=== PATIENT | female | born 1950 | race Caucasian/White ===

== ENCOUNTER 2017-08-06 03:57 | Inpatient (IN) | payer MEDICARE, OTHER ==
[2017-08-06] VITALS (25 sets, daily range): BP systolic 87–144; BP diastolic 51–88
[~2017-08-06] VITALS: Ht 162.6 cm; Wt 62.4 kg
[2017-08-06 04:49] LABS: BASOPHILS % (AUTO) 0 % (0-10); EOSINOPHILS % (AUTO) 0 % (0-10); LYMPHOCYTES # (AUTO) 0.5 X 10^3 (1.0-4.0); LYMPHOCYTES % (AUTO) 4 % (12-44); MEAN CORPUSCULAR HEMOGLOBIN 30 PG (25-34); MEAN CORPUSCULAR HGB CONC 33 G/DL (32-36); MEAN CORPUSCULAR VOLUME 90 FL (80-99); MEAN PLATELET VOLUME 10.7 FL (7.4-10.4); MONOCYTES # (AUTO) 0.8 X 10^3 (0.0-1.0); MONOCYTES % (AUTO) 6 % (0-12); NEUTROPHILS # (AUTO) 12.1 X 10^3 (1.8-7.8); NEUTROPHILS % (AUTO) 90 % (42-75); PLATELET COUNT 246 10^3/uL (130-400); RED BLOOD COUNT 4.59 10^6/uL (4.35-5.85); WHITE BLOOD COUNT 13.4 10^3/uL (4.3-11.0)
[2017-08-06] MEDS ORDERED: IBUPROFEN 800 MG (MOTRIN) TAB PO ONE ×2 (05:00→05:15)
[2017-08-06] MEDS ORDERED: RT-ALBUTEROL/IPRATROPIUM 3 ML (DUONEB) VIAL INH PRN (05:15)
[2017-08-06 05:25] LABS: ANION GAP 12 MMOL/L (5-14); BLOOD UREA NITROGEN 10 MG/DL (7-18); BUN/CREATININE RATIO 14; CALCIUM 9.2 MG/DL (8.5-10.1); CARBON DIOXIDE 23 MMOL/L (21-32); CHLORIDE 101 MMOL/L (98-107); CREATININE SERUM 0.69 MG/DL (0.60-1.30); GFR ESTIMATED > 60; GLUCOSE 107 MG/DL (70-105); MAGNESIUM 1.5 MG/DL (1.8-2.4); PHOSPHORUS 1.9 MG/DL (2.3-4.7); POTASSIUM 3.4 MMOL/L (3.6-5.0); SODIUM 136 MMOL/L (135-145)
[2017-08-06] MEDS: KCL 20 MEQ TAB (K-DUR) PO SCH (05:31)
[2017-08-06] MEDS: MAGNESIUM 1 GM/100 ML IVPB 100 ML IV SCH ×2 (05:31→08:05)
[2017-08-06] MEDS: POTASSIUM CL 10MEQ/50ML IVPB 50 ML IV SCH ×7 (05:31→13:42)
[2017-08-06] MEDS: RT-ALBUTEROL/IPRATROPIUM 3 ML (DUONEB) VIAL INH SCH ×5 (06:00→22:32)
[2017-08-06 06:18] LABS: ABG BASE EXCESS 1.4 MMOL/L (-2.5-2.5); ABG HCO3 25 MMOL/L (23-27); ABG OXYGEN SATURATION 95 % (94-100); ABG PCO2 33 MMHG (35-45); ABG PH 7.48 (7.37-7.43); ABG PO2 60 MMHG (79-93); ABG TCO2 25.7 MMOL/L (21.0-31.0)
[2017-08-06 06:19] LABS: ALLENS TEST YES-POS; PATIENT TEMP 98.1
--- NOTE | 2017-08-06 06:42 | Pulmonary Consultation ---
History of Present Illness History of Present Illness Date of Consultation 08/06/17 06:36 Time Seen by Provider: 06:37 Date of Admission History of Present Illness 67yo with hx of COPD transferred here from [facility] secondary to severe COPDAE and acute respiratory failure. Pt has been requiring BiPAP through the night. Allergies and Home Medications Allergies Coded Allergies: No Known Drug Allergies (Unverified , 08/06/17) Past Lpxpswt-Ueoblz-Eejawx Hx Patient Social History Alcohol Use: Occasionally Uses Alcohol Beverage of Choice: Beer Recreational Drug Use: No Smoking Status: Current Everyday Smoker Type Used: Cigarettes Recent Foreign Travel: No Contact w/Someone Who Travel: No Recent Infectious Disease Expo: No Recent Hopitalizations: No Seasonal Allergies Seasonal Allergies: No Surgeries History of Surgeries: No Respiratory History of Respiratory Disorde: Yes Respiratory Disorders: COPD Currently Using CPAP: No Currently Using BIPAP: No Cardiovascular History of Cardiac Disorders: No Neurological History of Neurological Disord: No Reproductive System Sexually Transmitted Disease: No HIV/AIDS: No Genitourinary History of Genitourinary Disor: No Gastrointestinal History of Gastrointestinal Di: No Musculoskeletal History of Musculoskeletal Dis: No Endocrine History of Endocrine Disorders: No HEENT History of HEENT Disorders: No Cancer History of Cancer: No Psychosocial History of Psychiatric Problem: No Integumentary History of Skin or Integumenta: No Blood Transfusions History of Blood Disorders: No Adverse Reaction to a Blood Tr: No Review of Systems Time Seen by Provider: 06:54 Constitutional: Sweats, Weakness, Malaise, No: Fever, Chills, Other Respiratory: Cough, Shortness of breath, SOB with excertion, Wheezing, Sputum Neurological: Weakness, Confusion Exam Exam Vital Signs Date Time Temp Pulse Resp B/P (MAP) Pulse Ox O2 Delivery O2 Flow Rate FiO2 08/06/17 06:12 109 26 92 08/06/17 06:00 119 26 109/78 (88) 93 NIV Bilevel 21.00 08/06/17 05:00 114 23 89 NIV Bilevel 21.00 08/06/17 04:45 107 30 128/72 (90) 91 NIV Bilevel 21.00 08/06/17 04:30 112 33 133/85 (101) 91 NIV Bilevel 21.00 08/06/17 04:15 124 41 129/83 (98) 92 NIV Bilevel 21.00 08/06/17 04:06 114 35 92 21.00 08/06/17 04:06 114 97 21 08/06/17 04:00 98.8 109 30 139/88 (105) 97 NIV Bilevel 21.00 08/06/17 04:00 97 NIV Bilevel 21 General Appearance: Anxious, Moderate Distress, Thin Neck: Normal Inspection, Non Tender, Supple Respiratory: Accessory Muscle Use, Decreased Breath Sounds, Respiratory Distress, Wheezing Cardiovascular: No Edema, No JVD, No Murmur, Tachycardia Capillary Refill: Less Than 3 Seconds Gastrointestinal: non tender, soft, no organomegaly, no pulsatile mass Extremity: Normal Capillary Refill, Normal Inspection, Non Tender Neurologic/Psychiatric: Alert Skin: Normal Color, Warm/Dry Lymphatic: No Adenopathy Results Lab Laboratory Tests 08/06/17 04:30 Assessment/Plan Assessment/Plan COPDAE - Failed out patient tx with steroids and zpack -Solumedrol IV Q6 40mg -SVNs Q4 Acute respiratory failure Leukocytosis -probably secondary to outpatient steroids r/o infection - -Check LA -Add Zosyn and joy culture -Check influenza swab Tobacco dependance -Education Sinus tach and hypotension secondary to dehydration -500cc NS bolus -IVF 150cc/hr Hypokalemia, hypomag -replace 255 Clinical Quality Measures DVT/VTE Risk/Contraindication: Risk Factor Score Per Nursin RFS Level Per Nursing on Admit: 3=High BAILEY SOTOMAYOR DO Aug 06, 2017 06:41
[2017-08-06] MEDS ORDERED: NS IV 500 ML 500 ML IV SCH (06:44)
[2017-08-06] MEDS ORDERED: KCL 20 MEQ TAB (K-DUR) PO NR (06:49)
[2017-08-06] MEDS ORDERED: INFLUENZA TRIvalent 2017-2018 0.5 ML/45 MCG SYR IM ONE (07:30)
[2017-08-06] MEDS: NS IV 1000 ML 1,000 ML IV SCH ×3 (07:33→21:39)
[2017-08-06] MEDS: methylPREDNISolone 40 MG/ML (Solu-MEDROL) VIAL IV SCH ×3 (07:35→17:41)
--- NOTE | 2017-08-06 08:07 | Diagnostic Imaging Report ---
Upright portable radiograph of the chest. INDICATION: Dyspnea. FINDINGS: The lungs appear hyperinflated but clear. The heart size is normal. No effusion or pneumothorax. The mediastinum and yair appear unremarkable. There is central silhouette in the breast area bilaterally, may relate to breast implants. IMPRESSION: Hyperinflated clear lungs. Dictated by: Dictated on workstation # [id number]
[2017-08-06 08:14] LABS: BILIRUBIN,URINE NEGATIVE (NEGATIVE); KETONES,URINE NEGATIVE (NEGATIVE); LEUKOCYTE ESTERASE ,URINE NEGATIVE (NEGATIVE); NITRITE,URINE NEGATIVE (NEGATIVE); PH,URINE 6 (5-9); PROTEIN,URINE NEGATIVE (NEGATIVE); UROBILINOGEN,URINE NORMAL (NORMAL)
[2017-08-06] MEDS: PIPERACILLIN SODIUM/TAZOBACTAM 4.5 GM in NS (IVPB) 100 ML IV SCH ×2 (08:24→15:56)
[2017-08-06] MEDS ORDERED: MONT10TA24 PO (09:07)
[2017-08-06] MEDS ORDERED: FLUT1DIS26 INH (09:07)
[2017-08-06] MEDS ORDERED: AZIT250T12 PO (09:07)
[2017-08-06] MEDS ORDERED: RT-ALBUINH INH (09:07)
[2017-08-06] MEDS ORDERED: PRD20T PO (09:07)
[2017-08-06] MEDS ORDERED: ALBU2.5V4 NEB (09:07)
[2017-08-06] MEDS ORDERED: IBUPROFEN 600 MG (MOTRIN) TAB PO PRN (11:00)
--- NOTE | 2017-08-06 11:45 | History & Physical-Hospitalist ---
HPI History of Present Illness: HPI/Chief Complaint CC: SOB HPI: This is a 67 [address] pt [address] Butterfield that was recently seen in [place] ER for AECOPD 2 days ago and continues to smoke. Pt went to ER again last night with hypoxemia at 60 requiring Bi-PAP and transfer to [facility]. Pt has tolerated biPAP well. 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 Villeda was suggested. Patient Interview: Pt states the fluids are working and she has to urinate Pt confirms Dr. Butterfield as PCP Physical exam stable. Scribed by Natividad Aparicio under direct supervision of Dr. Guillermina Rosenberg. Source: patient Exam Limitations: clinical condition (dyspneic) Date Seen 08/06/17 Time Seen by Provider: 10:45 Attending Physician Guillermina Rosenberg DO PCP Cain Butterfield MD Referring Physician Date of Admission Aug 06, 2017 at 04:05 Home Medications & Allergies Home Medications Reviewed patient Home Medication Reconciliation Form Allergies Allergies Coded Allergies No Known Drug Allergies (Vpsftqmskv99/1/17) Past Jvnqpzb-Leptir-Szvilv Hx Patient Social History Alcohol Use: Occasionally Uses Alcohol Beverage of Choice: Beer Recreational Drug Use: No Smoking Status: Current Everyday Smoker Type Used: Cigarettes Physical Abuse Screen: No Sexual Abuse: No Recent Foreign Travel: No Contact w/other who traveled: No Recent Hopitalizations: No Recent Infectious Disease Expo: No Seasonal Allergies Seasonal Allergies: No Surgeries No Respiratory Yes COPD Currently Using CPAP: No Currently Using BIPAP: No Cardiovascular No Neurological No Reproductive System Sexually Transmitted Disease: No HIV/AIDS: No Genitourinary No Gastrointestinal No Musculoskeletal No Endocrine History of Endocrine Disorders: No HEENT History of HEENT Disorders: No Cancer No Psychosocial History of Psychiatric Problem: No Integumentary History of Skin or Integumenta: No Blood Transfusions History of Blood Disorders: No Adverse Reaction to a Blood Tr: No Review of Systems ROS-Unable to Obtain: unable to ascertain due to severe dyspnea off biPAP Constitutional: see HPI Physical Exam Physical Exam Vital Signs Vital Sign - Last 12Hours 08/06/17 04:00 Temp 98.8 Pulse 109 Resp 30 B/P (MAP) 139/88 (105) Pulse Ox 97 O2 Delivery NIV Bilevel O2 Flow Rate 21.00 FiO2 21 Capillary Refill : Less Than 3 Seconds General Appearance: WD/WN, Mild Distress (due to dyspnea) Eyes: Bilateral Eye Normal Inspection, Bilateral Eye PERRL HEENT: PERRL/EOMI, Normal ENT Inspection, Pharynx Normal Neck: Full Range of Motion, Normal Inspection, Non Tender, Supple, Carotid Bruit Respiratory: Chest Non Tender, Accessory Muscle Use, Crackles, Decreased Breath Sounds, Respiratory Distress, Wheezing Cardiovascular: Regular Rate, Rhythm, No Edema, No Gallop, No JVD, No Murmur, Normal Peripheral Pulses, Tachycardia Gastrointestinal: Normal Bowel Sounds, No Organomegaly, No Pulsatile Mass, Non Tender, Soft Back: Normal Inspection, No CVA Tenderness, No Vertebral Tenderness Extremity: Normal Capillary Refill, Normal Inspection, Normal Range of Motion, Non Tender, No Calf Tenderness, No Pedal Edema Neurologic/Psychiatric: Alert, Oriented x3, No Motor/Sensory Deficits, Normal Mood/Affect Skin: Normal Color, Warm/Dry Lymphatic: No Adenopathy Results Results/Procedures Lab Laboratory Tests 08/06/17 04:30 Assessment/Plan Admission Diagnosis Assessment: Acute respiratory failure requiring noninvasive ventilation with hypoxemia 60 at outside hospital in [place] Current smoker Failed COPD exacerbation treatment at home from 3 days ago Leukocytosis Assessment and Plan Plan: Villeda if needed ICU for biPAP Ventilator if declines on biPAP Home meds Smoking cessation Diagnosis/Problems Diagnosis/Problems (1) Respiratory failure, acute Status: Acute Qualifiers: Qualified Codes: J96.01 - Acute respiratory failure with hypoxia (2) COPD (chronic obstructive pulmonary disease) Status: Chronic Qualifiers: Qualified Codes: J44.1 - Chronic obstructive pulmonary disease with (acute) exacerbation (3) Smoker Status: Chronic Clinical Quality Measures DVT/VTE Risk/Contraindication: Risk Factor Score Per Nursin RFS Level Per Nursing on Admit: 3=High GUILLERMINA ROSENBERG DO Aug 06, 2017 11:45
[2017-08-06] MEDS: IBUPROFEN 600 MG (MOTRIN) TAB PO SCH ×2 (12:45→17:41)
[2017-08-06] MEDS: morphine INJ 4 MG/ML 1 ML (VIAL/SYRINGE) IVP PRN ×2 (14:35→20:17)
[2017-08-06] MEDS: RT-ADVAIR HFA 115/21 MCG PER PUFF IH SCH (19:00)
[2017-08-06] MEDS: MONTELUKAST 10 MG (SINGULAIR) TAB PO SCH (19:45)
[2017-08-07] VITALS (18 sets, daily range): BP systolic 86–163; BP diastolic 50–98
[2017-08-07] MEDS: IBUPROFEN 600 MG (MOTRIN) TAB PO SCH ×5 (00:27→23:36)
[2017-08-07] MEDS: PIPERACILLIN SODIUM/TAZOBACTAM 4.5 GM in NS (IVPB) 100 ML IV SCH ×4 (00:35→21:51)
[2017-08-07] MEDS: methylPREDNISolone 40 MG/ML (Solu-MEDROL) VIAL IV SCH ×5 (00:39→23:35)
[2017-08-07] MEDS: NS IV 1000 ML 1,000 ML IV SCH ×3 (02:45→11:10)
[2017-08-07] MEDS: RT-ALBUTEROL/IPRATROPIUM 3 ML (DUONEB) VIAL INH SCH ×6 (03:05→22:00)
[2017-08-07 04:26] LABS: BASOPHILS % (AUTO) 0 % (0-10); EOSINOPHILS % (AUTO) 0 % (0-10); LYMPHOCYTES # (AUTO) 0.8 X 10^3 (1.0-4.0); LYMPHOCYTES % (AUTO) 11 % (12-44); MEAN CORPUSCULAR HEMOGLOBIN 30 PG (25-34); MEAN CORPUSCULAR HGB CONC 33 G/DL (32-36); MEAN CORPUSCULAR VOLUME 91 FL (80-99); MEAN PLATELET VOLUME 10.8 FL (7.4-10.4); MONOCYTES # (AUTO) 0.6 X 10^3 (0.0-1.0); MONOCYTES % (AUTO) 8 % (0-12); NEUTROPHILS % (AUTO) 82 % (42-75); PLATELET COUNT 223 10^3/uL (130-400); RED BLOOD COUNT 3.93 10^6/uL (4.35-5.85); RED CELL DISTRIBUTION WIDTH 14.5 % (10.0-14.5); WHITE BLOOD COUNT 7.4 10^3/uL (4.3-11.0)
[2017-08-07 04:48] LABS: ANION GAP 8 MMOL/L (5-14); BLOOD UREA NITROGEN 10 MG/DL (7-18); BUN/CREATININE RATIO 16; CALCIUM 8.2 MG/DL (8.5-10.1); CARBON DIOXIDE 21 MMOL/L (21-32); CHLORIDE 111 MMOL/L (98-107); CREATININE SERUM 0.64 MG/DL (0.60-1.30); GFR ESTIMATED > 60; GLUCOSE 129 MG/DL (70-105); MAGNESIUM 1.8 MG/DL (1.8-2.4); PHOSPHORUS 2.7 MG/DL (2.3-4.7); SODIUM 140 MMOL/L (135-145)
[2017-08-07] MEDS: KCL 20 MEQ TAB (K-DUR) PO SCH (05:19)
[2017-08-07] MEDS: MAGNESIUM 1 GM/100 ML IVPB 100 ML IV SCH (05:19)
[2017-08-07] MEDS: POTASSIUM CL 10MEQ/50ML IVPB 50 ML IV SCH (05:19)
[2017-08-07] MEDS: RT-ADVAIR HFA 115/21 MCG PER PUFF IH SCH ×2 (06:52→18:41)
--- NOTE | 2017-08-07 09:07 | Diagnostic Imaging Report ---
INDICATION: Shortness of breath. COMPARISON: 08/06/2017. FINDINGS: Single view of the chest demonstrates hyperinflation compatible with COPD. Lungs remain clear. There is no pneumothorax or obvious infiltrate. The heart is normal. No pulmonary edema. IMPRESSION: COPD without infiltrate. Dictated by: Dictated on workstation # [id number]
--- NOTE | 2017-08-07 13:12 | Progress Note-Hospitalist ---
Progress Note HPI/CC on Admission CC: SOB HPI: This is a 67 [address]WF pt of [address] Butterfield that was recently seen in [place] ER for AECOPD 2 days ago and continues to smoke. Pt went to ER again last night with hypoxemia at 60 requiring Bi-PAP and transfer to [facility]. Pt has tolerated biPAP well. 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 Villeda was suggested. Patient Interview: Pt states the fluids are working and she has to urinate Pt confirms Dr. Butterfield as PCP Physical exam stable. Scribed by Natividad Aparicio under direct supervision of Dr. Guillermina Rosenberg. Progress Notes/Assess & Plan Date Seen 08/07/17 Time Seen by Provider: 12:00 Admission Dx/Process Assessment: Acute respiratory failure requiring noninvasive ventilation with hypoxemia 60 at outside hospital in [place] Current smoker Failed COPD exacerbation treatment at home from 3 days ago Leukocytosis Diagonsis/Assessment & Plan Patient thinks she is not doing well but nurse thinks she is doing better as I also thinks she is doing better. Severity of the COPD is profound and will need home O2 and absolute smoking cessation but unclear if she will be able to do that Wbc is nl today Moving to floor but biPAP at night Increased dyspnea with exertion AFVSS, pleasant, chronically ill, improved, on 2L/min NC RRR, diminished BS all alvarez no wheezing noted No edema Laboratory Tests 08/07/17 04:12 Assessment: Acute respiratory failure requiring noninvasive ventilation with hypoxemia 58 at outside hospital in [place] now improved and maintained on O2 BNC but still requires biPAP at night and likely will need home O2 Current smoker Failed COPD exacerbation treatment at home from 3 days ago Leukocytosis resolved Plan: Home meds Smoking cessation IV steroids Move to floor Very severe COPD Diagnosis/Problems Diagnosis/Problems (1) Respiratory failure, acute Status: Acute Qualifiers: Qualified Codes: J96.01 - Acute respiratory failure with hypoxia (2) COPD (chronic obstructive pulmonary disease) Status: Chronic Qualifiers: Qualified Codes: J44.1 - Chronic obstructive pulmonary disease with (acute) exacerbation (3) Smoker Status: Chronic GUILLERMINA ROSENBERG DO Aug 07, 2017 13:12
[2017-08-07] MEDS: morphine INJ 4 MG/ML 1 ML (VIAL/SYRINGE) IVP PRN ×2 (19:34→23:36)
[2017-08-07] MEDS: MONTELUKAST 10 MG (SINGULAIR) TAB PO SCH (21:16)
[2017-08-07] MEDS: ALPRAZolam 0.25 MG (XANAX) TAB PO PRN (21:51)
[2017-08-08] VITALS: BP 132/62
[2017-08-08] MEDS: RT-ALBUTEROL/IPRATROPIUM 3 ML (DUONEB) VIAL INH SCH ×6 (02:18→22:44)
[2017-08-08] MEDS: ALPRAZolam 0.25 MG (XANAX) TAB PO PRN ×3 (02:27→21:44)
[2017-08-08 04:00] VITALS: BP 131/72
[2017-08-08 05:05] LABS: BASOPHILS % (AUTO) 0 % (0-10); EOSINOPHILS % (AUTO) 0 % (0-10); LYMPHOCYTES # (AUTO) 1.1 X 10^3 (1.0-4.0); LYMPHOCYTES % (AUTO) 13 % (12-44); MEAN CORPUSCULAR HEMOGLOBIN 30 PG (25-34); MEAN CORPUSCULAR HGB CONC 32 G/DL (32-36); MEAN CORPUSCULAR VOLUME 93 FL (80-99); MEAN PLATELET VOLUME 10.8 FL (7.4-10.4); MONOCYTES # (AUTO) 0.6 X 10^3 (0.0-1.0); MONOCYTES % (AUTO) 7 % (0-12); NEUTROPHILS # (AUTO) 6.7 X 10^3 (1.8-7.8); NEUTROPHILS % (AUTO) 81 % (42-75); PLATELET COUNT 224 10^3/uL (130-400); RED BLOOD COUNT 3.66 10^6/uL (4.35-5.85); RED CELL DISTRIBUTION WIDTH 14.7 % (10.0-14.5); WHITE BLOOD COUNT 8.4 10^3/uL (4.3-11.0)
[2017-08-08 05:28] LABS: ALANINE AMINOTRANSFERASE 39 U/L (0-55); ALBUMIN 3.1 GM/DL (3.2-4.5); ANION GAP 9 MMOL/L (5-14); ASPARTATE AMINO TRANSFERASE 33 U/L (5-34); BILIRUBIN,TOTAL 0.5 MG/DL (0.1-1.0); BLOOD UREA NITROGEN 14 MG/DL (7-18); BUN/CREATININE RATIO 21; CALCIUM 8.3 MG/DL (8.5-10.1); CARBON DIOXIDE 24 MMOL/L (21-32); CHLORIDE 108 MMOL/L (98-107); CREATININE SERUM 0.66 MG/DL (0.60-1.30); GFR ESTIMATED > 60; GLUCOSE 124 MG/DL (70-105); POTASSIUM 3.9 MMOL/L (3.6-5.0); SODIUM 141 MMOL/L (135-145); TOTAL PROTEIN 5.6 GM/DL (6.4-8.2)
[2017-08-08] MEDS: PIPERACILLIN SODIUM/TAZOBACTAM 4.5 GM in NS (IVPB) 100 ML IV SCH ×3 (05:49→21:44)
[2017-08-08] MEDS: IBUPROFEN 600 MG (MOTRIN) TAB PO SCH ×4 (05:49→23:46)
[2017-08-08] MEDS: methylPREDNISolone 40 MG/ML (Solu-MEDROL) VIAL IV SCH ×4 (05:50→23:46)
[2017-08-08] MEDS: RT-ADVAIR HFA 115/21 MCG PER PUFF IH SCH ×2 (07:01→18:55)
--- NOTE | 2017-08-08 11:31 | Progress Note-Hospitalist ---
Progress Note HPI/CC on Admission CC: SOB HPI: This is a 67 yoWF pt of Dr. Butterfield that was recently seen in [place] ER for AECOPD 2 days ago and continues to smoke. Pt went to ER again last night with hypoxemia at 60 requiring Bi-PAP and transfer to [facility]. Pt has tolerated biPAP well. 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 Villeda was suggested. Patient Interview: Pt states the fluids are working and she has to urinate Pt confirms Dr. Butterfield as PCP Physical exam stable. Scribed by Natividad Aparicio under direct supervision of Dr. Guillermina Rosenberg. Progress Notes/Assess & Plan Date Seen 08/08/17 Time Seen by Provider: 11:00 Admission Dx/Process Assessment: Acute respiratory failure requiring noninvasive ventilation with hypoxemia 60 at outside hospital in [place] Current smoker Failed COPD exacerbation treatment at home from 3 days ago Leukocytosis Diagonsis/Assessment & Plan Pt doing much better but barely she states biPAP makes her nervous so I gave her Xanax and that helped Needs Home O2 Smoking cessation will be required Severe COPD AFVSS, pleasant, chronically ill, improved, on 2L/min NC sitting in chair and family at bedside RRR, diminished BS all alvarez no wheezing noted but better air movement No edema Assessment: Acute respiratory failure requiring noninvasive ventilation with hypoxemia 60 at outside hospital in [place] now improved and maintained on O2 BNC but still requires biPAP at night and likely will need home O2 Current smoker Failed COPD exacerbation treatment at home from 5 days ago Leukocytosis resolved Plan: Home meds Smoking cessation IV steroids Move to floor Very severe COPD Diagnosis/Problems Diagnosis/Problems (1) Respiratory failure, acute Status: Acute Qualifiers: Qualified Codes: J96.01 - Acute respiratory failure with hypoxia (2) COPD (chronic obstructive pulmonary disease) Status: Chronic Qualifiers: Qualified Codes: J44.1 - Chronic obstructive pulmonary disease with (acute) exacerbation (3) Smoker Status: Chronic GUILLERMINA ROSENBERG DO Aug 08, 2017 11:31
[2017-08-08 12:00] VITALS: BP 135/67
[2017-08-08] MEDS ORDERED: INFLUENZA TRIvalent 2017-2018 0.5 ML/45 MCG SYR IM ONE (14:03)
[2017-08-08 15:40] VITALS: BP 140/73
[2017-08-08 19:18] VITALS: BP 148/72
[2017-08-08] MEDS: morphine INJ 4 MG/ML 1 ML (VIAL/SYRINGE) IVP PRN (19:36)
[2017-08-08] MEDS: MONTELUKAST 10 MG (SINGULAIR) TAB PO SCH (21:44)
[2017-08-09 00:41] VITALS: BP 142/78
[2017-08-09] MEDS: ALPRAZolam 0.25 MG (XANAX) TAB PO PRN (01:43)
[2017-08-09] MEDS: RT-ALBUTEROL/IPRATROPIUM 3 ML (DUONEB) VIAL INH SCH ×3 (03:06→11:27)
[2017-08-09] MEDS: PIPERACILLIN SODIUM/TAZOBACTAM 4.5 GM in NS (IVPB) 100 ML IV SCH (06:16)
[2017-08-09] MEDS: methylPREDNISolone 40 MG/ML (Solu-MEDROL) VIAL IV SCH ×2 (06:16→14:57)
[2017-08-09] MEDS: IBUPROFEN 600 MG (MOTRIN) TAB PO SCH (06:16)
[2017-08-09] MEDS: RT-ADVAIR HFA 115/21 MCG PER PUFF IH SCH (07:50)
[2017-08-09] MEDS ORDERED: PRED10TA22 PO (11:23)
[2017-08-09] MEDS ORDERED: CEFD300C3 PO (11:23)
[2017-08-09] MEDS ORDERED: RT-ALBUINH IH (11:23)
[2017-08-09] MEDS ORDERED: ALBU2.5V4 NEB (11:23)
[2017-08-09 12:09] VITALS: BP 154/74
[2017-08-09 14:15] VITALS: BP 154/74
--- NOTE | 2017-08-09 16:50 | Discharge Summary-Hospitalist ---
Diagnosis/Chief Complaint Date of Admission Aug 06, 2017 at 04:05 Date of Discharge Aug 09, 2017 at 14:15 Discharge Date: Aug 09, 2017 Admission Diagnosis Assessment: Acute respiratory failure requiring noninvasive ventilation with hypoxia 60 at outside hospital in [place] Current smoker Failed COPD exacerbation treatment at home from 3 days ago Leukocytosis Discharge Diagnosis COPD exacerbation (1) Respiratory failure, acute Status: Acute (2) COPD (chronic obstructive pulmonary disease) Status: Chronic (3) Smoker Status: Chronic Discharge Summary Consultations Pulm: Dr Celeste Discharge Physical Examination Allergies: Coded Allergies: No Known Drug Allergies (Unverified , 08/06/17) Vitals & I&Os Vital Signs Date Time Temp Pulse Resp B/P (MAP) Pulse Ox O2 Delivery O2 Flow Rate FiO2 08/09/17 14:15 88 18 154/74 95 Nasal Cannula 2.00 08/09/17 12:09 97.1 08/07/17 00:00 21 General Appearance: Alert, Oriented X3 Respiratory: Clear to Auscultation Cardiovascular: Regular Rate Neuro: Normal Speech Psych/Mental Status: Mental Status NL Hospital Course Pt admitted from outside facility to ICU for acute respiratory failure due to COPD exacerbation. She responded well to IV steroids and inhalers. She reports that she was out of her medications as her previous PCP is no longer practicing and thus has not been compliant with her medicines as she has not been able to get refills. She was discharged home with refills of her current medicines, a prednisone taper, and to complete her antibiotic course as an outpatient. Labs (last 24 hrs) Microbiology 08/06/17 Blood Culture - Preliminary, Resulted No growth 08/06/17 Influenza Types A,B Antigen (KRISTINA) - Final, Complete Discharge Home Medications: Active Scripts Active Ventolin Hfa (Albuterol Sulfate) 1 Puff Puff 2 Puff IH Q4H 30 Days 1 PUFF = 90 MCG Cefdinir 300 Mg Capsule 300 Mg PO BID 5 Days Prednisone 10 Mg Tab.ds.pk 10 Mg PO DAILY Take 6 tabs(60mg)daily,decrease by 1 tab(10mg)every other day. Albuterol Sulfate 2.5 Mg/3 Ml Vial.neb 2.5 Mg NEB Q4H PRN Reported Montelukast Sodium 10 Mg Tablet 10 Mg PO HS Advair 250-50 Diskus (Fluticasone/Salmeterol) 1 Each Blst.w.dev 1 Puff INH DAILY Instructions to patient/family Please see electronic discharge instructions given to patient. Clinical Quality Measures DVT/VTE Risk/Contraindication: Risk Factor Score Per Nursin RFS Level Per Nursing on Admit: 3=High Copy Copies To 1: STANISLAV SUERO MD Problem Qualifiers (1) Respiratory failure, acute: Respiratory failure complication: hypoxia Qualified Codes: J96.01 - Acute respiratory failure with hypoxia (2) COPD (chronic obstructive pulmonary disease): COPD type: COPD with acute exacerbation Qualified Codes: J44.1 - Chronic obstructive pulmonary disease with (acute) exacerbation NATHANIEL DOLL MD Aug 09, 2017 16:50
== END 2017-08-09 14:15 | disposition home or self-care (01) | DRG 189 ==
LOC: ICU 04:05 → 4TH 08-07 15:35
PROVIDERS: ADMIT Internal Medicine; ATTEND Internal Medicine
DX: J96.01 Acute respiratory failure with hypoxia (principal); J44.1 Chronic obstructive pulmonary disease with (acute) exacerbation; F17.210 Nicotine dependence, cigarettes, uncomplicated; E86.0 Dehydration; E87.6 Hypokalemia; E83.42 Hypomagnesemia; D72.829 Elevated white blood cell count, unspecified; T38.0X5A Adverse effect of glucocorticoids and synthetic analogues, initial encounter; Z23 Encounter for immunization
CPT/HCPCS: 36415; 71010; 80048; 80053; 81000; 82805; 83605; 83735; 83880; 84100; 85025; 87040; 87070; 87077; 87081; 87205; 87804; 94640; 94660; 94664; 94760; 94761

== ENCOUNTER → 2017-09-24 | Outpatient (CLI) | payer MEDICARE, OTHER ==
[~2017-09-24] MED LIST: ALBU2.5V4 NEB; AZIT250T12 PO; CEFD300C3 PO; FLUT1DIS26 INH; MONT10TA24 PO; PRD20T PO; PRED10TA22 PO; RT-ALBUINH IH; RT-ALBUINH INH; RT-ALBUTEROL SULF 2.5 MG/3 ML PRE-MIX VIAL INH ONE
== END ==
LOC: RT 09:37
PROVIDERS: ATTEND Nurse Practitioner Family
DX: J44.9 Chronic obstructive pulmonary disease, unspecified (principal); J96.90 Respiratory failure, unspecified, unspecified whether with hypoxia or hypercapnia; Z72.0 Tobacco use
CPT/HCPCS: 94060; 94726; 94729

== ENCOUNTER → 2018-08-17 | Outpatient (CLI) | payer MEDICARE, OTHER ==
[~2018-08-17] MED LIST changes: +IOHEXOL 350 MG/ML 100 ML (OMNIPAQUE 350) VIAL IV ONE; +NS 100 ML (IVPB) BAG IV ONE; +RECEIVED CONTRAST (Hold Metformin) IV SCH; -RT-ALBUTEROL SULF 2.5 MG/3 ML PRE-MIX VIAL INH ONE
[2018-08-17 09:55] LABS: BUN/CREATININE RATIO 8; CREATININE SERUM 0.71 MG/DL (0.60-1.30); GFR ESTIMATED > 60
--- NOTE | 2018-08-17 11:44 | Diagnostic Imaging Report ---
PROCEDURE: CT chest with contrast only. TECHNIQUE: Multiple contiguous axial images were obtained through the chest after administration of intravenous contrast. INDICATION: Lung mass. FINDINGS: The CT low-dose lung cancer screening exam performed on 04/25/2018 noted a 9 mm nodule in the medial aspect of the right lower lobe. That finding is again evident on this study and does not appear to have changed significantly in size or appearance (image 43 of 64). There was also a 3 mm nodule in the right upper lobe. That finding is difficult to appreciate on this study but does not appear to have changed significantly (Image 9 of 64). There is no other parenchymal lung mass identified. The emphysematous changes seen previously are again evident and no different. There is no sign of failure, pneumonia or pleural effusion to indicate an acute abnormality. The heart size is within normal limits and stable when compared to the prior exam. The aorta is not abnormally dilated and there is no sign of dissection. There is no defect within the pulmonary arteries to indicate a pulmonary embolus. The small mediastinal nodes noted previously appear stable. The thyroid gland was generally unremarkable. There are calcified bilateral breast implants in place. The implants appear to be intact. There is no obvious breast mass. According to our records, the patient has not had a mammogram. If the patient has had a recent (within one year) mammogram elsewhere, then no further imaging will be necessary. If the patient has not had a recent mammogram, then mammography would be recommended for further evaluation. The sections through the upper abdomen failed to show any sign of an acute abnormality. The bone windows show no evidence for fracture or for destructive lesion. IMPRESSION: 1. The 9 mm nodule in the medial aspect of the right lower lobe and the minute nodule in the right apex do not appear to have changed significantly since the prior exam. Most likely, these nodules are benign. Even so, a short-term (6 month) followup low dose CT chest screening exam would be recommended for further evaluation. 2. There is no acute abnormality identified. 3. There are emphysematous changes involving both lungs. 4. There is no obvious breast mass. Recommendations as above. Dictated by: Dictated on workstation # [id number]
== END ==
LOC: RAD 09:19
PROVIDERS: ATTEND Nurse Practitioner Family
DX: J43.9 Emphysema, unspecified (principal); R91.8 Other nonspecific abnormal finding of lung field; Z98.82 Breast implant status
CPT/HCPCS: 36415; 71260; 82565; 84520

== ENCOUNTER 2018-11-07 11:49 | Emergency (ER) | payer MEDICARE, OTHER ==
[~2018-11-07] VITALS: Ht 162.6 cm; Wt 54.9 kg
[~2018-11-07 11:49] MED LIST changes: -IOHEXOL 350 MG/ML 100 ML (OMNIPAQUE 350) VIAL IV ONE; -NS 100 ML (IVPB) BAG IV ONE; -RECEIVED CONTRAST (Hold Metformin) IV SCH
--- NOTE | 2018-11-07 12:02 | ED Respiratory ---
General Chief Complaint: Respiratory Problems Stated Complaint: SOB Nursing Triage Note: ARRIVED VIA EMS FROM HOME WITH INCREASED SOA OVER LAST COUPLE OF DAYS. WAS SEEN AT THE WALK IN CLINIC A WEEK AGO AND FINSIHED A STEROID PACK. COMPLAINS OF CHEST PAIN WITH DEEP BREATH. Source: patient, EMS Exam Limitations: no limitations History of Present Illness Date Seen by Provider: Nov 07, 2018 Time Seen by Provider: 11:52 Timing/Duration: getting worse Severity: moderate Modifying Factors: Improves With Activity (Worsens), Improves With Oxygen ( Improves), Improves With Rest (improves) Associated Symptoms: chest pain/soreness (With deep breath intermittent over the past 1 week), cough; No dizziness, No fever/chills; shortness of breath 68-year-old female with history of COPD on 2 L/m oxygen at nighttime presents with worsening shortness of breath over the past 1 week. Last Wednesday she was seen at an urgent care and treated with an injectable steroid, given a prescription for by mouth steroids. Over the past 1 week she has noticed her productive cough has cleared up, however she is requiring 2 L/m of oxygen during the day having increasing difficulty with walking/dyspnea on exertion. She has chest pain that is sharp, nonradiating, intermittent, present on deep breaths. She notices feeling fatigued/"wiped out". Allergies and Home Medications Allergies Coded Allergies: No Known Drug Allergies (Unverified , 08/06/17) Home Medications Albuterol Sulfate 1 Puff Puff, 2 PUFF IH Q4H 1 PUFF = 90 MCG Prescribed by: NATHANIEL DOLL on 08/09/17 1123 Fluticasone/Salmeterol 1 Each Blst.w.dev, 1 PUFF INH DAILY, (Reported) Montelukast Sodium 10 Mg Tablet, 10 MG PO HS, (Reported) Prednisone 20 Mg Tab, 10 MG PO DAILY Take 6 tabs daily for 2 days, then 4 tabs daily for 2 days, then 2 tabs daily for 2 days, then 1 daily for 2 days then stop Prescribed by: AME OTT on 11/07/18 1327 Prednisone 20 Mg Tab, 10 MG PO DAILY Take 6 tabs daily for 2 days, then 4 tabs daily for 2 days, then 2 tabs daily for 2 days, then 1 daily for 2 days then stop Prescribed by: AME OTT on 11/07/18 1329 Patient Home Medication List Home Medication List Reviewed: Yes Review of Systems Review of Systems Constitutional: No chills, No fever; malaise, weakness Respiratory: cough, dyspnea on exertion; No hemoptysis, No orthopnea; phlegm ( Improving), short of breath; No stridor; wheezing Cardiovascular: see HPI Gastrointestinal: No abdominal pain, No nausea, No vomiting Genitourinary: dysuria, frequency; No hematuria Musculoskeletal: No joint pain, No muscle pain Skin: No change in color, No dryness Psychiatric/Neurological: Anxiety; Denies Numbness, Denies Tremors, Denies Weakness Immunological/Allergic: denies food allergy Past Edmvsag-Olkvsq-Xtmorv Hx Past Med/Social Hx: Reviewed Nursing Past Med/Soc Hx Patient Social History Alcohol Beverage of Choice: Beer Type Used: Cigarettes Recent Foreign Travel: No Contact w/Someone Who Travel: No Recent Infectious Disease Expo: No Recent Hopitalizations: No Seasonal Allergies Seasonal Allergies: No Past Medical History Surgeries: No Respiratory: Yes COPD Currently Using CPAP: No Currently Using BIPAP: No Cardiac: No Neurological: No Sexually Transmitted Disease: No HIV/AIDS: No Genitourinary: No Gastrointestinal: No Musculoskeletal: No Endocrine: No HEENT: No Cancer: No Psychosocial: No Integumentary: No Blood Disorders: No Adverse Reaction/Blood Tranf: No Physical Exam Vital Signs - First Documented 11/07/18 11:49 Temp 97.8 Pulse 92 Resp 16 B/P (MAP) 148/97 (114) Pulse Ox 97 O2 Delivery Nasal Cannula O2 Flow Rate 2.00 Capillary Refill : Less Than 3 Seconds Height: 5'4.00" Weight: 121lbs. 8.0oz. 54.004106cx; 20.8 BMI Method:Stated General Appearance: WD/WN, mild distress (Speaks 5-7 word sentences) HEENT: PERRL/EOMI, normal ENT inspection, pharynx normal Neck: non-tender, normal inspection Respiratory: No accessory muscle use; wheezing (Diffuse Faint expiratory) Cardiovascular: normal peripheral pulses, regular rate, rhythm, no edema, no gallop, no JVD, no murmur Gastrointestinal: normal bowel sounds, non tender, soft, no organomegaly, no pulsatile mass Extremities: normal range of motion, non-tender, normal inspection, no pedal edema, no calf tenderness Neurologic/Psychiatric: no motor/sensory deficits, alert, normal mood/affect, oriented x 3 Skin: normal color, warm/dry Progress/Results/Core Measures Suspected Sepsis Recent Fever Within 48 Hours: No Infection Criteria Present: None (On antibiotics for COPD exacerbation) New/Unexplained Altered Menta: No Sepsis Screen: No Definite Risk SIRS Temperature:97.8 Pulse: 92 Respiratory Rate: 16 Laboratory Tests 11/07/18 11:50: White Blood Count 10.4 Blood Pressure 148 /97 Mean: 114 Laboratory Tests 11/07/18 11:50: Creatinine 0.73, Platelet Count 280, Total Bilirubin 0.5 Results/Orders Lab Results Laboratory Tests Test 11/07/18 11:50 11/07/18 12:14 Range/Units White Blood Count 10.4 4.3-11.0 10^3/uL Red Blood Count 4.87 4.35-5.85 10^6/uL Hemoglobin 14.1 11.5-16.0 G/DL Hematocrit 45 35-52 % Mean Corpuscular Volume 92 80-99 FL Mean Corpuscular Hemoglobin 29 25-34 PG Mean Corpuscular Hemoglobin Concent 32 32-36 G/DL Red Cell Distribution Width 12.6 10.0-14.5 % Platelet Count 280 130-400 10^3/uL Mean Platelet Volume 10.5 H 7.4-10.4 FL Neutrophils (%) (Auto) 48 42-75 % Lymphocytes (%) (Auto) 40 12-44 % Monocytes (%) (Auto) 9 0-12 % Eosinophils (%) (Auto) 1 0-10 % Basophils (%) (Auto) 1 0-10 % Neutrophils # (Auto) 5.0 1.8-7.8 X 10^3 Lymphocytes # (Auto) 4.2 H 1.0-4.0 X 10^3 Monocytes # (Auto) 1.0 0.0-1.0 X 10^3 Eosinophils # (Auto) 0.1 0.0-0.3 10^3/uL Basophils # (Auto) 0.1 0.0-0.1 10^3/uL Sodium Level 143 135-145 MMOL/L Potassium Level 4.2 3.6-5.0 MMOL/L Chloride Level 101 98-107 MMOL/L Carbon Dioxide Level 24 21-32 MMOL/L Anion Gap 18 H 5-14 MMOL/L Blood Urea Nitrogen 18 7-18 MG/DL Creatinine 0.73 0.60-1.30 MG/DL Estimat Glomerular Filtration Rate > 60 BUN/Creatinine Ratio 25 Glucose Level 85 70-105 MG/DL Calcium Level 9.0 8.5-10.1 MG/DL Corrected Calcium 8.8 8.5-10.1 MG/DL Total Bilirubin 0.5 0.1-1.0 MG/DL Aspartate Amino Transf (AST/SGOT) 14 5-34 U/L Alanine Aminotransferase (ALT/SGPT) 17 0-55 U/L Alkaline Phosphatase 89 40-136 U/L Troponin T 11 H <=10 NG/L B-Type Natriuretic Peptide 256.2 H <100.0 PG/ML Total Protein 6.9 6.4-8.2 GM/DL Albumin 4.2 3.2-4.5 GM/DL Urine Color YELLOW Urine Clarity CLEAR Urine pH 7.0 5-9 Urine Specific [place] 1.020 1.016-1.022 Urine Protein NEGATIVE NEGATIVE Urine Glucose (UA) NEGATIVE NEGATIVE Urine Ketones NEGATIVE NEGATIVE Urine Nitrite NEGATIVE NEGATIVE Urine Bilirubin NEGATIVE NEGATIVE Urine Urobilinogen 0.2 NORMAL MG/DL Urine Leukocyte Esterase NEGATIVE NEGATIVE Urine RBC (Auto) NEGATIVE NEGATIVE Urine RBC NONE /HPF Urine WBC NONE /HPF Urine Squamous Epithelial Cells RARE /HPF Urine Crystals NONE /LPF Urine Bacteria NONE /HPF Urine Casts NONE /LPF Urine Mucus NEGATIVE /LPF Urine Culture Indicated NO My Orders Orders - AME OTT MD Cbc With Automated Diff (11/07/18 12:02) Comprehensive Metabolic Panel (11/07/18 12:02) BNP (11/07/18 12:02) Chest 1 View Ap/Pa Only (11/07/18 12:02) Albuterol/Ipra Inhalation Soln (Duoneb I (11/07/18 12:15) Ipratropium 0.02% Neb Solution (Atrovent (11/07/18 12:15) Ekg Tracing (11/07/18 12:02) O2 (11/07/18 12:02) Saline Lock/Iv-Start (11/07/18 12:02) Monitor-Rhythm Ecg Trace Only (11/07/18 12:02) Methylprednisolone Sod Succ (Solu-Medrol (11/07/18 12:15) Svn Small Volume Nebulizer (11/07/18 12:02) Svn Small Volume Nebulizer (11/07/18 12:02) Ua Culture If Indicated (11/07/18 12:17) Lorazepam Injection (Ativan Injection) (11/07/18 13:43) Medications Given in ED Current Medications Medications Dose Ordered Sig/Travis Route Start Time Stop Time Status Last Admin Dose Admin Albuterol/ Ipratropium 3 ml ONCE ONCE INH 11/07/18 12:15 11/07/18 12:16 DC 11/07/18 12:34 3 ML Ipratropium [place] 0.5 mg ONCE ONCE IH 11/07/18 12:15 11/07/18 12:16 DC 11/07/18 12:33 0.5 MG Methylprednisolone Sodium Succinate 125 mg ONCE ONCE IVP 11/07/18 12:15 11/07/18 12:16 DC 11/07/18 12:33 125 MG Vital Signs/I&O 11/07/18 11/07/18 11:49 14:05 Temp 97.8 Pulse 92 80 Resp 16 16 B/P (MAP) 148/97 (114) 134/64 (87) Pulse Ox 97 98 O2 Delivery Nasal Cannula Nasal Cannula O2 Flow Rate 2.00 2.00 Capillary Refill : Less Than 3 Seconds Blood Pressure Mean: 114 Progress Note : Progress Note Patient to surgery on antibiotics for recent COPD exacerbation prescribed per urgent care. Will continue a course of steroids for the next 7 days. Strict return precautions discussed. ECG Initial ECG Impression Date: Nov 07, 2018 Initial ECG Impression Time: 12:23 Initial ECG Rate: 65 Initial ECG Rhythm: Normal Sinus Initial ECG Intervals: Normal Initial ECG Impression: Nonspecific Changes Initial ECG Comparisson: No Previous ECG Available Comment Normal sinus rhythm 60 bpm axis normal intervals no hypertrophy poor R to R progression. No STEMI Departure Impression Primary Impression: COPD (chronic obstructive pulmonary disease) Qualified Codes: J44.0 - Chronic obstructive pulmonary disease with acute lower respiratory infection Disposition: 01 HOME, SELF-CARE Condition: Improved Departure-Patient Inst. Referrals: NO,LOCAL PHYSICIAN (PCP/Family) Primary Care Physician Patient Instructions: Chronic Bronchitis (DC) Scripts Prednisone (Prednisone) 20 Mg Tab 10 MG PO DAILY for Shortness of Breath for 7 Days, #26 TAB 0 Refills Take 6 tabs daily for 2 days, then 4 tabs daily for 2 days, then 2 tabs daily for 2 days, then 1 daily for 2 days then stop Prov: AME OTT MD 11/07/18 Prednisone (Prednisone) 20 Mg Tab 10 MG PO DAILY for 7 Days, #26 TAB 0 Refills Take 6 tabs daily for 2 days, then 4 tabs daily for 2 days, then 2 tabs daily for 2 days, then 1 daily for 2 days then stop Prov: AME OTT MD 11/07/18 AME OTT MD Nov 07, 2018 12:02
[2018-11-07] MEDS ORDERED: LEVO500T80 (12:05)
[2018-11-07] MEDS ORDERED: RT-IPRATROPIUM (ATROVENT) 0.5MG/2.5ML AMP IH ONE (12:15)
[2018-11-07] MEDS ORDERED: RT-ALBUTEROL/IPRATROPIUM 3 ML (DUONEB) VIAL INH ONE (12:15)
[2018-11-07] MEDS ORDERED: methylPREDNISolone 125 MG (Solu-MEDROL) VIAL IVP ONE (12:15)
[2018-11-07 12:23] LABS: BASOPHILS % (AUTO) 1 % (0-10); EOSINOPHILS % (AUTO) 1 % (0-10); HEMATOCRIT 45 % (35-52); HEMOGLOBIN 14.1 G/DL (11.5-16.0); LYMPHOCYTES # (AUTO) 4.2 X 10^3 (1.0-4.0); LYMPHOCYTES % (AUTO) 40 % (12-44); MEAN CORPUSCULAR HEMOGLOBIN 29 PG (25-34); MEAN CORPUSCULAR HGB CONC 32 G/DL (32-36); MEAN CORPUSCULAR VOLUME 92 FL (80-99); MEAN PLATELET VOLUME 10.5 FL (7.4-10.4); MONOCYTES % (AUTO) 9 % (0-12); NEUTROPHILS % (AUTO) 48 % (42-75); PLATELET COUNT 280 10^3/uL (130-400); RED CELL DISTRIBUTION WIDTH 12.6 % (10.0-14.5); WHITE BLOOD COUNT 10.4 10^3/uL (4.3-11.0)
[2018-11-07 12:24] LABS: BASOPHILS # (AUTO) 0.1 10^3/uL (0.0-0.1); EOSINOPHILS # (AUTO) 0.1 10^3/uL (0.0-0.3)
[2018-11-07 12:30] LABS: BILIRUBIN,URINE NEGATIVE (NEGATIVE); CLARITY,URINE CLEAR; COLOR,URINE YELLOW; GLUCOSE, URINE (UA) NEGATIVE (NEGATIVE); KETONES,URINE NEGATIVE (NEGATIVE); NITRITE,URINE NEGATIVE (NEGATIVE); PROTEIN,URINE NEGATIVE (NEGATIVE)
[2018-11-07 12:31] LABS: LEUKOCYTE ESTERASE ,URINE NEGATIVE (NEGATIVE); SQUAMOUS EPITHELIAL CELL,UR RARE /HPF; UROBILINOGEN,URINE 0.2 MG/DL (NORMAL)
[2018-11-07 12:38] LABS: BILIRUBIN,TOTAL 0.5 MG/DL (0.1-1.0); BUN/CREATININE RATIO 25; CARBON DIOXIDE 24 MMOL/L (21-32); CHLORIDE 101 MMOL/L (98-107); CREATININE SERUM 0.73 MG/DL (0.60-1.30); GFR ESTIMATED > 60; GLUCOSE 85 MG/DL (70-105); POTASSIUM 4.2 MMOL/L (3.6-5.0); SODIUM 143 MMOL/L (135-145)
[2018-11-07 12:39] LABS: ALANINE AMINOTRANSFERASE 17 U/L (0-55); ALBUMIN 4.2 GM/DL (3.2-4.5); ALKALINE PHOSPHATASE 89 U/L (40-136); TOTAL PROTEIN 6.9 GM/DL (6.4-8.2)
--- NOTE | 2018-11-07 12:40 | Diagnostic Imaging Report ---
INDICATION: Back pain. FINDINGS: The heart size is normal. There is air-trapping, compatible with COPD. There is no pleural effusion, pneumothorax, or pneumonia. The mediastinum is unremarkable. IMPRESSION: COPD. No acute cardiopulmonary abnormality. Dictated by: Dictated on workstation # [id number]
[2018-11-07] MEDS ORDERED: PRD20T PO ×2 (13:27→13:29)
--- NOTE | 2018-11-07 13:30 | NUR ---
TALKED WITH PT. PT AND FAMILY CONCERNED DUE TO HER INCREASING BACK PAIN. STATES SHE HAS BEEN HAVING BACK PAIN AND HAS BEEN INC OF URINE ONCE. NOTIFIED.
--- NOTE | 2018-11-07 13:38 | NUR ---
IN TALKING TO PT AT THIS TIME.
--- NOTE | 2018-11-07 13:42 | NUR ---
PT AND FAMILY REPORTS SHE IS FEELING ANXIOUS. DR OTT AWARE
[2018-11-07] MEDS ORDERED: LORazepam INJ 2 MG/ML (ATIVAN) VIAL IVP STA (13:43)
--- NOTE | 2018-11-07 13:48 | NUR ---
FAMILY WENT TO THE CLINIC TO SEE IF SHE CAN GET ESTABLISHED WITH ANOTHER .
--- NOTE | 2018-11-07 14:00 | NUR ---
SISTER PHIL ET STATE SHE HAS HER A DR APPT HERE IN [place] AT 1433
[2018-11-07 14:05] VITALS: BP 134/64
== END 2018-11-07 14:05 | disposition home or self-care (01) ==
LOC: EDUNIT# 11:52 → ER FS 11:53
DX: J44.9 Chronic obstructive pulmonary disease, unspecified (principal); Z79.51 Long term (current) use of inhaled steroids; Z79.52 Long term (current) use of systemic steroids; Z99.81 Dependence on supplemental oxygen
CPT/HCPCS: 36415; 71045; 80053; 81000; 83880; 84484; 85025; 93041

== ENCOUNTER → 2019-02-08 | Outpatient (CLI) | payer MEDICARE, OTHER ==
[~2019-02-08] MED LIST changes: +LEVO500T80
--- NOTE | 2019-02-08 10:59 | Diagnostic Imaging Report ---
PROCEDURE: CT chest without contrast. TECHNIQUE: Multiple contiguous axial images were obtained through the chest without the use of intravenous contrast. Auto Exposure Controls were utilized during the CT exam to meet ALARA standards for radiation dose reduction. INDICATION: Pulmonary nodules, followup. COMPARISON: Correlation is made with prior CT chest from 08/17/2018. FINDINGS: No axillary lymphadenopathy is detected. Hilar and mediastinal evaluation is limited without intravenous contrast. No pericardial or pleural fluid is detected. There are centrilobular emphysematous changes in both lungs. A nodule in the medial aspect of the right lower lobe is stable at 8 mm. No new nodules seen. Previously noted right apical tiny nodules not appreciated on today's study. Upper abdomen is unremarkable. IMPRESSION: Emphysematous changes. Right lower lobe nodule is stable. This has been stable for approximately one year. No new abnormality is seen. Dictated by: Dictated on workstation # [id number]
== END ==
LOC: RAD 10:20
PROVIDERS: ATTEND Nurse Practitioner Family
DX: J43.9 Emphysema, unspecified (principal); R91.8 Other nonspecific abnormal finding of lung field; Z72.0 Tobacco use
CPT/HCPCS: 71250

== ENCOUNTER 2019-04-30 09:55 | Emergency (ER) | payer MEDICARE, OTHER ==
[~2019-04-30] VITALS: Ht 162.6 cm; Wt 54.4 kg
[2019-04-30] MEDS ORDERED: methylPREDNISolone 125 MG (Solu-MEDROL) VIAL IV STA (10:02)
[2019-04-30] MEDS ORDERED: NS IV 1000 ML 1,000 ML IV SCH (10:02)
[2019-04-30] MEDS ORDERED: RT-ALBUTEROL SULF 2.5 MG/3 ML PRE-MIX VIAL INH STA (10:02)
--- NOTE | 2019-04-30 10:11 | ED Respiratory ---
General Chief Complaint: Respiratory Problems Stated Complaint: SOB Source: patient, family Exam Limitations: no limitations History of Present Illness Date Seen by Provider: Apr 30, 2019 Time Seen by Provider: 09:50 Initial Comments The patient presents to ER by private conveyance with chief complaint of shortness of breath for the past 2 weeks. She went to Dr. Robin for primary care provider and about 2 weeks ago and was given a shot of steroids and put on p rednisone which gave her some good relief. She uses albuterol by nebulizer and oxygen by nasal cannula at night to sleep. She has a history of emphysema and still smokes about a pack cigarettes per day. Today however with the rain her symptoms of gotten severely worse. She is breathless has a hard time finishing sentences laying flat and has been coughing up white frothy sputum. She's had no fevers or chills nausea vomiting chest pain or diarrhea. She's used her nebulizer twice this morning with only marginal relief. She's been on her oxygen by nasal cannula at 2 L and still feels short of breath. Known to Dr. Celeste, Pulmonology. Allergies and Home Medications Allergies Coded Allergies: No Known Drug Allergies (Unverified , 08/06/17) Home Medications Albuterol Sulfate 1 Puff Puff, 2 PUFF IH Q4H 1 PUFF = 90 MCG Prescribed by: NATHANIEL DOLL on 08/09/17 1123 Fluticasone/Salmeterol 1 Each Blst.w.dev, 1 PUFF INH DAILY, (Reported) Montelukast Sodium 10 Mg Tablet, 10 MG PO HS, (Reported) Prednisone 20 Mg Tab, 10 MG PO DAILY Take 6 tabs daily for 2 days, then 4 tabs daily for 2 days, then 2 tabs daily for 2 days, then 1 daily for 2 days then stop Prescribed by: AME OTT on 11/07/18 1327 Prednisone 20 Mg Tab, 10 MG PO DAILY Take 6 tabs daily for 2 days, then 4 tabs daily for 2 days, then 2 tabs daily for 2 days, then 1 daily for 2 days then stop Prescribed by: AME OTT on 11/07/18 1329 Patient Home Medication List Home Medication List Reviewed: Yes Review of Systems Review of Systems Constitutional: No chills, No fever, No malaise EENTM: No hearing loss, No ear pain Respiratory: cough, orthopnea, phlegm, short of breath, wheezing Cardiovascular: No chest pain, No edema, No syncope, No vascular heart diseas Gastrointestinal: No abdominal pain, No constipation, No diarrhea, No nausea Genitourinary: No discharge, No dysuria Musculoskeletal: No back pain, No joint pain Past Zkvyxsn-Ghrrfw-Svwfim Hx Patient Social History Alcohol Use: Rarely Uses Alcohol Beverage of Choice: Beer Recreational Drug Use: No Smoking Status: Current Everyday Smoker Type Used: Cigarettes (1 ppd) Recent Hopitalizations: No Seasonal Allergies Seasonal Allergies: No Past Medical History Surgeries: No Respiratory: Yes COPD Currently Using CPAP: No Currently Using BIPAP: No Cardiac: No Neurological: No Sexually Transmitted Disease: No HIV/AIDS: No Genitourinary: No Gastrointestinal: No Musculoskeletal: No Endocrine: No HEENT: No Cancer: No Did You Recieve Any Treatments: No Psychosocial: No Integumentary: No Blood Disorders: No Adverse Reaction/Blood Tranf: No Physical Exam Vital Signs - First Documented 04/30/19 10:05 Temp 98.1 Pulse 75 Resp 26 B/P (MAP) 131/97 (108) Pulse Ox 96 O2 Delivery Nasal Cannula O2 Flow Rate 4.00 Capillary Refill : Height: 5'4.00" Weight: 121lbs. 8.0oz. 54.088441th; 20.8 BMI Method:Stated General Appearance: WD/WN, moderate distress Eyes: Bilateral Eye Normal Inspection, Bilateral Eye PERRL, Bilateral Eye EOMI HEENT: PERRL/EOMI, normal ENT inspection, pharynx normal (oropharynx is mildly dry mucosa) Neck: full range of motion, normal inspection Respiratory: lungs clear, respiratory distress (mild to moderate), decreased breath sounds, accessory muscle use (moderate) Cardiovascular: normal peripheral pulses, regular rate, rhythm Gastrointestinal: non tender, soft Neurologic/Psychiatric: alert, normal mood/affect, oriented x 3 Skin: normal color, warm/dry Focused Exam Lactate Level 04/30/19 10:06: Lactic Acid Level 1.02 Lactic Acid Level Laboratory Tests Test 04/30/19 10:06 Lactic Acid Level 1.02 MMOL/L (0.50-2.00) Progress/Results/Core Measures Suspected Sepsis SIRS Temperature: Pulse: Respiratory Rate: Laboratory Tests 04/30/19 10:06: White Blood Count 6.7 Blood Pressure / Mean: 04/30/19 10:06: Lactic Acid Level 1.02 Laboratory Tests 04/30/19 10:06: Creatinine 0.75, Platelet Count 263, Total Bilirubin 0.5 Results/Orders Lab Results Laboratory Tests Test 04/30/19 10:06 04/30/19 10:55 Range/Units White Blood Count 6.7 4.3-11.0 10^3/uL Red Blood Count 4.55 4.35-5.85 10^6/uL Hemoglobin 13.6 11.5-16.0 G/DL Hematocrit 41 35-52 % Mean Corpuscular Volume 91 80-99 FL Mean Corpuscular Hemoglobin 30 25-34 PG Mean Corpuscular Hemoglobin Concent 33 32-36 G/DL Red Cell Distribution Width 13.0 10.0-14.5 % Platelet Count 263 130-400 10^3/uL Mean Platelet Volume 9.7 7.4-10.4 FL Neutrophils (%) (Auto) 48 42-75 % Lymphocytes (%) (Auto) 36 12-44 % Monocytes (%) (Auto) 8 0-12 % Eosinophils (%) (Auto) 7 0-10 % Basophils (%) (Auto) 1 0-10 % Neutrophils # (Auto) 3.2 1.8-7.8 X 10^3 Lymphocytes # (Auto) 2.4 1.0-4.0 X 10^3 Monocytes # (Auto) 0.5 0.0-1.0 X 10^3 Eosinophils # (Auto) 0.5 H 0.0-0.3 10^3/uL Basophils # (Auto) 0.1 0.0-0.1 10^3/uL Sodium Level 142 135-145 MMOL/L Potassium Level 4.2 3.6-5.0 MMOL/L Chloride Level 103 98-107 MMOL/L Carbon Dioxide Level 27 21-32 MMOL/L Anion Gap 12 5-14 MMOL/L Blood Urea Nitrogen 11 7-18 MG/DL Creatinine 0.75 0.60-1.30 MG/DL Estimat Glomerular Filtration Rate > 60 BUN/Creatinine Ratio 15 Glucose Level 114 H 70-105 MG/DL Lactic Acid Level 1.02 0.50-2.00 MMOL/L Calcium Level 9.2 8.5-10.1 MG/DL Corrected Calcium 9.0 8.5-10.1 MG/DL Total Bilirubin 0.5 0.1-1.0 MG/DL Aspartate Amino Transf (AST/SGOT) 16 5-34 U/L Alanine Aminotransferase (ALT/SGPT) 11 0-55 U/L Alkaline Phosphatase 109 40-136 U/L Troponin I < 0.30 <0.30 NG/ML Pro-B-Type Natriuretic Peptide 97.7 H <75.0 PG/ML Total Protein 7.2 6.4-8.2 GM/DL Albumin 4.2 3.2-4.5 GM/DL Blood Gas Puncture Site Rt Radial Blood Gas Patient Temperature 98.1 Arterial Blood pH 7.36 L 7.37-7.43 Arterial Blood Partial Pressure CO2 50 H 35-45 MMHG Arterial Blood Partial Pressure O2 94 H 79-93 MMHG Arterial Blood HCO3 28 H 23-27 MMOL/L Arterial Blood Total CO2 29.7 21.0-31.0 MMOL/L Arterial Blood Oxygen Saturation 97 94-100 % Arterial Blood Base Excess 2.0 -2.5-2.5 MMOL/L Jimmy Test YES-POS Blood Gas Ventilator Setting NO Blood Gas Inspired Oxygen 4 L My Orders Orders - MARTITA ZUÑIGA Arterial Blood Gas (04/30/19 10:02) Cbc With Automated Diff (04/30/19 10:02) Comprehensive Metabolic Panel (04/30/19 10:02) Blood Culture (04/30/19 10:02) O2 (04/30/19 10:02) Lactic Acid Analyzer (04/30/19 10:02) Ed Iv/Invasive Line Start (04/30/19 10:02) Ns Iv 1000 Ml (Sodium Chloride 0.9%) (04/30/19 10:02) Albuterol Pre-Mix Nebs (Rt) (Proventil (04/30/19 10:02) Albuterol/Ipra Inhalation Soln (Duoneb I (04/30/19 10:15) Methylprednisolone Sod Succ (Solu-Medrol (04/30/19 10:02) Svn Small Volume Nebulizer (04/30/19 10:02) Chest Pa/Lat (2 View) (04/30/19 10:06) Ekg Tracing (04/30/19 10:11) Continuous Ekg Monitoring (04/30/19 10:11) Troponin I (04/30/19 10:11) Probnp Fs (04/30/19 10:11) Medications Given in ED Current Medications Medications Dose Ordered Sig/Travis Route Start Time Stop Time Status Last Admin Dose Admin Albuterol/ Ipratropium 3 ml ONCE ONCE INH 04/30/19 10:15 04/30/19 10:16 DC 04/30/19 10:25 3 ML Vital Signs/I&O 04/30/19 04/30/19 10:05 10:13 Temp 98.1 Pulse 75 Resp 26 B/P (MAP) 131/97 (108) Pulse Ox 96 96 O2 Delivery Nasal Cannula Nasal Cannula O2 Flow Rate 4.00 4.00 Capillary Refill : Progress Note #1: Time: 10:09 Progress Note DuoNeb +7.5 mg of albuterol. 1 L fluids which is a 20 mL/kg fluid bolus, Solu- Medrol 125 mg, 2 view chest x-ray to help differentiate between pneumonia and COPD exacerbation. ABG and lab included BNP. No clinical evidence of fluid overload. She is 94-97% on 4 L by nasal cannula. 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 She says she's feels like she is moving air much better and no longer is tight in her chest. We have offered her observation stay but she says she has CPAP at home and will use it. She did not use it last night. She has oxygen at home and she is back to her baseline 2 L nasal cannula and 99% on oxygen saturation. Otherwise her vital signs are aseptic labs are unremarkable. ABG shows minimal retention of CO2 prior to the nebulized albuterol and DuoNeb. We will encourage her to use her DuoNeb [id number] and follow-up this week with primary care for reevaluation. She is in agreement with this plan. ECG Initial ECG Impression Date: Apr 30, 2019 Initial ECG Impression Time: 10:17 Initial ECG Rate: 69 Initial ECG Rhythm: Normal Sinus Initial ECG Intervals: Normal Initial ECG Impression: Normal, Nonspecific Changes Initial ECG Comparisson: Unchanged Comment Sinus rhythm without clinically significant ST elevation or depression. Diagnostic Imaging Diagonstic Imaging: Xray Plain Films/CT/US/NM/MRI: chest (2v) Comments No acute cardiopulmonary processes noted. Reviewed: Reviewed by Me Departure Impression Primary Impression: COPD with acute exacerbation Disposition: HOME, SELF-CARE Condition: Improved Departure-Patient Inst. Decision time for Depature: 11:48 Referrals: SELVIN ROBIN APRN (PCP/Family) Primary Care Physician Patient Instructions: Exacerbation of COPD (DC) Add. Discharge Instructions: I sent a prescription for DuoNeb to the pharmacy if you need more. Start taking it around the clock every 6 hours or 4 times a day. If you are having shortness of breath or wheezing then you may use it every 4 hours as needed. If you're needing it more often than that then you should probably return to the ER. 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 1 tablet twice a day for 3 days. 1 tablet daily for 3 days. Use your CPAP while sleeping day or night. Plan to follow up with your primary care provider next week. Return to the ER if you're having difficulty breathing, chest pain or other worrisome symptoms. All discharge instructions reviewed with patient and/or family. Voiced understanding. Scripts Prednisone (Prednisone) 20 Mg Tab 40 MG PO BID for 10 Days, #25 TAB 0 Refills 2 tab BID x 4 days 1 tab BID x 3 days 1 tab daily x 3 days Prov: MARTITA ZUÑIGA 04/30/19 Ipratropium/Albuterol Sulfate (Iprat-Albut 0.5-3(2.5) mg/3 ml) 3 Ml Ampul.neb 3 ML IH Q6H for 7 Days, #30 EACH 0 Refills Prov: MARTITA ZUÑIGA 04/30/19 MARTITA ZUÑIGA Apr 30, 2019 10:10
[2019-04-30] MEDS ORDERED: RT-ALBUTEROL/IPRATROPIUM 3 ML (DUONEB) VIAL INH ONE (10:15)
[2019-04-30 10:21] LABS: BASOPHILS % (AUTO) 1 % (0-10); EOSINOPHILS % (AUTO) 7 % (0-10); HEMATOCRIT 41 % (35-52); HEMOGLOBIN 13.6 G/DL (11.5-16.0); LYMPHOCYTES % (AUTO) 36 % (12-44); MEAN CORPUSCULAR HEMOGLOBIN 30 PG (25-34); MEAN CORPUSCULAR HGB CONC 33 G/DL (32-36); MEAN CORPUSCULAR VOLUME 91 FL (80-99); MEAN PLATELET VOLUME 9.7 FL (7.4-10.4); MONOCYTES % (AUTO) 8 % (0-12); PLATELET COUNT 263 10^3/uL (130-400); WHITE BLOOD COUNT 6.7 10^3/uL (4.3-11.0)
[2019-04-30 10:22] LABS: BASOPHILS # (AUTO) 0.1 10^3/uL (0.0-0.1); EOSINOPHILS # (AUTO) 0.5 10^3/uL (0.0-0.3); LYMPHOCYTES # (AUTO) 2.4 X 10^3 (1.0-4.0); MONOCYTES # (AUTO) 0.5 X 10^3 (0.0-1.0); NEUTROPHILS # (AUTO) 3.2 X 10^3 (1.8-7.8); NEUTROPHILS % (AUTO) 48 % (42-75)
[2019-04-30 10:58] LABS: ALKALINE PHOSPHATASE 109 U/L (40-136); BILIRUBIN,TOTAL 0.5 MG/DL (0.1-1.0); BUN/CREATININE RATIO 15; CALCIUM 9.2 MG/DL (8.5-10.1); CARBON DIOXIDE 27 MMOL/L (21-32); CHLORIDE 103 MMOL/L (98-107); CREATININE SERUM 0.75 MG/DL (0.60-1.30); GFR ESTIMATED > 60; GLUCOSE 114 MG/DL (70-105); POTASSIUM 4.2 MMOL/L (3.6-5.0); SODIUM 142 MMOL/L (135-145)
[2019-04-30 10:59] LABS: ALANINE AMINOTRANSFERASE 11 U/L (0-55); ALBUMIN 4.2 GM/DL (3.2-4.5); TOTAL PROTEIN 7.2 GM/DL (6.4-8.2)
[2019-04-30 11:09] LABS: ABG OXYGEN SATURATION 97 % (94-100); ABG PCO2 50 MMHG (35-45); ABG PH 7.36 (7.37-7.43); ABG PO2 94 MMHG (79-93); ABG TCO2 29.7 MMOL/L (21.0-31.0)
[2019-04-30 11:10] LABS: ALLENS TEST YES-POS; INSPIRED O2 4 L; PATIENT TEMP 98.1; VENTILATOR NO
[2019-04-30] MEDS ORDERED: PRD20T PO (11:53)
[2019-04-30] MEDS ORDERED: IPRA3AMP31 IH (11:53)
[2019-04-30 11:58] VITALS: BP 138/75
--- NOTE | 2019-04-30 12:01 | Diagnostic Imaging Report ---
EXAMINATION: PA and lateral chest 11:08 AM. INDICATION: Shortness of breath. FINDINGS: The heart size is within normal limits and stable when compared to 11/07/2018. The chronic pulmonary changes seen on the prior study including hyperexpansion of the lungs and scalloping of the diaphragms is again evident. There is no sign of failure, pneumonia or pleural effusion to indicate an acute abnormality. The 8 mm nodule in the medial aspect of the right lower lobe seen on CT chest exam of 02/08/2019 is not well visualized on this study. The mediastinum is not widened. The osseous structures are intact. The calcified bilateral breast implants seen previously are again evident and stable. IMPRESSION: 1. There are chronic pulmonary changes evident but there is no sign of acute cardiopulmonary abnormality. 2. The nodule in the medial aspect of the right lower lobe seen on the previous CT chest exam cannot be identified on this study. This nodule had a generally benign appearance by CT and is unlikely to be clinically significant. Further study is, followup CT chest exam in 6 months would be recommended.. Dictated by: Dictated on workstation # [id number]
== END 2019-04-30 12:01 | disposition home or self-care (01) ==
LOC: EDUNIT# 09:55 → ER FS 09:56
DX: J43.9 Emphysema, unspecified (principal); F17.210 Nicotine dependence, cigarettes, uncomplicated; Z99.81 Dependence on supplemental oxygen; Z79.52 Long term (current) use of systemic steroids
CPT/HCPCS: 36415; 71046; 80053; 82805; 83605; 83880; 84484; 85025; 87040; 93005; 94640

== ENCOUNTER 2019-08-25 17:17 | Emergency (ER) | payer MEDICARE, OTHER ==
[~2019-08-25] VITALS: Ht 162 cm; Wt 57.0 kg
[~2019-08-25 17:17] MED LIST changes: +IPRA3AMP31 IH
[2019-08-25] MEDS ORDERED: ASPIRIN 81 MG CHEW (CHILDREN'S ASA) PO ONE (17:45)
[2019-08-25] MEDS ORDERED: ACETAMINOPHEN 325 MG TABLET PO ONE (17:45)
[2019-08-25] MEDS ORDERED: LEVOFLOXACIN 750 MG/150 ML IV 150 ML IV ONE (17:45)
[2019-08-25] MEDS ORDERED: methylPREDNISolone 125 MG (Solu-MEDROL) VIAL IVP ONE (17:45)
[2019-08-25] MEDS ORDERED: NS IV 1000 ML 1,000 ML IV SCH (17:55)
--- NOTE | 2019-08-25 18:02 | ED Cardiac General ---
History of Present Illness General Chief Complaint: Cardiac/General Problems Stated Complaint: HF EXACERBATION,DYSPNEA Nursing Triage Note: PT REPORTS RIGHT SIDED BACK AND CHEST PAIN FOR THE LAST COUPLE OF DAYS. SHE REPORTS A COUGH THAT STARTED THIS AFTERNOON. (RANDAL CANTU MD) History of Present Illness Date Seen by Provider: Aug 25, 2019 Time Seen by Provider: 17:40 Initial Comments The patient is a 69-year-old female with history of COPD not on home oxygen, continued active tobacco abuse and no other known medical problems. She has no known cardiovascular disease. She presents with concern for acute onset of productive cough over the past 2 days in association with chills, malaise and pleuritic chest discomfort which is worst to the right upper lateral chest but is present diffusely. Discomfort is much worse with coughing. No sy fevers at home but the patient is near febrile here. Associated mild shortness of breath. Associated nausea. No associated upper respiratory congestion/rhinorrhea, vomiting, abdominal pain, flank pain, dysuria or hematuria. Patient notes a few episodes of watery diarrhea each day over the past couple of days. Patient is mildly tachycardic and near febrile as above noted but other vital signs are appropriate including oxygenation upon initial evaluation in the emergency department. (RANDAL CANTU MD) Allergies and Home Medications Allergies Coded Allergies: No Known Drug Allergies (Unverified , 08/06/17) Home Medications Albuterol Sulfate 1 Puff Puff, 2 PUFF IH Q4H 1 PUFF = 90 MCG Prescribed by: NATHANIEL DOLL on 08/09/17 1123 Fluticasone/Salmeterol 1 Each Blst.w.dev, 1 PUFF INH DAILY, (Reported) Ipratropium/Albuterol Sulfate 3 Ml Ampul.neb, 3 ML IH Q6H Prescribed by: MARTITA ZUÑIGA on 04/30/19 1153 Montelukast Sodium 10 Mg Tablet, 10 MG PO HS, (Reported) Prednisone 20 Mg Tab, 10 MG PO DAILY Take 6 tabs daily for 2 days, then 4 tabs daily for 2 days, then 2 tabs daily for 2 days, then 1 daily for 2 days then stop Prescribed by: AME OTT on 11/07/18 1327 Prednisone 20 Mg Tab, 10 MG PO DAILY Take 6 tabs daily for 2 days, then 4 tabs daily for 2 days, then 2 tabs daily for 2 days, then 1 daily for 2 days then stop Prescribed by: AME OTT on 11/07/18 1329 Prednisone 20 Mg Tab, 40 MG PO BID 2 tab BID x 4 days 1 tab BID x 3 days 1 tab daily x 3 days Prescribed by: MARTITA ZUÑIGA on 04/30/19 1153 Patient Home Medication List Home Medication List Reviewed: Yes (RANDAL CANTU MD) Review of Systems Review of Systems Constitutional: see HPI (RANDAL CANTU MD) All Other Systems Reviewed Negative Unless Noted: Yes (Negative excepted noted.) (RANDAL CANTU MD) Past Fztbqpz-Fjntmh-Jttzsk Hx Past Med/Social Hx: Reviewed Nursing Past Med/Soc Hx (RANDAL CANTU MD) Patient Social History Alcohol Use: Denies Use Number of Drinks Today: AA Alcohol Beverage of Choice: Beer Recreational Drug Use: No Smoking Status: Current Everyday Smoker Type Used: Cigarettes 2nd Hand Smoke Exposure: No Recent Foreign Travel: No Contact w/Someone Who Travel: No Recent Infectious Disease Expo: No Recent Hopitalizations: No Physical Abuse: No Sexual Abuse: No Mistreated: No Fear: No (RANDAL CANTU MD) Seasonal Allergies Seasonal Allergies: No (RANDAL CANTU MD) Past Medical History Surgeries: No Respiratory: Yes COPD Currently Using CPAP: No Currently Using BIPAP: No Cardiac: No Neurological: No Sexually Transmitted Disease: No HIV/AIDS: No Genitourinary: No Gastrointestinal: No Musculoskeletal: No Endocrine: No HEENT: No Cancer: No Did You Recieve Any Treatments: No Psychosocial: No Integumentary: No Blood Disorders: No Adverse Reaction/Blood Tranf: No (RANDAL CANTU MD) Family Medical History Reviewed Nursing Family Hx (RANDAL CANTU MD) Physical Exam Vital Signs Capillary Refill : Less Than 3 Seconds (RANDAL CANTU MD) Height, Weight, BMI Height: 5'4.00" Weight: 120lbs. 8.0oz. [id number]; 21.00 BMI Method:Stated General Appearance: No Apparent Distress Other comments This is an older female appearing nontoxic and in no acute distress. Head is normocephalic and atraumatic. Neck is supple and nontender. Oropharynx is moist. Lungs with mildly diminished breath sounds to all alvarez but no adven titious sounds noted. There is good air movement bilaterally and the patient is only mildly tachypneic. She is speaking comfortably in full sentences. There is a normal S1 and S2 without rubs or gallops and capillary refill is appropriate, less than 2 seconds globally. Abdomen is soft, nontender and nondistended. Skin is warm and dry without cyanosis, clubbing or edema. Psychiatrically, the patient demonstrated appropriate mood and affect and is alert. (RANDAL CANTU MD) Focused Exam Lactate Level 08/25/19 17:33: Lactic Acid Level 1.52 (CHELO FERGUSON MD) Lactic Acid Level Laboratory Tests Test 08/25/19 17:33 Lactic Acid Level 1.52 MMOL/L (0.50-2.00) (CHELO FERGUSON MD) Progress/Results/Core Measures Results/Orders Lab Results Laboratory Tests Test 08/25/19 17:33 Range/Units White Blood Count 22.3 H 4.3-11.0 10^3/uL Red Blood Count 4.16 L 4.35-5.85 10^6/uL Hemoglobin 12.3 11.5-16.0 G/DL Hematocrit 38 35-52 % Mean Corpuscular Volume 91 80-99 FL Mean Corpuscular Hemoglobin 30 25-34 PG Mean Corpuscular Hemoglobin Concent 33 32-36 G/DL Red Cell Distribution Width 13.2 10.0-14.5 % Platelet Count 253 130-400 10^3/uL Mean Platelet Volume 10.8 H 7.4-10.4 FL Neutrophils (%) (Auto) 86 H 42-75 % Lymphocytes (%) (Auto) 6 L 12-44 % Monocytes (%) (Auto) 7 0-12 % Eosinophils (%) (Auto) 0 0-10 % Basophils (%) (Auto) 0 0-10 % Neutrophils # (Auto) 19.1 H 1.8-7.8 X 10^3 Lymphocytes # (Auto) 1.4 1.0-4.0 X 10^3 Monocytes # (Auto) 1.6 H 0.0-1.0 X 10^3 Eosinophils # (Auto) 0.0 0.0-0.3 10^3/uL Basophils # (Auto) 0.1 0.0-0.1 10^3/uL Neutrophils % (Manual) 73 % Lymphocytes % (Manual) 8 % Monocytes % (Manual) 8 % Eosinophils % (Manual) 0 % Basophils % (Manual) 0 % Band Neutrophils 11 % Prothrombin Time 18.4 H 12.2-14.7 SEC INR Comment 1.5 H 0.8-1.4 Activated Partial Thromboplast Time 30 24-35 SEC Sodium Level 139 135-145 MMOL/L Potassium Level 3.4 L 3.6-5.0 MMOL/L Chloride Level 100 98-107 MMOL/L Carbon Dioxide Level 24 21-32 MMOL/L Anion Gap 15 H 5-14 MMOL/L Blood Urea Nitrogen 17 7-18 MG/DL Creatinine 0.76 0.60-1.30 MG/DL Estimat Glomerular Filtration Rate > 60 BUN/Creatinine Ratio 22 Glucose Level 111 H 70-105 MG/DL Lactic Acid Level 1.52 0.50-2.00 MMOL/L Calcium Level 9.6 8.5-10.1 MG/DL Corrected Calcium 9.9 8.5-10.1 MG/DL Total Bilirubin 1.1 H 0.1-1.0 MG/DL Aspartate Amino Transf (AST/SGOT) 17 5-34 U/L Alanine Aminotransferase (ALT/SGPT) 13 0-55 U/L Alkaline Phosphatase 98 40-136 U/L Troponin I < 0.30 <0.30 NG/ML Pro-B-Type Natriuretic Peptide 648.2 H <75.0 PG/ML Total Protein 6.9 6.4-8.2 GM/DL Albumin 3.6 3.2-4.5 GM/DL (CHELO FERGUSON MD) Blood Pressure Mean: 92 Progress Progress Note : Time: 18:00 Progress Note Older female with history of COPD and active tobacco abuse who presents with productive cough, pleuritic chest discomfort, near fever and tachycardia. We will initiate cardiorespiratory and septic workup as noted, we'll draw cultures and give empiric Levaquin as well as Solu-Medrol and bronchodilators. We'll give some IV fluids. We will then reevaluate. Transition of care to Dr. Ferguson pending completion of workup as noted and reevaluation for disposition. (RANDAL CANTU MD) Progress Note : Progress Note Assumed care of patient at 1800. Exam and history consistent with previous documentation. I discussed evaluation and treatment with patient who understands and agrees. She declined my offer for pain medication. Lab and antibiotics already ordered. Oxygen saturation is satisfactory on room air. 1837 discussed chest x-ray findings of pneumonia and elevated white blood cell count. I explained that I recommended hospital admission. Patient emphatically refuses this and understands fully accepts the risk of complication, worsening of her clinical status and possible refill outcome. Antibiotics being infused. Her oxygen level is stable on room air. We will await remaining studies and discuss risk with her again. 191 Feeling much better after Toradol. No complications. Tolerated IV infusion of Levaquin well. Awaiting remaining studies. 1938 We reviewed remaining lab studies. I explained blood cultures are pending. The patient again refuses hospitalization despite my description of her elevated white blood cell count and chest x-ray. She is alert, oriented and fully capable of making this decision. (CHELO FERGUSON MD) Comment Sinus rhythm, rate 114, no acute ST elevation, mild ST depressions diffusely, most pronounced in anterior lateral leads. ID 73, QRS 83, QTC 419, EP inter pretation. (RANDAL CANTU MD) Initial ECG Impression Date: Aug 25, 2019 Initial ECG Impression Time: 17:35 Initial ECG Rate: 114 Initial ECG Rhythm: S.Tach Initial ECG Intervals: Normal Initial ECG Impression: Nonspecific Changes (CHELO FERGUSON MD) Diagnostic Imaging Diagonstic Imaging: Xray Plain Films/CT/US/NM/MRI: chest Comments NAME: HEIDI HURTADO REC#: [id number] PT STATUS: REG ER : 1950 PHYSICIAN: RANDAL CANTU MD ADMIT DATE: 08/25/19/ER FS Draft Date of Exam:08/25/19 CHEST PA/LAT (2 VIEW) INDICATION: Back and chest pain, cough. FINDINGS: There are new bilateral upper lobe infiltrates having developed from the prior, presumed pneumonia given the history. There are superimposed background chronic changes of COPD present. Incidental capsular calcifications associated with bilateral breast implants noted. The heart size and configuration are unremarkable. IMPRESSION: Background COPD with new bilateral upper lobe infiltrates, greater right, suspicious for the development of pneumonia. Dictated on workstation # [id number] Dict: 08/25/191807 Trans: 08/25/191811 [id number] Interpreted by: AME العلي Electronically signed by: (CHELO FERGUSON MD) Counseling-Symptomatic: 3-10 Minutes (CHELO FERGUSON MD) Departure Impression Primary Impression: Cough Additional Impressions: COPD (chronic obstructive pulmonary disease) Qualified Codes: J44.1 - Chronic obstructive pulmonary disease with (acute) exacerbation Pneumonia Qualified Codes: J18.1 - Lobar pneumonia, unspecified organism Leukocytosis Qualified Codes: D72.829 - Elevated white blood cell count, unspecified Disposition: 01 HOME, SELF-CARE Condition: Stable Departure-Patient Inst. Decision time for Depature: 19:45 (CHELO FERGUSON MD) Referrals: SELVIN ROBIN APRN (PCP/Family) Primary Care Physician Patient Instructions: Community-Acquired Pneumonia in Adults, Exacerbation of COPD Scripts Hydrocodone/Acetaminophen ([place] 5-325 Tablet) 1 Each Tablet 1 TAB PO Q4-6HR for Pain MDD 10 TABS for 7 Days, TAB Prov: CHELO FERGUSON MD 08/25/19 Levofloxacin (Levofloxacin) 500 Mg Tablet 500 MG PO DAILY, #7 TAB 0 Refills Prov: CHELO FERGUSON MD 08/25/19 RANDAL CANTU MD Aug 25, 2019 18:02 CHELO FERGUSON MD Aug 25, 2019 18:25
[2019-08-25 18:05] LABS: HEMATOCRIT 38 % (35-52); HEMOGLOBIN 12.3 G/DL (11.5-16.0); MEAN CORPUSCULAR HEMOGLOBIN 30 PG (25-34); MEAN CORPUSCULAR HGB CONC 33 G/DL (32-36); MEAN CORPUSCULAR VOLUME 91 FL (80-99); RED CELL DISTRIBUTION WIDTH 13.2 % (10.0-14.5); WHITE BLOOD COUNT 22.3 10^3/uL (4.3-11.0)
[2019-08-25 18:06] LABS: BASOPHILS # (AUTO) 0.1 10^3/uL (0.0-0.1); BASOPHILS % (AUTO) 0 % (0-10); EOSINOPHILS % (AUTO) 0 % (0-10); LYMPHOCYTES # (AUTO) 1.4 X 10^3 (1.0-4.0); LYMPHOCYTES % (AUTO) 6 % (12-44); MEAN PLATELET VOLUME 10.8 FL (7.4-10.4); MONOCYTES # (AUTO) 1.6 X 10^3 (0.0-1.0); MONOCYTES % (AUTO) 7 % (0-12); NEUTROPHILS # (AUTO) 19.1 X 10^3 (1.8-7.8); NEUTROPHILS % (AUTO) 86 % (42-75); PLATELET COUNT 253 10^3/uL (130-400)
[2019-08-25 18:10] LABS: INR 1.5 (0.8-1.4); PROTHROMBIN TIME PATIENT 18.4 SEC (12.2-14.7)
--- NOTE | 2019-08-25 18:12 | Diagnostic Imaging Report ---
INDICATION: Back and chest pain, cough. FINDINGS: There are new bilateral upper lobe infiltrates having developed from the prior, presumed pneumonia given the history. There are superimposed background chronic changes of COPD present. Incidental capsular calcifications associated with bilateral breast implants noted. The heart size and configuration are unremarkable. IMPRESSION: Background COPD with new bilateral upper lobe infiltrates, greater right, suspicious for the development of pneumonia. Dictated by: Dictated on workstation # [id number]
[2019-08-25 18:19] LABS: BAND NEUTROPHILS 11 %; BASOPHILS % (MANUAL) 0 %; EOSINOPHILS % (MANUAL) 0 %; LYMPHOCYTES % (MANUAL) 8 %; MONOCYTES % (MANUAL) 8 %; NEUTROPHILS % (MANUAL) 73 %
[2019-08-25] MEDS ORDERED: ONDANSETRON 4 MG/2 ML (SDV) Z0FRAN IVP ONE (18:45)
[2019-08-25] MEDS ORDERED: KETOROLAC 30 MG/ML VIAL IVP ONE (18:45)
[2019-08-25 18:52] LABS: ALANINE AMINOTRANSFERASE 13 U/L (0-55); ALKALINE PHOSPHATASE 98 U/L (40-136); BILIRUBIN,TOTAL 1.1 MG/DL (0.1-1.0); BUN/CREATININE RATIO 22; CALCIUM 9.6 MG/DL (8.5-10.1); CARBON DIOXIDE 24 MMOL/L (21-32); CHLORIDE 100 MMOL/L (98-107); CREATININE SERUM 0.76 MG/DL (0.60-1.30); GFR ESTIMATED > 60; GLUCOSE 111 MG/DL (70-105); POTASSIUM 3.4 MMOL/L (3.6-5.0); SODIUM 139 MMOL/L (135-145)
[2019-08-25 18:53] LABS: ALBUMIN 3.6 GM/DL (3.2-4.5); TOTAL PROTEIN 6.9 GM/DL (6.4-8.2)
[2019-08-25 19:28] LABS: CLARITY,URINE CLEAR; COLOR,URINE YELLOW; GLUCOSE, URINE (UA) NEGATIVE (NEGATIVE); KETONES,URINE NEGATIVE (NEGATIVE); NITRITE,URINE POSITIVE (NEGATIVE); PH,URINE 5.5 (5-9); PROTEIN,URINE NEGATIVE (NEGATIVE)
[2019-08-25 19:29] LABS: BACTERIA,URINE MODERATE /HPF; BILIRUBIN,URINE NEGATIVE (NEGATIVE); LEUKOCYTE ESTERASE ,URINE NEGATIVE (NEGATIVE); RBC,URINE 0-2 /HPF; WBC,URINE RARE /HPF
[2019-08-25] MEDS ORDERED: HYDR-4226 PO (19:45)
[2019-08-25] MEDS ORDERED: LEVO500T80 PO (19:45)
[2019-08-25 19:49] VITALS: BP 126/58
== END 2019-08-25 19:49 | disposition home or self-care (01) ==
LOC: EDUNIT# 17:17 → ER FS 17:19 → UNDOADMOB 17:38 → ICU 17:38 → ER FS 19:49
DX: J44.0 Chronic obstructive pulmonary disease with (acute) lower respiratory infection (principal); J18.9 Pneumonia, unspecified organism; D72.829 Elevated white blood cell count, unspecified; F17.210 Nicotine dependence, cigarettes, uncomplicated; Z79.51 Long term (current) use of inhaled steroids; Z79.52 Long term (current) use of systemic steroids
CPT/HCPCS: 36415; 71046; 80053; 81000; 83605; 83880; 84484; 85007; 85027; 85610; 85730; 87040; 87088; 87804; 96361; 96365; 96375

== ENCOUNTER → 2019-09-19 | Outpatient (CLI) | payer MEDICARE, OTHER ==
[~2019-09-19] MED LIST changes: +HYDR-4226 PO; +LEVO500T80 PO
--- NOTE | 2019-09-19 14:50 | Diagnostic Imaging Report ---
INDICATION: Right-sided chest pain. TIME OF EXAM: 02:09 p.m. COMPARISON: Correlation is made with prior chest from 08/25/2019. FINDINGS: Heart size is stable. The infiltrate in the left upper lobe on prior study has resolved. There continues to be abnormal parenchymal density in the right upper lobe. Some of this opacity has improved since prior exam, but the subpleural component persists. Mid and lower lung alvarez remain clear. Patient does have partially calcified bilateral breast implants. Lungs are hyperinflated consistent with COPD. There is no effusion or pneumothorax. IMPRESSION: Clearing of left upper lobe infiltrate with partial clearing of right upper lobe parenchymal infiltrate. There is some residual density present and continued close interval follow-up is recommended to show complete clearing. If this does not completely clear, a repeat CT chest would be recommended for further evaluation. Dictated by: Dictated on workstation # [id number]
== END ==
LOC: RAD FS 14:02
PROVIDERS: ATTEND Nurse Practitioner Family
DX: J98.4 Other disorders of lung (principal); R07.89 Other chest pain; Z87.01 Personal history of pneumonia (recurrent)
CPT/HCPCS: 71046

== ENCOUNTER → 2019-10-03 | Outpatient (CLI) | payer MEDICARE, OTHER ==
--- NOTE | 2019-10-03 14:10 | Diagnostic Imaging Report ---
INDICATION: Pneumonia, follow-up. TECHNIQUE: Two view chest 1:44 PM. CORRELATION STUDY: 09/19/2019 FINDINGS: The heart size, mediastinal configuration and pulmonary vasculature are stable. Somewhat triangular shaped peripheral density of the lateral right upper lung field does persist but overall appears slightly smaller and improved. Minimal cavitation in this area would be difficult to exclude. Blunting of the costophrenic angles may reflect pleural thickening versus small pleural effusions. Calcification over bilateral breast implants. IMPRESSION: 1. Partial clearing of the right upper lobe parenchymal infiltrate. Density and perhaps minimal cavitation does remain. Follow-up until complete resolution is recommended as possibility of underlying mass lesion should not be excluded at this time. Dictated by: Dictated on workstation # [id number]
== END ==
LOC: RAD FS 13:16
PROVIDERS: ATTEND Nurse Practitioner Family
DX: R07.9 Chest pain, unspecified (principal); Z87.01 Personal history of pneumonia (recurrent)
CPT/HCPCS: 71046

== ENCOUNTER → 2019-10-25 | Outpatient (CLI) | payer MEDICARE, OTHER ==
--- NOTE | 2019-10-25 16:57 | Diagnostic Imaging Report ---
INDICATION: Pneumonia. COMPARISON: 10/03/2019 and 09/19/2019. FINDINGS: Parenchymal density in the periphery of the right upper lobe shows further retraction and now has some central lucency, suggestive of an element of central cavitation. Background COPD is chronic. No new focal abnormality. There are breast implants with capsular calcifications, chronic. The cardiomediastinal and hilar contours are unremarkable. IMPRESSION: The peripheral right upper lobe lesion shows further reduction in size and retraction, now with some central lucency which may reflect an element of cavitation. No evidence for pleural fluid. Background COPD, chronic. No new abnormality. Dictated by: Dictated on workstation # [id number]
== END ==
LOC: RAD FS 15:58
PROVIDERS: ATTEND Nurse Practitioner Family
DX: R07.9 Chest pain, unspecified (principal); J44.9 Chronic obstructive pulmonary disease, unspecified; Z87.01 Personal history of pneumonia (recurrent)
CPT/HCPCS: 71046

== ENCOUNTER → 2019-11-09 | Outpatient (CLI) | payer MEDICARE, OTHER ==
[~2019-11-09] MED LIST changes: +CATHETER FLUSH 10 ML SYR IV PRN; +HOLD METFORMIN - RECEIVED CONTRAST 20 ML VIAL IV SCH; +IOHEXOL 350 MG/ML 100 ML (OMNIPAQUE 350) VIAL IV ONE; -MONT10TA24 PO; +MONT10TA26 PO; +NS 100 ML (IVPB) BAG IV ONE
[2019-11-09 10:00] LABS: BUN/CREATININE RATIO 13; CREATININE SERUM 0.76 MG/DL (0.60-1.30); GFR ESTIMATED > 60
--- NOTE | 2019-11-09 11:18 | Diagnostic Imaging Report ---
EXAMINATION: CT Chest with intravenous contrast. TECHNIQUE: Multiple contiguous axial images were obtained through the chest after the uneventful administration of intravenous contrast. All CT scans use one or more of the following dose optimizing techniques: automated exposure control, MA and/or KvP adjustment based on a patient size and exam type, or iterative reconstruction. HISTORY: Pneumonia. COMPARISON: 02/08/2019 FINDINGS: There is a peripheral area of consolidation in the right upper lobe. There is a new area of what is likely scarring in the left apex. Lungs are moderately emphysematous. Centrilobular and tree-in-bud nodules in the lingula are new from prior exam. No edema is seen. No pleural effusion. No pneumothorax. There is a stable 8 mm nodule in the medial basilar segment of the right lower lobe. Heart size is normal. There are mild coronary artery calcifications. No pericardial effusion. Aorta is normal in caliber. There is no axillary or supraclavicular lymphadenopathy. Mildly enlarged mediastinal lymph nodes measuring up to 10 mm are likely reactive. There is extensive calcified and noncalcified plaque in the descending aorta. Bilateral breast implants are seen. Limited views of the upper abdomen are unremarkable. There are no suspicious osseous lesions. IMPRESSION: 1. New right upper lobe consolidation and centrilobular and tree-in-bud nodules in the lingula concerning for infectious process. Follow-up to resolution is recommended. Dictated by: Dictated on workstation # [id number]
== END ==
LOC: LAB FS 09:26
PROVIDERS: ATTEND Nurse Practitioner Family
DX: R91.8 Other nonspecific abnormal finding of lung field (principal); Z87.01 Personal history of pneumonia (recurrent)
CPT/HCPCS: 36415; 71260; 82565; 84520

== ENCOUNTER 2019-11-25 22:03 | Emergency (ER) | payer MEDICARE, OTHER ==
[~2019-11-25] VITALS: Ht 162.5 cm; Wt 62.5 kg
[~2019-11-25 22:03] MED LIST changes: -CATHETER FLUSH 10 ML SYR IV PRN; -HOLD METFORMIN - RECEIVED CONTRAST 20 ML VIAL IV SCH; -IOHEXOL 350 MG/ML 100 ML (OMNIPAQUE 350) VIAL IV ONE; -NS 100 ML (IVPB) BAG IV ONE
--- OUTSIDE RECORDS SUMMARY | 2019-11-25 22:10 | XMS REPORT ---
Author Author Modesta ROBIN Organization [facility] Address [address] [place] [address] Care Team Providers Care Miller Head Wet Process Name Role Phone SELVIN ROBIN Unavailable PROBLEMS Type Condition ICD9-CM Code JPT96-AO Code Onset Dates Condition S tatus SNOMED Code Problem COPD exacerbation J44.1 Oct, Active 721874552 Problem Tobacco use Z72.0 Jun, Active 57165 3000 Problem Acute bronchitis J20.9 Oct, Active 57652464 Problem Anxiety F41.9 Active 23279622 Problem Nicotine dependence, unspecified, uncomplicated F1 7.200 Active 431345312 Problem Acute sinusitis J01.90 Jul, Active 1 8302607 Problem Cigarette nicotine dependence, uncomplicated F1 7.210 Jun, Active 716523852 Problem SOB (shortness of breath) R06.02 Jul, A ctive 210344318 Problem Chronic obstructive pulmonary disease with acute exacerbat ion J44.1 Active 566276955 ALLERGIES No Known Allergies ENCOUNTERS Encounter Location Date Diagnosis [place] [address] [address] [place] [address] 29 Sep, 2019 History of pneumonia Z87.01 and Right-sided chest pain R07.9 [address] [address] [address] [address], [place] [address] 16 Sep, 2019 History of pneumonia Z87.01 and Right-sided chest pain R07.9 [place] [address] [place] [address] 14 Sep, 2019 History of pneumonia Z87.01 and Right-sided chest pain R07.9 [place] [address] [address] [address] [place] [address] Aug, COPD exacerbation J44.1 and Pneumonia of both lungs due to infectious organism, unspecified part of lung J18.9 [facility] [address] [place] [address] Aug, Back pain M54.9 ; Vomiting R 11.10 and Nausea [facility]11.[address] [facility] [address] [place] [address] Aug, COPD exacerbation J44.[address] [facility] [address] [place] [address] Jul, [facility] [address] [place] [address] Jun, COPD exacerbation J44.[address] [facility] [address] [place] [address] Mar, COPD exacerbation J44.1 [facility] [place] [facility] [address] [place] [address] Mar, [facility] [address] [place] [address] Dec, Chronic obstructive pulmonar y disease with (acute) exacerbation J44.[address] [facility] [address] [place] [address] Nov, Chronic obstructive pulmonar y disease with (acute) exacerbation J44.1 ; Nicotine dependence, unspecified, uncomplicated F17.200 and Anxiety F41.9 [facility] [place] [facility] [address] [place] [address] Nov, Anxiety F41.9 and Chronic ob structive pulmonary disease with acute exacerbation J44.1 [facility] [address] [place] [address] Oct, Chronic obstructive pulmonar y disease with acute exacerbation J44.1 [facility] [place] [address] [id number] [place] [address] Sep, [facility] [place] [address] [id number] [place] [address] Aug, [facility] [place] [address] [facility] [id number] [place] [address] Aug, [facility] [place] [address] [id number] [place] [address] Aug, [facility] [place] [address] [facility] [id number] [place] [address] Jun, IMMUNIZATIONS No Known Immunizations SOCIAL HISTORY Never Assessed REASON FOR VISIT Establish Care PLAN OF CARE Activity Details Follow Up 3 months or as indicated by lab Reason:[facility] VITAL SIGNS Height 62 in 2018-11-23 Weight 125 lbs 2018-11-23 BMI 22.86 kg/m2 2018-11-23 Blood pressure systolic 138 mmHg 2018-11-23 Blood pressure diastolic 70 mmHg 2018-11-23 MEDICATIONS Medication Instructions Dosage Frequency Start Date End Date Duration S tatus Advair Diskus 250-50 MCG/DOSE Active Levaquin 500 MG Orally Once a day 1 tablet 24h Oct, 10 day(s) Not-Taking Combivent Respimat 20-100 MCG/ACT Inhalation Four times a day 1 puf f 6h Oct, Active PredniSONE 20 mg Orally Once a day 2 tablets 24h Oct, 5 days Not-Taking Ativan 0.5 MG Orally every 8 hrs 1 tablet as needed 8h Nov, Active Zyrtec Allergy 10 MG Orally Once a day 1 tablet 24h Active Montelukast Sodium 10 MG Active RESULTS No Results PROCEDURES Procedure Date Ordered Result Body Site [facility] VISIT ESTABLISHED PATIENT November 23, 2018 INSTRUCTIONS MEDICATIONS ADMINISTERED No Known Medications MEDICAL (GENERAL) HISTORY Type Description Date Medical History chronic obstructive pulmonary disease (C OPD) Hospitalization History copd 2017
--- OUTSIDE RECORDS SUMMARY | 2019-11-25 22:10 | XMS REPORT | Continuity of Care Document ---
Author Organization Unknown Address Unknown Phone Unavailable Allergies Active Description Code Type Severity Reaction Onset Reported/Identified Relationship to Patient Clinical Status Yes No Known Drug Allergies [id number] Drug Allergy Unknown N/A 08/06/2017 Medications There is no data. Problems Date Dx Coded Attending Type Code Diagnosis Diagnosed By 08/09/2017 SOURAV ROSENBERG DO Ot D72.82 9 ELEVATED WHITE BLOOD CELL COUNT, UNSPECI 08/09/2017 SOURAV ROSENBERG DO Ot E83.42 HYPOMAGNESEMIA 08/09/2017 SOURAV ROSENBERG DO Ot E86.0 DEHYDRATION 08/09/2017 SOURAV ROSENBERG DO Ot E87.6 HYPOKALEMIA 08/09/2017 SOURAV ROSENBERG DO Ot F17.21 0 NICOTINE DEPENDENCE, CIGARETTES, UNCOMPL 08/09/2017 SOURAV ROSENBERG DO Ot J44.1 CHRONIC OBSTRUCTIVE PULMONARY DISEASE W 08/09/2017 SOURAV ROSENBERG DO Ot J96.01 ACUTE RESPIRATORY FAILURE WITH HYPOXIA 08/09/2017 SOURAV ROSENBERG DO Ot T38.0X 5A ADVERSE EFFECT OF GLUCOCORT/SYNTH ANALOG 08/09/2017 SOURAV ROSENBERG DO Ot Z23 ENCOUNTER FOR IMMUNIZATION 09/27/2017 GHISLAINE ELIZONDO APRN Ot J44.9 CHRONIC OBSTRUCTIVE PULMONARY DISEASE, U 09/27/2017 GHISLAINE ELIZONDO APRN Ot J96.90 RESPIRATORY FAILURE, UNSP, UNSP W HYPOXI 09/27/2017 GHISLAINE ELIZONDO APRN Ot Z72.0 TOBACCO USE 10/15/2017 GHISLAINE ELIZONDO APRN Ot J44.9 CHRONIC OBSTRUCTIVE PULMONARY DISEASE, U 10/15/2017 GHISLAINE ELIZONDO APRN Ot J96.90 RESPIRATORY FAILURE, UNSP, UNSP W HYPOXI 10/15/2017 GHISLAINE ELIZONDO APRN Ot Z72.0 TOBACCO USE 04/25/2018 GHISLAINE ELIZONDO APRN Ot J44.9 CHRONIC OBSTRUCTIVE PULMONARY DISEASE, U 04/25/2018 GHISLAINE ELIZONDO COUNTER SERVER Ot J96.90 RESPIRATORY FAILURE, UNSP, UNSP W HYPOXI 04/25/2018 GHISLAINE ELIZONDO COUNTER SERVER Ot Z72.0 TOBACCO USE 04/25/2018 GHISLAINE ELIZONDO COUNTER SERVER Ot Z87.891 PERSONAL HISTORY OF NICOTINE DEPENDENCE 04/27/2018 GHISLAINE ELIZONDO COUNTER SERVER Ot F17.210 NICOTINE DEPENDENCE, CIGARETTES, UNCOMPL 04/27/2018 GHISLAINE ELIZONDO COUNTER SERVER Ot J43.9 EMPHYSEMA, UNSPECIFIED 04/27/2018 CASTRO ELIZONDOINE E COUNTER SERVER Ot R09.02 HYPOXEMIA 04/27/2018 GHISLAINE ELIZONDO COUNTER SERVER Ot R91.8 OTHER NONSPECIFIC ABNORMAL FINDING OF LASHAUN 04/27/2018 GHISLAINE ELIZONDO COUNTER SERVER Ot Z12.2 ENCNTR SCREEN FOR MALIGNANT NEOPLASM OF 05/01/2018 GHISLAINE ELIZONDO COUNTER SERVER Ot F17.210 NICOTINE DEPENDENCE, CIGARETTES, UNCOMPL 05/01/2018 GHISLAINE ELIZONDO COUNTER SERVER Ot J43.9 EMPHYSEMA, UNSPECIFIED 05/01/2018 GHISLAINE ELIZONDO COUNTER SERVER Ot R09.02 HYPOXEMIA 05/01/2018 GHISLAINE ELIZONDO COUNTER SERVER Ot R91.8 OTHER NONSPECIFIC ABNORMAL FINDING OF LASHAUN 05/01/2018 GHISLAINE ELIZONDO COUNTER SERVER Ot Z12.2 ENCNTR SCREEN FOR MALIGNANT NEOPLASM OF 05/27/2018 GHISLAINE ELIZONDO COUNTER SERVER Ot F17.210 NICOTINE DEPENDENCE, CIGARETTES, UNCOMPL 05/27/2018 GHISLAINE ELIZONDO COUNTER SERVER Ot J43.9 EMPHYSEMA, UNSPECIFIED 05/27/2018 GHISLAINE ELIZONDO COUNTER SERVER Ot R09.02 HYPOXEMIA 05/27/2018 GHISLAINE ELIZONDO COUNTER SERVER Ot R91.8 OTHER NONSPECIFIC ABNORMAL FINDING OF LASHAUN 05/27/2018 GHISLAINE ELIZONDO COUNTER SERVER Ot Z12.2 ENCNTR SCREEN FOR MALIGNANT NEOPLASM OF 08/15/2018 GHISLAINE ELIZONDO COUNTER SERVER Ot J44.9 CHRONIC OBSTRUCTIVE PULMONARY DISEASE, U 08/15/2018 GHISLAINE ELIZONDO COUNTER SERVER Ot J96.90 RESPIRATORY FAILURE, UNSP, UNSP W HYPOXI 08/15/2018 GHISLAINE ELIZONDO COUNTER SERVER Ot Z72.0 TOBACCO USE 08/15/2018 CARO, GHISLAINE E COUNTER SERVER Ot F17.210 NICOTINE DEPENDENCE, CIGARETTES, UNCOMPL 08/15/2018 CASTRO ELIZONDOINE Ton COUNTER SERVER Ot J43.9 EMPHYSEMA, UNSPECIFIED 08/15/2018 CASTRO ELIZONDOINE Ton COUNTER SERVER Ot R09.02 HYPOXEMIA 08/15/2018 CASTRO ELIZONDOINE E COUNTER SERVER Ot R91.8 OTHER NONSPECIFIC ABNORMAL FINDING OF LASHAUN 08/15/2018 CASTRO ELIZONDOINE Ton COUNTER SERVER Ot Z12.2 ENCNTR SCREEN FOR MALIGNANT NEOPLASM OF 08/18/2018 GHISLAINE ELIZONDO COUNTER SERVER Ot J43.9 EMPHYSEMA, UNSPECIFIED 08/18/2018 GHISLAINE ELIZONDO COUNTER SERVER Ot R91.8 OTHER NONSPECIFIC ABNORMAL FINDING OF LASHAUN 08/18/2018 GHISLAINE ELIZONDO COUNTER SERVER Ot Z98.82 BREAST IMPLANT STATUS 09/08/2018 GHISLAINE ELIZONDO COUNTER SERVER Ot J43.9 EMPHYSEMA, UNSPECIFIED 09/08/2018 GHISLAINE ELIZONDO COUNTER SERVER Ot R91.8 OTHER NONSPECIFIC ABNORMAL FINDING OF LASHAUN 09/08/2018 GHISLAINE ELIZONDO COUNTER SERVER Ot Z98.82 BREAST IMPLANT STATUS 11/07/2018 AME OTT MD Ot J44 .9 CHRONIC OBSTRUCTIVE PULMONARY DISEASE, U 11/07/2018 AME OTT MD Ot R07.89 OTHER CHEST PAIN 11/07/2018 AME OTT MD Ot 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 11/07/2018 AME OTT MD Ot Z79.52 GROUP HOME (CURRENT) USE OF SYSTEMIC STER 11/07/2018 AME OTT MD Ot Z99.81 DEPENDENCE ON SUPPLEMENTAL OXYGEN 02/13/2019 GHISLAINE ELIZONDO COUNTER SERVER Ot J43.9 EMPHYSEMA, UNSPECIFIED 02/13/2019 GHISLAINE ELIZONDO COUNTER SERVER Ot R91.8 OTHER NONSPECIFIC ABNORMAL FINDING OF LASHAUN 02/13/2019 GHILSAINE ELIZONDO COUNTER SERVER Ot Z72.0 TOBACCO USE 03/01/2019 GHISLAINE ELIZONDO COUNTER SERVER Ot J43.9 EMPHYSEMA, UNSPECIFIED 03/01/2019 GHISLAINE ELIZONDO COUNTER SERVER Ot R91.8 OTHER NONSPECIFIC ABNORMAL FINDING OF LASHAUN 03/01/2019 GHISLAINE ELIZONDO COUNTER SERVER Ot Z72.0 TOBACCO USE 04/30/2019 ZARA MCCORMACK, AMRTITA Nowak Ot F17.210 NICOTINE DEPENDENCE, CIGARETTES, UNCOMPL 04/30/2019 MARTITA ZUÑIGA MD Ot J43. 9 EMPHYSEMA, UNSPECIFIED 04/30/2019 MARTITA ZUÑIGA MD Ot R06. 02 SHORTNESS OF BREATH 04/30/2019 MARTITA ZUÑIGA MD Ot Z79. 52 GROUP HOME (CURRENT) USE OF SYSTEMIC STER 04/30/2019 MARTITA ZUÑIGA MD Ot Z99. 81 DEPENDENCE ON SUPPLEMENTAL OXYGEN 05/03/2019 MARTITA ZUÑIGA MD Ot F17.210 NICOTINE DEPENDENCE, CIGARETTES, UNCOMPL 05/03/2019 MARTITA ZUÑIGA MD Ot J43. 9 EMPHYSEMA, UNSPECIFIED 05/03/2019 MARTITA ZUÑIGA MD Ot R06. 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 08/25/2019 CHELO FERGUSON MD Ot Z79.52 GROUP HOME (CURRENT) USE OF SYSTEMIC STER 08/28/2019 CHELO FERGUSON MD Ot D72.829 ELEVATED WHITE BLOOD CELL COUNT, UNSPECI 08/28/2019 CHELO FERGUSON MD Ot F17.210 NICOTINE DEPENDENCE, CIGARETTES, UNCOMPL 08/28/2019 CHELO FERGUSON MD Ot J18.9 PNEUMONIA, UNSPECIFIED ORGANISM 08/28/2019 CHELO FERGUSON MD Ot J44.0 CHR OBSTRUCTIVE PULMON DISEASE WITH (ACU 08/28/2019 CHELO FERGUSON MD Ot R05 COUGH 08/28/2019 CHELO FERGUSON MD Ot Z79.51 GROUP HOME (CURRENT) USE OF INHALED STERO 08/28/2019 PHYLLIS MCCORMACK, CHELO Cardoza Ot Z79.52 GROUP HOME (CURRENT) USE OF SYSTEMIC STER 09/21/2019 LOBITO, SELVIN S COUNTER SERVER Ot J98.4 OTHER DISORDERS OF LUNG 09/21/2019 LOBITO, SELVIN S COUNTER SERVER Ot R07.89 OTHER CHEST PAIN 09/21/2019 LOBITO, SELVIN S COUNTER SERVER Ot Z87.01 PERSONAL HISTORY OF PNEUMONIA (RECURRENT 10/04/2019 LOBITO, SELVIN S COUNTER SERVER Ot R07.9 CHEST PAIN, UNSPECIFIED 10/04/2019 LOBITO, SELVIN S COUNTER SERVER Ot Z87.01 PERSONAL HISTORY OF PNEUMONIA (RECURRENT 10/12/2019 LOBITO, SELVIN S COUNTER SERVER Ot J98.4 OTHER DISORDERS OF LUNG 10/12/2019 LOBITO, SELVIN S COUNTER SERVER Ot R07.89 OTHER CHEST PAIN 10/12/2019 LOBITO, SELVIN S COUNTER SERVER Ot Z87.01 PERSONAL HISTORY OF PNEUMONIA (RECURRENT 10/27/2019 LOBITO, SELVIN S COUNTER SERVER Ot J44.9 CHRONIC OBSTRUCTIVE PULMONARY DISEASE, U 10/27/2019 LOBITO, SELVIN S COUNTER SERVER Ot R07.9 CHEST PAIN, UNSPECIFIED 10/27/2019 LOBITO, SELVIN S COUNTER SERVER Ot Z87.01 PERSONAL HISTORY OF PNEUMONIA (RECURRENT 10/31/2019 LOBITO, SELVIN S COUNTER SERVER Ot R07.9 CHEST PAIN, UNSPECIFIED 10/31/2019 LOBITO, SELVIN S COUNTER SERVER Ot Z87.01 PERSONAL HISTORY OF PNEUMONIA (RECURRENT 11/11/2019 LOBITO, SELVIN S COUNTER SERVER Ot R91.8 OTHER NONSPECIFIC ABNORMAL FINDING OF LASHAUN 11/11/2019 LOBITO, SELVIN S COUNTER SERVER Ot Z87.01 PERSONAL HISTORY OF PNEUMONIA (RECURRENT 11/15/2019 LOBITO, SELVIN S COUNTER SERVER Ot J44.9 CHRONIC OBSTRUCTIVE PULMONARY DISEASE, U 11/15/2019 LOBITO, SELVIN S COUNTER SERVER Ot R07.9 CHEST PAIN, UNSPECIFIED 11/15/2019 LOBITO, SELVIN S COUNTER SERVER Ot Z87.01 PERSONAL HISTORY OF PNEUMONIA (RECURRENT Procedures There is no data. Results Test Result Range Complete blood count (CBC) with automate d white blood cell (WBC) differential - 08/06/17 04:30 Blood leukocytes automated count (number/volume) 13.4 10*3/uL 4.3-11.0 Blood erythrocytes automated count (number/volume) 4.59 10*6/uL 4.35-5.85 Venous blood hemoglobin measurement (mass/volume) 13.6 g/dL 11.5-16.0 Blood hematocrit (volume fraction) 41 % 35-52 Automated erythrocyte mean corpuscular volume 90 [ foz_us] 80-99 Automated erythrocyte mean corpuscular h emoglobin (mass per erythrocyte) 30 pg 25-34 Automated erythrocyte mean corpuscular h emoglobin concentration measurement (mass/volume) 33 g/dL 32-36 Automated erythrocyte distribution width ratio 14. 0 % 10.0- 14.5 Automated blood platelet count (count/volume) 246 10*3/uL 130-400 Automated blood platelet mean volume measurement 10.7 [foz_us] 7.4-10.4 Automated blood neutrophils/100 leukocytes 90 % 42-75 Automated blood lymphocytes/100 leukocytes 4 % 12-44 Blood monocytes/100 leukocytes 6 % 0-12 Automated blood eosinophils/100 leukocytes 0 % 0-10 Automated blood basophils/100 leukocytes 0 % 0-10 Blood neutrophils automated count (number/volume) 12.1 10*3 1.8-7.8 Blood lymphocytes automated count (number/volume) 0.5 10*3 1.0-4.0 Blood monocytes automated count (number/volume) 0. 8 10*3 0.0-1.0 Automated eosinophil count 0.0 10*3/uL 0 .0-0.3 Automated blood basophil count (count/volume) 0.0 10*3/uL 0.0-0.1 Whole blood basic metabolic panel - 1209/22 04:30 Serum or plasma sodium measurement (moles/volume) 136 mmol/L 135-145 Serum or plasma potassium measurement (moles/volume) 3.4 mmol/L 3.6-5.0 Serum or plasma chloride measurement (moles/volume) 101 mmol/L 98-107 Carbon dioxide 23 mmol/L 21-32 Serum or plasma anion gap determination (moles/volume) 12 mmol/L 5-14 Serum or plasma urea nitrogen measurement (mass/volume ) 10 mg/dL 7-18 Serum or plasma creatinine measurement (mass/volume) 0.69 mg/dL 0.60-1.30 Serum or plasma urea nitrogen/creatinine mass ratio 14 NRG Serum or plasma creatinine measurement w ith calculation of estimated glomerular filtration rate > NRG Serum or plasma glucose measurement (mass/volume) 107 mg/dL 70-105 Serum or plasma calcium measurement (mass/volume) 9.2 mg/dL 8.5-10.1 Serum or plasma phosphate measurement (m ass/volume) - 08/06/17 04:30 Serum or plasma phosphate measurement (mass/volume) 1.9 mg/dL 2.3-4.7 Magnesium - 08/06/17 04:30 Magnesium 1.5 mg/dL 1.8-2.4 Serum or plasma lithium measurement (mol es/volume) - 08/06/17 04:30 BNP level 69.2 pg/mL <100.0 Sputum Gram stain - 08/06/17 05:00 GRAM STAIN SPUTUM PNEUMONIAE NRG Bacterial sputum culture - 08/06/17 05:0 0 FREE TEXT EXTERNAL PLUS NORMAL JERILYN NR G QUANTITY OF GROWTH . NRG Bacterial sputum culture SEE COMMEN NRG Methicillin resistant Staphylococcus aur eus (MRSA) screening culture - 08/06/17 05:00 Methicillin resistant Staphylococcus aureus (MRSA) scr eening culture NEG NRG Arterial blood gas measurement - 7 06:10 Blood pCO2 33 mm[Hg] 35-45 Blood pO2 60 mm[Hg] 79-93 Arterial blood bicarbonate measurement (moles/volume) 25 mmol/L 23-27 Arterial blood base excess by calculation 1.4 mmol /L -2.5-2.5 Arterial blood oxygen saturation measurement 95 % 94-100 * Inhaled oxygen flow rate 21% NRG Arterial blood pH measurement with patient temperature correction 7.48 7.37-7.43 Arterial blood carbon dioxide, total measurement (mole s/volume) 25.7 mmol/L 21.0-31.0 Body site RIGHT RADIAL NRG Assessment of wrist artery patency prior to arterial p uncture YES-POS NRG Setting of ventilation mode NO NR G Measurement of body temperature 98.1 NRG Influenza virus A and B antigen detectio n - 08/06/17 06:46 FLU RESULT NEGATIVE FOR INFLUENZA A AND B ANTIGENS BY IA NRG Blood lactic acid measurement (moles/vol ume) - 08/06/17 07:22 Blood lactic acid measurement (moles/volume) 1.38 mmol/L 0.50-2.00 Bacterial blood culture - 08/06/17 07:22 Bacterial blood culture NG NRG Bacterial blood culture - 08/06/17 07:29 Bacterial blood culture NG NRG Bacterial blood culture - 08/06/17 07:34 Bacterial blood culture NG NRG Complete urinalysis with reflex to cultu re - 08/06/17 08:05 Urine color determination YELLOW NRG Urine clarity determination CLEAR NR G Urine pH measurement by test strip 6 5-9 Specific gravity of urine by test strip 1.010 1.016-1.022 Urine protein assay by test strip, semi-quantitative NEGATIVE NEGATIVE Urine glucose detection by automated test strip NE GATIVE NEGATIVE Erythrocytes detection in urine sediment by light micr oscopy NEGATIVE NEGATIVE Urine ketones detection by automated test strip NE GATIVE NEGATIVE Urine nitrite detection by test strip NEGATIVE NEGATIVE Urine total bilirubin detection by test strip NEGA TIVE NEGATIVE Urine urobilinogen measurement by automated test strip (mass/volume) NORMAL NORMAL Urine leukocyte esterase detection by dipstick NEG ATIVE NEGATIVE Automated urine sediment erythrocyte cou nt by microscopy (number/high power field) NONE NRG Automated urine sediment leukocyte count by microscopy (number/high power field) NONE NRG Bacteria detection in urine sediment by light microsco py NEGATIVE NRG Squamous epithelial cells detection in u rine sediment by light microscopy NONE NRG Crystals detection in urine sediment by light microsco py NONE NRG Casts detection in urine sediment by light microscopy NONE NRG Mucus detection in urine sediment by light microscopy NEGATIVE NRG Complete urinalysis with reflex to culture NO NRG Complete blood count (CBC) with automate d white blood cell (WBC) differential - 08/07/17 04:12 Blood leukocytes automated count (number/volume) 7.4 10*3/uL 4.3-11.0 Blood erythrocytes automated count (number/volume) 3.93 10*6/uL 4.35-5.85 Venous blood hemoglobin measurement (mass/volume) 11.9 g/dL 11.5-16.0 Blood hematocrit (volume fraction) 36 % 35-52 Automated erythrocyte mean corpuscular volume 91 [ foz_us] 80-99 Automated erythrocyte mean corpuscular h emoglobin (mass per erythrocyte) 30 pg 25-34 Automated erythrocyte mean corpuscular h emoglobin concentration measurement (mass/volume) 33 g/dL 32-36 Automated erythrocyte distribution width ratio 14. 5 % 10.0- 14.5 Automated blood platelet count (count/volume) 223 10*3/uL 130-400 Automated blood platelet mean volume measurement 10.8 [foz_us] 7.4-10.4 Automated blood neutrophils/100 leukocytes 82 % 42-75 Automated blood lymphocytes/100 leukocytes 11 % 12-44 Blood monocytes/100 leukocytes 8 % 0-12 Automated blood eosinophils/100 leukocytes 0 % 0-10 Automated blood basophils/100 leukocytes 0 % 0-10 Blood neutrophils automated count (number/volume) 6.0 10*3 1.8-7.8 Blood lymphocytes automated count (number/volume) 0.8 10*3 1.0-4.0 Blood monocytes automated count (number/volume) 0. 6 10*3 0.0-1.0 Automated eosinophil count 0.0 10*3/uL 0 .0-0.3 Automated blood basophil count (count/volume) 0.0 10*3/uL 0.0-0.1 Whole blood basic metabolic panel - 10/23 04:12 Serum or plasma sodium measurement (moles/volume) 140 mmol/L 135-145 Serum or plasma potassium measurement (moles/volume) 4.0 mmol/L 3.6-5.0 Serum or plasma chloride measurement (moles/volume) 111 mmol/L 98-107 Carbon dioxide 21 mmol/L 21-32 Serum or plasma anion gap determination (moles/volume) 8 mmol/L 5-14 Serum or plasma urea nitrogen measurement (mass/volume ) 10 mg/dL 7-18 Serum or plasma creatinine measurement (mass/volume) 0.64 mg/dL 0.60-1.30 Serum or plasma urea nitrogen/creatinine mass ratio 16 NRG Serum or plasma creatinine measurement w ith calculation of estimated glomerular filtration rate > NRG Serum or plasma glucose measurement (mass/volume) 129 mg/dL 70-105 Serum or plasma calcium measurement (mass/volume) 8.2 mg/dL 8.5-10.1 Serum or plasma phosphate measurement (m ass/volume) - 08/07/17 04:12 Serum or plasma phosphate measurement (mass/volume) 2.7 mg/dL 2.3-4.7 Magnesium - 08/07/17 04:12 Magnesium 1.8 mg/dL 1.8-2.4 Complete blood count (CBC) with automate d white blood cell (WBC) differential - 08/08/17 04:53 Blood leukocytes automated count (number/volume) 8.4 10*3/uL 4.3-11.0 Blood erythrocytes automated count (number/volume) 3.66 10*6/uL 4.35-5.85 Venous blood hemoglobin measurement (mass/volume) 10.8 g/dL 11.5-16.0 Blood hematocrit (volume fraction) 34 % 35-52 Automated erythrocyte mean corpuscular volume 93 [ foz_us] 80-99 Automated erythrocyte mean corpuscular h emoglobin (mass per erythrocyte) 30 pg 25-34 Automated erythrocyte mean corpuscular h emoglobin concentration measurement (mass/volume) 32 g/dL 32-36 Automated erythrocyte distribution width ratio 14. 7 % 10.0- 14.5 Automated blood platelet count (count/volume) 224 10*3/uL 130-400 Automated blood platelet mean volume measurement 10.8 [foz_us] 7.4-10.4 Automated blood neutrophils/100 leukocytes 81 % 42-75 Automated blood lymphocytes/100 leukocytes 13 % 12-44 Blood monocytes/100 leukocytes 7 % 0-12 Automated blood eosinophils/100 leukocytes 0 % 0-10 Automated blood basophils/100 leukocytes 0 % 0-10 Blood neutrophils automated count (number/volume) 6.7 10*3 1.8-7.8 Blood lymphocytes automated count (number/volume) 1.1 10*3 1.0-4.0 Blood monocytes automated count (number/volume) 0. 6 10*3 0.0-1.0 Automated eosinophil count 0.0 10*3/uL 0 .0-0.3 Automated blood basophil count (count/volume) 0.0 10*3/uL 0.0-0.1 Comprehensive metabolic panel - 08/08/17 04:53 Serum or plasma sodium measurement (moles/volume) 141 mmol/L 135-145 Serum or plasma potassium measurement (moles/volume) 3.9 mmol/L 3.6-5.0 Serum or plasma chloride measurement (moles/volume) 108 mmol/L 98-107 Carbon dioxide 24 mmol/L 21-32 Serum or plasma anion gap determination (moles/volume) 9 mmol/L 5-14 Serum or plasma urea nitrogen measurement (mass/volume ) 14 mg/dL 7-18 Serum or plasma creatinine measurement (mass/volume) 0.66 mg/dL 0.60-1.30 Serum or plasma urea nitrogen/creatinine mass ratio 21 NRG Serum or plasma creatinine measurement w ith calculation of estimated glomerular filtration rate > NRG Serum or plasma glucose measurement (mass/volume) 124 mg/dL 70-105 Serum or plasma calcium measurement (mass/volume) 8.3 mg/dL 8.5-10.1 Serum or plasma total bilirubin measurement (mass/volu me) 0.5 mg/dL 0.1-1.0 Serum or plasma alkaline phosphatase emelyn surement (enzymatic activity/volume) 60 U/L 40-136 Serum or plasma aspartate aminotransfera se measurement (enzymatic activity/volume) 33 U/L 5-34 Serum or plasma alanine aminotransferase measurement (enzymatic activity/volume) 39 U/L 0-55 Serum or plasma protein measurement (mass/volume) 5.6 g/dL 6.4-8.2 Serum or plasma albumin measurement (mass/volume) 3.1 g/dL 3.2-4.5 Complete blood count (CBC) with automate d white blood cell (WBC) differential - 11/07/18 11:50 Blood leukocytes automated count (number/volume) 10.4 10*3/uL 4.3-11.0 Blood erythrocytes automated count (number/volume) 4.87 10*6/uL 4.35-5.85 Venous blood hemoglobin measurement (mass/volume) 14.1 g/dL 11.5-16.0 Blood hematocrit (volume fraction) 45 % 35-52 Automated erythrocyte mean corpuscular volume 92 [ foz_us] 80-99 Automated erythrocyte mean corpuscular h emoglobin (mass per erythrocyte) 29 pg 25-34 Automated erythrocyte mean corpuscular h emoglobin concentration measurement (mass/volume) 32 g/dL 32-36 Automated erythrocyte distribution width ratio 12. 6 % 10.0- 14.5 Automated blood platelet count (count/volume) 280 10*3/uL 130-400 Automated blood platelet mean volume measurement 10.5 [foz_us] 7.4-10.4 Automated blood neutrophils/100 leukocytes 48 % 42-75 Automated blood lymphocytes/100 leukocytes 40 % 12-44 Blood monocytes/100 leukocytes 9 % 0-12 Automated blood eosinophils/100 leukocytes 1 % 0-10 Automated blood basophils/100 leukocytes 1 % 0-10 Blood neutrophils automated count (number/volume) 5.0 10*3 1.8-7.8 Blood lymphocytes automated count (number/volume) 4.2 10*3 1.0-4.0 Blood monocytes automated count (number/volume) 1. 0 10*3 0.0-1.0 Automated eosinophil count 0.1 10*3/uL 0 .0-0.3 Automated blood basophil count (count/volume) 0.1 10*3/uL 0.0-0.1 Comprehensive metabolic panel - 11/07/18 11:50 Serum or plasma sodium measurement (moles/volume) 143 mmol/L 135-145 Serum or plasma potassium measurement (moles/volume) 4.2 mmol/L 3.6-5.0 Serum or plasma chloride measurement (moles/volume) 101 mmol/L 98-107 Carbon dioxide 24 mmol/L 21-32 Serum or plasma anion gap determination (moles/volume) 18 mmol/L 5-14 Serum or plasma urea nitrogen measurement (mass/volume ) 18 mg/dL 7-18 Serum or plasma creatinine measurement (mass/volume) 0.73 mg/dL 0.60-1.30 Serum or plasma urea nitrogen/creatinine mass ratio 25 NRG Serum or plasma creatinine measurement w ith calculation of estimated glomerular filtration rate > NRG Serum or plasma glucose measurement (mass/volume) 85 mg/dL 70-105 Serum or plasma calcium measurement (mass/volume) 9.0 mg/dL 8.5-10.1 Serum or plasma total bilirubin measurement (mass/volu me) 0.5 mg/dL 0.1-1.0 Serum or plasma alkaline phosphatase emelyn surement (enzymatic activity/volume) 89 U/L 40-136 Serum or plasma aspartate aminotransfera se measurement (enzymatic activity/volume) 14 U/L 5-34 Serum or plasma alanine aminotransferase measurement (enzymatic activity/volume) 17 U/L 0-55 Serum or plasma protein measurement (mass/volume) 6.9 g/dL 6.4-8.2 Serum or plasma albumin measurement (mass/volume) 4.2 g/dL 3.2-4.5 CALCIUM CORRECTED 8.8 mg/dL 8.5-10.1 TROPONIN T - 11/07/18 11:50 TROPONIN T 11 % <=10 Serum or plasma lithium measurement (mol es/volume) - 11/07/18 11:50 BNP level 256.2 pg/mL <100.0 Complete urinalysis with reflex to cultu re - 11/07/18 12:14 Urine color determination YELLOW NRG Urine clarity determination CLEAR NR G Urine pH measurement by test strip 7.0 5-9 Specific gravity of urine by test strip 1.020 1.016-1.022 Urine protein assay by test strip, semi-quantitative NEGATIVE NEGATIVE Urine glucose detection by automated test strip NE GATIVE NEGATIVE Erythrocytes detection in urine sediment by light micr oscopy NEGATIVE NEGATIVE Urine ketones detection by automated test strip NE GATIVE NEGATIVE Urine nitrite detection by test strip NEGATIVE NEGATIVE Urine total bilirubin detection by test strip NEGA TIVE NEGATIVE Urine urobilinogen measurement by automated test strip (mass/volume) 0.2 mg/dL NORMAL Urine leukocyte esterase detection by dipstick NEG ATIVE NEGATIVE Automated urine sediment erythrocyte cou nt by microscopy (number/high power field) NONE NRG Automated urine sediment leukocyte count by microscopy (number/high power field) NONE NRG Bacteria detection in urine sediment by light microsco py NONE NRG Squamous epithelial cells detection in u rine sediment by light microscopy RARE NRG Crystals detection in urine sediment by light microsco py NONE NRG Casts detection in urine sediment by light microscopy NONE NRG Mucus detection in urine sediment by light microscopy NEGATIVE NRG Complete urinalysis with reflex to culture NO NRG Complete blood count (CBC) with automate d white blood cell (WBC) differential - 04/30/19 10:06 Blood leukocytes automated count (number/volume) 6.7 10*3/uL 4.3-11.0 Blood erythrocytes automated count (number/volume) 4.55 10*6/uL 4.35-5.85 Venous blood hemoglobin measurement (mass/volume) 13.6 g/dL 11.5-16.0 Blood hematocrit (volume fraction) 41 % 35-52 Automated erythrocyte mean corpuscular volume 91 [ foz_us] 80-99 Automated erythrocyte mean corpuscular h emoglobin (mass per erythrocyte) 30 pg 25-34 Automated erythrocyte mean corpuscular h emoglobin concentration measurement (mass/volume) 33 g/dL 32-36 Automated erythrocyte distribution width ratio 13. 0 % 10.0- 14.5 Automated blood platelet count (count/volume) 263 10*3/uL 130-400 Automated blood platelet mean volume measurement 9.7 [foz_us] 7.4-10.4 Automated blood neutrophils/100 leukocytes 48 % 42-75 Automated blood lymphocytes/100 leukocytes 36 % 12-44 Blood monocytes/100 leukocytes 8 % 0-12 Automated blood eosinophils/100 leukocytes 7 % 0-10 Automated blood basophils/100 leukocytes 1 % 0-10 Blood neutrophils automated count (number/volume) 3.2 10*3 1.8-7.8 Blood lymphocytes automated count (number/volume) 2.4 10*3 1.0-4.0 Blood monocytes automated count (number/volume) 0. 5 10*3 0.0-1.0 Automated eosinophil count 0.5 10*3/uL 0 .0-0.3 Automated blood basophil count (count/volume) 0.1 10*3/uL 0.0-0.1 Blood lactic acid measurement (moles/vol ume) - 04/30/19 10:06 Blood lactic acid measurement (moles/volume) 1.02 mmol/L 0.50-2.00 Comprehensive metabolic panel - 04/30/19 10:06 Serum or plasma sodium measurement (moles/volume) 142 mmol/L 135-145 Serum or plasma potassium measurement (moles/volume) 4.2 mmol/L 3.6-5.0 Serum or plasma chloride measurement (moles/volume) 103 mmol/L 98-107 Carbon dioxide 27 mmol/L 21-32 Serum or plasma anion gap determination (moles/volume) 12 mmol/L 5-14 Serum or plasma urea nitrogen measurement (mass/volume ) 11 mg/dL 7-18 Serum or plasma creatinine measurement (mass/volume) 0.75 mg/dL 0.60-1.30 Serum or plasma urea nitrogen/creatinine mass ratio 15 NRG Serum or plasma creatinine measurement w ith calculation of estimated glomerular filtration rate > NRG Serum or plasma glucose measurement (mass/volume) 114 mg/dL 70-105 Serum or plasma calcium measurement (mass/volume) 9.2 mg/dL 8.5-10.1 Serum or plasma total bilirubin measurement (mass/volu me) 0.5 mg/dL 0.1-1.0 Serum or plasma alkaline phosphatase emelyn surement (enzymatic activity/volume) 109 U/L 40-136 Serum or plasma aspartate aminotransfera se measurement (enzymatic activity/volume) 16 U/L 5-34 Serum or plasma alanine aminotransferase measurement (enzymatic activity/volume) 11 U/L 0-55 Serum or plasma protein measurement (mass/volume) 7.2 g/dL 6.4-8.2 Serum or plasma albumin measurement (mass/volume) 4.2 g/dL 3.2-4.5 CALCIUM CORRECTED 9.0 mg/dL 8.5-10.1 Serum or plasma troponin i.cardiac measu rement (mass/volume) - 04/30/19 10:06 Serum or plasma troponin i.cardiac measurement (mass/v olume) < ng/mL <0.30 PROBNP FS - 04/30/19 10:06 PROBNP FS 97.7 pg/mL <75.0 Bacterial blood culture - 04/30/19 10:06 Bacterial blood culture NG NRG Arterial blood gas measurement - 9 10:55 Blood pCO2 50 mm[Hg] 35-45 Blood pO2 94 mm[Hg] 79-93 Arterial blood bicarbonate measurement (moles/volume) 28 mmol/L 23-27 Arterial blood base excess by calculation 2.0 mmol /L -2.5-2.5 Arterial blood oxygen saturation measurement 97 % 94-100 * Inhaled oxygen flow rate 4 L NRG Arterial blood pH measurement with patient temperature correction 7.36 7.37-7.43 Arterial blood carbon dioxide, total measurement (mole s/volume) 29.7 mmol/L 21.0-31.0 Body site Rt Radial NRG Assessment of wrist artery patency prior to arterial p uncture YES-POS NRG Setting of ventilation mode NO NR G Measurement of body temperature 98.1 NRG Bacterial blood culture - 04/30/19 11:50 Bacterial blood culture NG NRG Complete blood count (CBC) with automate d white blood cell (WBC) differential - 08/25/19 17:33 Blood leukocytes automated count (number/volume) 22.3 10*3/uL 4.3-11.0 Blood erythrocytes automated count (number/volume) 4.16 10*6/uL 4.35-5.85 Venous blood hemoglobin measurement (mass/volume) 12.3 g/dL 11.5-16.0 Blood hematocrit (volume fraction) 38 % 35-52 Automated erythrocyte mean corpuscular volume 91 [ foz_us] 80-99 Automated erythrocyte mean corpuscular h emoglobin (mass per erythrocyte) 30 pg 25-34 Automated erythrocyte mean corpuscular h emoglobin concentration measurement (mass/volume) 33 g/dL 32-36 Automated erythrocyte distribution width ratio 13. 2 % 10.0- 14.5 Automated blood platelet count (count/volume) 253 10*3/uL 130-400 Automated blood platelet mean volume measurement 10.8 [foz_us] 7.4-10.4 Automated blood neutrophils/100 leukocytes 86 % 42-75 Automated blood lymphocytes/100 leukocytes 6 % 12-44 Blood monocytes/100 leukocytes 7 % 0-12 Automated blood eosinophils/100 leukocytes 0 % 0-10 Automated blood basophils/100 leukocytes 0 % 0-10 Blood neutrophils automated count (number/volume) 19.1 10*3 1.8-7.8 Blood lymphocytes automated count (number/volume) 1.4 10*3 1.0-4.0 Blood monocytes automated count (number/volume) 1. 6 10*3 0.0-1.0 Automated eosinophil count 0.0 10*3/uL 0 .0-0.3 Automated blood basophil count (count/volume) 0.1 10*3/uL 0.0-0.1 PT panel in platelet poor plasma by coag ulation assay - 08/25/19 17:33 Prothrombin time (PT) in platelet poor plasma by coagu lation assay 18.4 s 12.2-14.7 INR in platelet poor plasma or blood by coagulation as say 1.5 0.8-1.4 Activated partial thromboplastin time (a PTT) in platelet poor plasma bycoagulation assay - 08/25/19 17:33 Activated partial thromboplastin time (a PTT) in platelet poor plasma bycoagulation assay 30 s 24-35 Manual absolute plasma cell count - 08/07 17:33 Blood monocytes/100 leukocytes 8 % NRG Manual blood segmented neutrophils/100 leukocytes 73 % NRG Blood band neutrophils/100 leukocytes 11 % NRG Manual blood lymphocytes/100 leukocytes 8 % NRG Manual eosinophils/100 leukocytes in nose 0 % NRG Manual blood basophils/100 leukocytes 0 % NRG Blood lactic acid measurement (moles/vol ume) - 08/25/19 17:33 Blood lactic acid measurement (moles/volume) 1.52 mmol/L 0.50-2.00 Comprehensive metabolic panel - 08/25/19 17:33 Serum or plasma sodium measurement (moles/volume) 139 mmol/L 135-145 Serum or plasma potassium measurement (moles/volume) 3.4 mmol/L 3.6-5.0 Serum or plasma chloride measurement (moles/volume) 100 mmol/L 98-107 Carbon dioxide 24 mmol/L 21-32 Serum or plasma anion gap determination (moles/volume) 15 mmol/L 5-14 Serum or plasma urea nitrogen measurement (mass/volume ) 17 mg/dL 7-18 Serum or plasma creatinine measurement (mass/volume) 0.76 mg/dL 0.60-1.30 Serum or plasma urea nitrogen/creatinine mass ratio 22 NRG Serum or plasma creatinine measurement w ith calculation of estimated glomerular filtration rate > NRG Serum or plasma glucose measurement (mass/volume) 111 mg/dL 70-105 Serum or plasma calcium measurement (mass/volume) 9.6 mg/dL 8.5-10.1 Serum or plasma total bilirubin measurement (mass/volu me) 1.1 mg/dL 0.1-1.0 Serum or plasma alkaline phosphatase emelyn surement (enzymatic activity/volume) 98 U/L 40-136 Serum or plasma aspartate aminotransfera se measurement (enzymatic activity/volume) 17 U/L 5-34 Serum or plasma alanine aminotransferase measurement (enzymatic activity/volume) 13 U/L 0-55 Serum or plasma protein measurement (mass/volume) 6.9 g/dL 6.4-8.2 Serum or plasma albumin measurement (mass/volume) 3.6 g/dL 3.2-4.5 CALCIUM CORRECTED 9.9 mg/dL 8.5-10.1 TROPONIN I FS - 08/25/19 17:33 TROPONIN I FS < 0.30 <0.30 PROBNP FS - 08/25/19 17:33 PROBNP FS 648.2 pg/mL <75.0 Bacterial blood culture - 08/25/19 17:33 Bacterial blood culture NG NRG Influenza virus A and B antigen detectio n - 08/25/19 18:22 FLU RESULT NEGATIVE FOR INFLUENZA A AND B ANTIGENS BY IA NRG Bacterial blood culture - 08/25/19 18:22 Bacterial blood culture NG NRG Complete urinalysis with reflex to cultu re - 08/25/19 19:15 Urine color determination YELLOW NRG Urine clarity determination CLEAR NR G Urine pH measurement by test strip 5.5 5-9 Specific gravity of urine by test strip 1.025 1.016-1.022 Urine protein assay by test strip, semi-quantitative NEGATIVE NEGATIVE Urine glucose detection by automated test strip NE GATIVE NEGATIVE Erythrocytes detection in urine sediment by light micr oscopy TRACE NEGATIVE Urine ketones detection by automated test strip NE GATIVE NEGATIVE Urine nitrite detection by test strip POSITIVE NEGATIVE Urine total bilirubin detection by test strip NEGA TIVE NEGATIVE Urine urobilinogen measurement by automated test strip (mass/volume) 0.2 mg/dL < = 1.0 Urine leukocyte esterase detection by dipstick NEG ATIVE NEGATIVE Automated urine sediment erythrocyte cou nt by microscopy (number/high power field) [HPF] NRG Automated urine sediment leukocyte count by microscopy (number/high power field) RARE NRG Bacteria detection in urine sediment by light microsco py MODERATE NRG Squamous epithelial cells detection in u rine sediment by light microscopy NONE NRG Crystals detection in urine sediment by light microsco py NONE NRG Casts detection in urine sediment by light microscopy NONE NRG Mucus detection in urine sediment by light microscopy NONE NRG Complete urinalysis with reflex to culture YES NRG Bacterial urine culture - 08/25/19 19:15 Bacterial urine culture NG NRG [id number] - 11/09/19 09:25 Serum or plasma urea nitrogen measurement (mass/volume ) 10 mg/dL 7-18 Serum or plasma creatinine measurement (mass/volume) 0.76 mg/dL 0.60-1.30 Serum or plasma urea nitrogen/creatinine mass ratio 13 NRG Serum or plasma creatinine measurement w ith calculation of estimated glomerular filtration rate > NRG Encounters ACCT No. Visit Date/Time Discharge Status Pt. Type Provider Facility Loc./Unit Complaint [id number] 11/09/2019 09:26:00 23:59:59 CLS Outpatient LOBITO, SELVIN S [employer] [facility] LAB FS HX OF PNEUMONIA [id number] 10/25/2019 15:58:00 23:59:59 CLS Outpatient LOBITO SELVIN S [employer] [facility] RAD FS Z87.01 R07.9 [id number] 10/03/2019 13:16:00 23:59:59 CLS Outpatient LOBITO, SELVIN S [employer] [facility] RAD FS Z87.01 R07.9 [id number] 09/19/2019 14:02:00 23:59:59 CLS Outpatient SELVIN ROBIN [employer] [facility] RAD FS R07.9 Z87.01 [id number] 08/25/2019 17:19:00 19:49:00 DIS Emergency PHYLLIS MCCORMACK, CHELO tolentino [facility] ER FS HF EXACERBATION,DYSPNEA [id number] 04/30/2019 09:56:00 12:01:00 DIS Emergency ZARA MCCORMACK, MARTITA Nowak [facility] ER FS SOB [id number] 03/03/2019 14:23:00 23:59:59 CLS Preadmit GHISLAINE ELIZONDO [employer] [facility] RAD HX OF NICOTINE DEP [id number] 02/08/2019 10:20:00 23:59:59 CLS Outpatient GHISLAINE ELIZONDO [employer] [facility] RAD ABN CT SCAN MULUGETA [address] [id number] 11/07/2018 11:53:00 14:05:00 DIS Emergency TRU MCCORMACK, AME Valenzuela [facility] ER FS SOB [id number] 08/25/2018 07:48:00 23:59:59 CLS Preadmit GHISLAINE ELIZONDO [employer] [facility] RAD LUNG MASS,COPD,HYPOXEMIA,TOBACCO USER,DYSPNEA [id number] 08/17/2018 09:19:00 23:59:59 CLS Outpatient GHISLAINE ELIZONDO [employer] [facility] RAD LUNG MASS,COPD, DYSPNEA [id number] 04/25/2018 12:15:00 23:59:59 CLS Outpatient GHISLAINE ELIZONDO [employer] [facility] RAD TOBACCO USER,RU LE OUT LUNG CA [id number] 09/24/2017 09:37:00 23:59:59 CLS Outpatient GHISLAINE ELIZONDO [employer] [facility] RT COPD [id number] 08/06/2017 04:05:00 017 14:15:00 DIS Inpatient ROSENBERG , SOURAV Zimmer [facility] 4TH COPD EXACERBATION
[2019-11-25] MEDS ORDERED: morphine INJ 10 MG/ML 1ML (SYR OR VIAL) IVP STA (22:17)
[2019-11-25] MEDS ORDERED: NS IV 500 ML 500 ML IV STA (22:17)
--- NOTE | 2019-11-25 22:21 | ED Lower Extremity ---
General Chief Complaint: Lower Extremity Stated Complaint: LEFT LEG PAIN/SWELLING History of Present Illness Date Seen by Provider: Nov 25, 2019 Time Seen by Provider: 22:18 Initial Comments This patient is a 69-year-old female presents to the emergency department complaining of left ankle pain states started 24 hours ago and continues to be very sharp in nature noticed some redness around her left malleolus of the left ankle. No significant swelling. Patient states increased pain and is not improved with hydrocodone. We'll do medical evaluation treatment is needed. Pain/Injury Location: left ankle Method of Injury: unknown Allergies and Home Medications Allergies Coded Allergies: No Known Drug Allergies (Unverified , 08/06/17) Home Medications Albuterol Sulfate 1 Puff Puff, 2 PUFF IH Q4H 1 PUFF = 90 MCG Prescribed by: NATHANIEL DOLL on 08/09/17 112 Fluticasone/Salmeterol 1 Each Blst.w.dev, 1 PUFF INH DAILY, (Reported) Hydrocodone/Acetaminophen 1 Each Tablet, 1 TAB PO Q4-6HR Prescribed by: CHELO FERGUSON on 08/25/191944 Ipratropium/Albuterol Sulfate 3 Ml Ampul.neb, 3 ML IH Q6H Prescribed by: MARTITA ZUÑIGA on 04/30/19 1153 Levofloxacin 500 Mg Tablet, 500 MG PO DAILY Prescribed by: CHELO FERGUSON on 08/25/191944 Montelukast Sodium 10 Mg Tablet, 10 MG PO HS, (Reported) Prednisone 20 Mg Tab, 10 MG PO DAILY Take 6 tabs daily for 2 days, then 4 tabs daily for 2 days, then 2 tabs daily for 2 days, then 1 daily for 2 days then stop Prescribed by: AME OTT on 11/07/18 1327 Prednisone 20 Mg Tab, 10 MG PO DAILY Take 6 tabs daily for 2 days, then 4 tabs daily for 2 days, then 2 tabs daily for 2 days, then 1 daily for 2 days then stop Prescribed by: AME OTT on 11/07/18 1329 Prednisone 20 Mg Tab, 40 MG PO BID 2 tab BID x 4 days 1 tab BID x 3 days 1 tab daily x 3 days Prescribed by: MARTITA ZUÑIGA on 04/30/19 1153 Patient Home Medication List Home Medication List Reviewed: Yes Review of Systems Constitutional: no symptoms reported, see HPI EENTM: No see HPI, No no symptoms reported, No ear discharge, No hearing loss, No ear pain, No blurred vision, No double vision, No eye pain, No tearing, No vision loss, No dental problems, No hoarseness, No mouth pain, No mouth swelling, No epistaxis, No nose congestion, No nose pain, No throat pain, No throat swelling, No other Respiratory: No no symptoms reported, No see HPI, No cough, No dyspnea on exertion, No hemoptysis, No orthopnea, No phlegm, No short of breath, No stridor, No wheezing, No other Cardiovascular: No no symptoms reported, No see HPI, No chest pain, No edema, No Hx of Intervention, No palpitations, No syncope, No vascular heart diseas, No other Gastrointestinal: No RUQ, No LUQ, No RLQ, No LLQ, No no symptoms reported, No see HPI, No abdominal pain, No constipation, No diarrhea, No dysphagia, No hematemesis, No heartburn, No jaundice, No loss of appetite, No melena, No nausea, No vomiting, No other Musculoskeletal: No no symptoms reported, No see HPI, No back pain, No gout; joint pain; No joint swelling, No muscle pain, No muscle stiffness, No muscle cramps, No muscle twitching, No muscle weakness, No neck pain, No other Past Pxefytu-Nyttmt-Gjxygg Hx Patient Social History Alcohol Beverage of Choice: Beer Type Used: Cigarettes 2nd Hand Smoke Exposure: No Recent Foreign Travel: No Contact w/Someone Who Travel: No Recent Hopitalizations: No Physical Abuse: No Sexual Abuse: No Mistreated: No Fear: No Seasonal Allergies Seasonal Allergies: No Past Medical History Surgeries: No Respiratory: Yes COPD Currently Using CPAP: No Currently Using BIPAP: No Cardiac: No Neurological: No Sexually Transmitted Disease: No HIV/AIDS: No Genitourinary: No Gastrointestinal: No Musculoskeletal: No Endocrine: No HEENT: No Cancer: No Did You Recieve Any Treatments: No Psychosocial: No Integumentary: No Blood Disorders: No Adverse Reaction/Blood Tranf: No Physical Exam Vital Signs Vital Signs - First Documented 11/25/19 22:10 Temp 37.2 Pulse 63 Resp 16 B/P (MAP) 136/70 (92) Pulse Ox 100 O2 Delivery Room Air Capillary Refill : Height, Weight, BMI Height: 5'4.00" Weight: 120lbs. 8.0oz. 54.961898zp; 21.00 BMI Method:Stated General Appearance: WD/WN, no apparent distress HEENT: PERRL/EOMI, normal ENT inspection, TMs normal, pharynx normal Neck: non-tender, full range of motion, supple, normal inspection Cardiovascular: normal peripheral pulses, regular rate, rhythm, no edema, no gallop, no JVD, no murmur Respiratory: chest non-tender, lungs clear, normal breath sounds, no res piratory distress, no accessory muscle use Gastrointestinal: normal bowel sounds, non tender, soft, no organomegaly, no pulsatile mass Back: normal inspection, no CVA tenderness, no vertebral tenderness Ankles: left ankle limited range of motion, left ankle pain Skin: normal color, warm/dry Progress/Results/Core Measures Results/Orders Lab Results Laboratory Tests Test 11/25/19 22:30 11/25/19 22:35 Range/Units Sodium Level 135 135-145 MMOL/L Potassium Level 4.0 3.6-5.0 MMOL/L Chloride Level 97 L 98-107 MMOL/L Carbon Dioxide Level 23 21-32 MMOL/L Anion Gap 15 H 5-14 MMOL/L Blood Urea Nitrogen 12 7-18 MG/DL Creatinine 0.70 0.60-1.30 MG/DL Estimat Glomerular Filtration Rate > 60 BUN/Creatinine Ratio 17 Glucose Level 132 H 70-105 MG/DL Calcium Level 9.4 8.5-10.1 MG/DL Corrected Calcium 9.3 8.5-10.1 MG/DL Total Bilirubin 0.7 0.1-1.0 MG/DL Aspartate Amino Transf (AST/SGOT) 14 5-34 U/L Alanine Aminotransferase (ALT/SGPT) 10 0-55 U/L Alkaline Phosphatase 102 40-136 U/L Total Protein 7.1 6.4-8.2 GM/DL Albumin 4.1 3.2-4.5 GM/DL White Blood Count 14.2 H 4.3-11.0 10^3/uL Red Blood Count 4.15 L 4.35-5.85 10^6/uL Hemoglobin 12.2 11.5-16.0 G/DL Hematocrit 37 35-52 % Mean Corpuscular Volume 90 80-99 FL Mean Corpuscular Hemoglobin 29 25-34 PG Mean Corpuscular Hemoglobin Concent 33 32-36 G/DL Red Cell Distribution Width 13.8 10.0-14.5 % Platelet Count 249 130-400 10^3/uL Mean Platelet Volume 10.5 H 7.4-10.4 FL Neutrophils (%) (Auto) 80 H 42-75 % Lymphocytes (%) (Auto) 12 12-44 % Monocytes (%) (Auto) 7 0-12 % Eosinophils (%) (Auto) 1 0-10 % Basophils (%) (Auto) 0 0-10 % Neutrophils # (Auto) 11.3 H 1.8-7.8 X 10^3 Lymphocytes # (Auto) 1.7 1.0-4.0 X 10^3 Monocytes # (Auto) 1.1 H 0.0-1.0 X 10^3 Eosinophils # (Auto) 0.1 0.0-0.3 10^3/uL Basophils # (Auto) 0.1 0.0-0.1 10^3/uL Neutrophils % (Manual) 85 % Lymphocytes % (Manual) 8 % Monocytes % (Manual) 5 % Reactive Lymphocytes 2 % D-Dimer 0.70 H 0.00-0.49 UG/ML My Orders Orders - NIC ORTEGA MD Ankle 2 View Left (11/25/19 22:17) Fibrin Degradation Products (11/25/19 22:17) Cbc With Automated Diff (11/25/19 22:17) Ns Iv 500 Ml (Sodium Chloride 0.9%) (11/25/19 22:17) Morphine Injection (Morphine Injection (11/25/19 22:17) Ondansetron Injection (Zofran Injectio (11/25/19 22:30) Uric Acid (11/25/19 22:30) Manual Differential (11/25/19 22:35) Comprehensive Metabolic Panel (11/25/19 22:30) Medications Given in ED Current Medications Medications Dose Ordered Sig/Travis Route Start Time Stop Time Status Last Admin Dose Admin Ondansetron HCl 4 mg ONCE ONCE IVP 11/25/19 22:30 11/25/19 22:31 DC 11/25/19 22:35 4 MG Vital Signs/I&O 11/25/19 22:10 Temp 37.2 Pulse 63 Resp 16 B/P (MAP) 136/70 (92) Pulse Ox 100 O2 Delivery Room Air Progress Progress Note : Time: 23:37 Progress Note Negative evaluation thus far hemorrhage from. Patient has gout left ankle. Patient is much improved after morphine. Patient does have hydrocodone at home. Rest and elevate ice left ankle. We'll write the patient prescription for allopurinol colchicine and indomethacin. Patient is followed her PCP in 2-3 days. Departure Impression Primary Impression: Gout Disposition: 01 HOME, SELF-CARE Condition: Stable Departure-Patient Inst. Decision time for Depature: 23:38 Referrals: [facility] (PCP) Primary Care Physician SELVIN ROBIN APRN (Family) Primary Care Physician Patient Instructions: Gout (DC) Add. Discharge Instructions: Rest and elevate ice left ankle. We'll write the patient prescription for allopurinol colchicine and indomethacin. Patient is followed her PCP in 2-3 days All discharge instructions reviewed with patient and/or family. Voiced understanding. Scripts Colchicine (Colchicine) 0.6 Mg Capsule 0.6 MG PO DAILY for 10 Days, #10 CAP 0 Refills Prov: NIC ORTEGA MD 11/25/19 Allopurinol (Allopurinol) 100 Mg Tablet 100 MG PO BID for 30 Days, #60 TAB 0 Refills Prov: NIC ORTEGA MD 11/25/19 Diclofenac Sodium (Diclofenac Sodium) 75 Mg Tablet.dr 75 MG PO BID for 10 Days, #20 TAB 0 Refills Prov: NIC ORTEGA MD 11/25/19 NIC ORTEGA MD Nov 25, 2019 22:21
[2019-11-25] MEDS ORDERED: ONDANSETRON 4 MG/2 ML (SDV) Z0FRAN IVP ONE (22:30)
[2019-11-25 22:49] LABS: BASOPHILS # (AUTO) 0.1 10^3/uL (0.0-0.1); BASOPHILS % (AUTO) 0 % (0-10); EOSINOPHILS # (AUTO) 0.1 10^3/uL (0.0-0.3); EOSINOPHILS % (AUTO) 1 % (0-10); HEMATOCRIT 37 % (35-52); HEMOGLOBIN 12.2 G/DL (11.5-16.0); LYMPHOCYTES # (AUTO) 1.7 X 10^3 (1.0-4.0); LYMPHOCYTES % (AUTO) 12 % (12-44); MEAN CORPUSCULAR HEMOGLOBIN 29 PG (25-34); MEAN CORPUSCULAR HGB CONC 33 G/DL (32-36); MEAN CORPUSCULAR VOLUME 90 FL (80-99); MEAN PLATELET VOLUME 10.5 FL (7.4-10.4); MONOCYTES # (AUTO) 1.1 X 10^3 (0.0-1.0); MONOCYTES % (AUTO) 7 % (0-12); NEUTROPHILS # (AUTO) 11.3 X 10^3 (1.8-7.8); NEUTROPHILS % (AUTO) 80 % (42-75); PLATELET COUNT 249 10^3/uL (130-400); RED CELL DISTRIBUTION WIDTH 13.8 % (10.0-14.5); WHITE BLOOD COUNT 14.2 10^3/uL (4.3-11.0)
[2019-11-25 23:04] LABS: LYMPHOCYTES % (MANUAL) 8 %; MONOCYTES % (MANUAL) 5 %; NEUTROPHILS % (MANUAL) 85 %; REACTIVE LYMPHOCYTES 2 %
[2019-11-25 23:11] LABS: ALANINE AMINOTRANSFERASE 10 U/L (0-55); ALBUMIN 4.1 GM/DL (3.2-4.5); ALKALINE PHOSPHATASE 102 U/L (40-136); BILIRUBIN,TOTAL 0.7 MG/DL (0.1-1.0); CALCIUM 9.4 MG/DL (8.5-10.1); CARBON DIOXIDE 23 MMOL/L (21-32); CHLORIDE 97 MMOL/L (98-107); GLUCOSE 132 MG/DL (70-105); SODIUM 135 MMOL/L (135-145); TOTAL PROTEIN 7.1 GM/DL (6.4-8.2)
[2019-11-25 23:13] LABS: BUN/CREATININE RATIO 17; GFR ESTIMATED > 60
[2019-11-25] MEDS ORDERED: DICL75TA2 PO (23:42)
[2019-11-25] MEDS ORDERED: ALLO100T PO (23:42)
[2019-11-25] MEDS ORDERED: COLC0.6C3 PO (23:42)
[2019-11-25 23:48] VITALS: BP 124/68
--- NOTE | 2019-11-26 07:13 | Diagnostic Imaging Report ---
Indication: Left ankle pain AP and lateral views of the left ankle are obtained. FINDINGS: No acute fracture or dislocation is identified. No abnormal lytic or sclerotic focus is seen, and there is no radiopaque foreign body. IMPRESSION: No acute abnormality. Dictated by: Dictated on workstation # [id number]
== END 2019-11-25 23:49 | disposition home or self-care (01) ==
LOC: EDUNIT# 22:03 → ER FS 22:06
DX: M10.9 Gout, unspecified (principal); J44.9 Chronic obstructive pulmonary disease, unspecified; Z79.52 Long term (current) use of systemic steroids
CPT/HCPCS: 36415; 73600; 80053; 84550; 85007; 85027; 85379

== ENCOUNTER 2020-02-19 06:21 | Outpatient (RCR) | payer MEDICARE, OTHER ==
[~2020-02-19] VITALS: Ht 162.6 cm; Wt 56.8 kg
[~2020-02-19 06:21] MED LIST changes: +ALLO100T PO; +COLC0.6C3 PO; +DICL75TA2 PO
[2020-02-19] MEDS ORDERED: FLUT1BLS3 IH (13:30)
== END 2020-02-20 15:13 | disposition home or self-care (01) ==
LOC: PREOP 06:21
PROVIDERS: ATTEND Specialist
DX: Z01.818 Encounter for other preprocedural examination (principal)

== ENCOUNTER → 2020-02-20 | Outpatient (CLI) | payer MEDICARE, OTHER ==
[~2020-02-20] MED LIST changes: +FLUT1BLS3 IH
== END ==
LOC: LAB FS 08:59
PROVIDERS: ATTEND Specialist
DX: Z01.812 Encounter for preprocedural laboratory examination (principal); Z20.828 Contact with and (suspected) exposure to other viral communicable diseases
CPT/HCPCS: 87635

== ENCOUNTER 2020-02-23 08:57 | Day surgery (SDC) | payer MEDICARE, OTHER ==
[~2020-02-23] VITALS: Ht 162 cm; Wt 56.8 kg
[2020-02-23 09:05] VITALS: BP 121/70
[2020-02-23] MEDS ORDERED: POVIDONE (BETADINE) OPHTH SOLN 5% 30 ML OP ONE (09:15)
[2020-02-23] MEDS ORDERED: MOXIFLOXACIN OPHTH SOLN 5 MG/ML 0.3 ML SYRINGE OP ONE (09:15)
[2020-02-23] MEDS ORDERED: LIDOCAINE PF 1% 2 ML VIAL IR PRN (09:15)
[2020-02-23] MEDS ORDERED: TIMOLOL MALEATE 0.5% 5 ML (TIMOPTIC) BTL OU PRN (09:15)
[2020-02-23] MEDS: TETRACAINE 0.5% OPHTH SOLN 4 ML BTL (SINGLE DOSE ONLY) OP PRN ×4 (09:24→09:53)
[2020-02-23] MEDS: PHENYLEPHRINE 10% OPHTH (NEO-SYN) 5 ML BTL OU SCH ×3 (09:38→09:53)
[2020-02-23] MEDS: CYCLOPENTOLATE 1% (CYCLOGYL) 2 ML DROPS OP SCH ×3 (09:38→09:53)
--- OUTSIDE RECORDS SUMMARY | 2020-02-23 09:54 | XMS REPORT | Continuity of Care Document ---
Author Organization Unknown Address Unknown Phone Unavailable Allergies Active Description Code Type Severity Reaction Onset Reported/Identified Relationship to Patient Clinical Status Yes No Known Drug Allergies [id number] Drug Allergy Unknown N/A 08/06/2017 Medications There [...] OBSTRUCTIVE PULMONARY DISEASE, U 04/25/2018 GHISLAINE ELIZONDO FURS SALESPERSON Ot J96.90 RESPIRATORY FAILURE, UNSP, UNSP W HYPOXI 04/25/2018 GHISLAINE ELIZONDO FURS SALESPERSON Ot Z72.0 TOBACCO USE 04/25/2018 GHISLAINE ELIZONDO FURS SALESPERSON Ot Z87.891 PERSONAL HISTORY OF NICOTINE DEPENDENCE 04/27/2018 GHISLAINE ELIZONDO FURS SALESPERSON Ot F17.210 NICOTINE DEPENDENCE, CIGARETTES, UNCOMPL 04/27/2018 GHISLAINE ELIZONDO FURS SALESPERSON Ot J43.9 EMPHYSEMA, UNSPECIFIED 04/27/2018 CASTRO ELIZONDOINE E FURS SALESPERSON Ot R09.02 HYPOXEMIA 04/27/2018 CASTRO ELIZONDOINE Ton FURS SALESPERSON Ot R91.8 OTHER NONSPECIFIC ABNORMAL FINDING OF LASHAUN 04/27/2018 GHISLAINE ELIZONDO FURS SALESPERSON Ot Z12.2 ENCNTR SCREEN FOR MALIGNANT NEOPLASM OF 05/01/2018 GHISLAINE ELIZONDO FURS SALESPERSON Ot F17.210 NICOTINE DEPENDENCE, CIGARETTES, UNCOMPL 05/01/2018 GHISLAINE ELIZONDO FURS SALESPERSON Ot J43.9 EMPHYSEMA, UNSPECIFIED 05/01/2018 GHISLAINE ELIZONDO FURS SALESPERSON Ot R09.02 HYPOXEMIA 05/01/2018 GHISLAINE ELIZONDO FURS SALESPERSON Ot R91.8 OTHER NONSPECIFIC ABNORMAL FINDING OF LASHAUN 05/01/2018 GHISLAINE ELIZONDO FURS SALESPERSON Ot Z12.2 ENCNTR SCREEN FOR MALIGNANT NEOPLASM OF 05/27/2018 HGISLAINE ELIZONDO FURS SALESPERSON Ot F17.210 NICOTINE DEPENDENCE, CIGARETTES, UNCOMPL 05/27/2018 GHISLAINE ELIZONDO FURS SALESPERSON Ot J43.9 EMPHYSEMA, UNSPECIFIED 05/27/2018 GHISLAINE ELIZONDO FURS SALESPERSON Ot R09.02 HYPOXEMIA 05/27/2018 CASTRO ELIZONDOINE Ton FURS SALESPERSON Ot R91.8 OTHER NONSPECIFIC ABNORMAL FINDING OF LASHAUN 05/27/2018 GHISLAINE ELIZONDO FURS SALESPERSON Ot Z12.2 ENCNTR SCREEN FOR MALIGNANT NEOPLASM OF 08/15/2018 GHISLAINE ELIZONDO FURS SALESPERSON Ot J44.9 CHRONIC OBSTRUCTIVE PULMONARY DISEASE, U 08/15/2018 GHISLAINE ELIZONDO FURS SALESPERSON Ot J96.90 RESPIRATORY FAILURE, UNSP, UNSP W HYPOXI 08/15/2018 GHISLAINE ELIZONDO FURS SALESPERSON Ot Z72.0 TOBACCO USE 08/15/2018 GHISLAINE ELIZONDO FURS SALESPERSON Ot F17.210 NICOTINE DEPENDENCE, CIGARETTES, UNCOMPL 08/15/2018 GHISLAINE ELIZONDO FURS SALESPERSON Ot J43.9 EMPHYSEMA, UNSPECIFIED 08/15/2018 CASTRO ELIZONDOINE Ton FURS SALESPERSON Ot R09.02 HYPOXEMIA 08/15/2018 CASTRO ELIZONDOINE Ton FURS SALESPERSON Ot R91.8 OTHER NONSPECIFIC ABNORMAL FINDING OF LASHAUN 08/15/2018 GHISLAINE ELIZONDO FURS SALESPERSON Ot Z12.2 ENCNTR SCREEN FOR MALIGNANT NEOPLASM OF 08/18/2018 GHISLAINE ELIZONDO FURS SALESPERSON Ot J43.9 EMPHYSEMA, UNSPECIFIED 08/18/2018 GHISLAINE ELIZONDO FURS SALESPERSON Ot R91.8 OTHER NONSPECIFIC ABNORMAL FINDING OF LASHAUN 08/18/2018 GHISLAINE ELIZONDO FURS SALESPERSON Ot Z98.82 BREAST IMPLANT STATUS 09/08/2018 GHISLAINE ELIZONDO FURS SALESPERSON Ot J43.9 EMPHYSEMA, UNSPECIFIED 09/08/2018 GHISLAINE ELIZONDO FURS SALESPERSON Ot R91.8 OTHER NONSPECIFIC ABNORMAL FINDING OF LASHAUN 09/08/2018 GHISLAINE ELIZONDO FURS SALESPERSON Ot Z98.82 BREAST IMPLANT STATUS 11/07/2018 AME OTT MD Ot J44 .9 CHRONIC OBSTRUCTIVE PULMONARY DISEASE, U 11/07/2018 AME OTT MD Ot R07.89 OTHER CHEST PAIN 11/07/2018 AME OTT MD Ot Z79.51 SKILLED NURSING (CURRENT) USE OF INHALED STERO 11/07/2018 AME OTT MD Ot Z79.52 SKILLED NURSING (CURRENT) USE OF SYSTEMIC STER 11/07/2018 AME OTT MD Ot Z99.81 DEPENDENCE ON SUPPLEMENTAL OXYGEN 02/13/2019 GHISLAINE ELIZONDO FURS SALESPERSON Ot J43.9 EMPHYSEMA, UNSPECIFIED 02/13/2019 GHISLAINE ELIZONDO FURS SALESPERSON Ot R91.8 OTHER NONSPECIFIC ABNORMAL FINDING OF LASHAUN 02/13/2019 GHISLAINE ELIZONDO FURS SALESPERSON Ot Z72.0 TOBACCO USE 03/01/2019 GHISLAINE ELIZONDO FURS SALESPERSON Ot J43.9 EMPHYSEMA, UNSPECIFIED 03/01/2019 GHISLAINE ELIZONDO FURS SALESPERSON Ot R91.8 OTHER NONSPECIFIC ABNORMAL FINDING OF LASHAUN 03/01/2019 GHISLAINE ELIZONDO FURS SALESPERSON Ot Z72.0 TOBACCO USE 04/30/2019 ZARA MCCORMACK, MARTITA Nowak Ot F17.210 NICOTINE DEPENDENCE, CIGARETTES, UNCOMPL 04/30/2019 MARTITA ZUÑIGA MD Ot J43. 9 EMPHYSEMA, UNSPECIFIED 04/30/2019 MARTITA ZUÑIGA MD Ot R06. 02 SHORTNESS OF BREATH 04/30/2019 MARTITA ZUÑIGA MD Ot Z79. 52 SHOE REPAIR COBBLER (CURRENT) USE OF SYSTEMIC STER 04/30/2019 MARTITA ZUÑIGA MD Ot Z99. 81 DEPENDENCE ON SUPPLEMENTAL OXYGEN 05/03/2019 MARTITA ZUÑIGA MD Ot F17.210 NICOTINE DEPENDENCE, CIGARETTES, UNCOMPL 05/03/2019 MARTITA ZUÑIGA MD Ot J43. 9 EMPHYSEMA, UNSPECIFIED 05/03/2019 MARTITA ZUÑIGA MD Ot R06. 02 SHORTNESS OF BREATH 05/03/2019 MARTITA ZUÑIGA MD Ot Z79. 52 SHOE REPAIR COBBLER (CURRENT) USE OF SYSTEMIC STER 05/03/2019 MARTITA [...] COUGH 08/25/2019 CHELO FERGUSON MD Ot Z79.51 SHOE REPAIR COBBLER (CURRENT) USE OF INHALED STERO 08/25/2019 CHELO FERGUSON MD Ot Z79.52 SKILLED NURSING (CURRENT) USE OF SYSTEMIC STER 08/28/2019 CHELO FERGUSON MD Ot D72.829 ELEVATED WHITE BLOOD CELL COUNT, UNSPECI 08/28/2019 CHELO FERGUSON MD Ot F17.210 NICOTINE DEPENDENCE, CIGARETTES, UNCOMPL 08/28/2019 CHELO FERGUSON MD Ot J18.9 PNEUMONIA, UNSPECIFIED ORGANISM 08/28/2019 CHELO FERGUSON MD Ot J44.0 CHR OBSTRUCTIVE PULMON DISEASE WITH (ACU 08/28/2019 CHELO FERGUSON MD Ot R05 COUGH 08/28/2019 CHELO FERGUSON MD Ot Z79.51 SHOE REPAIR COBBLER (CURRENT) USE OF INHALED STERO 08/28/2019 PHYLLIS MCCORMACK, CHELO Cardoza Ot Z79.52 SHOE REPAIR COBBLER (CURRENT) USE OF SYSTEMIC STER 09/21/2019 LOBITO, SELVIN S FURS SALESPERSON Ot J98.4 OTHER DISORDERS OF LUNG 09/21/2019 LOBITO, SELVIN S FURS SALESPERSON Ot R07.89 OTHER CHEST PAIN 09/21/2019 LOBITO, SELVIN S FURS SALESPERSON Ot Z87.01 PERSONAL HISTORY OF PNEUMONIA (RECURRENT 10/04/2019 LOBITO, SELVIN S FURS SALESPERSON Ot R07.9 CHEST PAIN, UNSPECIFIED 10/04/2019 LOBITO, SELVIN S FURS SALESPERSON Ot Z87.01 PERSONAL HISTORY OF PNEUMONIA (RECURRENT 10/12/2019 LOBITO, SELVIN S FURS SALESPERSON Ot J98.4 OTHER DISORDERS OF LUNG 10/12/2019 LOBITO, SELVIN S FURS SALESPERSON Ot R07.89 OTHER CHEST PAIN 10/12/2019 LOBITO, SELVIN S FURS SALESPERSON Ot Z87.01 PERSONAL HISTORY OF PNEUMONIA (RECURRENT 10/27/2019 LOBITO, SELVIN S FURS SALESPERSON Ot J44.9 CHRONIC OBSTRUCTIVE PULMONARY DISEASE, U 10/27/2019 LOBITO, SELVIN S FURS SALESPERSON Ot R07.9 CHEST PAIN, UNSPECIFIED 10/27/2019 LOBITO, SELVIN S FURS SALESPERSON Ot Z87.01 PERSONAL HISTORY OF PNEUMONIA (RECURRENT 10/31/2019 LOBITO, SELVIN S FURS SALESPERSON Ot R07.9 CHEST PAIN, UNSPECIFIED 10/31/2019 LOBITO, SELVIN S FURS SALESPERSON Ot Z87.01 PERSONAL HISTORY OF PNEUMONIA (RECURRENT 11/11/2019 LOBITO, SELVIN S FURS SALESPERSON Ot R91.8 OTHER NONSPECIFIC ABNORMAL FINDING OF LASHAUN 11/11/2019 LOBITO, SELVIN S FURS SALESPERSON Ot Z87.01 PERSONAL HISTORY OF PNEUMONIA (RECURRENT 11/15/2019 LOBITO, SELVIN S FURS SALESPERSON Ot J44.9 CHRONIC OBSTRUCTIVE PULMONARY DISEASE, U 11/15/2019 LOBITO, SELVIN S FURS SALESPERSON Ot R07.9 CHEST PAIN, UNSPECIFIED 11/15/2019 LOBITO, SELVIN S FURS SALESPERSON Ot Z87.01 PERSONAL HISTORY OF PNEUMONIA (RECURRENT 11/25/2019 NIC ORTEGA MD Ot J44.9 CHRONIC OBSTRUCTIVE PULMONARY DISEASE, U 11/25/2019 NIC ORTEGA MD Ot M10.9 GOUT, UNSPECIFIED 11/25/2019 NIC ORTEGA MD Ot M25.572 PAIN IN LEFT ANKLE AND JOINTS OF LEFT FO 11/25/2019 NIC ORTEGA MD, Ot Z79.52 SKILLED NURSING (CURRENT) USE OF SYSTEMIC STER 11/29/2019 SELVIN ROBIN ORTEGA Ot R91.8 OTHER NONSPECIFIC ABNORMAL FINDING OF LASHAUN 11/29/2019 SELVIN ROBIN ORTEGA Ot Z87.01 PERSONAL HISTORY OF PNEUMONIA (RECURRENT 12/01/2019 NIC ORTEGA MD, Ot J44.9 CHRONIC OBSTRUCTIVE PULMONARY DISEASE, U 12/01/2019 NIC ORTEGA MD, Ot M10.9 GOUT, UNSPECIFIED 12/01/2019 NIC ORTEGA MD, Ot M25.572 PAIN IN LEFT ANKLE AND JOINTS OF LEFT FO 12/01/2019 NIC ORTEGA MD, Ot Z79.52 SKILLED NURSING (CURRENT) USE OF SYSTEMIC STER Procedures There is no data. Results Test [...] 0.0-0.1 Whole blood basic metabolic panel - 09/22 04:30 Serum or plasma sodium measurement (moles/volume) [...] 08/25/19 18:22 Bacterial blood culture NG NRG CULTURE, URINE - 08/25/19 19:00 CULTURE, URINE, ROUTINE SEE NOTE NRG Complete urinalysis with reflex to cultu [...] - 08/25/19 19:15 Bacterial urine culture NG [facility] [id number] - 11/09/19 09:25 Serum or plasma urea nitrogen measurement (mass/volume ) 10 mg/dL 7-18 Serum or plasma creatinine measurement (mass/volume) 0.76 mg/dL 0.60-1.30 Serum or plasma urea nitrogen/creatinine mass ratio 13 NRG Serum or plasma creatinine measurement w ith calculation of estimated glomerular filtration rate > [facility] Comprehensive metabolic panel - 11/25/19 22:30 Serum or plasma sodium measurement (moles/volume) 135 mmol/L 135-145 Serum or plasma potassium measurement (moles/volume) 4.0 mmol/L 3.6-5.0 Serum or plasma chloride measurement (moles/volume) 97 mmol/L 98-107 Carbon dioxide 23 mmol/L 21-32 Serum or plasma anion gap determination (moles/volume) 15 mmol/L 5-14 Serum or plasma urea nitrogen measurement (mass/volume ) 12 mg/dL 7-18 Serum or plasma creatinine measurement (mass/volume) 0.70 mg/dL 0.60-1.30 Serum or plasma urea nitrogen/creatinine mass ratio 17 NRG Serum or plasma creatinine measurement w ith calculation of estimated glomerular filtration rate > NRG Serum or plasma glucose measurement (mass/volume) 132 mg/dL 70-105 Serum or plasma calcium measurement (mass/volume) 9.4 mg/dL 8.5-10.1 Serum or plasma total bilirubin measurement (mass/volu me) 0.7 mg/dL 0.1-1.0 Serum or plasma alkaline phosphatase emelyn surement (enzymatic activity/volume) 102 U/L 40-136 Serum or plasma aspartate aminotransfera se measurement (enzymatic activity/volume) 14 U/L 5-34 Serum or plasma alanine aminotransferase measurement (enzymatic activity/volume) 10 U/L 0-55 Serum or plasma protein measurement (mass/volume) 7.1 g/dL 6.4-8.2 Serum or plasma albumin measurement (mass/volume) 4.1 g/dL 3.2-4.5 CALCIUM CORRECTED 9.3 mg/dL 8.5-10.1 Complete blood count (CBC) with automate d white blood cell (WBC) differential - 11/25/19 22:35 Blood leukocytes automated count (number/volume) 14.2 10*3/uL 4.3-11.0 Blood erythrocytes automated count (number/volume) 4.15 10*6/uL 4.35-5.85 Venous blood hemoglobin measurement (mass/volume) 12.2 g/dL 11.5-16.0 Blood hematocrit (volume fraction) 37 % 35-52 Automated erythrocyte mean corpuscular volume 90 [ foz_us] 80-99 Automated erythrocyte mean corpuscular h emoglobin (mass per erythrocyte) 29 pg 25-34 Automated erythrocyte mean corpuscular h emoglobin concentration measurement (mass/volume) 33 g/dL 32-36 Automated erythrocyte distribution width ratio 13. 8 % 10.0- 14.5 Automated blood platelet count (count/volume) 249 10*3/uL 130-400 Automated blood platelet mean volume measurement 10.5 [foz_us] 7.4-10.4 Automated blood neutrophils/100 leukocytes 80 % 42-75 Automated blood lymphocytes/100 leukocytes 12 % 12-44 Blood monocytes/100 leukocytes 7 % 0-12 Automated blood eosinophils/100 leukocytes 1 % 0-10 Automated blood basophils/100 leukocytes 0 % 0-10 Blood neutrophils automated count (number/volume) 11.3 10*3 1.8-7.8 Blood lymphocytes automated count (number/volume) 1.7 10*3 1.0-4.0 Blood monocytes automated count (number/volume) 1. 1 10*3 0.0-1.0 Automated eosinophil count 0.1 10*3/uL 0 .0-0.3 Automated blood basophil count (count/volume) 0.1 10*3/uL 0.0-0.1 Manual absolute plasma cell count - 11/05 09/25 22:35 Blood monocytes/100 leukocytes 5 % NRG Manual blood segmented neutrophils/100 leukocytes 85 % NRG Manual blood lymphocytes/100 leukocytes 8 % NRG Blood lymphocytes variant/100 leukocytes 2 % NRG Fibrin D-dimer FEU measurement in platel et poor plasma (mass/volume) - 11/25/19 22:35 Fibrin D-dimer FEU measurement in platelet poor plasma (mass/volume) 0.70 ug/mL 0.00-0.49 Serum or plasma uric acid measurement (m ass/volume) - 11/25/19 22:35 Serum or plasma uric acid measurement (mass/volume) 4.1 mg/dL 2.6-7.2 Coronavirus SARS-CoV-2 SO 2018 0 09:01 Coronavirus Ab [Units/volume] in Serum Negative Negative Encounters ACCT No. Visit Date/Time Discharge Status Pt. Type Provider Facility Loc./Unit Complaint [id number] 08/29/2019 08:40:00 08/29/2019 23:59: 59 [facility] [id number] 08/25/2019 16:20:00 Document Registration [id number] 02/19/2020 06:21:00 15:13:00 DIS Outpatient JAIMIE HARRINGTON MD [facility] PREOP CATARACT LEFT [id number] 11/25/2019 22:06:00 23:49:00 DIS Emergency SHANNON MCCORMACK, NIC Charles [facility] ER FS LEFT LEG PAIN/SWELLING [id number] 11/09/2019 09:26:00 23:59:59 CLS Outpatient LOBITO, SELVIN S FURS SALESPERSON [facility] LAB FS HX OF PNEUMONIA [id number] 10/25/2019 15:58:00 23:59:59 CLS Outpatient LOBITO, SELVIN S FURS SALESPERSON [facility] RAD FS Z87.01 R07.9 [id number] 10/03/2019 13:16:00 23:59:59 CLS Outpatient LOBITO, SELVIN S FURS SALESPERSON [facility] RAD FS Z87.01 R07.9 [id number] 09/19/2019 14:02:00 23:59:59 CLS Outpatient LOBITO, SELVIN S FURS SALESPERSON [facility] RAD FS R07.9 Z87.01 [id number] 08/25/2019 17:19:00 19:49:00 DIS Emergency PHYLLIS MCCORMACK, CHELO tolentino [facility] ER FS HF EXACERBATION,DYSPNEA [id number] 04/30/2019 09:56:00 12:01:00 DIS Emergency MARTITA ZUÑIGA MD [facility] ER FS SOB [id number] 03/03/2019 14:23:00 019 23:59:59 CLS Preadmit GHISLAINE ELIZONDO FURS SALESPERSON [facility] RAD HX OF NICOTINE DEP [id number] 02/08/2019 10:20:00 23:59:59 CLS Outpatient GHISLAINE ELIZONDO FURS SALESPERSON [facility] RAD ABN CT SCAN [address] [id number] 11/07/2018 11:53:00 14:05:00 DIS Emergency TRU MCCORMACK, AME Valenzuela [facility] ER FS SOB [id number] 08/25/2018 07:48:00 23:59:59 CLS Preadmit GHISLAINE ELIZONDO FURS SALESPERSON [facility] RAD LUNG MASS,COPD,HYPOXEMIA,TOBACCO USER,DYSPNEA [id number] 08/17/2018 09:19:00 018 23:59:59 CLS Outpatient GHISLAINE ELIZONDO FURS SALESPERSON [facility] RAD LUNG MASS,COPD, DYSPNEA [id number] 04/25/2018 12:15:00 018 23:59:59 CLS Outpatient GHISLAINE ELIZONDO FURS SALESPERSON [facility] RAD TOBACCO USER,RU LE OUT LUNG CA [id number] 09/24/2017 09:37:00 018 23:59:59 CLS Outpatient GHISLAINE ELIZONDO FURS SALESPERSON [facility] RT COPD [id number] 08/06/2017 04:05:00 017 14:15:00 DIS Inpatient CHET DO, SOURAV [facility] 4TH COPD EXACERBATION [id number] 02/23/2020 12:30:00 P EN Preadmit JAIMIE HARRINGTON MD [facility] SDC CATARACT LEFT EYE [id number] 02/20/2020 08:59:[address] Outpatient JAIMIE HARRINGTON MD [facility] LAB FS PRE SURG REQ
--- NOTE | 2020-02-23 10:06 | Ophthalmologist Pre-Op Note ---
Pre-Operative Progress Note H&P Reviewed The H&P was reviewed, patient examined and no changes noted. Date H&P Reviewed: Feb 23, 2020 Time H&P Reviewed: 10:01 Pre-Op Dx Cataract, Left Eye JAIMIE HARRINGTON MD Feb 23, 2020 10:06
[2020-02-23] MEDS ORDERED: MIDAZOLAM 2 MG/2 ML (VERSED) VIAL ONE (10:07)
--- NOTE | 2020-02-23 10:27 | Ophthalmology Operative Report ---
Cataract removal/placement IOL PREOPERATIVE DIAGNOSIS: Cataract Left Eye POSTOPERATIVE DIAGNOSIS: Cataract Left Eye PROCEDURE: Cataract removal and placement of posterior chamber implant, left eye SURGEON: Pito Harrington ANESTHESIA: Topical with sedation COMPLICATIONS: None ESTIMATED BLOOD LOSS: Minimal DESCRIPTION OF PROCEDURE: After proper informed consent was obtained, the patient, a 70 female, was taken to the Operating Room and the left eye was anesthetized with tetracaine. The left eye was then prepped and draped in the usual manner. A wire lid speculum was placed. A paracentesis was made at the left hand position. Preservative free lidocaine was injected into the anterior chamber followed by viscoelastic. A clear corneal incision was made in the temporal position. A capsulorrhexis was preformed and the central nuclear and cortical material were removed. The posterior capsule was polished and an Angel 19.0 [id number] was placed into the capsular bag. The residual viscoelastic was aspirated and balanced saline solution was injected into the anterior chamber. Moxifloxacin was injected into the anterior chamber. The wound was checked and found to be water tight. The patient tolerated the procedure well without complications. PITO HARRINGTON MD Feb 23, 2020 10:27
[2020-02-23] MEDS ORDERED: acetaZOLAMIDE ER 500 MG CAP (DIAMOX SEQUELS) PO ONE (10:30)
[2020-02-23 10:40] VITALS: BP 137/73
== END 2020-02-23 10:40 | disposition home or self-care (01) ==
LOC: SDC 08:57
PROVIDERS: ATTEND Specialist
DX: H25.12 Age-related nuclear cataract, left eye (principal); J44.9 Chronic obstructive pulmonary disease, unspecified; Z79.899 Other long term (current) drug therapy; F17.200 Nicotine dependence, unspecified, uncomplicated
CPT/HCPCS: 66984; V2632

== ENCOUNTER 2020-02-27 10:40 | Outpatient (CLI) | payer MEDICARE, OTHER | END 2020-02-27 15:44 | disposition home or self-care (01) | LOC: LAB FS 10:40 | PROVIDERS: ATTEND Specialist | DX: Z01.818 Encounter for other preprocedural examination (principal); Z11.59 Encounter for screening for other viral diseases | CPT/HCPCS: 87635 ==

== ENCOUNTER → 2020-02-29 | Outpatient (CLI) | payer MEDICARE, OTHER ==
[~2020-02-29] MED LIST changes: +CATHETER FLUSH 10 ML SYR IV PRN; +HOLD METFORMIN - RECEIVED CONTRAST 20 ML VIAL IV SCH; +IOHEXOL 350 MG/ML 100 ML (OMNIPAQUE 350) VIAL IV ONE; +NS 100 ML (IVPB) BAG IV ONE
[2020-02-29 09:44] LABS: BUN/CREATININE RATIO 13; CREATININE SERUM 0.69 MG/DL (0.60-1.30); GFR ESTIMATED > 60
--- NOTE | 2020-02-29 10:51 | Diagnostic Imaging Report ---
PROCEDURE: CT chest with contrast only. TECHNIQUE: Multiple contiguous axial images were obtained through the chest after administration of intravenous contrast. Auto Exposure Controls were utilized during the CT exam to meet ALARA standards for radiation dose reduction. INDICATION: Recurrent pneumonia. FINDINGS: The previous CT chest exam of 11/09/2019 noted a new area of consolidation in the right upper lobe superimposed on the underlying chronic pulmonary disease. On this study, that portion of the right lung does seem much better aerated. There are still some residual chronic atelectasis/scar formation in this region. Also, the abnormal parenchymal density in the left upper lung noted on the prior study is somewhat less conspicuous. The lingular infiltrate noted on the prior study has also resolved. The lungs are generally clear. There are emphysematous changes involving both lungs. The heart size is within normal limits. Coronary artery calcification is noted. The aorta is not abnormally dilated and there is no sign of dissection. The pulmonary arteries are not fully opacified and consequently difficult to assess for pulmonary embolus. There is no defect to suggest a pulmonary embolus, however. There is no mediastinal or hilar adenopathy. The thyroid gland is generally unremarkable. Calcified breast implants. The implants appear to be intact. There is no obvious breast mass visualized. The sections through the upper abdomen failed to show any sign of an acute abnormality. The bone windows are unremarkable for fracture or for destructive lesion. IMPRESSION: 1. The appearance of the chest has improved as both lungs appear better aerated. There are still scar formation in each upper lobe, but there is no sign of an acute cardiopulmonary abnormality. 2. There are emphysematous changes involving both lungs. Dictated by: Dictated on workstation # [id number]
== END ==
LOC: RAD FS 09:04
PROVIDERS: ATTEND Nurse Practitioner Family
DX: J18.9 Pneumonia, unspecified organism (principal); J43.9 Emphysema, unspecified
CPT/HCPCS: 36415; 71260; 82565; 84520

== ENCOUNTER 2020-03-01 08:47 | Day surgery (SDC) | payer MEDICARE, OTHER ==
--- NOTE | 2020-02-23 11:48 | Anesthesia-General Post-Op ---
MAC Patient Condition Mental Status/LOC: Same as Preop Cardiovascular: Satisfactory Nausea/Vomiting: Absent Respiratory: Satisfactory Pain: Controlled Complications: Absent Post Op Complications Complications None Follow Up Care/Instructions Patient Instructions None needed. Anesthesiology Discharge Order Discharge Order Patient is doing well, no complaints, stable vital signs, no apparent adverse anesthesia problems. No complications reported per nursing. BENITA MATHUR [employer] MANAGER Feb 23, 2020 11:48
[~2020-03-01] VITALS: Ht 162.6 cm; Wt 56.8 kg
[~2020-03-01 08:47] MED LIST changes: -CATHETER FLUSH 10 ML SYR IV PRN; -HOLD METFORMIN - RECEIVED CONTRAST 20 ML VIAL IV SCH; -IOHEXOL 350 MG/ML 100 ML (OMNIPAQUE 350) VIAL IV ONE; -NS 100 ML (IVPB) BAG IV ONE
[2020-03-01 08:50] VITALS: BP 148/78
--- OUTSIDE RECORDS SUMMARY | 2020-03-01 08:57 | XMS REPORT | Continuity of Care Document ---
Author Organization Unknown Address Unknown Phone Unavailable Allergies Active Description Code Type Severity Reaction Onset Reported/Identified Relationship to Patient Clinical Status Yes No Known Drug Allergies [id number] Drug Allergy Unknown N/A 08/06/2017 Medications There is no data. Problems Date Dx Coded Attending Type Code Diagnosis Diagnosed By 08/05/1512 LEN MCCORMACK, JAIMIE Kaur Ot Z01.818 ENCOUNTER FOR OTHER PREPROCEDURAL EXAMIN 08/09/2017 SOURAV ROSENBERG DO Ot D72.82 9 [...] Ot Z72.0 TOBACCO USE 04/25/2018 GHISLAINE ELIZONDO PROCESS MANAGER Ot J44.9 CHRONIC OBSTRUCTIVE PULMONARY DISEASE, U 04/25/2018 GHISLAINE ELIZONDO PROCESS MANAGER Ot J96.90 RESPIRATORY FAILURE, UNSP, UNSP W HYPOXI 04/25/2018 GHISLAINE ELIZONDO PROCESS MANAGER Ot Z72.0 TOBACCO USE 04/25/2018 GHISLAINE ELIZONDO PROCESS MANAGER Ot Z87.891 PERSONAL HISTORY OF NICOTINE DEPENDENCE 04/27/2018 GHISLAINE ELIZONDO PROCESS MANAGER Ot F17.210 NICOTINE DEPENDENCE, CIGARETTES, UNCOMPL 04/27/2018 GHISLAINE ELIZONDO PROCESS MANAGER Ot J43.9 EMPHYSEMA, UNSPECIFIED 04/27/2018 GHISLAINE ELIZONDO PROCESS MANAGER Ot R09.02 HYPOXEMIA 04/27/2018 GHISLAINE ELIZONDO PROCESS MANAGER Ot R91.8 OTHER NONSPECIFIC ABNORMAL FINDING OF LASHAUN 04/27/2018 GHISLAINE ELIZONDO PROCESS MANAGER Ot Z12.2 ENCNTR SCREEN FOR MALIGNANT NEOPLASM OF 05/01/2018 GHISLAINE ELIZONDO PROCESS MANAGER Ot F17.210 NICOTINE DEPENDENCE, CIGARETTES, UNCOMPL 05/01/2018 GHISLAINE ELIZONDO PROCESS MANAGER Ot J43.9 EMPHYSEMA, UNSPECIFIED 05/01/2018 GHISLAINE ELIZONDO PROCESS MANAGER Ot R09.02 HYPOXEMIA 05/01/2018 GHISLAINE ELIZONDO PROCESS MANAGER Ot R91.8 OTHER NONSPECIFIC ABNORMAL FINDING OF LASHAUN 05/01/2018 GHISLAINE ELIZONDO PROCESS MANAGER Ot Z12.2 ENCNTR SCREEN FOR MALIGNANT NEOPLASM OF 05/27/2018 GHISLAINE ELIZONDO PROCESS MANAGER Ot F17.210 NICOTINE DEPENDENCE, CIGARETTES, UNCOMPL 05/27/2018 GHISLAINE ELIZONDO PROCESS MANAGER Ot J43.9 EMPHYSEMA, UNSPECIFIED 05/27/2018 GHISLAINE ELIZONDO PROCESS MANAGER Ot R09.02 HYPOXEMIA 05/27/2018 GHISLAINE ELIZONDO PROCESS MANAGER Ot R91.8 OTHER NONSPECIFIC ABNORMAL FINDING OF LASHAUN 05/27/2018 GHISLAINE ELIZONDO PROCESS MANAGER Ot Z12.2 ENCNTR SCREEN FOR MALIGNANT NEOPLASM OF 08/15/2018 GHISLAINE ELIZONDO PROCESS MANAGER Ot J44.9 CHRONIC OBSTRUCTIVE PULMONARY DISEASE, U 08/15/2018 GHISLAINE ELIZONDO PROCESS MANAGER Ot J96.90 RESPIRATORY FAILURE, UNSP, UNSP W HYPOXI 08/15/2018 GHISLAINE ELIZONDO PROCESS MANAGER Ot Z72.0 TOBACCO USE 08/15/2018 GHISLAINE ELIZONDO PROCESS MANAGER Ot F17.210 NICOTINE DEPENDENCE, CIGARETTES, UNCOMPL 08/15/2018 GHISLAINE ELIZONDO PROCESS MANAGER Ot J43.9 EMPHYSEMA, UNSPECIFIED 08/15/2018 GHISLAINE ELIZONDO PROCESS MANAGER Ot R09.02 HYPOXEMIA 08/15/2018 GHISLAINE ELIZONDO PROCESS MANAGER Ot R91.8 OTHER NONSPECIFIC ABNORMAL FINDING OF LASHAUN 08/15/2018 GHISLAINE ELIZONDO PROCESS MANAGER Ot Z12.2 ENCNTR SCREEN FOR MALIGNANT NEOPLASM OF 08/18/2018 GHISLAINE ELIZONDO PROCESS MANAGER Ot J43.9 EMPHYSEMA, UNSPECIFIED 08/18/2018 GHISLAINE ELIZONDO PROCESS MANAGER Ot R91.8 OTHER NONSPECIFIC ABNORMAL FINDING OF LASHAUN 08/18/2018 GHISLAINE ELIZONDO PROCESS MANAGER Ot Z98.82 BREAST IMPLANT STATUS 09/08/2018 GHISLAINE ELIZONDO PROCESS MANAGER Ot J43.9 EMPHYSEMA, UNSPECIFIED 09/08/2018 GHISLAINE ELIZONDO PROCESS MANAGER Ot R91.8 OTHER NONSPECIFIC ABNORMAL FINDING OF LASHAUN 09/08/2018 GHISLAINE ELIZONDO PROCESS MANAGER Ot Z98.82 BREAST IMPLANT STATUS 11/07/2018 AME OTT MD Ot J44 .9 CHRONIC OBSTRUCTIVE PULMONARY DISEASE, U 11/07/2018 AME OTT MD Ot R07.89 OTHER CHEST PAIN 11/07/2018 AME OTT MD Ot Z79.51 GROUP HOME (CURRENT) USE OF INHALED STERO 11/07/2018 AME OTT MD Ot Z79.52 GROUP HOME (CURRENT) USE OF SYSTEMIC STER 11/07/2018 AME OTT MD Ot Z99.81 DEPENDENCE ON SUPPLEMENTAL OXYGEN 02/13/2019 GHISLAINE ELIZONDO PROCESS MANAGER Ot J43.9 EMPHYSEMA, UNSPECIFIED 02/13/2019 GHISLAINE ELIZONDO PROCESS MANAGER Ot R91.8 OTHER NONSPECIFIC ABNORMAL FINDING OF LASHAUN 02/13/2019 GHISLAINE ELIZONDO PROCESS MANAGER Ot Z72.0 TOBACCO USE 03/01/2019 GHISLAINE ELIZONDO PROCESS MANAGER Ot J43.9 EMPHYSEMA, UNSPECIFIED 03/01/2019 GHISLAINE ELIZONDO PROCESS MANAGER Ot R91.8 OTHER NONSPECIFIC ABNORMAL FINDING OF LASHAUN 03/01/2019 GHISLAINE ELIZONDO PROCESS MANAGER Ot Z72.0 TOBACCO USE 04/30/2019 MARTITA ZUÑIGA MD Ot F17.210 NICOTINE DEPENDENCE, CIGARETTES, UNCOMPL 04/30/2019 MARTITA ZUÑIGA MD Ot J43. 9 EMPHYSEMA, UNSPECIFIED 04/30/2019 MARTITA ZUÑIGA MD Ot R06. 02 SHORTNESS OF BREATH 04/30/2019 MARTITA ZUÑIGA MD Ot Z79. 52 LIFE GUARD (CURRENT) USE OF SYSTEMIC STER 04/30/2019 MARTITA ZUÑIGA MD J Ot Z99. 81 DEPENDENCE ON SUPPLEMENTAL OXYGEN 05/03/2019 MARTITA ZUÑIGA MD Ot F17.210 NICOTINE DEPENDENCE, CIGARETTES, UNCOMPL 05/03/2019 MARTITA ZUÑIGA MD Ot J43. 9 EMPHYSEMA, UNSPECIFIED 05/03/2019 MARTITA ZUÑIGA MD Ot R06. 02 SHORTNESS OF BREATH 05/03/2019 MARTITA ZUÑIGA MD Ot Z79. 52 LIFE GUARD (CURRENT) USE OF SYSTEMIC STER 05/03/2019 MARTITA [...] COUGH 08/25/2019 CHELO FERGUSON MD Ot Z79.51 LIFE GUARD (CURRENT) USE OF INHALED STERO 08/25/2019 CHELO [...] COUGH 08/28/2019 CHELO FERGUSON MD Ot Z79.51 LIFE GUARD (CURRENT) USE OF INHALED STERO 08/28/2019 CHELO FERGUSON MD Ot Z79.52 GROUP HOME (CURRENT) USE OF SYSTEMIC STER 09/21/2019 LOBITO, SELVIN S PROCESS MANAGER Ot J98.4 OTHER DISORDERS OF LUNG 09/21/2019 LOBITO, SELVIN S PROCESS MANAGER Ot R07.89 OTHER CHEST PAIN 09/21/2019 LOBITO, SELVIN S PROCESS MANAGER Ot Z87.01 PERSONAL HISTORY OF PNEUMONIA (RECURRENT 10/04/2019 LOBITO, SELVIN S PROCESS MANAGER Ot R07.9 CHEST PAIN, UNSPECIFIED 10/04/2019 LOBITO, SELVIN S PROCESS MANAGER Ot Z87.01 PERSONAL HISTORY OF PNEUMONIA (RECURRENT 10/12/2019 LOBITO, SELVIN S PROCESS MANAGER Ot J98.4 OTHER DISORDERS OF LUNG 10/12/2019 LOBITO, SELVIN S PROCESS MANAGER Ot R07.89 OTHER CHEST PAIN 10/12/2019 LOBITO, SELVIN S PROCESS MANAGER Ot Z87.01 PERSONAL HISTORY OF PNEUMONIA (RECURRENT 10/27/2019 LOBITO, SELVIN S PROCESS MANAGER Ot J44.9 CHRONIC OBSTRUCTIVE PULMONARY DISEASE, U 10/27/2019 LOBITO, SELVIN S PROCESS MANAGER Ot R07.9 CHEST PAIN, UNSPECIFIED 10/27/2019 LOBITO, SELVIN S PROCESS MANAGER Ot Z87.01 PERSONAL HISTORY OF PNEUMONIA (RECURRENT 10/31/2019 LOBITO, SELVIN S PROCESS MANAGER Ot R07.9 CHEST PAIN, UNSPECIFIED 10/31/2019 LOBITO, SELVIN S PROCESS MANAGER Ot Z87.01 PERSONAL HISTORY OF PNEUMONIA (RECURRENT 11/11/2019 LOBITO, SELVIN S PROCESS MANAGER Ot R91.8 OTHER NONSPECIFIC ABNORMAL FINDING OF LASHAUN 11/11/2019 LOBITO, SELVIN S PROCESS MANAGER Ot Z87.01 PERSONAL HISTORY OF PNEUMONIA (RECURRENT 11/15/2019 LOBITO, SELVIN S PROCESS MANAGER Ot J44.9 CHRONIC OBSTRUCTIVE PULMONARY DISEASE, U 11/15/2019 LOBITO, SELVIN S PROCESS MANAGER Ot R07.9 CHEST PAIN, UNSPECIFIED 11/15/2019 LOBITO, SELVIN S PROCESS MANAGER Ot Z87.01 PERSONAL HISTORY OF PNEUMONIA (RECURRENT 11/25/2019 SHANNON MCCORMACK, NIC Charles Ot J44.9 CHRONIC OBSTRUCTIVE PULMONARY DISEASE, U 11/25/2019 NIC ORTEGA MD Ot M10.9 GOUT, UNSPECIFIED 11/25/2019 NIC ORTEGA MD Ot M25.572 PAIN IN LEFT ANKLE AND JOINTS OF LEFT FO 11/25/2019 NIC ORTEGA MD Ot Z79.52 GROUP HOME (CURRENT) USE OF SYSTEMIC STER 11/29/2019 LOBITOSELVIN Camilo PROCESS MANAGER Ot R91.8 OTHER NONSPECIFIC ABNORMAL FINDING OF LASHAUN 11/29/2019 LOBITOSELVIN Camilo ORTEGA Ot Z87.01 PERSONAL HISTORY OF PNEUMONIA (RECURRENT 12/01/2019 NIC ORTEGA MD Ot J44.9 CHRONIC OBSTRUCTIVE PULMONARY DISEASE, U 12/01/2019 NIC ORTEGA MD, Ot M10.9 GOUT, UNSPECIFIED 12/01/2019 NIC ORTEGA MD Ot M25.572 PAIN IN LEFT ANKLE AND JOINTS OF LEFT FO 12/01/2019 NIC ORTEGA MD, Ot Z79.52 LIFE GUARD (CURRENT) USE OF SYSTEMIC STER 02/23/2020 JAIMIE HARRINGTON MD, Ot Z01.812 ENCOUNTER FOR PREPROCEDURAL LABORATORY E 02/23/2020 JAIMIE HARRINGTON MD, Ot Z20.828 CONTACT W AND EXPOSURE TO OTH VIRAL COMM 02/23/2020 JAIMIE HARRINGTON MD, Ot H25.12 AGE-RELATED NUCLEAR CATARACT, LEFT EYE Procedures There is no data. Results Test [...] - 08/25/19 19:15 Bacterial urine culture NG NR [id number] - 11/09/19 09:25 Serum or plasma urea nitrogen measurement (mass/volume ) 10 mg/dL 7-18 Serum or plasma creatinine measurement (mass/volume) 0.76 mg/dL 0.60-1.30 Serum or plasma urea nitrogen/creatinine mass ratio 13 NRG Serum or plasma creatinine measurement w ith calculation of estimated glomerular filtration rate > [facility] Comprehensive metabolic panel - 11/25/19 22:30 Serum [...] Coronavirus Ab [Units/volume] in Serum Negative Negative Coronavirus SARS-CoV-2 SO 2018 0 10:50 Coronavirus Ab [Units/volume] in Serum Negative Negative Encounters ACCT No. Visit Date/Time Discharge Status Pt. Type Provider Facility Loc./Unit Complaint [id number] 08/29/2019 08:40:00 08/29/2019 23:59: 59 CLS Outpatient [facility] [id number] 08/25/2019 16:20:00 Document Registration [id number] 02/27/2020 10:40:00 15:44:00 DIS Outpatient JAIMIE HARRINGTON MD Via [facility] LAB FS PRE SURGERY REQUIREMENT [id number] 02/23/2020 08:57:00 10:40:00 DIS Outpatient JAIMIE HARRINGTON MD Via [facility] SDC CATARACT LEFT EYE [id number] 02/20/2020 08:59:00 23:59:59 CLS Outpatient JAIMIE HARRINGTON MD Via [facility] LAB FS PRE SURG REQ [id number] 02/19/2020 06:21:00 15:13:00 DIS Outpatient JAIMIE HARRINGTON MD Via [facility] PREOP CATARACT LEFT [id number] 11/25/2019 22:06:00 23:49:00 DIS Emergency NIC ORTEGA MD Via [facility] ER FS LEFT LEG PAIN/SWELLING [id number] 11/09/2019 09:26:00 23:59:59 CLS Outpatient SELVIN ROBIN PROCESS MANAGER Via [facility] LAB FS HX OF PNEUMONIA [id number] 10/25/2019 15:58:00 23:59:59 CLS Outpatient SELVIN ROIBN PROCESS MANAGER Via [facility] RAD FS Z87.01 R07.9 [id number] 10/03/2019 13:16:00 23:59:59 CLS Outpatient SELVIN ROBIN PROCESS MANAGER Via [facility] RAD FS Z87.01 R07.9 [id number] 09/19/2019 14:02:00 23:59:59 CLS Outpatient SELVIN ROBIN PROCESS MANAGER Via [facility] RAD FS R07.9 Z87.01 [id number] 08/25/2019 17:19:00 19:49:00 DIS Emergency PHYLLIS MCCORMACK, CHELO tolentino [facility] ER FS HF EXACERBATION,DYSPNEA [id number] 04/30/2019 09:56:00 12:01:00 DIS Emergency ZARA MCCORMACK, MARTITA Nowak Via [facility] ER FS SOB [id number] 03/03/2019 14:23:00 23:59:59 CLS Preadmit GHISLAINE ELIZONDO PROCESS MANAGER Via [facility] RAD HX OF NICOTINE DEP [id number] 02/08/2019 10:20:00 23:59:59 CLS Outpatient GHISLAINE ELIZONDO PROCESS MANAGER Via [facility] RAD ABN CT SCAN [address] ST [id number] 11/07/2018 11:53:00 14:05:00 DIS Emergency TRU MCCORMACK, AME Valenzuela Via [facility] ER FS SOB [id number] 08/25/2018 07:48:00 23:59:59 CLS Preadmit GHISLAINE ELIZONDO PROCESS MANAGER Via [facility] RAD LUNG MASS,COPD,HYPOXEMIA,TOBACCO USER,DYSPNEA [id number] 08/17/2018 09:19:00 23:59:59 CLS Outpatient GHISLAINE ELIZONDO APRN Via [facility] RAD LUNG MASS,COPD, DYSPNEA [id number] 04/25/2018 12:15:00 23:59:59 CLS Outpatient GHISLAINE ELIZONDO APRN Via [facility] RAD TOBACCO USER,RU LE OUT LUNG CA [id number] 09/24/2017 09:37:00 23:59:59 CLS Outpatient GHISLAINE ELIZONDO APRN Via [facility] RT COPD [id number] 08/06/2017 04:05:00 017 14:15:00 DIS Inpatient SOURAV ROSENBERG DO, V ia [facility] 4TH COPD EXACERBATION [id number] 03/01/2020 11:15:00 P EN Preadmit JAIMIE HARRINGTON MD Via [facility] SDC CATARACT RIGHT EYE [id number] 02/29/2020 10:15:00 P EN Preadmit SELVIN ROBIN PROCESS MANAGER Via [facility] RAD FS HX OF PNEUMONIA
[2020-03-01] MEDS: TETRACAINE 0.5% OPHTH SOLN 4 ML BTL (SINGLE DOSE ONLY) OU PRN ×4 (08:59→09:15)
[2020-03-01] MEDS ORDERED: MOXIFLOXACIN OPHTH SOLN 5 MG/ML 0.3 ML SYRINGE OP ONE (09:00)
[2020-03-01] MEDS ORDERED: POVIDONE (BETADINE) OPHTH SOLN 5% 30 ML OP ONE (09:00)
[2020-03-01] MEDS ORDERED: LIDOCAINE PF 1% 2 ML VIAL IR PRN (09:00)
[2020-03-01] MEDS ORDERED: TIMOLOL MALEATE 0.5% 5 ML (TIMOPTIC) BTL OU PRN (09:00)
[2020-03-01] MEDS ORDERED: MIDAZOLAM 2 MG/2 ML (VERSED) VIAL ONE (09:03)
[2020-03-01] MEDS: CYCLOPENTOLATE 1% (CYCLOGYL) 2 ML DROPS OP SCH ×3 (09:05→09:15)
[2020-03-01] MEDS: PHENYLEPHRINE 10% OPHTH (NEO-SYN) 5 ML BTL OU SCH ×3 (09:05→09:15)
--- NOTE | 2020-03-01 09:20 | Ophthalmologist Pre-Op Note ---
Pre-Operative Progress Note H&P Reviewed The H&P was reviewed, patient examined and no changes noted. Date H&P Reviewed: Mar 01, 2020 Time H&P Reviewed: 09:20 Pre-Op Dx Cataract, Right Eye JAIMIE HARRINGTON MD Mar 01, 2020 09:20
--- NOTE | 2020-03-01 09:41 | Ophthalmology Operative Report ---
Cataract removal/placement IOL PREOPERATIVE DIAGNOSIS: Cataract Right Eye POSTOPERATIVE DIAGNOSIS: Cataract Right Eye PROCEDURE: Cataract removal and placement of posterior chamber implant, right eye SURGEON: Pito Harrington ANESTHESIA: Topical with sedation COMPLICATIONS: None ESTIMATED BLOOD LOSS: Minimal DESCRIPTION OF PROCEDURE: After proper informed consent was obtained, the patient, a 70 female, was taken to the Operating Room and the right eye was anesthetized with tetracaine. The right eye was then prepped and draped in the usual manner. A wire lid speculum was placed. A paracentesis was made at the left hand position. Preservative free lidocaine was injected into the anterior chamber followed by viscoelastic. A clear corneal incision was made in the temporal position. A capsulorrhexis was preformed and the central nuclear and cortical material were removed. The posterior capsule was polished and Angel 19.5 [id number] IOL was placed into the capsular bag. The residual viscoelastic was aspirated and balanced saline solution was injected into the anterior chamber. Moxifloxacin was injected into the anterior chamber. The wound was checked and found to be water tight. The patient tolerated the procedure well without complications. PITO HARRINGTON MD Mar 01, 2020 09:41
[2020-03-01 09:55] VITALS: BP 149/88
--- NOTE | 2020-03-01 10:29 | Anesthesia-General Post-Op ---
MAC Patient Condition Mental Status/LOC: Same as Preop Cardiovascular: Satisfactory Nausea/Vomiting: Absent Respiratory: Satisfactory Pain: Controlled Complications: Absent Post Op Complications Complications None Follow Up Care/Instructions Patient Instructions None needed. Anesthesiology Discharge Order Discharge Order Patient is doing well, no complaints, stable vital signs, no apparent adverse anesthesia problems. No complications reported per nursing. LORE AMBRIZ CRNA Mar 01, 2020 10:29
[2020-03-01] MEDS ORDERED: acetaZOLAMIDE ER 500 MG CAP (DIAMOX SEQUELS) PO ONE (10:30)
== END 2020-03-01 09:55 | disposition home or self-care (01) ==
LOC: SDC 08:47
PROVIDERS: ATTEND Specialist
DX: H25.11 Age-related nuclear cataract, right eye (principal); F17.210 Nicotine dependence, cigarettes, uncomplicated; J44.9 Chronic obstructive pulmonary disease, unspecified; G47.33 Obstructive sleep apnea (adult) (pediatric); Z79.899 Other long term (current) drug therapy; Z80.1 Family history of malignant neoplasm of trachea, bronchus and lung
CPT/HCPCS: 66984; V2632

== ENCOUNTER 2020-07-18 20:06 | Emergency (ER) | payer MEDICARE, OTHER ==
[~2020-07-18] VITALS: Ht 162.5 cm; Wt 58.9 kg
[2020-07-18] MEDS ORDERED: NS IV 1000 ML 1,000 ML IV SCH (20:45)
--- NOTE | 2020-07-18 20:54 | ED Cough/URI ---
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 reports increased coughing and SOB, has been on steroids for several days per PCP. COPD, smokes 1 pk a day. Sepsis Screen: No Definite Risk Source: patient Exam Limitations: no limitations History of Present Illness Date Seen by Provider: Jul 18, 2020 Time Seen by Provider: 20:30 Initial Comments 70-year-old female presents with 5 day history of cough, shortness of air with history of COPD. States she's had cough intermittently for the past couple months and has been on steroids a couple times by her PCP. Has been tested for COVID-19 twice and negative. Denies known exposure COVID-19 or suspected exposure. Today felt like she was feverish and she did vomit 1 after coughing. Is using her inhalers with some relief. She uses home oxygen, typically only at night. Denies abdominal pain, swelling of extremities, chest pain or wheezing Allergies and Home Medications Allergies Coded Allergies: No Known Drug Allergies (Unverified , 08/06/17) Home Medications Fluticasone/Umeclidin/Vilanter 1 Each Blst.w.dev, 1 PUFF IH BID, (Reported) Montelukast Sodium 10 Mg Tablet, 10 MG PO HS, (Reported) Patient Home Medication List Home Medication List Reviewed: Yes Review of Systems Review of Systems Constitutional: No chills, No dizziness, No fever; malaise EENTM: no symptoms reported Respiratory: No cough, No hemoptysis, No short of breath, No stridor, No wheezing Cardiovascular: No chest pain, No edema, No palpitations Gastrointestinal: No abdominal pain, No constipation, No nausea; vomiting Musculoskeletal: muscle pain (aching) Skin: No change in color, No rash Psychiatric/Neurological: Denies Headache, Denies Numbness, Denies Paresthesia Past Umzdyqh-Fbilho-Jqsguy Hx Past Med/Social Hx: Reviewed Nursing Past Med/Soc Hx Patient Social History Alcohol Use: Denies Use Alcohol Beverage of Choice: Beer Type Used: Cigarettes 2nd Hand Smoke Exposure: No Recent Foreign Travel: No Contact w/Someone Who Travel: No Recent Infectious Disease Expo: No Recent Hopitalizations: No Seasonal Allergies Seasonal Allergies: No Past Medical History Surgeries: No Respiratory: Yes COPD Currently Using CPAP: No Currently Using BIPAP: No Cardiac: No Neurological: No Sexually Transmitted Disease: No HIV/AIDS: No Genitourinary: No Gastrointestinal: No Musculoskeletal: No Endocrine: No HEENT: No Cancer: No Did You Recieve Any Treatments: No Psychosocial: No Integumentary: No Blood Disorders: No Adverse Reaction/Blood Tranf: No Physical Exam Vital Signs - First Documented 07/18/20 20:23 Temp 37.4 Pulse 121 Resp 22 B/P (MAP) 146/64 (91) Pulse Ox 95 O2 Delivery Room Air Capillary Refill : Less Than 3 Seconds Height: 5'4.00" Weight: 120lbs. 8.0oz. 54.805357ji; 22.00 BMI Method:Stated General Appearance: WD/WN, no apparent distress HEENT: PERRL/EOMI, normal ENT inspection Neck: non-tender, supple Respiratory: chest non-tender, no respiratory distress, no accessory muscle use, rales (scattered) Cardiovascular: no edema, no JVD, tachycardia Gastrointestinal: non tender, soft Neurologic/Psychiatric: no motor/sensory deficits, alert, normal mood/affect Skin: normal color, warm/dry Focused Exam Lactate Level 07/18/20 20:38: Lactic Acid Level 1.67 Lactic Acid Level Laboratory Tests Test 07/18/20 20:38 Lactic Acid Level 1.67 MMOL/L (0.50-2.00) Progress/Results/Core Measures Suspected Sepsis Recent Fever Within 48 Hours: No Infection Criteria Present: None New/Unexplained Altered Menta: No Sepsis Screen: No Definite Risk SIRS Temperature: Pulse: 121 Respiratory Rate: 22 Laboratory Tests 07/18/20 20:38: White Blood Count 15.7H Blood Pressure 146 /64 Mean: 91 07/18/20 20:38: Lactic Acid Level 1.67 Laboratory Tests 07/18/20 20:38: Creatinine 0.76, Platelet Count 298, Total Bilirubin 0.4 Results/Orders Lab Results Laboratory Tests Test 07/18/20 20:38 07/18/20 20:50 Range/Units White Blood Count 15.7 H 4.3-11.0 10^3/uL Red Blood Count 4.58 4.35-5.85 10^6/uL Hemoglobin 13.4 11.5-16.0 G/DL Hematocrit 41 35-52 % Mean Corpuscular Volume 89 80-99 FL Mean Corpuscular Hemoglobin 29 25-34 PG Mean Corpuscular Hemoglobin Concent 33 32-36 G/DL Red Cell Distribution Width 12.6 10.0-14.5 % Platelet Count 298 130-400 10^3/uL Mean Platelet Volume 10.5 H 7.4-10.4 FL Immature Granulocyte % (Auto) 0 % Neutrophils (%) (Auto) 83 H 42-75 % Lymphocytes (%) (Auto) 9 L 12-44 % Monocytes (%) (Auto) 5 0-12 % Eosinophils (%) (Auto) 2 0-10 % Basophils (%) (Auto) 0 0-10 % Neutrophils # (Auto) 13.0 H 1.8-7.8 X 10^3 Lymphocytes # (Auto) 1.4 1.0-4.0 X 10^3 Monocytes # (Auto) 0.8 0.0-1.0 X 10^3 Eosinophils # (Auto) 0.2 0.0-0.3 10^3/uL Basophils # (Auto) 0.1 0.0-0.1 10^3/uL Immature Granulocyte # (Auto) 0.1 0.0-0.1 10^3/uL Neutrophils % (Manual) 87 % Lymphocytes % (Manual) 5 % Monocytes % (Manual) 3 % Eosinophils % (Manual) 2 % Basophils % (Manual) 0 % Band Neutrophils 3 % Sodium Level 136 135-145 MMOL/L Potassium Level 4.4 3.6-5.0 MMOL/L Chloride Level 100 98-107 MMOL/L Carbon Dioxide Level 22 21-32 MMOL/L Anion Gap 14 5-14 MMOL/L Blood Urea Nitrogen 14 7-18 MG/DL Creatinine 0.76 0.60-1.30 MG/DL Estimat Glomerular Filtration Rate > 60 BUN/Creatinine Ratio 18 Glucose Level 107 H 70-105 MG/DL Lactic Acid Level 1.67 0.50-2.00 MMOL/L Calcium Level 9.6 8.5-10.1 MG/DL Corrected Calcium 9.3 8.5-10.1 MG/DL Total Bilirubin 0.4 0.1-1.0 MG/DL Aspartate Amino Transf (AST/SGOT) 12 5-34 U/L Alanine Aminotransferase (ALT/SGPT) 9 0-55 U/L Alkaline Phosphatase 124 40-136 U/L C-Reactive Protein 2.36 H <0.50 MG/DL Total Protein 7.3 6.4-8.2 GM/DL Albumin 4.4 3.2-4.5 GM/DL My Orders Orders - MADELYN ROMERO DO Ed Iv/Invasive Line Start (07/18/20 20:44) Cbc With Automated Diff (07/18/20 20:44) Comprehensive Metabolic Panel (07/18/20 20:44) Lactic Acid Analyzer (07/18/20 20:44) Chest 1 View Ap/Pa Only (07/18/20 20:44) Procalcitonin (Pct) (07/18/20 20:44) Crp Fs (07/18/20 20:44) Dexamethasone Injection (Decadron Injec (07/18/20 20:45) Ns Iv 1000 Ml (Sodium Chloride 0.9%) (07/18/20 20:45) Coronavirus Sars-Cov-2 So 2018 (07/18/20 20:44) Manual Differential (07/18/20 20:38) Medications Given in ED Current Medications Medications Dose Ordered Sig/Travis Route Start Time Stop Time Status Last Admin Dose Admin Dexamethasone Sodium Phosphate 4 mg ONCE ONCE IV 07/18/20 20:45 07/18/20 20:50 DC 07/18/20 20:58 4 MG Vital Signs/I&O 07/18/20 07/18/20 07/18/20 20:23 20:38 21:30 Temp 37.4 37.4 37.4 Pulse 121 110 110 Resp 22 18 18 B/P (MAP) 146/64 (91) 116/58 116/58 Pulse Ox 95 95 95 O2 Delivery Room Air Room Air Capillary Refill : Less Than 3 Seconds Blood Pressure Mean: 91 Diagnostic Imaging Diagonstic Imaging: Xray Comments Date of Exam:07/18/20 CHEST 1 VIEW AP/PA ONLY INDICATION: Short of breath, cough Single view of the chest shows normal heart size and vascularity. There is obstructive airway disease with no mass or infiltrate seen. There is no effusion or pneumothorax. IMPRESSION: COPD. No acute abnormality is seen. The cavitary lesion seen in the right upper lobe on the 08/24/2020 study has resolved. There is no other significant change from the prior exam. Dictated by: Dictated on workstation # [id number] Dict: 07/18/202113 Trans: 07/18/202123 [facility] [id number] Interpreted by: HARRIS VILLANUEVA MD Electronically signed by: HARRIS VILLANUEVA MD 07/18/202123 Departure Impression Primary Impression: COPD with exacerbation Disposition: HOME, SELF-CARE Condition: Stable Departure-Patient Inst. Decision time for Depature: 22:01 Referrals: [facility] (PCP) Primary Care Physician SELVIN ROBIN APRN (Family) Primary Care Physician Patient Instructions: Exacerbation of COPD (DC) Add. Discharge Instructions: Follow up with your Primary Care Provider in 1 week, sooner if worse. All discharge instructions reviewed with patient and/or family. Voiced understanding. Scripts Famotidine (Pepcid) 20 Mg Tablet 20 MG PO BID, #10 TAB Prov: MADELYN ROMERO DO 07/18/20 Ondansetron (Ondansetron Odt) 4 Mg Tab.rapdis 4 MG PO TID for Nausea, #10 TAB Prov: MADELYN ROMERO DO 07/18/20 Prednisone (Prednisone) 50 Mg Tab 50 MG PO DAILY, #7 TAB Prov: DERIKSTMADELYN CHARLES DO 07/18/20 MADELYN ROMERO DO Jul 18, 2020 20:54
[2020-07-18 20:58] LABS: BASOPHILS % (AUTO) 0 % (0-10); EOSINOPHILS % (AUTO) 2 % (0-10); HEMATOCRIT 41 % (35-52); HEMOGLOBIN 13.4 G/DL (11.5-16.0); LYMPHOCYTES % (AUTO) 9 % (12-44); MEAN CORPUSCULAR HEMOGLOBIN 29 PG (25-34); MEAN CORPUSCULAR HGB CONC 33 G/DL (32-36); MEAN CORPUSCULAR VOLUME 89 FL (80-99); MEAN PLATELET VOLUME 10.5 FL (7.4-10.4); MONOCYTES % (AUTO) 5 % (0-12); NEUTROPHILS % (AUTO) 83 % (42-75); PLATELET COUNT 298 10^3/uL (130-400); WHITE BLOOD COUNT 15.7 10^3/uL (4.3-11.0)
[2020-07-18 20:59] LABS: BASOPHILS # (AUTO) 0.1 10^3/uL (0.0-0.1); EOSINOPHILS # (AUTO) 0.2 10^3/uL (0.0-0.3); LYMPHOCYTES # (AUTO) 1.4 X 10^3 (1.0-4.0); MONOCYTES # (AUTO) 0.8 X 10^3 (0.0-1.0)
[2020-07-18 21:13] LABS: BAND NEUTROPHILS 3 %; BASOPHILS % (MANUAL) 0 %; EOSINOPHILS % (MANUAL) 2 %; LYMPHOCYTES % (MANUAL) 5 %; MONOCYTES % (MANUAL) 3 %; NEUTROPHILS % (MANUAL) 87 %
[2020-07-18 21:18] LABS: ALANINE AMINOTRANSFERASE 9 U/L (0-55); ALBUMIN 4.4 GM/DL (3.2-4.5); ALKALINE PHOSPHATASE 124 U/L (40-136); BILIRUBIN,TOTAL 0.4 MG/DL (0.1-1.0); BUN/CREATININE RATIO 18; CALCIUM 9.6 MG/DL (8.5-10.1); CARBON DIOXIDE 22 MMOL/L (21-32); CHLORIDE 100 MMOL/L (98-107); CREATININE SERUM 0.76 MG/DL (0.60-1.30); GFR ESTIMATED > 60; GLUCOSE 107 MG/DL (70-105); POTASSIUM 4.4 MMOL/L (3.6-5.0); SODIUM 136 MMOL/L (135-145); TOTAL PROTEIN 7.3 GM/DL (6.4-8.2)
--- NOTE | 2020-07-18 21:18 | NUR ---
pt resting on cot.
--- NOTE | 2020-07-18 21:19 | Diagnostic Imaging Report ---
INDICATION: Short of breath, cough Single view of the chest shows normal heart size and vascularity. There is obstructive airway disease with no mass or infiltrate seen. There is no effusion or pneumothorax. IMPRESSION: COPD. No acute abnormality is seen. The cavitary lesion seen in the right upper lobe on the 08/24/2020 study has resolved. There is no other significant change from the prior exam. Dictated by: Dictated on workstation # [id number]
[2020-07-18] MEDS ORDERED: FAMO-119 PO (22:02)
[2020-07-18] MEDS ORDERED: ONDA4TAB11 PO (22:02)
[2020-07-18] MEDS ORDERED: PRD50T PO (22:02)
[2020-07-18 22:18] VITALS: BP 116/58
== END 2020-07-18 22:20 | disposition home or self-care (01) ==
LOC: EDUNIT# 20:06 → ER FS 20:07
DX: J44.1 Chronic obstructive pulmonary disease with (acute) exacerbation (principal); Z20.828 Contact with and (suspected) exposure to other viral communicable diseases
CPT/HCPCS: 36415; 71045; 80053; 83605; 84145; 85007; 85027; 86141; 99284; U0002; 87635

== ENCOUNTER → 2020-11-13 | Outpatient (CLI) | payer MEDICARE, OTHER ==
[~2020-11-13] MED LIST changes: +FAMO-119 PO; -MONT10TA26 PO; +MONT10TA32 PO; +ONDA4TAB11 PO; +PRD50T PO; +RT-ALBUTEROL SULF 2.5 MG/3 ML PRE-MIX VIAL INH ONE
== END ==
LOC: RT 09:36
PROVIDERS: ATTEND Nurse Practitioner Family
DX: J44.9 Chronic obstructive pulmonary disease, unspecified (principal)
CPT/HCPCS: 94060; 94726; 94729

== ENCOUNTER → 2020-12-30 | Outpatient (CLI) | payer MEDICARE, OTHER ==
[~2020-12-30] MED LIST changes: +CATHETER FLUSH 10 ML SYR IV PRN; +HOLD METFORMIN - RECEIVED CONTRAST 20 ML VIAL IV SCH; +IOHEXOL 350 MG/ML 100 ML (OMNIPAQUE 350) VIAL IV ONE; +NS 100 ML (IVPB) BAG IV ONE; -RT-ALBUTEROL SULF 2.5 MG/3 ML PRE-MIX VIAL INH ONE
[2020-12-30 10:25] LABS: BUN/CREATININE RATIO 16; GFR ESTIMATED > 60
--- NOTE | 2020-12-30 11:05 | Diagnostic Imaging Report ---
EXAMINATION: CT chest with intravenous contrast. TECHNIQUE: Multiple contiguous axial images were obtained through the chest after the uneventful administration of intravenous contrast. All CT scans use one or more of the following dose optimizing techniques: automated exposure control, MA and/or KvP adjustment based on patient size and exam type or iterative reconstruction. HISTORY: COPD. COMPARISON: 02/29/2020. FINDINGS: There is moderate to severe emphysema. There is a new round endobronchial filling defect measuring 6 mm at the trifurcation of the bronchus intermedius in the right lower lobe (series 5, image 88). There is unchanged scarring in the apices. No pleural effusion. No pneumothorax. There is no axillary or supraclavicular lymphadenopathy. There is no mediastinal lymphadenopathy. Heart size is normal. There are mild coronary artery calcifications. No pericardial effusion. Aorta is normal in caliber. Limited views of the upper abdomen are unremarkable. There are calcified bilateral breast implants. There are no suspicious osseus lesions. IMPRESSION: There is a 6 mm endobronchial nodule at the trifurcation of the bronchus intermedius in the right lower lobe. The morphology is suspicious for a mass rather than mucous and bronchoscopy is recommended. Dictated by: Dictated on workstation # [id number]
== END ==
LOC: RAD FS 09:41
PROVIDERS: ATTEND Nurse Practitioner Family
DX: R91.1 Solitary pulmonary nodule (principal); J44.9 Chronic obstructive pulmonary disease, unspecified
CPT/HCPCS: 36415; 71260; 82565; 84520

== ENCOUNTER 2021-01-03 00:17 | Emergency (ER) | payer MEDICARE, OTHER ==
[~2021-01-03 00:17] MED LIST changes: -CATHETER FLUSH 10 ML SYR IV PRN; -HOLD METFORMIN - RECEIVED CONTRAST 20 ML VIAL IV SCH; -IOHEXOL 350 MG/ML 100 ML (OMNIPAQUE 350) VIAL IV ONE; -NS 100 ML (IVPB) BAG IV ONE
[2021-01-03] MEDS ORDERED: methylPREDNISolone 125 MG (Solu-MEDROL) VIAL IVP STA (00:38)
[2021-01-03] MEDS ORDERED: RT-ALBUTEROL/IPRATROPIUM 3 ML (DUONEB) VIAL INH ONE (00:45)
--- NOTE | 2021-01-03 00:52 | ED Respiratory ---
General Chief Complaint: Respiratory Problems Stated Complaint: COPD Source: patient, EMS, old records Exam Limitations: clinical condition (shortness of breath) History of Present Illness Date Seen by Provider: Jan 03, 2021 Time Seen by Provider: 00:19 Initial Comments 71-year-old female presenting with increased shortness of breath and cough. She states that over the last 4 to 5 days she has been getting more difficulty with breathing. She has trouble trying to do her daily activities without getting winded. Normally she uses oxygen only at night through her CPAP but she has been having to use the oxygen during the day and the last few days as well. Even with that she was still getting winded and out of breath with minimal exertion. She feels like she is coughing up more congestion and mucus than normal. She had subjective fever earlier this week. She recently had a course of steroids as well as steroid shot and oral antibiotics. She had a CT scan as a follow-up on COPD and recurrent pneumonia done on December 30. She is to follow- up with Dr. Celeste for pulmonology and the CT test results next week. She was trying to hold out until Wednesday when she had an appointment but tonight she was too weak and too winded to get to the bathroom so her son called EMS to bring her to the ED. She thought her breathing was worse this last week due to weather changes and allergies but it has been much worse in last couple of days. She feels that her breathing has been worsening and she has required more steroid treatments in the last 2-3 months. Timing/Duration: week, getting worse Severity: severe Prior Episodes/Possible Cause: frequent episodes, chronic episodes Associated Symptoms: chest pain/soreness (from coughing), cough, dizziness; No earache, No facial pain; fever/chills (subjective fever earlier this week), headache (from coughing), lightheadedness, muscle aches, shortness of breath (more than normal for her); No sinus infection, No sore throat; wheezing Allergies and Home Medications Allergies Coded Allergies: No Known Drug Allergies (Unverified , 08/06/17) Home Medications Famotidine 20 Mg Tablet, 20 MG PO BID Prescribed by: MADELYN ROMERO on 07/18/202201 Fluticasone/Umeclidin/Vilanter 1 Each Blst.w.dev, 1 PUFF IH BID, (Reported) Montelukast Sodium 10 Mg Tablet, 10 MG PO HS, (Reported) Ondansetron 4 Mg Tab.rapdis, 4 MG PO TID Prescribed by: MADELYN MORESTARACELI on 07/18/202201 Prednisone 50 Mg Tab, 50 MG PO DAILY Prescribed by: MADELYN MORESTINE on 07/18/202201 Prednisone 10 Mg Tab.ds.pk, 10 MG PO DAILY Take 6 tabs(60mg)daily,decrease by 1 tab(10mg)every other day. Prescribed by: ALVERTO TOUSSAINT on 01/03/21 0151 Patient Home Medication List Home Medication List Reviewed: Yes Review of Systems Review of Systems Constitutional: see HPI EENTM: nose congestion; No epistaxis Respiratory: see HPI, cough, dyspnea on exertion; No hemoptysis; phlegm (increased), short of breath; No stridor; wheezing Cardiovascular: see HPI Gastrointestinal: no symptoms reported Genitourinary: no symptoms reported Musculoskeletal: muscle pain (generalized muscle aches and pains) Skin: No rash Psychiatric/Neurological: See HPI Hematologic/Lymphatic: Denies Blood Clots Immunological/Allergic: see HPI (has seasonal allergies) Past Tnzswpl-Ldbkyq-Ehcocn Hx Past Med/Social Hx: Reviewed Nursing Past Med/Soc Hx Patient Social History Alcohol Beverage of Choice: Beer Type Used: Cigarettes 2nd Hand Smoke Exposure: No Recent Hopitalizations: No Seasonal Allergies Seasonal Allergies: No Past Medical History Surgeries: No Respiratory: Yes COPD Currently Using CPAP: Yes Currently Using BIPAP: No Cardiac: No Neurological: No Sexually Transmitted Disease: No HIV/AIDS: No Genitourinary: No Gastrointestinal: No Musculoskeletal: No Endocrine: No HEENT: No Cancer: No Did You Recieve Any Treatments: No Psychosocial: No Integumentary: No Blood Disorders: No Adverse Reaction/Blood Tranf: No Physical Exam Vital Signs - First Documented 01/03/21 00:18 Temp 37.2 Pulse 114 Resp 24 B/P (MAP) 107/78 (88) Pulse Ox 100 O2 Delivery Non Rebreather O2 Flow Rate 8.00 FiO2 100 Capillary Refill : Height: 5'4.00" Weight: 120lbs. 8.0oz. [id number]; 22.00 BMI Method:Stated General Appearance: moderate distress, other (appears chronically ill. working hard to breath) HEENT: PERRL/EOMI; No photophobia, No tonsillar exudate; other (dry mucous membranes) Neck: non-tender, full range of motion, supple, normal inspection Respiratory: decreased breath sounds, accessory muscle use; No rales, No rhonchi, No stridor; wheezing (end expiratory wheezing), expiration (prolonged expirations) Cardiovascular: tachycardia Gastrointestinal: normal bowel sounds, non tender, soft, no pulsatile mass Extremities: normal range of motion, normal capillary refill Neurologic/Psychiatric: bodily injury adjuster II-XII nml as tested, alert, oriented x 3 Skin: warm/dry Focused Exam Lactate Level 01/03/21 00:37: Lactic Acid Level 0.72 Lactic Acid Level Laboratory Tests Test 01/03/21 00:37 Lactic Acid Level 0.72 MMOL/L (0.50-2.00) Progress/Results/Core Measures Suspected Sepsis SIRS Temperature: Pulse: Respiratory Rate: Laboratory Tests 01/03/21 00:37: White Blood Count 12.2H Blood Pressure / Mean: 01/03/21 00:37: Lactic Acid Level 0.72 Laboratory Tests 01/03/21 00:37: Creatinine 0.70, Platelet Count 238, Total Bilirubin 0.5 Results/Orders Lab Results Laboratory Tests Test 01/03/21 00:37 01/03/21 01:06 Range/Units White Blood Count 12.2 H 4.3-11.0 10^3/uL Red Blood Count 4.17 L 4.35-5.85 10^6/uL Hemoglobin 12.4 11.5-16.0 G/DL Hematocrit 38 35-52 % Mean Corpuscular Volume 90 80-99 FL Mean Corpuscular Hemoglobin 30 25-34 PG Mean Corpuscular Hemoglobin Concent 33 32-36 G/DL Red Cell Distribution Width 14.6 H 10.0-14.5 % Platelet Count 238 130-400 10^3/uL Mean Platelet Volume 10.1 7.4-10.4 FL Immature Granulocyte % (Auto) 0 % Neutrophils (%) (Auto) 74 42-75 % Lymphocytes (%) (Auto) 18 12-44 % Monocytes (%) (Auto) 7 0-12 % Eosinophils (%) (Auto) 1 0-10 % Basophils (%) (Auto) 0 0-10 % Neutrophils # (Auto) 9.0 H 1.8-7.8 X 10^3 Lymphocytes # (Auto) 2.2 1.0-4.0 X 10^3 Monocytes # (Auto) 0.9 0.0-1.0 X 10^3 Eosinophils # (Auto) 0.1 0.0-0.3 10^3/uL Basophils # (Auto) 0.0 0.0-0.1 10^3/uL Immature Granulocyte # (Auto) 0.0 0.0-0.1 10^3/uL Sodium Level 135 135-145 MMOL/L Potassium Level 3.7 3.6-5.0 MMOL/L Chloride Level 102 98-107 MMOL/L Carbon Dioxide Level 23 21-32 MMOL/L Anion Gap 10 5-14 MMOL/L Blood Urea Nitrogen 11 7-18 MG/DL Creatinine 0.70 0.60-1.30 MG/DL Estimat Glomerular Filtration Rate > 60 BUN/Creatinine Ratio 16 Glucose Level 112 H 70-105 MG/DL Lactic Acid Level 0.72 0.50-2.00 MMOL/L Calcium Level 8.9 8.5-10.1 MG/DL Corrected Calcium 9.0 8.5-10.1 MG/DL Magnesium Level 1.8 1.6-2.4 MG/DL Total Bilirubin 0.5 0.1-1.0 MG/DL Aspartate Amino Transf (AST/SGOT) 14 5-34 U/L Alanine Aminotransferase (ALT/SGPT) 10 0-55 U/L Alkaline Phosphatase 91 40-136 U/L C-Reactive Protein 8.25 H <0.50 MG/DL Total Protein 7.0 6.4-8.2 GM/DL Albumin 3.9 3.2-4.5 GM/DL Blood Gas Puncture Site LEFT RADIAL Blood Gas Patient Temperature UNK Arterial Blood pH 7.46 H 7.37-7.43 Arterial Blood Partial Pressure CO2 35 35-45 MMHG Arterial Blood Partial Pressure O2 56 L 79-93 MMHG Arterial Blood HCO3 25 23-27 MMOL/L Arterial Blood Total CO2 26.0 21.0-31.0 MMOL/L Arterial Blood Oxygen Saturation 90 L 94-100 % Arterial Blood Base Excess 1.3 -2.5-2.5 MMOL/L Jimmy Test YES-POS Blood Gas Ventilator Setting NO Blood Gas Inspired Oxygen 2 L My Orders Orders - ALVERTO TOUSSAINT MD Cbc With Automated Diff (01/03/21 00:35) Comprehensive Metabolic Panel (01/03/21 00:35) Blood Culture (01/03/21 00:35) Chest 1 View Ap/Pa Only (01/03/21 00:35) Albuterol/Ipra Inhalation Soln (Duoneb I (01/03/21 00:45) Magnesium (01/03/21 00:35) O2 (01/03/21 00:35) Ed Iv/Invasive Line Start (01/03/21 00:35) Sputum Culture (01/03/21 00:35) Monitor-Rhythm Ecg Trace Only (01/03/21 00:35) Crp Fs (01/03/21 00:35) Lactic Acid Analyzer (01/03/21 00:35) Svn Small Volume Nebulizer (01/03/21 00:35) Arterial Blood Gas (01/03/21 00:35) Methylprednisolone Sod Succ (Solu-Medrol (01/03/21 00:38) Medications Given in ED Current Medications Medications Dose Ordered Sig/Travis Route Start Time Stop Time Status Last Admin Dose Admin Albuterol/ Ipratropium 3 ml ONCE ONCE INH 01/03/21 00:45 01/03/21 00:46 DC 01/03/21 00:43 3 ML Vital Signs/I&O 01/03/21 01/03/21 00:18 00:18 Temp 37.2 Pulse 114 Resp 24 B/P (MAP) 107/78 (88) Pulse Ox 100 100 O2 Delivery Non Rebreather Non Rebreather O2 Flow Rate 8.00 8.00 FiO2 100 Capillary Refill : Progress Note #1: Progress Note check labs, CXR and ABG, and sputum culture. Try duoneb breathing treatment with a solumedrol 125 mg IV dose to see if it helps her breathing. Reviewed results from CT scan on 12/30 that showed COPD changes and a 6 mm endobronchial nodule at the trifurcation of the bronchus intermedius in the ri t lower lobe. The morphology is suspicious for a mass rather than mucous and bronchoscopy is recommended. Differential diagnosis includes COPD exacerbation, lung mass, pneumonia Progress Note #2: Progress Note CXR shows chronic COPD changes without infiltrate or effusion. CBC has mild elevation of WBC count to 12.2. Chemistry with elevated CRP but normal lactic acid. ABG shows normal pH of 7.46, pCO2 35, pO2 of 56 for an O2 sat of 90% on 2 Lpm supplemental oxygen. She was feeling a little better after treatment here in ED and had decreased cough. Counseled on CT results showing a nodule in lower right lung that the Pulmonary doctor will likely want to do a bronchoscopy on to look at closer. With no infiltrate on CXR and normal lactic acid with improved symptoms with treatment in ED, I discussed options of admit for IV steroids and breathing treatments versus home with steroids. Advised she likely needs to be on a steroid dose daily, even if it is just 10 mg. Patient felt she could get by at home with repeating the steroids like she had at beginning of the month. Counseled that if not improving or worsening despite the steroids to return or seek medical care for IV antibiotics and breathing treatments. Diagnostic Imaging Diagonstic Imaging: Xray Plain Films/CT/US/NM/MRI: chest Comments On my review of 1 view CXR she has chronic COPD changes but no acute infiltrate. Reviewed: Reviewed by Me Departure Impression Primary Impression: COPD with exacerbation Disposition: HOME, SELF-CARE Condition: Stable Departure-Patient Inst. Decision time for Depature: 01:44 Referrals: [facility] (PCP) Primary Care Physician SELVIN ROBIN APRN (Family) Primary Care Physician Patient Instructions: COPD Exacerbation, Adult ED Add. Discharge Instructions: Use the steroid to help with inflammation and congestion in your lungs. Continue on your breathing treatments Follow up with clinic as scheduled next week or if you have worsening symptoms and more trouble breathing despite the steroids then return or seek medical care as you may need IV steroids and admitted to the hospital to help calm your breathing down with the COPD exacerbation. Mucinex would help loosen your congestion and cough. You would need to drink plenty of water along with the Mucinex to help it work. All discharge instructions reviewed with patient and/or family. Voiced understanding. Scripts Prednisone (Prednisone) 10 Mg Tab.ds.pk 10 MG PO DAILY for COPD Exacerbation for 12 Days, #42 EA 0 Refills Take 6 tabs(60mg)daily,decrease by 1 tab(10mg)every other day. Prov: ALVERTO TOUSSAINT MD 01/03/21 ALVERTO TOUSSAINT MD Jan 03, 2021 00:52
[2021-01-03 01:12] LABS: BASOPHILS % (AUTO) 0 % (0-10); EOSINOPHILS # (AUTO) 0.1 10^3/uL (0.0-0.3); EOSINOPHILS % (AUTO) 1 % (0-10); HEMATOCRIT 38 % (35-52); HEMOGLOBIN 12.4 G/DL (11.5-16.0); LYMPHOCYTES # (AUTO) 2.2 X 10^3 (1.0-4.0); LYMPHOCYTES % (AUTO) 18 % (12-44); MEAN CORPUSCULAR HEMOGLOBIN 30 PG (25-34); MEAN CORPUSCULAR HGB CONC 33 G/DL (32-36); MEAN CORPUSCULAR VOLUME 90 FL (80-99); MEAN PLATELET VOLUME 10.1 FL (7.4-10.4); MONOCYTES # (AUTO) 0.9 X 10^3 (0.0-1.0); MONOCYTES % (AUTO) 7 % (0-12); NEUTROPHILS % (AUTO) 74 % (42-75); PLATELET COUNT 238 10^3/uL (130-400); WHITE BLOOD COUNT 12.2 10^3/uL (4.3-11.0)
[2021-01-03 01:17] LABS: ABG BASE EXCESS 1.3 MMOL/L (-2.5-2.5); ABG OXYGEN SATURATION 90 % (94-100); ABG PCO2 35 MMHG (35-45); ABG PH 7.46 (7.37-7.43); ABG PO2 56 MMHG (79-93)
[2021-01-03 01:18] LABS: INSPIRED O2 2 L
[2021-01-03 01:19] LABS: ALLENS TEST YES-POS; VENTILATOR NO
[2021-01-03 01:22] LABS: ALANINE AMINOTRANSFERASE 10 U/L (0-55); ALBUMIN 3.9 GM/DL (3.2-4.5); ALKALINE PHOSPHATASE 91 U/L (40-136); BILIRUBIN,TOTAL 0.5 MG/DL (0.1-1.0); BUN/CREATININE RATIO 16; CALCIUM 8.9 MG/DL (8.5-10.1); CARBON DIOXIDE 23 MMOL/L (21-32); CHLORIDE 102 MMOL/L (98-107); GFR ESTIMATED > 60; GLUCOSE 112 MG/DL (70-105); MAGNESIUM 1.8 MG/DL (1.6-2.4); POTASSIUM 3.7 MMOL/L (3.6-5.0); SODIUM 135 MMOL/L (135-145)
[2021-01-03] MEDS ORDERED: PRED10TA22 PO (01:51)
[2021-01-03 01:52] VITALS: BP 113/59
--- NOTE | 2021-01-03 07:27 | Diagnostic Imaging Report ---
Reason for examination: History of COPD with shortness of breath. Single frontal view of the chest was obtained and compared to 07/18/2020. Cardiomediastinal silhouette is within normal limits and unchanged from the prior exam. Hyperexpansion is consistent with COPD. No infiltrates, effusions or pneumothorax. No significant changes. IMPRESSION: 1. COPD changes but no acute disease or significant change in the chest since the prior exam. Dictated by: Dictated on workstation # [id number]
[2021-01-04] MEDS ORDERED: ALPR0.25 PO (21:04)
== END 2021-01-03 02:08 | disposition home or self-care (01) ==
LOC: EDUNIT# 00:17 → ER FS 00:19
DX: J44.1 Chronic obstructive pulmonary disease with (acute) exacerbation (principal); Z79.52 Long term (current) use of systemic steroids
CPT/HCPCS: 36415; 71045; 80053; 82805; 83605; 83735; 85025; 86141; 87040; 87070; 87205

== ENCOUNTER 2021-01-04 17:59 | Emergency (ER) | payer MEDICARE, OTHER ==
[~2021-01-04] VITALS: Ht 162.5 cm; Wt 65.7 kg
[2021-01-04] MEDS ORDERED: RT-ALBUTEROL/IPRATROPIUM 3 ML (DUONEB) VIAL INH ONE (18:45)
--- NOTE | 2021-01-04 18:49 | ED Respiratory ---
General Chief Complaint: Respiratory Problems Stated Complaint: SOA Nursing Triage Note: PT AMB TO RM 9 WITH COMPLAINT OF INCREASING SOA. WAS SEEN IN [facility] A FEW NIGHTS AGO FOR COPD EXACERBATION. PT WAS PLACED ON STEROIDS OUTPATIENT AND TOLD TO COME TO ER TO BE ADMITTED IF SHE DID NOT GET BETTER. STATES DOES NOT WEAR O2 ALL THE TIME EXCEPT FOR NIGHT WITH HER CPAP, BUT HAS BEEN HAVING TO WEAR O2 AT ALL TIMES. Source: patient Exam Limitations: no limitations History of Present Illness Date Seen by Provider: January 04, 2021 Time Seen by Provider: 18:30 Initial Comments Patient is a 71-year-old female who presents to the emergency department tonight with a chief complaint of shortness of breath with exertion. Patient has a long history of COPD and is followed by Dr. Celeste. She had a recent work-up within the last month with CAT scans and other imaging. She is supposed to wear oxygen at night only with her CPAP. But she finds over the last several weeks that she has been having to use it more more frequently throughout the day. Patient states in the last week she has not been able to do any activity at all without wearing her home oxygen. She endorses a little bit of chest tightness in the left lower chest and discomfort between her shoulder blades occasionally. None tonight. She states her cough is mildly productive. She has been taking Mucinex. Patient was seen in the [place] emergency department 2 nights ago and placed on oral steroids yet again. She was not put on antibiotics. Patient continues to complain of severely limited activity secondary to her shortness of breath. She denies black or bloody stools. She denies nausea vomiting. No urinary complaints. No sick contacts. All other review of systems reviewed and negative except as stated above. Timing/Duration: week, getting worse Severity: moderate Prior Episodes/Possible Cause: frequent episodes, chronic episodes Modifying Factors: Improves With Albuterol Inhaler Associated Symptoms: chest pain/soreness, nasal drainage, shortness of breath Allergies and Home Medications Allergies Coded Allergies: No Known Drug Allergies (Unverified , 08/06/17) Home Medications Famotidine 20 Mg Tablet, 20 MG PO BID Prescribed by: MADELYN ROMERO on 07/18/202 Fluticasone/Umeclidin/Vilanter 1 Each Blst.w.dev, 1 PUFF IH BID, (Reported) Montelukast Sodium 10 Mg Tablet, 10 MG PO HS, (Reported) Ondansetron 4 Mg Tab.rapdis, 4 MG PO TID Prescribed by: MADELYN ROMERO on 07/18/202201 Prednisone 50 Mg Tab, 50 MG PO DAILY Prescribed by: MADELYN MORESTINE on 07/18/202201 Prednisone 10 Mg Tab.ds.pk, 10 MG PO DAILY Take 6 tabs(60mg)daily,decrease by 1 tab(10mg)every other day. Prescribed by: ALVERTO TOUSSAINT on 01/03/21 0151 Patient Home Medication List Home Medication List Reviewed: Yes Review of Systems Review of Systems Constitutional: see HPI EENTM: nose congestion Respiratory: cough, dyspnea on exertion, orthopnea Cardiovascular: chest pain Gastrointestinal: no symptoms reported Genitourinary: no symptoms reported Musculoskeletal: no symptoms reported Skin: no symptoms reported Psychiatric/Neurological: No Symptoms Reported All Other Systems Reviewed Negative Unless Noted: Yes Past Uapqsza-Bnmdwd-Ailqws Hx Patient Social History Alcohol Use: Denies Use Number of Drinks Today: AA Alcohol Beverage of Choice: Beer Smoking Status: Current Everyday Smoker Type Used: Cigarettes 2nd Hand Smoke Exposure: No Recent Infectious Disease Expo: No Recent Hopitalizations: No Immunizations Up To Date Tetanus Booster (TDap): Unknown Seasonal Allergies Seasonal Allergies: No Past Medical History Surgeries: No Respiratory: Yes COPD Currently Using CPAP: Yes Currently Using BIPAP: No Cardiac: No Neurological: No Sexually Transmitted Disease: No HIV/AIDS: No Genitourinary: No Gastrointestinal: No Musculoskeletal: No Endocrine: No HEENT: No Cancer: No Did You Recieve Any Treatments: No Psychosocial: No Integumentary: No Blood Disorders: No Adverse Reaction/Blood Tranf: No Physical Exam Vital Signs - First Documented 01/04/21 18:15 Temp 36.4 Pulse 101 Resp 22 B/P (MAP) 117/76 (90) Pulse Ox 96 O2 Delivery Nasal Cannula O2 Flow Rate 3.00 Capillary Refill : Less Than 3 Seconds Height: 5'4.00" Weight: 120lbs. 8.0oz. 54.178312ug; 24.00 BMI Method:Stated General Appearance: WD/WN, mild distress Eyes: Bilateral Eye Normal Inspection, Bilateral Eye PERRL, Bilateral Eye EOMI HEENT: PERRL/EOMI Neck: normal inspection Respiratory: decreased breath sounds (Diminished breath sounds throughout however she is moving adequate air. No expiratory wheezes noted. She is slightly tachypneic) Cardiovascular: regular rate, rhythm Gastrointestinal: normal bowel sounds, non tender, soft Extremities: non-tender, normal inspection, no pedal edema Neurologic/Psychiatric: no motor/sensory deficits, alert, normal mood/affect, oriented x 3 Skin: normal color, warm/dry Progress/Results/Core Measures Suspected Sepsis Recent Fever Within 48 Hours: No Infection Criteria Present: None New/Unexplained Altered Menta: No Sepsis Screen: No Definite Risk SIRS Temperature: Pulse: 101 Respiratory Rate: 22 Laboratory Tests 01/04/21 18:59: White Blood Count 16.2H Blood Pressure 117 /76 Mean: 90 Laboratory Tests 01/04/21 18:59: Creatinine 0.70, Platelet Count 288 Results/Orders Lab Results Laboratory Tests Test 01/04/21 18:59 01/04/21 20:42 Range/Units White Blood Count 16.2 H 4.3-11.0 10^3/uL Red Blood Count 4.31 3.80-5.11 10^6/uL Hemoglobin 12.7 11.5-16.0 g/dL Hematocrit 39 35-52 % Mean Corpuscular Volume 90 80-99 fL Mean Corpuscular Hemoglobin 30 25-34 pg Mean Corpuscular Hemoglobin Concent 33 32-36 g/dL Red Cell Distribution Width 14.2 10.0-14.5 % Platelet Count 288 130-400 10^3/uL Mean Platelet Volume 10.0 9.0-12.2 fL Immature Granulocyte % (Auto) 1 % Neutrophils (%) (Auto) 93 H 42-75 % Lymphocytes (%) (Auto) 4 L 12-44 % Monocytes (%) (Auto) 2 0-12 % Eosinophils (%) (Auto) 0 0-10 % Basophils (%) (Auto) 0 0-10 % Neutrophils # (Auto) 15.0 H 1.8-7.8 10^3/uL Lymphocytes # (Auto) 0.7 L 1.0-4.0 10^3/uL Monocytes # (Auto) 0.4 0.0-1.0 10^3/uL Eosinophils # (Auto) 0.0 0.0-0.3 10^3/uL Basophils # (Auto) 0.0 0.0-0.1 10^3/uL Immature Granulocyte # (Auto) 0.1 0.0-0.1 10^3/uL Neutrophils % (Manual) 89 % Lymphocytes % (Manual) 5 % Monocytes % (Manual) 2 % Eosinophils % (Manual) 0 % Basophils % (Manual) 0 % Band Neutrophils 2 % Reactive Lymphocytes 2 % Blood Morphology Comment NORMAL Sodium Level 141 135-145 MMOL/L Potassium Level 4.1 3.6-5.0 MMOL/L Chloride Level 105 98-107 MMOL/L Carbon Dioxide Level 23 21-32 MMOL/L Anion Gap 13 5-14 MMOL/L Blood Urea Nitrogen 15 7-18 MG/DL Creatinine 0.70 0.60-1.30 MG/DL Estimat Glomerular Filtration Rate > 60 BUN/Creatinine Ratio 21 Glucose Level 132 H 70-105 MG/DL Calcium Level 9.3 8.5-10.1 MG/DL Total Creatine Kinase 42 29-168 U/L Creatine Kinase MB 2.0 <6.6 NG/ML Troponin I < 0.028 <0.028 NG/ML Blood Gas Puncture Site LT RAD Blood Gas Patient Temperature 36.1 Arterial Blood pH 7.49 H 7.37-7.43 Arterial Blood Partial Pressure CO2 31 L 35-45 MMHG Arterial Blood Partial Pressure O2 83 79-93 MMHG Arterial Blood HCO3 24 23-27 MMOL/L Arterial Blood Total CO2 24.6 21.0-31.0 MMOL/L Arterial Blood Oxygen Saturation 93 L 94-100 % Arterial Blood Base Excess 0.3 -2.5-2.5 MMOL/L Jimmy Test YES-POS Blood Gas Ventilator Setting NO Blood Gas Inspired Oxygen ROOM AIR My Orders Orders - MEL INGRAM MD Ekg Tracing (01/04/21 18:44) Basic Metabolic Panel (01/04/21 18:44) Creatine Kinase Mb (01/04/21 18:44) Creatine Kinase (01/04/21 18:44) Troponin I (01/04/21 18:44) Cbc With Automated Diff (01/04/21 18:44) Ed Iv/Invasive Line Start (01/04/21 18:44) Albuterol/Ipra Inhalation Soln (Duoneb I (01/04/21 18:45) Svn Small Volume Nebulizer (01/04/21 18:44) Manual Differential (01/04/21 18:59) Arterial Blood Gas (01/04/21 19:52) Lorazepam Injection (Ativan Injection) (01/04/21 20:00) Medications Given in ED Current Medications Medications Dose Ordered Sig/Travis Route Start Time Stop Time Status Last Admin Dose Admin Albuterol/ Ipratropium 3 ml ONCE ONCE INH 01/04/21 18:45 01/04/21 18:46 DC 01/04/21 19:17 3 ML Lorazepam 0.5 mg ONCE PRN IVP 01/04/21 20:00 01/04/21 20:27 0.5 MG Vital Signs/I&O 01/04/21 01/04/21 18:15 19:18 Temp 36.4 Pulse 101 Resp 22 B/P (MAP) 117/76 (90) Pulse Ox 96 95 O2 Delivery Nasal Cannula Room Air O2 Flow Rate 3.00 Capillary Refill : Less Than 3 Seconds Blood Pressure Mean: 90 Progress Note : Time: 20:20 Progress Note Patient looks well. Her home home air oxygen saturations are 93 to 94%. She is quite tachypneic but is not in any distress. She is anxious but moving air very well. Basic laboratory studies have been reviewed and are all within normal limits except for a mildly elevated white blood cell count at 16,000. The patient is on a Medrol Dosepak taper currently. This accounts for her increasing leukocytosis. I did not repeat her chest x-ray as her lung sounds are clear and her chest x-ray from 2 days ago was normal. The patient is not having any fever or significantly productive cough. I did not see the need to repeat her chest x-ray at this time. An EKG was performed which shows normal sinus rhythm at [address] segment elevation or depression. At baseline I believe the patient is quite anxious and we will treat her here in the emergency department with a little bit of Ativan. Blood gases pending at this time 2100 Blood gases look good. PO2 is 83% on room air. Pulse ox showed 93%. Patient feels better after half a milligram of Ativan here in the department. I think at baseline she is quite anxious. She is breathing much easier. She continues to not be wheezing. She is on a Medrol Dosepak taper. Patient has a follow-up appointment with Dr. Celeste on Wednesday of next week. I have advised that she use her oxygen daily and take her time and not smith. I have given her good return precautions. She verbalizes understanding and is stable for discharge at this time. ECG Initial ECG Impression Date: January 04, 2021 Initial ECG Impression Time: 18:57 Initial ECG Rate: 75 Initial ECG Rhythm: Normal Sinus Initial ECG Intervals: Normal Initial ECG Impression: Normal Departure Impression Primary Impression: COPD (chronic obstructive pulmonary disease) Qualified Codes: J44.9 - Chronic obstructive pulmonary disease, unspecified Additional Impression: Dyspnea Qualified Codes: R06.02 - Shortness of breath Disposition: 01 HOME, SELF-CARE Condition: Stable (ERASED) Departure-Patient Inst. Decision time for Depature: 21:02 Referrals: [facility] (PCP) Primary Care Physician SELVIN ROBIN APRN (Family) Primary Care Physician Patient Instructions: Chronic Obstructive Pulmonary Disease (COPD) (DC) Add. Discharge Instructions: Continue to wear your oxygen on an as-needed basis. Continue your steroid taper medications. Use [id number] Mucinex DM for the cough and congestion. Please try and stop smoking completely. Come back to the emergency room for any worsening shortness of breath, cough, fever or any other emergent concerns. I have sent a prescription for a small dose of anxiety medications which will last you for the next 2 to 3 days until you follow-up with Dr. Celeste. Scripts Alprazolam (Xanax) 0.25 Mg Tablet 0.25 MG PO Q8H, #15 TAB Prov: MEL INGRAM MD 01/04/21 MEL INGRAM MD January 04, 2021 18:49
[2021-01-04 19:04] LABS: BASOPHILS % (AUTO) 0 % (0-10); EOSINOPHILS % (AUTO) 0 % (0-10); HEMATOCRIT 39 % (35-52); HEMOGLOBIN 12.7 g/dL (11.5-16.0); LYMPHOCYTES # (AUTO) 0.7 10^3/uL (1.0-4.0); LYMPHOCYTES % (AUTO) 4 % (12-44); MEAN CORPUSCULAR HEMOGLOBIN 30 pg (25-34); MEAN CORPUSCULAR HGB CONC 33 g/dL (32-36); MEAN CORPUSCULAR VOLUME 90 fL (80-99); MONOCYTES # (AUTO) 0.4 10^3/uL (0.0-1.0); MONOCYTES % (AUTO) 2 % (0-12); NEUTROPHILS % (AUTO) 93 % (42-75); PLATELET COUNT 288 10^3/uL (130-400); WHITE BLOOD COUNT 16.2 10^3/uL (4.3-11.0)
[2021-01-04 19:12] LABS: CHLORIDE 105 MMOL/L (98-107); POTASSIUM 4.1 MMOL/L (3.6-5.0); SODIUM 141 MMOL/L (135-145)
[2021-01-04 19:14] LABS: CALCIUM 9.3 MG/DL (8.5-10.1); GLUCOSE 132 MG/DL (70-105)
[2021-01-04 19:16] LABS: CARBON DIOXIDE 23 MMOL/L (21-32)
[2021-01-04 19:18] LABS: GFR ESTIMATED > 60
[2021-01-04 19:19] LABS: BUN/CREATININE RATIO 21
[2021-01-04 19:20] LABS: CREATINE KINASE 42 U/L (29-168)
[2021-01-04 19:24] LABS: BAND NEUTROPHILS 2 %; BASOPHILS % (MANUAL) 0 %; EOSINOPHILS % (MANUAL) 0 %; LYMPHOCYTES % (MANUAL) 5 %; MONOCYTES % (MANUAL) 2 %; NEUTROPHILS % (MANUAL) 89 %; RBC MORPH NORMAL; REACTIVE LYMPHOCYTES 2 %
[2021-01-04] MEDS ORDERED: LORazepam INJ 2 MG/ML (ATIVAN) VIAL IVP PRN (20:00)
[2021-01-04 20:53] LABS: ABG BASE EXCESS 0.3 MMOL/L (-2.5-2.5); ABG OXYGEN SATURATION 93 % (94-100); ABG PCO2 31 MMHG (35-45); ABG PH 7.49 (7.37-7.43); ABG PO2 83 MMHG (79-93); ABG TCO2 24.6 MMOL/L (21.0-31.0); ALLENS TEST YES-POS; INSPIRED O2 ROOM AIR; PATIENT TEMP 36.1; VENTILATOR NO
[2021-01-04] MEDS ORDERED: ALPR0.25 PO (21:04)
[2021-01-04 21:16] VITALS: BP 159/86
== END 2021-01-04 21:30 | disposition home or self-care (01) ==
LOC: EDUNIT# 17:59 → ER 18:02
DX: J44.9 Chronic obstructive pulmonary disease, unspecified (principal); R06.00 Dyspnea, unspecified; F17.210 Nicotine dependence, cigarettes, uncomplicated; Z79.52 Long term (current) use of systemic steroids
CPT/HCPCS: 36415; 80048; 82550; 82553; 82805; 84484; 85007; 85027; 93005; 94640

== ENCOUNTER 2021-01-07 13:11 | Outpatient (CLI) | payer MEDICARE, OTHER ==
[~2021-01-07 13:11] MED LIST changes: +ALPR0.25 PO
[2021-01-07] MEDS ORDERED: RT-ALBUINH IH (14:07)
== END 2021-01-07 14:59 | disposition home or self-care (01) ==
LOC: PREOP 13:11
PROVIDERS: ATTEND Internal Medicine Critical Care Medicine
DX: Z01.818 Encounter for other preprocedural examination (principal)

== ENCOUNTER → 2021-01-08 | Outpatient (CLI) | payer MEDICARE, OTHER | LOC: LAB FS 10:30 | PROVIDERS: ATTEND Internal Medicine Critical Care Medicine | DX: Z20.822 Contact with and (suspected) exposure to COVID-19 (principal) | CPT/HCPCS: 87635 ==

== ENCOUNTER 2021-01-09 06:44 | Day surgery (SDC) | payer MEDICARE, OTHER ==
[~2021-01-09] VITALS: Ht 162.6 cm; Wt 63.6 kg
[2021-01-09] VITALS (10 sets, daily range): BP systolic 132–187; BP diastolic 70–90
[2021-01-09] MEDS ORDERED: LIDOCAINE PF 1% 2 ML VIAL IJ ONE (06:45)
[2021-01-09] MEDS ORDERED: LIDOCAINE PF 2% 5 ML (XYLOCAINE) VIAL INJ ONE (06:45)
[2021-01-09] MEDS ORDERED: RT-ALBUTEROL SULF 2.5 MG/3 ML PRE-MIX VIAL ONE ×2 (06:54→08:13)
[2021-01-09] MEDS ORDERED: LACTATED RINGERS 1,000 ML IV ONE (07:01)
[2021-01-09] MEDS ORDERED: SEVOFLURANE (ULTANE) 15 ML INHAL SOLN ONE ×2 (07:07→08:01)
[2021-01-09] MEDS ORDERED: LACTATED RINGERS 1,000 ML IV STA (07:07)
[2021-01-09] MEDS ORDERED: ONDANSETRON 4 MG/2 ML (SDV) Z0FRAN ONE (07:08)
[2021-01-09] MEDS ORDERED: LIDOCAINE PF 2% 5 ML (XYLOCAINE) VIAL ONE (07:08)
[2021-01-09] MEDS ORDERED: fentaNYL INJ 100 MCG/2 ML AMP ONE (07:08)
[2021-01-09] MEDS ORDERED: proPOfol 200 MG/20 ML (DIPRIVAN) VIAL IV ONE (07:08)
[2021-01-09] MEDS ORDERED: morphine INJ 10 MG/ML 1ML (SYR OR VIAL) IVP ONE (08:30)
[2021-01-09] MEDS ORDERED: ONDANSETRON 4 MG/2 ML (SDV) Z0FRAN IVP PRN (08:30)
[2021-01-09] MEDS ORDERED: RT-ALBUTEROL SULF 2.5 MG/3 ML PRE-MIX VIAL INH ONE (08:30)
--- NOTE | 2021-01-09 08:33 | Pulmonary Procedures ---
Pulmonary Procedures Date of Procedure Date of Service: January 09, 2021 Bronch Bronchoscopy with bilaterall washes and, foreign body removal from RLL. Preop DX: endobronchial mass Postop DX: foreign body that appears to be a pea. No endobronchial mass. Complications: none After informed consent obtained and formal time out pt was sedated per anesthesia. 1% lidocaine was used to anesthetize vocal cords, epiglottis, shelli, and left/right main stem bronchus. An anatomical tour was undertaken down to the segmental bronchi bilaterally. No endobronchial lesions noted. Bronchoscopy with bilaterall washes and, foreign body removal from RLL. Pt tolerated procedure well. No complications noted. Stat CXR is pending. BAILEY SOTOMAYOR DO January 09, 2021 08:33
--- NOTE | 2021-01-09 09:19 | Diagnostic Imaging Report ---
INDICATION: Post-bronchoscopy. TIME OF EXAM: 8:36 AM Correlation is made with prior chest from 01/03/2021. FINDINGS: Heart size normal. Lungs are clear. There are no infiltrates. No effusion or pneumothorax is seen. IMPRESSION: No acute cardiopulmonary process is detected. Dictated by: Dictated on workstation # [id number]
--- NOTE | 2021-01-10 08:45 | Anesthesia-General Post-Op ---
General Patient Condition Mental Status/LOC: Same as Preop Cardiovascular: Satisfactory Nausea/Vomiting: Absent Respiratory: Satisfactory Pain: Controlled Complications: Absent Post Op Complications Complications None Follow Up Care/Instructions Patient Instructions None needed. Anesthesia/Patient Condition Patient Condition Patient was seen yesterday morning after the procedure and she was doing well, no complaints, stable vital signs, no apparent adverse anesthesia problems. She did have increased coughing, which we talked about preop and is expected after a bronchoscopy procedure. ARTEMIO MONDRAGON DO January 10, 2021 08:45
== END 2021-01-09 10:10 | disposition home or self-care (01) ==
LOC: ENDO 06:44
PROVIDERS: ATTEND Internal Medicine Critical Care Medicine
DX: T17.898A Other foreign object in other parts of respiratory tract causing other injury, initial encounter (principal); J96.21 Acute and chronic respiratory failure with hypoxia; J43.9 Emphysema, unspecified; I10 Essential (primary) hypertension; F17.210 Nicotine dependence, cigarettes, uncomplicated; Z88.8 Allergy status to other drugs, medicaments and biological substances; Z79.899 Other long term (current) drug therapy
CPT/HCPCS: 71045; 87015; 87070; 87077; 87101; 87106; 87116; 87184; 87205; 87206; 94640

== ENCOUNTER 2021-01-13 00:24 | Observation (INO) | payer MEDICARE, OTHER ==
[2021-01-13] VITALS (7 sets, daily range): BP systolic 99–132; BP diastolic 53–74
[~2021-01-13] VITALS: Ht 162.5 cm; Wt 63.3 kg
[2021-01-13] MEDS ORDERED: PANTOPRAZOLE 40 MG (PROTONIX) VIAL IV STA (00:36)
[2021-01-13] MEDS ORDERED: ONDANSETRON 4 MG/2 ML (SDV) Z0FRAN IVP STA (00:36)
[2021-01-13] MEDS ORDERED: NS IV 1000 ML 1,000 ML IV STA (00:36)
--- NOTE | 2021-01-13 00:46 | ED General ---
General Stated Complaint: NAUSEA/VOMITING Source of Information: Patient, EMS, Old Records History of Present Illness Date Seen by Provider: January 13, 2021 Time Seen by Provider: 00:27 Initial Comments 71-year-old female presenting by EMS from home with complaints of nausea, vomiting, diarrhea. She states that she started getting sick with diarrhea on Wednesday and then started vomiting Wednesday. She was having watery diarrhea stools. She has severe burning in her epigastric area. She has had multiple ep isodes of vomiting and is having pain into her chest from the vomiting. She is complaining of severe pain into her right leg with cramping. She has chills but no fever. She did have a bronchoscopy done on and had a small pea that she had apparently aspirated at some point that was removed from her airway. She has been on steroids for COPD exacerbation recently as well. Timing/Duration: 1-2 Days Severity: Severe Associated Systoms: Chest Pain (from vomiting), Cough; No Diaphoresis; Fever/Chills (chills but denies fever), Malaise, Nausea/Vomiting, Shortness of Air (chronic from COPD) Allergies and Home Medications Allergies Coded Allergies: No Known Drug Allergies (Unverified , 08/06/17) Home Medications Albuterol Sulfate 1 Puff Puff, 2 PUFF IH Q4H, (Reported) 1 PUFF = 90 MCG Alprazolam 0.25 Mg Tablet, 0.25 MG PO Q8H Prescribed by: MEL INGRAM on 01/04/212104 Fluticasone/Umeclidin/Vilanter 1 Each Blst.w.dev, 1 PUFF IH BID, (Reported) Montelukast Sodium 10 Mg Tablet, 10 MG PO HS, (Reported) Prednisone 10 Mg Tab.ds.pk, 10 MG PO DAILY Take 6 tabs(60mg)daily,decrease by 1 tab(10mg)every other day. Prescribed by: ALVERTO TOUSSAINT on 01/03/21 0151 Patient Home Medication List Home Medication List Reviewed: Yes Review of Systems Review of Systems Constitutional: chills; No diaphoresis, No fever; malaise EENTM: no symptoms reported Respiratory: cough (chronic from COPD), short of breath (chronic from COPD) Cardiovascular: see HPI Gastrointestinal: see HPI Genitourinary: No dysuria Musculoskeletal: muscle cramps (and pain into right leg ) Skin: No rash Psychiatric/Neurological: Anxiety Past Xfmmhkz-Uqnqmn-Suphcx Hx Past Med/Social Hx: Reviewed Nursing Past Med/Soc Hx Patient Social History Alcohol Beverage of Choice: Beer Type Used: Cigarettes 2nd Hand Smoke Exposure: No Recent Hopitalizations: No Immunizations Up To Date Tetanus Booster (TDap): Less than 5yrs Seasonal Allergies Seasonal Allergies: No Past Medical History Surgeries: No Respiratory: Yes COPD Currently Using CPAP: Yes (AT NIGHT) Currently Using BIPAP: No Cardiac: No Neurological: No Sexually Transmitted Disease: No HIV/AIDS: No Genitourinary: No Gastrointestinal: No Musculoskeletal: No Endocrine: No HEENT: Yes (WEARS GLASSES) Cataract Hearing Impairment: Denies Cancer: No Did You Recieve Any Treatments: No Psychosocial: No Integumentary: No Blood Disorders: No Adverse Reaction/Blood Tranf: No Physical Exam Vital Signs Vital Signs - First Documented 01/13/21 00:28 Temp 36.3 Pulse 122 Resp 22 B/P (MAP) 149/99 (116) Pulse Ox 95 O2 Delivery Room Air Capillary Refill : Height, Weight, BMI Height: 5'4.00" Weight: 120lbs. 8.0oz. [id number]; 24.05 BMI Method:Stated General Appearance: Anxious, Chronically ill, Mild Distress HEENT: PERRL/EOMI Neck: Non Tender, Supple Respiratory: Accessory Muscle Use, Decreased Breath Sounds; No Wheezing; Other (tender to palpation of chest wall) Cardiovascular: Normal Peripheral Pulses, Tachycardia Gastrointestinal: No Pulsatile Mass, Soft, Abnormal Bowel Sounds (hyperactive), Distended, Guarding; No Rebound; Tenderness (diffuse mild tenderness with guarding in epigastric area) Rectal: Deferred Extremity: Normal Capillary Refill, No Pedal Edema Neurologic/Psychiatric: Alert, Oriented x3 Skin: Normal Color, Warm/Dry Progress/Results/Core Measures Suspected Sepsis SIRS Temperature: Pulse: Respiratory Rate: Laboratory Tests 01/13/21 00:40: White Blood Count 19.5H Blood Pressure / Mean: Laboratory Tests 01/13/21 00:40: Creatinine 0.72, Platelet Count 363, Total Bilirubin 0.6 Results/Orders Lab Results Laboratory Tests Test 01/13/21 00:40 01/13/21 01:33 Range/Units White Blood Count 19.5 H 4.3-11.0 10^3/uL Red Blood Count 4.69 4.35-5.85 10^6/uL Hemoglobin 13.9 11.5-16.0 G/DL Hematocrit 42 35-52 % Mean Corpuscular Volume 89 80-99 FL Mean Corpuscular Hemoglobin 30 25-34 PG Mean Corpuscular Hemoglobin Concent 33 32-36 G/DL Red Cell Distribution Width 14.8 H 10.0-14.5 % Platelet Count 363 130-400 10^3/uL Mean Platelet Volume 10.5 H 7.4-10.4 FL Neutrophils (%) (Auto) 42-75 % Lymphocytes (%) (Auto) 12-44 % Monocytes (%) (Auto) 0-12 % Eosinophils (%) (Auto) 0-10 % Basophils (%) (Auto) 0-10 % Neutrophils # (Auto) 1.8-7.8 X 10^3 Lymphocytes # (Auto) 1.0-4.0 X 10^3 Monocytes # (Auto) 0.0-1.0 X 10^3 Eosinophils # (Auto) 0.0-0.3 10^3/uL Basophils # (Auto) 0.0-0.1 10^3/uL Neutrophils % (Manual) 77 % Lymphocytes % (Manual) 15 % Monocytes % (Manual) 2 % Eosinophils % (Manual) 1 % Metamyelocytes % 2 % Myelocytes % 2 % Band Neutrophils 1 % Platelet Estimate ADEQUATE Blood Morphology Comment NORMAL Sodium Level 137 135-145 MMOL/L Potassium Level 5.1 H 3.6-5.0 MMOL/L Chloride Level 96 L 98-107 MMOL/L Carbon Dioxide Level 27 21-32 MMOL/L Anion Gap 5-14 MMOL/L Blood Urea Nitrogen 24 H 7-18 MG/DL Creatinine 0.72 0.60-1.30 MG/DL Estimat Glomerular Filtration Rate > 60 BUN/Creatinine Ratio 33 Glucose Level 131 H 70-105 MG/DL Calcium Level 9.4 8.5-10.1 MG/DL Corrected Calcium 9.6 8.5-10.1 MG/DL Magnesium Level 1.9 1.6-2.4 MG/DL Total Bilirubin 0.6 0.1-1.0 MG/DL Aspartate Amino Transf (AST/SGOT) 26 5-34 U/L Alanine Aminotransferase (ALT/SGPT) 18 0-55 U/L Alkaline Phosphatase 96 40-136 U/L Troponin I < 0.30 <0.30 NG/ML Pro-B-Type Natriuretic Peptide 50.7 <75.0 PG/ML Total Protein 7.4 6.4-8.2 GM/DL Albumin 3.8 3.2-4.5 GM/DL Lipase 28 8-78 U/L Urine Color YELLOW Urine Clarity CLEAR Urine pH 7.5 5-9 Urine Specific [place] 1.010 L 1.016-1.022 Urine Protein NEGATIVE NEGATIVE Urine Glucose (UA) NEGATIVE NEGATIVE Urine Ketones NEGATIVE NEGATIVE Urine Nitrite NEGATIVE NEGATIVE Urine Bilirubin NEGATIVE NEGATIVE Urine Urobilinogen 0.2 < = 1.0 MG/DL Urine Leukocyte Esterase NEGATIVE NEGATIVE Urine RBC (Auto) NEGATIVE NEGATIVE Urine RBC NONE /HPF Urine WBC RARE /HPF Urine Squamous Epithelial Cells RARE /HPF Urine Crystals NONE /LPF Urine Amorphous Sediment FEW JAMES PHOSPHATE H /LPF Urine Bacteria TRACE /HPF Urine Casts PRESENT /LPF Urine Hyaline Casts 0-2 H /LPF Urine Mucus SMALL H /LPF Urine Culture Indicated NO Stool Occult Blood Immunoassay NEGATIVE NEGATIVE My Orders Orders - ALVERTO TOUSSAINT MD Ondansetron Injection (Zofran Injectio (01/13/21 00:36) Ns Iv 1000 Ml (Sodium Chloride 0.9%) (01/13/21 00:36) Pantoprazole Injection (Protonix Injecti (01/13/21 00:36) Ekg Tracing (01/13/21 00:37) Comprehensive Metabolic Panel (01/13/21 00:37) Lipase (01/13/21 00:37) Ua Culture If Indicated (01/13/21 00:37) Ed Iv/Invasive Line Start (01/13/21 00:37) Cbc With Automated Diff (01/13/21 00:37) Troponin I Fs (01/13/21 00:37) Probnp Fs (01/13/21:37) Magnesium (01/13/21 00:37) Ct Abdomen/Pelvis W (01/13/21 00:37) Stool Culture (01/13/21 00:37) Fecal Wbc (01/13/21 00:37) C Difficile Ag + Toxin A/B. (01/13/21 00:37) Isolation Central Supply Req (01/13/21 00:37) Occult Blood Stool (01/13/21 00:37) Iohexol Injection (Omnipaque 350 Mg/Ml 1 (01/13/21 01:00) Received Contrast (Hold Metformin- Contr (01/13/21 01:00) Ns (Ivpb) (Sodium Chloride 0.9% Ivpb Bag (01/13/21 01:00) Manual Differential (01/13/21 00:40) Dicyclomine Injection (Bentyl Injection) (01/13/21 01:48) Fentanyl Inj (Sublimaze Injection) (01/13/21 01:48) Metoclopramide Injection (Reglan Injecti (01/13/21 02:15) Lactated Ringers (Lr 1000 Ml Iv Solution (01/13/21 02:15) Medications Given in ED Current Medications Medications Dose Ordered Sig/Travis Route Start Time Stop Time Status Last Admin Dose Admin Iohexol 100 ml ONCE ONCE IV 01/13/21 01:00 01/13/21 01:01 DC 01/13/21 01:07 100 ML Sodium Chloride 100 ml ONCE ONCE IV 01/13/21 01:00 01/13/21 01:01 DC 01/13/21 01:07 100 ML Vital Signs/I&O 01/13/21 01/13/21 00:28 03:10 Temp 36.3 Pulse 122 97 Resp 22 18 B/P (MAP) 149/99 (116) 144/79 Pulse Ox 95 95 O2 Delivery Room Air Room Air Capillary Refill : Progress Note #1: Progress Note Obtain labs, ECG and urine. Give IVF bolus for tachycardia. Check CT scan of abdomen and pelvis with her complaint of n/v/d. Give Protonix for burning acid pain in epigastric region. Add on Zofran in addition to the Compazine 10 mg she got from EMS. Check cardiac enzymes as well since having n/v and pain in epigastric and chest wall from vomiting. Differential diagnosis includes gastroenteritis, colitis, diverticulitis, bowel obstruction, C. Diff colitis, myocardial infarction Progress Note #2: Time: 01:11 Progress Note CBC shows elevated WBC to 19.5 with left shift. She has been on steroids recently so that can account for some of this but she may have infection as well considering she has n/v/d. Chemistry and UA pending. Awaiting CT report from [facility] but on my review of images she has a distended stomach and diverticulosis of colon and bowel obstruction. Progress Note #3: Time: 01:52 Progress Note reviewed results with the patient and that it looked like she had gastroenteritis or likely a virus causing her to have nausea, vomiting and diarrhea. She has some improvement in nausea and has not vomited since getting Zofran on top of the compazine from EMS. She continues to have severe cramping pain and burning pain in abdomen despite medicine. Her Heart rate improved with hydration and she has dilute urine that we were able to send to lab. CT scan read as distended stomach and fluid filled small bowel and right colon but no definite sign of obstruction, colitis or diverticulitis. With her continued pain, nausea, and distended abdomen I encouraged her to be admitted for hydration and to ensure she is able to tolerate eating and drinking before going home. Pt initially states she wants to just go home. I told her I could get her some Zofran to help with nausea but I think she will continue to have abdominal pain and cramping and may have more diarrhea and I can not stop that. As I was talking to her she was crying out in pain and grabbing her stomach as she felt it spasm. Ordered Bentyl for cramping and nausea and Fentanyl for pain. Progress Note #4: Time: 02:10 Progress Note After speaking with her son and thinking further on it she did decide to agree with my recommendation for admit since she was still having nausea and abdominal cramping and pain. She was concerned about getting her grand-daughter to school because she was the only one that could drop her off and pick her up and the school has a rule that it has to be the same person to drop off the student and pick them up due to concerns for COVID. I spoke with Dr. Martinez, the electronics engineering technologist provider for [facility] admits, and reviewed the case with her. Since she was having continued pain and symptoms will admit for hydration and nausea control. Ordered RMAT protocol as well. 0226 Pt had cried out that she was going to have diarrhea and was having nausea like she was going to get sick again. Will give 10 mg of Reglan to see if that helps with nausea and cramping. ECG Initial ECG Impression Date: January 13, 2021 Initial ECG Impression Time: 00:31 Initial ECG Rate: 115 Initial ECG Rhythm: S.Tach Initial ECG Comparisson: Unchanged Comment Sinus tachycardia with a heart rate of 115 bpm. MA interval 102 ms. QT interval 318 ms with a QTc interval [address] elevation. Borderline ST depression in the inferior leads of 2, 3, aVF. Appears similar to prior tracings but more tachycardic tonight Diagnostic Imaging Diagonstic Imaging: CT Plain Films/CT/US/NM/MRI: abdomen, pelvis Comments Impression: 1. There is moderately distended fluid-filled stomach with fluid in the distal small bowel in the right colon. No obstruction. No colitis or diverticulitis. Read by radiologist Dr. Alexis waddell MD at 1:16 AM and faxed at 1:26 AM Reviewed: Reviewed [place] Study, Reviewed by Me Departure Communication (Admissions) Time/Spoke to Admitting Phy: 02:[address] Martinez for the [facility] clinic. She agreed to admit for intractable n/v and diarrhea. Impression Primary Impression: Nausea vomiting and diarrhea Additional Impressions: Gastritis Qualified Codes: K29.00 - Acute gastritis without bleeding Abdominal cramping, generalized Right leg pain Disposition: 30 STILL A PATIENT Condition: Stable Admissions Decision to Admit Reason: Admit from ER (General) Decision to Admit/Date: January 13, 2021 Time/Decision to Admit Time: 02:10 Departure-Patient Inst. Referrals: [facility] (PCP) Primary Care Physician SELVIN ROBIN APRN (Family) Primary Care Physician ALVEROT TOUSSAINT MD January 13, 2021 00:46
[2021-01-13] MEDS ORDERED: IOHEXOL 350 MG/ML 100 ML (OMNIPAQUE 350) VIAL IV ONE (01:00)
[2021-01-13] MEDS ORDERED: NS 100 ML (IVPB) BAG IV ONE (01:00)
[2021-01-13] MEDS ORDERED: HOLD METFORMIN - RECEIVED CONTRAST 20 ML VIAL IV SCH (01:00)
[2021-01-13 01:04] LABS: HEMATOCRIT 42 % (35-52); HEMOGLOBIN 13.9 G/DL (11.5-16.0); MEAN CORPUSCULAR HEMOGLOBIN 30 PG (25-34); MEAN CORPUSCULAR HGB CONC 33 G/DL (32-36); MEAN CORPUSCULAR VOLUME 89 FL (80-99); MEAN PLATELET VOLUME 10.5 FL (7.4-10.4); PLATELET COUNT 363 10^3/uL (130-400); WHITE BLOOD COUNT 19.5 10^3/uL (4.3-11.0)
[2021-01-13 01:15] LABS: BAND NEUTROPHILS 1 %; EOSINOPHILS % (MANUAL) 1 %; LYMPHOCYTES % (MANUAL) 15 %; MONOCYTES % (MANUAL) 2 %; NEUTROPHILS % (MANUAL) 77 %
[2021-01-13 01:16] LABS: METAMYELOCYTES % 2 %; MYELOCYTES % 2 %; PLATELET ESTIMATE ADEQUATE; RBC MORPH NORMAL
[2021-01-13 01:20] LABS: SODIUM 137 MMOL/L (135-145)
[2021-01-13 01:22] LABS: POTASSIUM 5.1 MMOL/L (3.6-5.0)
[2021-01-13 01:23] LABS: ALKALINE PHOSPHATASE 96 U/L (40-136); BILIRUBIN,TOTAL 0.6 MG/DL (0.1-1.0); BUN/CREATININE RATIO 33; CALCIUM 9.4 MG/DL (8.5-10.1); CARBON DIOXIDE 27 MMOL/L (21-32); CHLORIDE 96 MMOL/L (98-107); CREATININE SERUM 0.72 MG/DL (0.60-1.30); GFR ESTIMATED > 60; GLUCOSE 131 MG/DL (70-105); MAGNESIUM 1.9 MG/DL (1.6-2.4)
[2021-01-13 01:24] LABS: ALANINE AMINOTRANSFERASE 18 U/L (0-55); ALBUMIN 3.8 GM/DL (3.2-4.5); TOTAL PROTEIN 7.4 GM/DL (6.4-8.2)
[2021-01-13 01:25] LABS: LIPASE 28 U/L (8-78)
[2021-01-13] MEDS ORDERED: DICYCLOMINE 10 MG/ML (BENTYL) 2 ML AMP IM STA (01:48)
[2021-01-13] MEDS ORDERED: fentaNYL INJ 100 MCG/2 ML AMP IVP STA (01:48)
[2021-01-13 01:52] LABS: BILIRUBIN,URINE NEGATIVE (NEGATIVE); CLARITY,URINE CLEAR; COLOR,URINE YELLOW; GLUCOSE, URINE (UA) NEGATIVE (NEGATIVE); KETONES,URINE NEGATIVE (NEGATIVE); LEUKOCYTE ESTERASE ,URINE NEGATIVE (NEGATIVE); NITRITE,URINE NEGATIVE (NEGATIVE); PH,URINE 7.5 (5-9); PROTEIN,URINE NEGATIVE (NEGATIVE)
[2021-01-13 01:53] LABS: BACTERIA,URINE TRACE /HPF; SQUAMOUS EPITHELIAL CELL,UR RARE /HPF; WBC,URINE RARE /HPF
[2021-01-13 01:54] LABS: AMORPHOUS SEDIMENT,UR FEW AMOR PHOSPHATE /LPF; HYALINE CASTS, URINE 0-2 /LPF
[2021-01-13] MEDS ORDERED: METOCLOPRAMIDE INJ 10 MG/2 ML (REGLAN) IVP STA (02:15)
[2021-01-13] MEDS ORDERED: LACTATED RINGERS 1,000 ML IV STA (02:15)
[2021-01-13 02:50] LABS: OCCULT BLOOD STOOL IMMUNOASSAY NEGATIVE (NEGATIVE)
[2021-01-13] MEDS ORDERED: METOCLOPRAMIDE INJ 10 MG/2 ML (REGLAN) IVP PRN (04:15)
[2021-01-13] MEDS ORDERED: ONDANSETRON 4 MG/2 ML (SDV) Z0FRAN IVP PRN (04:15)
[2021-01-13] MEDS: LACTATED RINGERS 1,000 ML IV SCH ×2 (04:50→14:58)
[2021-01-13] MEDS: RT-ALBUTEROL SULF 2.5 MG/3 ML PRE-MIX VIAL INH SCH ×5 (05:00→22:25)
[2021-01-13] MEDS ORDERED: RT-ALBUTEROL SULF 2.5 MG/3 ML PRE-MIX VIAL INH PRN (05:00)
[2021-01-13 05:02] LABS: BASOPHILS # (AUTO) 0.1 10^3/uL (0.0-0.1); BASOPHILS % (AUTO) 0 % (0-10); EOSINOPHILS # (AUTO) 0.1 10^3/uL (0.0-0.3); EOSINOPHILS % (AUTO) 1 % (0-10); HEMATOCRIT 39 % (35-52); HEMOGLOBIN 12.6 g/dL (11.5-16.0); LYMPHOCYTES # (AUTO) 3.6 10^3/uL (1.0-4.0); LYMPHOCYTES % (AUTO) 16 % (12-44); MEAN CORPUSCULAR HEMOGLOBIN 29 pg (25-34); MEAN CORPUSCULAR HGB CONC 32 g/dL (32-36); MEAN CORPUSCULAR VOLUME 91 fL (80-99); MEAN PLATELET VOLUME 9.6 fL (9.0-12.2); MONOCYTES # (AUTO) 1.2 10^3/uL (0.0-1.0); MONOCYTES % (AUTO) 5 % (0-12); NEUTROPHILS # (AUTO) 16.8 10^3/uL (1.8-7.8); NEUTROPHILS % (AUTO) 73 % (42-75); PLATELET COUNT 294 10^3/uL (130-400)
[2021-01-13 05:08] LABS: ALBUMIN 3.5 GM/DL (3.2-4.5); CHLORIDE 103 MMOL/L (98-107); POTASSIUM 4.5 MMOL/L (3.6-5.0); SODIUM 138 MMOL/L (135-145)
[2021-01-13 05:09] LABS: CALCIUM 8.3 MG/DL (8.5-10.1)
[2021-01-13 05:10] LABS: GLUCOSE 88 MG/DL (70-105)
[2021-01-13 05:11] LABS: TOTAL PROTEIN 6.3 GM/DL (6.4-8.2)
[2021-01-13 05:12] LABS: BILIRUBIN,TOTAL 0.6 MG/DL (0.1-1.0); CARBON DIOXIDE 24 MMOL/L (21-32)
[2021-01-13 05:14] LABS: ALKALINE PHOSPHATASE 83 U/L (40-136); CREATININE SERUM 0.76 MG/DL (0.60-1.30); GFR ESTIMATED > 60
[2021-01-13 05:15] LABS: BUN/CREATININE RATIO 29
[2021-01-13 05:17] LABS: ALANINE AMINOTRANSFERASE 19 U/L (0-55)
[2021-01-13] MEDS ORDERED: RT-ALBUTEROL SULF 2.5 MG/3 ML PRE-MIX VIAL INH SCH (06:00)
--- NOTE | 2021-01-13 06:44 | Diagnostic Imaging Report ---
PROCEDURE: CT abdomen and pelvis with contrast. TECHNIQUE: Multiple contiguous axial images were obtained through the abdomen and pelvis after administration of intravenous contrast. Auto Exposure Controls were utilized during the CT exam to meet ALARA standards for radiation dose reduction. All CT scans use one or more of the following dose optimizing techniques: automated exposure control, MA and/or KvP adjustment based on patient size and exam type or iterative reconstruction. INDICATION: Nausea, emesis, diarrhea and abdominal pain. No focal hepatic, gallbladder, pancreatic, adrenal gland or splenic abnormalities identified. There is an approximately 2.4 cm cyst in the left kidney. Right kidney is unremarkable in appearance. There is mild aortoiliac atherosclerotic calcification. There is fluid distention of stomach and small bowel. There is also fluid within the colon consistent with stated diarrhea. No abdominal free fluid is identified. No definite transition point is seen to indicate an obstruction. There is no evidence of organized fluid collection to indicate an abscess. IMPRESSION: Fluid distention of stomach and small bowel as well as colon indicating diarrhea however no obstruction or other acute abnormality is identified. Dictated by: Dictated on workstation # [id number]
[2021-01-13] MEDS: PANTOPRAZOLE 40 MG (PROTONIX) VIAL IV SCH ×2 (08:35→21:22)
[2021-01-13] MEDS ORDERED: metroNIDAZOLE 500MG/100ML IVPB 100 ML ONE (12:07)
--- NOTE | 2021-01-13 12:07 | History & Physical ---
HPI History of Present Illness: 71 yo F with known COPD with oxygen requirement that presented to ER with N/V and diarrhea. Patient states that she has not felt well for about the last month. She was recently seen last week in Dr Celeste's office and had a bronch that removed a food particle thought to be a pea. States that she has been feeling much better breathing medina since having that done but then started vomiting. States that the vomiting came on pretty sudden over the weekend. Denies any other sick contacts. Denies any new foods. States that she does not think she has had any fevers. States that she has not been on antibiotics for over 3 weeks but just completed her steroid taper yesterday. Source: patient Exam Limitations: no limitations Date seen by provider: January 13, 2021 Time Seen by Provider: 10:45 Attending Physician Laurie Lin MD PCP Center/[facility] Consult Date of Admission January 13, 2021 at 03:57 Home Medications Home Medications Reviewed patient Home Medication Reconciliation performed by pharmacy medication reconciliations respiratory care technician and/or nursing. Patients Allergies have been reviewed. Allergies Coded Allergies: No Known Drug Allergies (Unverified , 08/06/17) OBC-Fjjavf-Tnfqgh Hx Patient Social History Smoking Status: Heavy Tobacco Smoker 2nd Hand Smoke Exposure: No Recent Hopitalizations: No Alcohol Use?: No Tobacco type used: Cigarettes Have you traveled recently?: No Immunizations Up To Date Tetanus Booster (TDap): Less than 5yrs Date of Influenza Vaccine: Jun 06, 2020 Past Medical History COPD Oxygen Supplementation 3L continuous Family Medical History Significant Family History: No Pertinent Family Hx Review of Systems ([facility]) Constitutional: No chills, No fever; weakness EENTM: No mouth pain, No nose congestion, No throat pain, No throat swelling Respiratory: cough, dyspnea on exertion Cardiovascular: no symptoms reported; No chest pain, No edema, No palpitations Gastrointestinal: abdominal pain, diarrhea, loss of appetite, nausea, vomiting Genitourinary: no symptoms reported; No dysuria, No frequency, No hematuria : No Musculoskeletal: no symptoms reported; No back pain, No joint pain, No muscle pain Skin: no symptoms reported Psychiatric/Neurological: No Symptoms Reported Reviewed Test Results Reviewed Test Results Lab Laboratory Tests Test 01/13/21 00:40 01/13/21 01:33 01/13/21 04:52 Range/Units White Blood Count 19.5 H 23.0 H 4.3-11.0 10^3/uL Red Blood Count 4.69 4.31 3.80-5.11 10^6/uL Hemoglobin 13.9 12.6 11.5-16.0 g/dL Hematocrit 42 39 35-52 % Mean Corpuscular Volume 89 91 80-99 fL Mean Corpuscular Hemoglobin 30 29 25-34 pg Mean Corpuscular Hemoglobin Concent 33 32 32-36 g/dL Red Cell Distribution Width 14.8 H 14.6 H 10.0-14.5 % Platelet Count 363 294 130-400 10^3/uL Mean Platelet Volume 10.5 H 9.6 9.0-12.2 fL Neutrophils (%) (Auto) 73 42-75 % Lymphocytes (%) (Auto) 16 12-44 % Monocytes (%) (Auto) 5 0-12 % Eosinophils (%) (Auto) 1 0-10 % Basophils (%) (Auto) 0 0-10 % Neutrophils # (Auto) 16.8 H 1.8-7.8 10^3/uL Lymphocytes # (Auto) 3.6 1.0-4.0 10^3/uL Monocytes # (Auto) 1.2 H 0.0-1.0 10^3/uL Eosinophils # (Auto) 0.1 0.0-0.3 10^3/uL Basophils # (Auto) 0.1 0.0-0.1 10^3/uL Neutrophils % (Manual) 77 % Lymphocytes % (Manual) 15 % Monocytes % (Manual) 2 % Eosinophils % (Manual) 1 % Metamyelocytes % 2 % Myelocytes % 2 % Band Neutrophils 1 % Platelet Estimate ADEQUATE Blood Morphology Comment NORMAL Sodium Level 137 138 135-145 MMOL/L Potassium Level 5.1 H 4.5 3.6-5.0 MMOL/L Chloride Level 96 L 103 98-107 MMOL/L Carbon Dioxide Level 27 24 21-32 MMOL/L Anion Gap 11 5-14 MMOL/L Blood Urea Nitrogen 24 H 22 H 7-18 MG/DL Creatinine 0.72 0.76 0.60-1.30 MG/DL Estimat Glomerular Filtration Rate > 60 > 60 BUN/Creatinine Ratio 33 29 Glucose Level 131 H 88 70-105 MG/DL Calcium Level 9.4 8.3 L 8.5-10.1 MG/DL Corrected Calcium 9.6 8.7 8.5-10.1 MG/DL Magnesium Level 1.9 1.6-2.4 MG/DL Total Bilirubin 0.6 0.6 0.1-1.0 MG/DL Aspartate Amino Transf (AST/SGOT) 26 13 5-34 U/L Alanine Aminotransferase (ALT/SGPT) 18 19 0-55 U/L Alkaline Phosphatase 96 83 40-136 U/L Troponin I < 0.30 <0.30 NG/ML Pro-B-Type Natriuretic Peptide 50.7 <75.0 PG/ML Total Protein 7.4 6.3 L 6.4-8.2 GM/DL Albumin 3.8 3.5 3.2-4.5 GM/DL Lipase 28 8-78 U/L Urine Color YELLOW Urine Clarity CLEAR Urine pH 7.5 5-9 Urine Specific [place] 1.010 L 1.016-1.022 Urine Protein NEGATIVE NEGATIVE Urine Glucose (UA) NEGATIVE NEGATIVE Urine Ketones NEGATIVE NEGATIVE Urine Nitrite NEGATIVE NEGATIVE Urine Bilirubin NEGATIVE NEGATIVE Urine Urobilinogen 0.2 < = 1.0 MG/DL Urine Leukocyte Esterase NEGATIVE NEGATIVE Urine RBC (Auto) NEGATIVE NEGATIVE Urine RBC NONE /HPF Urine WBC RARE /HPF Urine Squamous Epithelial Cells RARE /HPF Urine Crystals NONE /LPF Urine Amorphous Sediment FEW JAMES PHOSPHATE H /LPF Urine Bacteria TRACE /HPF Urine Casts PRESENT /LPF Urine Hyaline Casts 0-2 H /LPF Urine Mucus SMALL H /LPF Urine Culture Indicated NO Stool Occult Blood Immunoassay NEGATIVE POSITIVE H NEGATIVE Immature Granulocyte % (Auto) 5 % Immature Granulocyte # (Auto) 1.2 H 0.0-0.1 10^3/uL Physical Exam-([facility]) Physical Exam Vital Signs VS - Last 72 Hours, by Label 01/13/21 01/13/21 01/13/21 01/13/21 00:28 03:10 04:14 04:32 Temp 36.3 36.6 Pulse 122 97 90 Resp 22 18 20 B/P (MAP) 149/99 (116) 144/79 129/74 (92) Pulse Ox 95 95 99 2 O2 Delivery Room Air Room Air Nasal Cannula Room Air O2 Flow Rate 2.00 01/13/21 01/13/21 01/13/21 01/13/21 04:41 05:00 07:33 08:37 Temp 36.3 37.2 Pulse 90 99 Resp 18 B/P (MAP) 99/64 (76) Pulse Ox 99 97 100 100 O2 Delivery Nasal Cannula Nasal Cannula O2 Flow Rate 2.00 2.00 FiO2 24 01/13/21 11:42 Temp 37.0 Pulse 99 Resp 18 B/P (MAP) 127/69 (88) Pulse Ox 77 O2 Delivery Nasal Cannula O2 Flow Rate 2.00 Capillary Refill : Less Than 3 Seconds General Appearance: WD/WN, no apparent distress HEENT: PERRL/EOMI Neck: non-tender, full range of motion, supple Respiratory: chest non-tender, lungs clear, normal breath sounds, no respiratory distress, no accessory muscle use; No crackles, No wheezing Cardiovascular: normal peripheral pulses, regular rate, rhythm, no edema, no murmur Gastrointestinal: normal bowel sounds, non tender, soft; No distended, No guarding, No tenderness Back: no CVA tenderness, no vertebral tenderness Extremities: normal range of motion, non-tender, normal inspection, no pedal edema, no calf tenderness Neurologic/Psychiatric: mash processing operator II-XII nml as tested, no motor/sensory deficits, alert, normal mood/affect, oriented x 3 Skin: normal color, warm/dry Lymphatic: no adenopathy Assessment/Plan Assessment/Plan Admission Status: Observation (1) Nausea & vomiting Status: Acute Assessment & Plan: - N/V improving, will advance diet as tolerated Qualifiers: Qualified Codes: R11.2 - Nausea with vomiting, unspecified (2) Diarrhea Status: Acute Assessment & Plan: - C. Diff pending, Will start Cipro/Flagyl to cover for colitis Qualifiers: Qualified Codes: R19.7 - Diarrhea, unspecified (3) Leukocytosis Status: Acute Qualifiers: Qualified Codes: D72.829 - Elevated white blood cell count, unspecified (4) COPD (chronic obstructive pulmonary disease) Status: Chronic Qualifiers: Qualified Codes: J41.1 - Mucopurulent chronic bronchitis (5) Smoker Status: Chronic Assessment & Plan: - Discussed the importance of cessation (6) DVT prophylaxis Status: Acute Assessment & Plan: - Lovenox Clinical Quality Measures Smoking Cessation Counseling: Counseling-Symptomatic: 3-10 Minutes LAURIE LIN MD January 13, 2021 12:07
[2021-01-13] MEDS: metroNIDAZOLE 500MG/100ML IVPB 100 ML IV SCH ×2 (12:16→20:10)
[2021-01-13] MEDS ORDERED: ENOXAPARIN 40 MG/0.4 ML (LOVENOX) SYR SQ SCH (12:30)
[2021-01-13] MEDS: CIPROFLOXACIN IV 400MG/200ML 200 ML IV SCH ×2 (13:17→21:22)
[2021-01-13] MEDS ORDERED: IBUP-30 PO ×2 (14:58)
[2021-01-13] MEDS ORDERED: PRD10T PO ×2 (14:58)
[2021-01-13] MEDS ORDERED: ALPR0.254 PO ×2 (14:58)
[2021-01-13] MEDS ORDERED: CETI10TA49 PO ×2 (14:58)
[2021-01-13] MEDS ORDERED: IPRA3AMP31 IH ×2 (15:22)
[2021-01-14] MEDS: LACTATED RINGERS 1,000 ML IV SCH ×2 (02:35→11:09)
[2021-01-14] MEDS: RT-ALBUTEROL SULF 2.5 MG/3 ML PRE-MIX VIAL INH SCH ×3 (02:48→10:35)
[2021-01-14 04:07] VITALS: BP 111/56
[2021-01-14 05:56] LABS: BASOPHILS # (AUTO) 0.1 10^3/uL (0.0-0.1); BASOPHILS % (AUTO) 0 % (0-10); EOSINOPHILS # (AUTO) 0.1 10^3/uL (0.0-0.3); EOSINOPHILS % (AUTO) 1 % (0-10); HEMATOCRIT 36 % (35-52); HEMOGLOBIN 11.5 g/dL (11.5-16.0); LYMPHOCYTES # (AUTO) 2.8 10^3/uL (1.0-4.0); LYMPHOCYTES % (AUTO) 16 % (12-44); MEAN CORPUSCULAR HEMOGLOBIN 29 pg (25-34); MEAN CORPUSCULAR HGB CONC 32 g/dL (32-36); MEAN CORPUSCULAR VOLUME 91 fL (80-99); MEAN PLATELET VOLUME 10.2 fL (9.0-12.2); MONOCYTES # (AUTO) 1.1 10^3/uL (0.0-1.0); MONOCYTES % (AUTO) 6 % (0-12); NEUTROPHILS # (AUTO) 12.6 10^3/uL (1.8-7.8); NEUTROPHILS % (AUTO) 73 % (42-75); PLATELET COUNT 253 10^3/uL (130-400); WHITE BLOOD COUNT 17.2 10^3/uL (4.3-11.0)
[2021-01-14 06:23] LABS: CHLORIDE 105 MMOL/L (98-107); POTASSIUM 3.9 MMOL/L (3.6-5.0); SODIUM 142 MMOL/L (135-145)
[2021-01-14 06:24] LABS: CALCIUM 8.4 MG/DL (8.5-10.1)
[2021-01-14 06:25] LABS: GLUCOSE 91 MG/DL (70-105)
[2021-01-14 06:26] LABS: CARBON DIOXIDE 25 MMOL/L (21-32)
[2021-01-14 06:27] LABS: BILIRUBIN,TOTAL 0.7 MG/DL (0.1-1.0)
[2021-01-14 06:29] LABS: ALKALINE PHOSPHATASE 78 U/L (40-136); CREATININE SERUM 0.73 MG/DL (0.60-1.30); GFR ESTIMATED > 60
[2021-01-14 06:30] LABS: BUN/CREATININE RATIO 12
[2021-01-14 06:32] LABS: ALANINE AMINOTRANSFERASE 19 U/L (0-55)
[2021-01-14 07:13] VITALS: BP 120/69
[2021-01-14 07:17] LABS: ALBUMIN 3.4 GM/DL (3.2-4.5)
[2021-01-14] MEDS: PANTOPRAZOLE 40 MG (PROTONIX) VIAL IV SCH (08:33)
[2021-01-14] MEDS: CIPROFLOXACIN IV 400MG/200ML 200 ML IV SCH (08:34)
[2021-01-14] MEDS: metroNIDAZOLE 500MG/100ML IVPB 100 ML IV SCH (08:34)
[2021-01-14 11:32] VITALS: BP 123/65
--- NOTE | 2021-01-14 11:48 | Discharge Summary ---
Diagnosis/Chief Complaint Date of Admission January 13, 2021 at 03:57 Date of Discharge 01/14/21 Admission Diagnosis Admission Diagnosis See problem list Discharge Diagnosis See Below Problems/Diagnosis: (1) Nausea & vomiting Assessment & Plan: - N/V improving, will advance diet as tolerated 01/14: Patient tolerating PO diet and denies any pain, would like to go home Qualifiers: Qualified Codes: R11.2 - Nausea with vomiting, unspecified Status: Acute (2) Diarrhea Assessment & Plan: - C. Diff pending, Will start Cipro/Flagyl to cover for colitis 01/14: Will continue PO antibiotics for 7 day course due to improvement after antibiotics Qualifiers: Qualified Codes: R19.7 - Diarrhea, unspecified Status: Acute (3) Leukocytosis Qualifiers: Qualified Codes: D72.829 - Elevated white blood cell count, unspecified Status: Acute (4) COPD (chronic obstructive pulmonary disease) Qualifiers: Qualified Codes: J41.1 - Mucopurulent chronic bronchitis Status: Chronic (5) Smoker Assessment & Plan: - Discussed the importance of cessation Status: Chronic (6) DVT prophylaxis Assessment & Plan: - Lovenox Status: Acute Chief Complaint/HPI Chief Complaint/HPI 71 yo F with known COPD with oxygen requirement that presented to ER with N/V and diarrhea. Patient states that she has not felt well for about the last month. She was recently seen last week in Dr Celeste's office and had a bronch that removed a food particle thought to be a pea. States that she has been feeling much better breathing medina since having that done but then started vomiting. States that the vomiting came on pretty sudden over the weekend. Denies any other sick contacts. Denies any new foods. States that she does not think she has had any fevers. States that she has not been on antibiotics for over 3 weeks but just completed her steroid taper yesterday. Discharge Summary-Simple/Stand Consultations Discharge Physical Examination Allergies: Coded Allergies: No Known Drug Allergies (Unverified , 08/06/17) Vitals & I&Os Vital Sign - Last 12Hours Date Time Temp Pulse Resp B/P (MAP) Pulse Ox O2 Delivery O2 Flow Rate FiO2 01/14/21 11:32 36.2 85 20 123/65 (84) 98 Room Air 01/14/21 07:13 2.00 01/13/21 04:41 24 Intake and Output 01/14/21 00:00 Intake Total 3500 ml Balance 3500 ml General Appearance: Alert, Oriented X3, Cooperative, No Acute Distress HEENT: Mucous Memb Moist/Ursine Respiratory: Clear to Auscultation, Normal Air Movement Cardiovascular: Regular Rate, No Murmurs Abdominal: Normal Bowel Sounds, Soft, No Tenderness, No Masses Extremities: No Edema, No Tenderness/Swelling Skin: No Rashes, No Breakdown Neuro: Strength at 5/5 X4 Ext, Sensation Intact, Cranial Nerves 3-12 NL Psych/Mental Status: Mental Status NL, Mood NL Hospital Course Was the Problem List Reviewed?: Yes See final discharge diagnosis. Discussion & Recommendations 71 yo F that presented with N/V and abdominal pain. Patient was started on CLD and N/V improved. CT with some areas consistent with colitis. Patient improved with antibiotics. Patient tolerated advanced diet and desires to go home. Discharge Condition at discharge stable Instructions to patient/family Please see electronic discharge instructions given to patient. Discharge Medications Reviewed and agree with Discharge Medication list on patient's Discharge Instruction sheet Clinical Quality Measures Smoking Cessation Counseling: Counseling-Symptomatic: 3-10 Minutes CARMELITA CONTRERAS MD January 14, 2021 11:48
[2021-01-14] MEDS ORDERED: CIPR-225 PO ×2 (11:50)
[2021-01-14] MEDS ORDERED: METR500T PO ×2 (11:50)
--- NOTE | 2021-01-14 11:51 | Discharge Summary ---
Discharge [facility] Reconcile Patient Problems Problems Reviewed?: Yes Discharge Medications New, Converted or Re-Newed RX: Transmitted to Pharmacy New Medications: Ciprofloxacin HCl (Cipro) 500 Mg Tablet 500 MG PO BID, #8 TAB Metronidazole (Flagyl) 500 Mg Tablet 500 MG PO BID, #8 TAB Continued Medications: Albuterol Sulfate (Proair Hfa) 1 Puff Puff 2 PUFF IH Q4H PRN for SHORTNESS OF BREATH, PUFF ALPRAZolam (ALPRAZolam) 0.25 Mg Tablet 0.25 MG PO Q8H PRN for ANXIETY, TAB Cetirizine HCl (Zyrtec) 10 Mg Tablet 10 MG PO DAILY, TAB Fluticasone/Umeclidin/Vilanter (Trelegy Ellipta 100-62.5-25) 1 Each Blst.w.dev 1 PUFF IH BID Ibuprofen (Advil) 200 Mg Tablet 400-600 MG PO Q8H PRN for PAIN-MILD (1-4), TAB Ipratropium/Albuterol Sulfate (Iprat-Albut 0.5-3(2.5) mg/3 ml) 3 Ml Ampul.neb 3 ML IH Q4H PRN for SHORTNESS OF BREATH, EACH Montelukast Sodium (Montelukast Sodium) 10 Mg Tablet 10 MG PO HS, TAB Discontinued Medications: Prednisone (Prednisone) 10 Mg Tab MG PO DAILY, TAB TAPER DOSE FOLLOWS: 6 TABS X 2 DAYS AND DECREASE BY 1 TAB EVERY 48 HOURS (6,6,5,5,4,4,3,3,2,2,1,1) Patient Instructions Goal/Follow Up Appt: Fhaydee with Racheal Fair in 1 week Patient Instructions: - Make sure to complete your antibiotics Activity & Diet Discharge Diet: Cardiac Diet Activity as Tolerated: Yes Copy Copies To 1: Racheal CHRIS HOLLY R MD January 14, 2021 11:51
[2021-01-14 12:25] VITALS: BP 123/65
== END 2021-01-14 12:25 | disposition home or self-care (01) ==
LOC: EDUNIT# 00:24 → ER FS 00:28 → UNDOADMOB 03:57 → 4TH 03:57 → UNDODISOB 01-14 12:25
PROVIDERS: ADMIT Internal Medicine; ATTEND Family Medicine
DX: R11.2 Nausea with vomiting, unspecified (principal); R19.7 Diarrhea, unspecified; D72.829 Elevated white blood cell count, unspecified; J44.9 Chronic obstructive pulmonary disease, unspecified; F41.9 Anxiety disorder, unspecified; K29.00 Acute gastritis without bleeding; F17.210 Nicotine dependence, cigarettes, uncomplicated; Z79.899 Other long term (current) drug therapy; Z79.51 Long term (current) use of inhaled steroids
CPT/HCPCS: 36415; 74177; 80053 ×3; 81000; 82274 ×2; 83690; 83735; 83880; 84484; 85007; 85025 ×2; 85027; 87015; 87045; 87046; 87324; 87449; 87899; 93005; 94640 ×2; 94760 ×2; 96361; 96372; 96374; 96375; 99284; G0378

== ENCOUNTER → 2021-03-20 | Outpatient (CLI) | payer MEDICARE, OTHER ==
[~2021-03-20] MED LIST changes: +ALPR0.254 PO; +CATHETER FLUSH 10 ML SYR IV PRN; +CETI10TA49 PO; +CIPR-225 PO; +HOLD METFORMIN - RECEIVED CONTRAST 20 ML VIAL IV SCH; +IBUP-30 PO; +IOHEXOL 350 MG/ML 100 ML (OMNIPAQUE 350) VIAL IV ONE; +METR500T PO; +NS 100 ML (IVPB) BAG IV ONE; +PRD10T PO
[2021-03-20 10:00] LABS: BUN/CREATININE RATIO 15; GFR ESTIMATED > 60
--- NOTE | 2021-03-20 13:18 | Diagnostic Imaging Report ---
PROCEDURE: CT chest with contrast only. TECHNIQUE: Multiple contiguous axial images were obtained through the chest after administration of intravenous contrast. Auto Exposure Controls were utilized during the CT exam to meet ALARA standards for radiation dose reduction. INDICATION: Abnormal finding of the lung alvarez, pulmonary nodule. COMPARISON: 12/30/2020 and 08/17/2018. FINDINGS: No pathologically enlarged lymph nodes within the chest. Scattered vascular calcifications without aneurysmal dilatation of thoracic aorta. The heart is within normal limits in size. No pericardial effusion. No pleural effusion. Peripherally calcified bilateral breast implants are again identified. Moderate background emphysematous changes. No pneumothorax. Scarring within the bilateral upper lobes is again noted. A 9 mm solid pleural-based pulmonary nodule within the medial aspect of the right lower lobe is again identified and unchanged since 2018, therefore, this is felt to be benign. No new suspicious pulmonary nodule. The previously noted focal filling defect of the trifurcation of the bronchus intermedius is no longer visualized. The airway now appears patent. The trachea is clear. The minimally visualized upper abdomen is unremarkable. No acute osseous abnormality. IMPRESSION: Previously noted intraluminal filling defect at the trifurcation of the bronchus intermedius is no longer visualized. Therefore, this is felt to have been benign, possibly simply related to secretions. No new suspicious pulmonary nodule. Benign right lower lobe pulmonary nodule is stable. Moderate background emphysematous changes. Dictated by: Dictated on workstation # [id number]
== END ==
LOC: RAD FS 09:09
PROVIDERS: ATTEND Nurse Practitioner Family
DX: J43.9 Emphysema, unspecified (principal); R91.8 Other nonspecific abnormal finding of lung field; R91.1 Solitary pulmonary nodule
CPT/HCPCS: 36415; 71260; 82565; 84520

== ENCOUNTER 2021-08-22 20:47 | Emergency (ER) | payer MEDICARE, OTHER ==
[~2021-08-22] VITALS: Ht 162.5 cm; Wt 58.9 kg
[~2021-08-22 20:47] MED LIST changes: -CATHETER FLUSH 10 ML SYR IV PRN; -HOLD METFORMIN - RECEIVED CONTRAST 20 ML VIAL IV SCH; -IOHEXOL 350 MG/ML 100 ML (OMNIPAQUE 350) VIAL IV ONE; -LEVO500T80; -LEVO500T80 PO; +LEVO500T81; +LEVO500T81 PO; +MONT-40 PO; -MONT10TA32 PO; -NS 100 ML (IVPB) BAG IV ONE
[2021-08-22 21:12] LABS: BASOPHILS % (AUTO) 0 % (0-10); EOSINOPHILS % (AUTO) 0 % (0-10); HEMATOCRIT 41 % (35-52); HEMOGLOBIN 13.7 g/dL (11.5-16.0); LYMPHOCYTES # (AUTO) 1.7 X 10^3 (1.0-4.0); LYMPHOCYTES % (AUTO) 17 % (12-44); MEAN CORPUSCULAR HEMOGLOBIN 30 pg (25-34); MEAN CORPUSCULAR HGB CONC 33 g/dL (32-36); MEAN CORPUSCULAR VOLUME 90 fL (80-99); MEAN PLATELET VOLUME 10.6 fL (9.0-12.2); MONOCYTES # (AUTO) 0.5 X 10^3 (0.0-1.0); MONOCYTES % (AUTO) 5 % (0-12); NEUTROPHILS % (AUTO) 78 % (42-75); PLATELET COUNT 240 10^3/uL (130-400); WHITE BLOOD COUNT 10.3 10^3/uL (4.3-11.0)
--- NOTE | 2021-08-22 21:13 | ED Dyspnea ---
General Chief Complaint: Respiratory Problems Stated Complaint: COPD EXAC Nursing Triage Note: Patient was brought in via EMS for shortness of breath. Patient was tested for Covid at the clinic and tested negative. Patient was put on prednisone via her doctor at that time. Patient started feeling short of breath at home and called EMS. Patient was give 125mg of Solumedrol IV and 2 breathing treatments. Patient states that it feels like she can't get air in or air out. Source of Information: Patient, EMS, Old Records History of Present Illness Date Seen by Provider: Aug 22, 2021 Time Seen by Provider: 20:51 Initial Comments 71-year-old female presenting by EMS with complaints of increased shortness of breath. She has been having increasing shortness of breath throughout this week. She had called her primary care provider yesterday and they called in a steroid pack as well as a Z-Martin. She started that yesterday evening. She took her second dose this evening. She continued to feel winded and out of breath anytime she tried to do something. She normally just wears oxygen with her CPAP at night however she has been wearing her oxygen during the day as well. She continues to smoke a pack a day. She denies fever or chills. She states she feels like she cannot move air like she needs to. She has been coughing but not able to bring anything up. She also just started Mucinex along with the other medicines. Tonight when she felt like she could not breathe her family had called 911. She has a longstanding chronic COPD history and recurring exacerbations Severity: Severe Activities at Onset: None Prior Episodes/Possible Cause: Chronic Episodes, Frequent Episodes Modifying Factors: Worse With Activity, Worse With Coughing; Improves With Oxygen, Improves With Rest Associated Symptoms: Anxiety, Cough, Lightheadedness, Weakness, Wheezing Allergies and Home Medications Allergies Coded Allergies: No Known Drug Allergies (Unverified , 08/06/17) Patient Home Medication List Home Medication List Reviewed: Yes ALPRAZolam (ALPRAZolam) 0.25 Mg Tablet, 0.25 MG PO Q8H PRN for ANXIETY, (Reported) Entered as Reported by: DOROTHY HUA on 01/13/21 7524 Albuterol Sulfate (Proair Hfa) 1 Puff Puff, 2 PUFF IH Q4H PRN for SHORTNESS OF BREATH, (Reported) Entered as Reported by: RABIA ANDINO on 01/07/21 1407 Cetirizine HCl (Zyrtec) 10 Mg Tablet, 10 MG PO DAILY, (Reported) Entered as Reported by: DOROTHY HUA on 01/13/21 1458 Ciprofloxacin HCl (Cipro) 500 Mg Tablet, 500 MG PO BID Prescribed by: CARMELITA CONTRERAS on 01/14/21 1150 Fluticasone/Umeclidin/Vilanter (Trelegy Ellipta 100-62.5-25) 1 Each Blst.w.dev, 1 PUFF IH BID, (Reported) Entered as Reported by: AKHIL GOMEZ on 02/19/20 1330 Ibuprofen (Advil) 200 Mg Tablet, 400-600 MG PO Q8H PRN for PAIN-MILD (1-4), (Reported) Entered as Reported by: DOROTHY HUA on 01/13/21 1458 Ipratropium/Albuterol Sulfate (Iprat-Albut 0.5-3(2.5) mg/3 ml) 3 Ml Ampul.neb, 3 ML IH Q4H PRN for SHORTNESS OF BREATH, (Reported) Entered as Reported by: DOROTHY HUA on 01/13/21 1522 Metronidazole (Flagyl) 500 Mg Tablet, 500 MG PO BID Prescribed by: CARMELITA CONTRERAS on 01/14/21 1150 Montelukast Sodium (Montelukast Sodium) 10 Mg Tablet, 10 MG PO HS, (Reported) Entered as Reported by: SELVIN VÁSQUEZ on 08/06/17 0907 Review of Systems Review of Systems Constitutional: No chills, No diaphoresis, No fever; malaise, weakness EENTM: nose congestion; No epistaxis Respiratory: cough, dyspnea on exertion; No phlegm; short of breath; No stridor; wheezing Cardiovascular: No chest pain, No edema Gastrointestinal: No nausea, No vomiting Genitourinary: No dysuria Musculoskeletal: no symptoms reported Skin: No rash Psychiatric/Neurological: Anxiety Past Ohghuli-Lxbxns-Yfmgcs Hx Patient Social History Tobacco Use?: Yes Tobacco type used: Cigarettes Smoking Status: Current Everyday Smoker Substance use?: No Alcohol Use?: No Pt feels they are or have been: No Immunizations Up To Date Tetanus Booster (TDap): Less than 5yrs COVID19 Vaccine Tractor Operator: Hannah Seasonal Allergies Seasonal Allergies: No Past Medical History Surgery/Hospitalization HX: COPD Surgeries: No Respiratory: Yes COPD Currently Using CPAP: Yes (AT NIGHT) Currently Using BIPAP: No Cardiac: No Neurological: No Sexually Transmitted Disease: No HIV/AIDS: No Genitourinary: No Gastrointestinal: No Musculoskeletal: No Endocrine: No HEENT: Yes (WEARS GLASSES) Cataract Hearing Impairment: Denies Cancer: No Did You Recieve Any Treatments: No Psychosocial: No Integumentary: No Blood Disorders: No Adverse Reaction/Blood Tranf: No Family Medical History No Pertinent Family Hx Physical Exam Vital Signs Vital Signs - First Documented Capillary Refill : Less Than 3 Seconds Height, Weight, BMI Height: 5'4.00" Weight: 120lbs. 8.0oz. [id number]; 22.00 BMI Method:Stated General Appearance: Anxious, Chronically ill, Moderate Distress (She is working hard to breathe) HEENT: PERRL/EOMI, Pharynx Normal Neck: Full Range of Motion, Normal Inspection, Non Tender, Supple Respiratory: Chest Non Tender, Accessory Muscle Use, Decreased Breath Sounds, Respiratory Distress, Wheezing Cardiovascular: Normal Peripheral Pulses, Tachycardia Gastrointestinal: Normal Bowel Sounds, No Pulsatile Mass, Non Tender, Soft Rectal: Deferred Extremity: Normal Capillary Refill, No Calf Tenderness, No Pedal Edema Neurologic/Psychiatric: Alert, Oriented x3, release manager II-XII Norm as Tested Skin: Normal Color, Warm/Dry Progress/Results/Core Measures Results/Orders Lab Results Laboratory Tests Test 08/22/21 20:50 Range/Units White Blood Count 10.3 4.3-11.0 10^3/uL Red Blood Count 4.59 3.80-5.11 10^6/uL Hemoglobin 13.7 11.5-16.0 g/dL Hematocrit 41 35-52 % Mean Corpuscular Volume 90 80-99 fL Mean Corpuscular Hemoglobin 30 25-34 pg Mean Corpuscular Hemoglobin Concent 33 32-36 g/dL Red Cell Distribution Width 13.8 10.0-14.5 % Platelet Count 240 130-400 10^3/uL Mean Platelet Volume 10.6 9.0-12.2 fL Immature Granulocyte % (Auto) 0 % Neutrophils (%) (Auto) 78 H 42-75 % Lymphocytes (%) (Auto) 17 12-44 % Monocytes (%) (Auto) 5 0-12 % Eosinophils (%) (Auto) 0 0-10 % Basophils (%) (Auto) 0 0-10 % Neutrophils # (Auto) 8.0 H 1.8-7.8 X 10^3 Lymphocytes # (Auto) 1.7 1.0-4.0 X 10^3 Monocytes # (Auto) 0.5 0.0-1.0 X 10^3 Eosinophils # (Auto) 0.0 0.0-0.3 10^3/uL Basophils # (Auto) 0.0 0.0-0.1 10^3/uL Immature Granulocyte # (Auto) 0.0 0.0-0.1 10^3/uL Sodium Level 136 135-145 MMOL/L Potassium Level 4.2 3.6-5.0 MMOL/L Chloride Level 100 98-107 MMOL/L Carbon Dioxide Level 23 21-32 MMOL/L Anion Gap 13 5-14 MMOL/L Blood Urea Nitrogen 20 H 7-18 MG/DL Creatinine 0.76 0.60-1.30 MG/DL Estimat Glomerular Filtration Rate 75 BUN/Creatinine Ratio 26 Glucose Level 127 H 70-105 MG/DL Calcium Level 9.2 8.5-10.1 MG/DL Corrected Calcium 9.1 8.5-10.1 MG/DL Magnesium Level 1.9 1.6-2.4 MG/DL Total Bilirubin 0.3 0.1-1.0 MG/DL Aspartate Amino Transf (AST/SGOT) 17 5-34 U/L Alanine Aminotransferase (ALT/SGPT) 13 0-55 U/L Alkaline Phosphatase 109 40-136 U/L C-Reactive Protein 2.95 H <0.50 MG/DL Total Protein 7.5 6.4-8.2 GM/DL Albumin 4.1 3.2-4.5 GM/DL My Orders Orders - ALVERTO TOUSSAINT MD Cbc With Automated Diff (08/22/21 21:06) Comprehensive Metabolic Panel (08/22/21 21:06) Chest 1 View Ap/Pa Only (08/22/21 21:06) Magnesium (08/22/21 21:06) O2 (08/22/21 21:06) Ed Iv/Invasive Line Start (08/22/21 21:06) Monitor-Rhythm Ecg Trace Only (08/22/21 21:06) Crp Fs (08/22/21 21:06) Albuterol/Ipra Inhalation Soln (Duoneb I (08/22/21 22:24) Svn Small Volume Nebulizer (08/22/21 22:24) Vital Signs/I&O 08/22/21 08/22/21 08/22/21 08/22/21 20:47 20:47 20:47 22:33 Temp 37.0 Pulse 105 92 Resp 30 24 B/P (MAP) 174/92 (119) 146/86 Pulse Ox 100 100 100 O2 Delivery Nasal Cannula Nasal Cannula Nasal Cannula Nasal Cannula O2 Flow Rate 3.00 3.00 3.00 3.00 Blood Pressure Mean: 119 Progress Progress Note #1: Progress Note Patient was given Solu-Medrol and 2 breathing treatments in route by EMS. She felt like her breathing was improving as she was resting in the ED. Will obtain x-ray and blood work. Continue with oxygen at 3 L/min which is her baseline from home. She just had a negative Covid swab from 130 this afternoon through urgent care. Progress Note #2: Progress Note Chest x-ray does not show any acute process. Her blood count was stable without acute significant changes. Her chemistry panel also stable. Her breathing improved as she was resting in the bed. She was easily winded with exertion. Patient was advised that none of her tests showed that she would have to stay in the hospital just off of her tests alone. However with her getting more short of breath with exertion she could be admitted for COPD exacerbation. Patient wanted to try the medications at home first since she has only had 2 doses of the antibiotic and steroid. Hopefully the IV dose of steroid from [facility] would also help. Encouraged fluids and Mucinex. Check back through the clinic for continued concerns. Return for worsening problems over the weekend Diagnostic Imaging Diagonstic Imaging: Xray Plain Films/CT/US/NM/MRI: chest Comments [facility] [place], [place] NAME: HEIDI HURTADO [employer] REC#: [id number] PT STATUS: REG ER : 1950 PHYSICIAN: ALVERTO TOUSSAINT MD ADMIT DATE: 08/22/21/ER FS Signed Date of Exam:08/22/21 CHEST 1 VIEW AP/PA ONLY INDICATION: Cough and shortness of breath. Comparison made with prior examination of 01/09/2021. FINDINGS: The heart size, mediastinal configuration, and pulmonary vascularity are within normal limits. There is no pleural effusion, pneumothorax, or pneumonia. The osseous structures are unremarkable. IMPRESSION: No acute cardiopulmonary abnormality. Dictated by: Dictated on workstation # [id number] Dict: 08/22/212125 Trans: 08/22/212136 CV [id number] Interpreted by: ESTEPHANIA NICHOLAS MD Electronically signed by: ESTEPHANIA NICHOLAS MD 08/22/212136 Reviewed: Reviewed by Me Departure Impression Primary Impression: COPD with exacerbation Disposition: 01 HOME, SELF-CARE Condition: Improved Departure-Patient Inst. Decision time for Depature: 22:25 Referrals: [facility] (PCP) Primary Care Physician SELVIN ROBIN APRN (Family) Primary Care Physician Patient Instructions: COPD Exacerbation, Adult ED, COPD Diet Add. Discharge Instructions: Continue with steroids, mucinex, antibiotics. Drink plenty of water to make the mucinex work best to loosen and thin out your secretions. Follow up with clinic for continued symptoms/more problems and concerns All discharge instructions reviewed with patient and/or family. Voiced understanding. ALVERTO TOUSSAINT MD Aug 22, 2021 21:13
[2021-08-22 21:25] LABS: POTASSIUM 4.2 MMOL/L (3.6-5.0)
[2021-08-22 21:26] LABS: ALBUMIN 4.1 GM/DL (3.2-4.5); BILIRUBIN,TOTAL 0.3 MG/DL (0.1-1.0); CALCIUM 9.2 MG/DL (8.5-10.1); CREATININE SERUM 0.76 MG/DL (0.60-1.30); MAGNESIUM 1.9 MG/DL (1.6-2.4); TOTAL PROTEIN 7.5 GM/DL (6.4-8.2)
--- NOTE | 2021-08-22 21:31 | Diagnostic Imaging Report ---
INDICATION: Cough and shortness of breath. Comparison made with prior examination of 01/09/2021. FINDINGS: The heart size, mediastinal configuration, and pulmonary vascularity are within normal limits. There is no pleural effusion, pneumothorax, or pneumonia. The osseous structures are unremarkable. IMPRESSION: No acute cardiopulmonary abnormality. Dictated by: Dictated on workstation # [id number]
[2021-08-22] MEDS ORDERED: RT-ALBUTEROL/IPRATROPIUM 3 ML (DUONEB) VIAL INH STA (22:24)
[2021-08-22 22:33] VITALS: BP 146/86
== END 2021-08-22 22:37 | disposition home or self-care (01) ==
LOC: EDUNIT# 20:47 → ER FS 20:48
DX: J44.1 Chronic obstructive pulmonary disease with (acute) exacerbation (principal); Z20.822 Contact with and (suspected) exposure to COVID-19; F17.210 Nicotine dependence, cigarettes, uncomplicated
CPT/HCPCS: 36415; 71045; 80053; 83735; 85025; 86141; 93041

== ENCOUNTER 2021-10-20 12:33 | Emergency (ER) | payer MEDICARE, OTHER ==
[~2021-10-20] VITALS: Ht 162 cm; Wt 59.0 kg
[2021-10-20 13:45] LABS: BASOPHILS # (AUTO) 0.1 10^3/uL (0.0-0.1); BASOPHILS % (AUTO) 1 % (0-10); EOSINOPHILS # (AUTO) 0.1 10^3/uL (0.0-0.3); EOSINOPHILS % (AUTO) 1 % (0-10); HEMATOCRIT 40 % (35-52); HEMOGLOBIN 13.4 g/dL (11.5-16.0); LYMPHOCYTES # (AUTO) 1.8 10^3/uL (1.0-4.0); LYMPHOCYTES % (AUTO) 26 % (12-44); MEAN CORPUSCULAR HEMOGLOBIN 30 pg (25-34); MEAN CORPUSCULAR HGB CONC 33 g/dL (32-36); MEAN CORPUSCULAR VOLUME 89 fL (80-99); MEAN PLATELET VOLUME 10.7 fL (9.0-12.2); MONOCYTES # (AUTO) 0.6 10^3/uL (0.0-1.0); MONOCYTES % (AUTO) 9 % (0-12); NEUTROPHILS # (AUTO) 4.5 10^3/uL (1.8-7.8); NEUTROPHILS % (AUTO) 63 % (42-75); PLATELET COUNT 274 10^3/uL (130-400); WHITE BLOOD COUNT 7.1 10^3/uL (4.3-11.0)
[2021-10-20 13:56] LABS: BILIRUBIN,URINE NEGATIVE (NEGATIVE); CLARITY,URINE CLEAR; COLOR,URINE YELLOW; GLUCOSE, URINE (UA) NEGATIVE (NEGATIVE); KETONES,URINE TRACE (NEGATIVE); LEUKOCYTE ESTERASE ,URINE NEGATIVE (NEGATIVE); NITRITE,URINE NEGATIVE (NEGATIVE); PH,URINE 7.5 (5-9); PROTEIN,URINE NEGATIVE (NEGATIVE)
[2021-10-20 14:00] LABS: BACTERIA,URINE NEGATIVE /HPF; SQUAMOUS EPITHELIAL CELL,UR 0-2 /HPF; WBC,URINE RARE /HPF
[2021-10-20 14:04] LABS: ALBUMIN 4.3 GM/DL (3.2-4.5); BILIRUBIN,TOTAL 0.4 MG/DL (0.1-1.0); CALCIUM 9.4 MG/DL (8.5-10.1); CREATININE SERUM 0.64 MG/DL (0.60-1.30); POTASSIUM 4.2 MMOL/L (3.6-5.0); TOTAL PROTEIN 7.5 GM/DL (6.4-8.2)
[2021-10-20] MEDS ORDERED: IOHEXOL 350 MG/ML 150 ML (OMNIPAQUE 350) VIAL IV ONE (14:15)
[2021-10-20] MEDS ORDERED: HOLD METFORMIN - RECEIVED CONTRAST 20 ML VIAL IV SCH (14:15)
[2021-10-20] MEDS ORDERED: NS 100 ML (IVPB) BAG IV ONE (14:15)
--- NOTE | 2021-10-20 14:36 | Diagnostic Imaging Report ---
EXAMINATION: CT abdomen and pelvis with intravenous contrast. TECHNIQUE: Multiple contiguous axial images were obtained through the abdomen and pelvis after the uneventful administration of intravenous contrast. All CT scans use one or more of the following dose optimizing techniques: automated exposure control, MA and/or KvP adjustment based on patient size and exam type or iterative reconstruction. HISTORY: Epigastric and left upper quadrant pain COMPARISON: 01/13/2021 FINDINGS: Limited views of the lower thorax are unremarkable. The liver is normal without focal lesion. There is no biliary ductal dilation. Gallbladder is normal. Pancreas is normal. Spleen is normal. Adrenal glands are normal. Simple cyst is present in left kidney. No suspicious renal lesions. There is no hydronephrosis. Urinary bladder is normal. There is wall thickening of the proximal jejunum. There is a small amount of adjacent stranding. No free fluid or air. No abdominal or pelvic lymphadenopathy. Aorta is normal in caliber without aneurysm. There are no suspicious osseus lesions. IMPRESSION: 1. Wall thickening of proximal jejunum with adjacent stranding consistent with enteritis. Dictated by: Dictated on workstation # [id number]
--- NOTE | 2021-10-20 15:42 | ED Cardiac General ---
History of Present Illness General Chief Complaint: Chest Pain Stated Complaint: CHEST PAIN Nursing Triage Note: Patient has presented to ER with cc of this upper abd pain or lower chest pain. Patient reports that for the last 6 days she has had this pain, the pain wraps around her upper abd and into her back. She did have vomiting last week and stopped vomiting on Wednesday. She did take laxative earlier today becaucse she had not had a good BM for several days. Patient states that she has been driking gatoraide and it causes her stomach to burn when she drinks. She did go to urgent care at 0830 this morning and they wanted her to go to the ER but she went home and took a nap - after waking up she still was having pain and came to ER for evaluation. History of Present Illness Date Seen by Provider: Oct 20, 2021 Time Seen by Provider: 12:40 Initial Comments 71 yr F is sent her from urgent care to rule out cardiac cause of her upper abdominal pain. Pt has had epigastric and LUQ pain for approximately one week, associated with nausea, loss of appetite. Denies actual chest pain, palpit ations, flatulence, diarrhea, fever. Allergies and Home Medications Allergies Coded Allergies: No Known Drug Allergies (Unverified , 08/06/17) Patient Home Medication List Home Medication List Reviewed: Yes ALPRAZolam (ALPRAZolam) 0.25 Mg Tablet, 0.25 MG PO Q8H PRN for ANXIETY, (Reported) Entered as Reported by: DOROTHY HUA on 01/13/21 1458 Albuterol Sulfate (Proair Hfa) 1 Puff Puff, 2 PUFF IH Q4H PRN for SHORTNESS OF BREATH, (Reported) Entered as Reported by: RABIA ANDINO on 01/07/21 1407 Cetirizine HCl (Zyrtec) 10 Mg Tablet, 10 MG PO DAILY, (Reported) Entered as Reported by: DOROTHY HUA on 01/13/21 1458 Ciprofloxacin HCl (Cipro) 500 Mg Tablet, 500 MG PO BID Prescribed by: CARMELITA CONTRERAS on 01/14/21 1150 Famotidine (Pepcid) 20 Mg Tablet, 20 MG PO BID Prescribed by: CONNER SCANLON MD on 10/20/21 1556 Fluticasone/Umeclidin/Vilanter (Trelegy Ellipta 100-62.5-25) 1 Each Blst.w.dev, 1 PUFF IH BID, (Reported) Entered as Reported by: AKHIL GOMEZ on 02/19/20 1330 Ibuprofen (Advil) 200 Mg Tablet, 400-600 MG PO Q8H PRN for PAIN-MILD (1-4), (Reported) Entered as Reported by: DOROTHY HUA on 01/13/21 1458 Ipratropium/Albuterol Sulfate (Iprat-Albut 0.5-3(2.5) mg/3 ml) 3 Ml Ampul.neb, 3 ML IH Q4H PRN for SHORTNESS OF BREATH, (Reported) Entered as Reported by: DOROTHY HUA on 01/13/21 1522 Metronidazole (Flagyl) 500 Mg Tablet, 500 MG PO BID Prescribed by: CARMELITA CONTRERAS on 01/14/21 1150 Montelukast Sodium (Montelukast Sodium) 10 Mg Tablet, 10 MG PO HS, (Reported) Entered as Reported by: SELVIN VÁSQUEZ on 08/06/17 0907 Review of Systems Review of Systems Constitutional: weight loss EENTM: No Symptoms Reported Respiratory: No Symptoms Reported Cardiovascular: No Symptoms Reported Gastrointestinal: Abdominal Pain, Nausea Genitourinary: No Symptoms Reported Musculoskeletal: no symptoms reported Skin: no symptoms reported Psychiatric/Neurological: No Symptoms Reported Endocrine: No Symptoms Reported Hematologic/Lymphatic: No Symptoms Reported Past Shdbmqg-Rebruj-Rfixlu Hx Patient Social History Tobacco Use?: Yes Tobacco type used: Cigarettes Smoking Status: Current Everyday Smoker Use of E-Cig and/or Vaping dev: No Substance use?: No Alcohol Use?: No Pt feels they are or have been: No Immunizations Up To Date Tetanus Booster (TDap): Less than 5yrs Seasonal Allergies Seasonal Allergies: No Past Medical History Surgery/Hospitalization HX: COPD Surgeries: No Respiratory: Yes COPD Currently Using CPAP: Yes (AT NIGHT) Currently Using BIPAP: No Cardiac: No Neurological: No Sexually Transmitted Disease: No HIV/AIDS: No Genitourinary: No Gastrointestinal: No Musculoskeletal: No Endocrine: No HEENT: Yes (WEARS GLASSES) Cataract Hearing Impairment: Denies Cancer: No Did You Recieve Any Treatments: No Psychosocial: No Integumentary: No Blood Disorders: No Adverse Reaction/Blood Tranf: No Family Medical History No Pertinent Family Hx Physical Exam Vital Signs Vital Signs - First Documented 10/20/21 10/20/21 14:04 16:33 Temp 36.9 Pulse 100 Resp 20 B/P (MAP) 116/85 (95) Pulse Ox 98 O2 Delivery Room Air Capillary Refill : Height, Weight, BMI Height: 5'4.00" Weight: 120lbs. 8.0oz. [id number]; 22.00 BMI Method:Stated General Appearance: No Apparent Distress, WD/WN HEENT: PERRL/EOMI Neck: Full Range of Motion Respiratory: Chest Non Tender, Lungs Clear, Normal Breath Sounds Cardiovascular: Regular Rate, Rhythm Gastrointestinal: Normal Bowel Sounds, No Organomegaly, No Pulsatile Mass, Guarding, Rebound, Tenderness Neurologic/Psychiatric: Alert, Oriented x3, No Motor/Sensory Deficits Skin: Normal Color Progress/Results/Core Measures Results/Orders Lab Results Laboratory Tests Test 10/20/21 12:52 10/20/21 13:48 Range/Units White Blood Count 7.1 4.3-11.0 10^3/uL Red Blood Count 4.53 3.80-5.11 10^6/uL Hemoglobin 13.4 11.5-16.0 g/dL Hematocrit 40 35-52 % Mean Corpuscular Volume 89 80-99 fL Mean Corpuscular Hemoglobin 30 25-34 pg Mean Corpuscular Hemoglobin Concent 33 32-36 g/dL Red Cell Distribution Width 13.2 10.0-14.5 % Platelet Count 274 130-400 10^3/uL Mean Platelet Volume 10.7 9.0-12.2 fL Immature Granulocyte % (Auto) 0 % Neutrophils (%) (Auto) 63 42-75 % Lymphocytes (%) (Auto) 26 12-44 % Monocytes (%) (Auto) 9 0-12 % Eosinophils (%) (Auto) 1 0-10 % Basophils (%) (Auto) 1 0-10 % Neutrophils # (Auto) 4.5 1.8-7.8 10^3/uL Lymphocytes # (Auto) 1.8 1.0-4.0 10^3/uL Monocytes # (Auto) 0.6 0.0-1.0 10^3/uL Eosinophils # (Auto) 0.1 0.0-0.3 10^3/uL Basophils # (Auto) 0.1 0.0-0.1 10^3/uL Immature Granulocyte # (Auto) 0.0 0.0-0.1 10^3/uL Sodium Level 137 135-145 MMOL/L Potassium Level 4.2 3.6-5.0 MMOL/L Chloride Level 100 98-107 MMOL/L Carbon Dioxide Level 26 21-32 MMOL/L Anion Gap 11 5-14 MMOL/L Blood Urea Nitrogen 8 7-18 MG/DL Creatinine 0.64 0.60-1.30 MG/DL Estimat Glomerular Filtration Rate 96 BUN/Creatinine Ratio 13 Glucose Level 105 70-105 MG/DL Calcium Level 9.4 8.5-10.1 MG/DL Corrected Calcium 9.2 8.5-10.1 MG/DL Total Bilirubin 0.4 0.1-1.0 MG/DL Aspartate Amino Transf (AST/SGOT) 13 5-34 U/L Alanine Aminotransferase (ALT/SGPT) 8 0-55 U/L Alkaline Phosphatase 107 40-136 U/L Troponin I < 0.30 <0.30 NG/ML Total Protein 7.5 6.4-8.2 GM/DL Albumin 4.3 3.2-4.5 GM/DL Amylase Level 57 25-125 U/L Lipase 35 8-78 U/L Urine Color YELLOW Urine Clarity CLEAR Urine pH 7.5 5-9 Urine Specific [place] 1.010 L 1.016-1.022 Urine Protein NEGATIVE NEGATIVE Urine Glucose (UA) NEGATIVE NEGATIVE Urine Ketones TRACE H NEGATIVE Urine Nitrite NEGATIVE NEGATIVE Urine Bilirubin NEGATIVE NEGATIVE Urine Urobilinogen 0.2 < = 1.0 MG/DL Urine Leukocyte Esterase NEGATIVE NEGATIVE Urine RBC (Auto) NEGATIVE NEGATIVE Urine RBC NONE /HPF Urine WBC RARE /HPF Urine Squamous Epithelial Cells 0-2 /HPF Urine Crystals NONE /LPF Urine Bacteria NEGATIVE /HPF Urine Casts NONE /LPF Urine Mucus NEGATIVE /LPF Urine Culture Indicated NO My Orders Orders - CONNER SCANLON MD Comprehensive Metabolic Panel (10/20/21 13:32) Lipase (10/20/21 13:32) Amylase (10/20/21 13:32) Ua Culture If Indicated (10/20/21 13:32) Ed Iv/Invasive Line Start (10/20/21 13:32) Cbc With Automated Diff (10/20/21 13:32) Ct Abdomen/Pelvis W (10/20/21 13:32) Troponin I Fs (10/20/21 13:34) Iohexol Injection (Omnipaque 350 Mg/Ml 1 (10/20/21 14:15) Received Contrast (Hold Metformin- Contr (10/20/21 14:15) Ns (Ivpb) (Sodium Chloride 0.9% Ivpb Bag (10/20/21 14:15) Medications Given in ED Vital Signs/I&O 10/20/21 10/20/21 14:04 16:33 Temp 36.9 Pulse 100 90 Resp 20 18 B/P (MAP) 116/85 (95) 140/95 Pulse Ox 98 O2 Delivery Room Air Room Air Blood Pressure Mean: 95 Progress Progress Note : Progress Note 1. GASTROENTERITIS: - CT ABD: enteritis - Labs unremarkable - F/u with PCP - Continue Zofran prn - [place] diet. Advised liquids -The patient was seen in the ED, and treated appropriately to presentation at a specific point in time. Patient is informed that there is a possibility that disease and illness can evolve and change in acuity rapidly or slowly after patient is discharged from the ER. Precautionary advice given to the patient for immediate return to ER if symptoms worsen or do not resolve, and to seek emergency care sooner rather than later. Pt also advised on the importance of PCP follow up and compliance with management and follow up plan. Pt verbally expressed understanding. Initial ECG Impression Date: Oct 20, 2021 Initial ECG Impression Time: 12:52 Initial ECG Rate: 90 Initial ECG Rhythm: Normal Sinus Initial ECG Intervals: Normal Initial ECG Impression: Normal Departure Impression Primary Impression: Gastroenteritis Disposition: 01 HOME, SELF-CARE Condition: Stable Departure-Patient Inst. Referrals: [facility] (PCP) Primary Care Physician SELVIN ROBIN APRN (Family) Primary Care Physician Patient Instructions: Viral Gastroenteritis, Adult (DC) Add. Discharge Instructions: - Pepcid BID - [place] diet - Continue Zofran prn nausea - F/u with PCP - Advised to stop taking Peptol Bismol - Patient was seen in the ED, and treated appropriately to presentation at a specific point in time. Patient is informed that there is a possibility that disease and illness can evolve and change in acuity rapidly or slowly after patient is discharged from the ER. Precautionary advice given to the patient for immediate return to ER if symptoms worsen or do not resolve, and to seek energency care sooner rather than later. Pt also advised on the importance of PCP follow up and compliance with mangement and follow up plan. Pt verbally expressed understanding. All discharge instructions reviewed with patient and/or family. Voiced understanding. Scripts Famotidine (Pepcid) 20 Mg Tablet 20 MG PO BID for 5 Days, #10 TAB Prov: CONNER SCANLON MD 10/20/21 CONNER SCANLON MD Oct 20, 2021 15:42
[2021-10-20] MEDS ORDERED: FAMO-119 PO (15:56)
[2021-10-20 16:33] VITALS: BP 140/95
== END 2021-10-20 16:33 | disposition home or self-care (01) ==
LOC: EDUNIT# 12:33 → ER FS 12:35
DX: K52.9 Noninfective gastroenteritis and colitis, unspecified (principal); J44.9 Chronic obstructive pulmonary disease, unspecified; F17.210 Nicotine dependence, cigarettes, uncomplicated
CPT/HCPCS: 36415; 74177; 80053; 81000; 82150; 83690; 84484; 85025; 93005

== ENCOUNTER 2022-10-25 02:45 | Inpatient (IN) | payer MEDICARE, OTHER ==
[~2022-10-25] VITALS: Ht 162.5 cm; Wt 64.0 kg
[~2022-10-25 02:45] MED LIST changes: +ALBU8.5H6 IH; +ALBU8.5H6 INH; +LEVO-55; +LEVO-55 PO; -LEVO500T81; -LEVO500T81 PO; -RT-ALBUINH INH
[2022-10-25] MEDS ORDERED: RT-ALBUTEROL SULF 2.5 MG/3 ML PRE-MIX VIAL INH STA (03:09)
--- NOTE | 2022-10-25 03:10 | ED Dyspnea ---
History of Present Illness Date Seen by Provider: Oct 25, 2022 Time Seen by Provider: 02:50 Initial Comments 72-year-old female with PMH of COPD/smoker, is brought in by EMS with complaints of shortness of breath which began on the 18th night and has been worsening. Patient states that her home treatments never work for her when she is just short of breath. Patient uses CPAP at home and was on CPAP when EMS arrived on scene. DuoNebs were not able to be given through the mask she was wearing. EMS gave patient Solu-Medrol 125 mg prior to transport. In the ER patient had decreased breath sounds bilaterally initially, but after placing on BiPAP and 2 rounds of DuoNebs patient's respiratory rate decreased from 40's to 22, and O2 sat improved. Denies cough, fever, chest pain, palpitations, abdominal pain. Allergies and Home Medications Allergies Coded Allergies: No Known Drug Allergies (Unverified , 08/06/17) Patient Home Medication List Home Medication List Reviewed: Yes ALPRAZolam (ALPRAZolam) 0.25 Mg Tablet, 0.25 MG PO Q8H PRN for ANXIETY, (Reported) Entered as Reported by: DOROTHY HUA on 01/13/21 1458 Albuterol Sulfate (Ventolin Hfa) 1 Puff Puff, 2 PUFF IH Q4H PRN for SHORTNESS OF BREATH, (Reported) Entered as Reported by: RABIA ANDINO on 01/07/21 1407 Cetirizine HCl (Zyrtec) 10 Mg Tablet, 10 MG PO DAILY, (Reported) Entered as Reported by: DOROTHY HUA on 01/13/21 1458 Ciprofloxacin HCl (Cipro) 500 Mg Tablet, 500 MG PO BID Prescribed by: CARMELITA CONTRERAS on 01/14/21 1150 Famotidine (Pepcid) 20 Mg Tablet, 20 MG PO BID Prescribed by: CONNER SCANLON MD on 10/20/21 1556 Fluticasone/Umeclidin/Vilanter (Trelegy Ellipta 100-62.5-25) 1 Each Blst.w.dev, 1 PUFF IH BID, (Reported) Entered as Reported by: AKHIL GOMEZ on 02/19/20 1330 Ibuprofen (Advil) 200 Mg Tablet, 400-600 MG PO Q8H PRN for PAIN-MILD (1-4), (Reported) Entered as Reported by: DOROTHY HUA on 01/13/21 1458 Ipratropium/Albuterol Sulfate (Iprat-Albut 0.5-3(2.5) mg/3 ml) 3 Ml Ampul.neb, 3 ML IH Q4H PRN for SHORTNESS OF BREATH, (Reported) Entered as Reported by: DOROTHY HUA on 01/13/21 1522 Metronidazole (Flagyl) 500 Mg Tablet, 500 MG PO BID Prescribed by: CARMELITA CONTRERAS on 01/14/21 1150 Montelukast Sodium (Montelukast Sodium) 10 Mg Tablet, 10 MG PO HS, (Reported) Entered as Reported by: SELVIN VÁSQUEZ on 08/06/17 0907 Review of Systems Review of Systems Constitutional: no symptoms reported EENTM: no symptoms reported Respiratory: short of breath, wheezing Cardiovascular: no symptoms reported Gastrointestinal: no symptoms reported Genitourinary: no symptoms reported Musculoskeletal: no symptoms reported Skin: no symptoms reported Psychiatric/Neurological: No Symptoms Reported Endocrine: No Symptoms Reported Hematologic/Lymphatic: No Symptoms Reported Past Utqkhws-Mexzaq-Lbevqu Hx Immunizations Up To Date Tetanus Booster (TDap): Less than 5yrs Seasonal Allergies Seasonal Allergies: No Past Medical History Surgery/Hospitalization HX: COPD Surgeries: No Respiratory: Yes COPD Currently Using CPAP: Yes (AT NIGHT) Currently Using BIPAP: No Cardiac: No Neurological: No Sexually Transmitted Disease: No HIV/AIDS: No Genitourinary: No Gastrointestinal: No Musculoskeletal: No Endocrine: No HEENT: Yes (WEARS GLASSES) Cataract Hearing Impairment: Denies Cancer: No Did You Recieve Any Treatments: No Psychosocial: No Integumentary: No Blood Disorders: No Adverse Reaction/Blood Tranf: No Family Medical History No Pertinent Family Hx Physical Exam Vital Signs Vital Signs - First Documented 10/25/22 02:53 FiO2 100 Capillary Refill : Height, Weight, BMI Height: 5'4.00" Weight: 120lbs. 8.0oz. [id number]; 22.00 BMI Method:Stated General Appearance: Severe Distress, Thin HEENT: PERRL/EOMI Neck: Full Range of Motion Respiratory: Chest Non Tender, Decreased Breath Sounds (Initially prior to DuoNeb treatment), Respiratory Distress, Rhonci, Wheezing (Expiratory) Cardiovascular: No Edema, Tachycardia Gastrointestinal: Normal Bowel Sounds, Non Tender, Soft Neurologic/Psychiatric: Alert, Oriented x3 Skin: Normal Color Progress/Results/Core Measures Results/Orders Lab Results Laboratory Tests Test 10/25/22 03:06 10/25/22 03:08 10/25/22 04:49 Range/Units White Blood Count 18.9 H 4.3-11.0 10^3/uL Red Blood Count 4.43 3.80-5.11 10^6/uL Hemoglobin 13.1 11.5-16.0 g/dL Hematocrit 40 35-52 % Mean Corpuscular Volume 91 80-99 fL Mean Corpuscular Hemoglobin 30 25-34 pg Mean Corpuscular Hemoglobin Concent 33 32-36 g/dL Red Cell Distribution Width 13.5 10.0-14.5 % Platelet Count 342 130-400 10^3/uL Mean Platelet Volume 10.5 9.0-12.2 fL Neutrophils (%) (Auto) 77 H 42-75 % Lymphocytes (%) (Auto) 14 12-44 % Monocytes (%) (Auto) 8 0-12 % Eosinophils (%) (Auto) 1 0-10 % Basophils (%) (Auto) 0 0-10 % Neutrophils # (Auto) 14.5 H 1.8-7.8 X 10^3 Lymphocytes # (Auto) 2.6 1.0-4.0 X 10^3 Monocytes # (Auto) 1.5 H 0.0-1.0 X 10^3 Eosinophils # (Auto) 0.1 0.0-0.3 10^3/uL Basophils # (Auto) 0.1 0.0-0.1 10^3/uL Neutrophils % (Manual) 85 % Lymphocytes % (Manual) 6 % Monocytes % (Manual) 6 % Eosinophils % (Manual) 3 % Prothrombin Time 14.2 12.2-14.7 SEC INR Comment 1.1 0.8-1.4 Activated Partial Thromboplast Time 26 24-35 SEC D-Dimer 1.39 H 0.00-0.49 UG/ML Sodium Level 138 135-145 MMOL/L Potassium Level 4.0 3.6-5.0 MMOL/L Chloride Level 101 98-107 MMOL/L Carbon Dioxide Level 24 21-32 MMOL/L Anion Gap 13 5-14 MMOL/L Blood Urea Nitrogen 11 7-18 MG/DL Creatinine 0.57 L 0.60-1.30 MG/DL Estimat Glomerular Filtration Rate 98 BUN/Creatinine Ratio 19 Glucose Level 142 H 70-105 MG/DL Calcium Level 9.6 8.5-10.1 MG/DL Corrected Calcium 9.3 8.5-10.1 MG/DL Magnesium Level 1.8 1.6-2.4 MG/DL Total Bilirubin 0.6 0.1-1.0 MG/DL Aspartate Amino Transf (AST/SGOT) 11 5-34 U/L Alanine Aminotransferase (ALT/SGPT) 7 0-55 U/L Alkaline Phosphatase 120 40-136 U/L Troponin I < 0.30 <0.30 NG/ML Pro-B-Type Natriuretic Peptide 160.6 H <125.0 PG/ML Total Protein 7.6 6.4-8.2 GM/DL Albumin 4.4 3.2-4.5 GM/DL Blood Gas Puncture Site RIGHT RADIAL Blood Gas Patient Temperature 37.0 Arterial Blood pH 7.39 7.37-7.43 Arterial Blood Partial Pressure CO2 40 35-45 MMHG Arterial Blood Partial Pressure O2 456 H 79-93 MMHG Arterial Blood HCO3 24 23-27 MMOL/L Arterial Blood Total CO2 25.4 21.0-31.0 MMOL/L Arterial Blood Oxygen Saturation 90 L 94-100 % Arterial Blood Base Excess -0.7 -2.5-2.5 MMOL/L Jimmy Test Blood Gas Ventilator Setting NO Blood Gas Inspired Oxygen 15 Urine Color YELLOW Urine Clarity CLOUDY Urine pH 5.5 5-9 Urine Specific [place] 1.020 1.016-1.022 Urine Protein TRACE H NEGATIVE Urine Glucose (UA) NEGATIVE NEGATIVE Urine Ketones TRACE H NEGATIVE Urine Nitrite POSITIVE H NEGATIVE Urine Bilirubin NEGATIVE NEGATIVE Urine Urobilinogen 0.2 < = 1.0 MG/DL Urine Leukocyte Esterase NEGATIVE NEGATIVE Urine RBC (Auto) TRACE-I H NEGATIVE Urine RBC NONE /HPF Urine WBC 10-25 H /HPF Urine Crystals NONE /LPF Urine Bacteria LARGE H /HPF Urine Casts NONE /LPF Urine Mucus NEGATIVE /LPF Urine Culture Indicated YES Urine Opiates Screen NEGATIVE NEGATIVE Urine Oxycodone Screen NEGATIVE NEGATIVE Urine Methadone Screen NEGATIVE NEGATIVE Urine Propoxyphene Screen NEGATIVE NEGATIVE Urine Barbiturates Screen NEGATIVE NEGATIVE Ur Tricyclic Antidepressants Screen NEGATIVE NEGATIVE Urine Phencyclidine Screen NEGATIVE NEGATIVE Urine Amphetamines Screen NEGATIVE NEGATIVE Urine Methamphetamines Screen NEGATIVE NEGATIVE Urine Benzodiazepines Screen NEGATIVE NEGATIVE Urine Cocaine Screen NEGATIVE NEGATIVE Urine Cannabinoids Screen NEGATIVE NEGATIVE My Orders Orders - CONNER SCANLON MD Cbc With Automated Diff (10/25/22 03:04) Comprehensive Metabolic Panel (10/25/22 03:04) Chest 1 View Ap/Pa Only (10/25/22 03:04) Albuterol/Ipra Inhalation Soln (Duoneb I (10/25/22 03:15) Magnesium (10/25/22 03:04) Ekg Tracing (10/25/22 03:04) O2 (10/25/22 03:04) Ed Iv/Invasive Line Start (10/25/22 03:04) Monitor-Rhythm Ecg Trace Only (10/25/22 03:04) Svn Small Volume Nebulizer (10/25/22 03:04) Fibrin Degradation Products (10/25/22 03:05) Drug Screen Stat (Urine) (10/25/22 03:05) Protime With Inr (10/25/22 03:05) Partial Thromboplastin Time (10/25/22 03:05) Ua Culture If Indicated (10/25/22 03:05) Troponin I Fs (10/25/22 03:05) Arterial Blood Gas (10/25/22 03:06) Albuterol/Ipra Inhalation Soln (Duoneb I (10/25/22 03:15) Svn Small Volume Nebulizer (10/25/22 03:07) Albuterol Pre-Mix Nebs (Rt) (Proventil (10/25/22 03:09) Svn Small Volume Nebulizer (10/25/22 03:09) Manual Differential (10/25/22 03:06) Probnp Fs (10/25/22 03:50) Ct Angio Chest W (10/25/22 03:51) Iohexol Injection (Omnipaque 350 Mg/Ml 1 (10/25/22 04:15) Received Contrast (Hold Metformin- Contr (10/25/22 04:15) Sodium Chloride Flush (Catheter Flush Sy (10/25/22 04:15) Ns (Ivpb) (Sodium Chloride 0.9% Ivpb Bag (10/25/22 04:15) Azithromycin Injection (Zithromax Inject (10/25/22 04:00) Urine Culture (10/25/22 04:49) Acetaminophen Tablet/Caplet (Tylenol T (10/25/22 06:00) Medications Given in ED Current Medications Medications Dose Ordered Sig/Travis Route Start Time Stop Time Status Last Admin Dose Admin Acetaminophen 650 mg ONCE ONCE PO 10/25/22 06:00 10/25/22 06:01 DC 10/25/22 06:09 650 MG Albuterol/ Ipratropium 3 ml ONCE ONCE INH 10/25/22 03:15 10/25/22 03:16 DC 10/25/22 02:59 3 ML Albuterol/ Ipratropium 3 ml ONCE ONCE INH 10/25/22 03:15 10/25/22 03:16 DC 10/25/22 03:05 3 ML Iohexol 100 ml ONCE ONCE IV 10/25/22 04:15 10/25/22 04:16 DC 10/25/22 04:27 100 ML Sodium Chloride 10 ml NEEDED PRN IV 10/25/22 04:15 10/25/22 04:27 10 ML Sodium Chloride 100 ml ONCE ONCE IV 10/25/22 04:15 10/25/22 04:16 DC 10/25/22 04:27 80 ML Vital Signs/I&O 10/25/22 10/25/22 10/25/22 10/25/22 02:45 02:45 02:53 02:53 Temp 37.0 Pulse 140 Resp 40 B/P (MAP) 184/100 (128) Pulse Ox 90 90 90 O2 Delivery NIV CPAP NIV CPAP NIV Bilevel NIV Bilevel O2 Flow Rate 50.00 100.00 FiO2 100 100 10/25/22 10/25/22 10/25/22 10/25/22 03:05 03:31 03:31 06:09 Temp 37.0 Pulse Ox 100 100 100 O2 Delivery NIV Bilevel NIV Bilevel NIV Bilevel FiO2 100 90 90 Progress Progress Note : Progress Note 1. ACUTE COPD EXACERBATION/ ACUTE RESPIRATORY FAILURE/ PNEUMONIA: - CXR: COPD and pleural effusion - LABS: WBC elevation: 18.9 with a left shift - Pt placed on Bipap - Duo neb x2, Albuterol neb x1: pt's symptoms drastically improved - Solumedrol 125mg iv given by EMS in ambulance - Azithro 500mg iv given in ER -BiPAP mask that patient was brought in on by EMS could not deliver a DuoNeb, and the BiPAP machine at [facility] had the wrong tubing, and the correct tubing was not available. Intubation equipment was made ready and ready to push RSI meds, but Nursing staff came up with a way to make the tubing work and efficiently deliver the medications and oxygen the patient needed. Initially the patient's oxygen saturation was in the low 90s with respiratory rate in the 40's, with lung exam showing decreased breath sounds bilaterally and patient was not moving air and was utilizing accessory muscles of respiration. Once the patient received 2 DuoNeb treatments, oxygen saturation improved to 98% with respiratory rate also improving to 18 to 22/min. Patient felt much better with better air movement. Patient has been stable ever since the 3 DuoNeb treatments are given. -Patient was accepted by hospitalist for admission to observation 2. ELEVATED D-DIMER: - D-dimer: 1.39 - CTA CHEST: no PE Diagnostic Imaging Diagonstic Imaging: Xray, CT Plain Films/CT/US/NM/MRI: chest Comments [facility], [place] NAME: HEIDI HURTADO [employer] REC#: [id number] PT STATUS: REG ER : 1950 PHYSICIAN: CONNER SCANLON MD ADMIT DATE: 10/25/22/ER FS Draft Date of Exam:10/25/22 CT ANGIO CHEST W PROCEDURE: CT angiography of the chest with contrast. TECHNIQUE: Multiple contiguous axial images were obtained through the chest after uneventful bolus administration of intravenous contrast. 3D reconstructed CTA MIP acquisitions were also performed. Auto Exposure Controls were utilized during the CT exam to meet ALARA standards for radiation dose reduction. INDICATION: Elevated D-dimer COMPARISON: 03/20/2021 FINDINGS: Peripherally calcified bilateral breast implants are present. No significant adenopathy within the chest. Scattered vascular calcifications. No aneurysm or dissection of the thoracic aorta. No significant filling defect within the central or segmental pulmonary arteries. No pneumothorax. Advanced background emphysematous changes are present with scattered regions of scarring. 0.7 cm groundglass left lower lobe pulmonary nodule is present, appearing new since the prior exam, series 7, image 120. A 1 cm right lower lobe pulmonary nodule is again identified, not significantly changed since the prior examination. The heart is within normal limits in size. No significant pericardial effusion. No pleural effusion. Left renal cyst. Minimally visualized upper abdomen is otherwise unremarkable. Scattered osseous degenerative changes without acute osseous abnormality. IMPRESSION: No significant pulmonary embolus. Advanced background emphysematous changes with scattered regions of scarring and stable benign right lower lobe pulmonary nodule. Agree with preliminary interpretation. Dictated on workstation # [id number] Dict: 10/25/22609 Trans: 10/25/22626 DAILY [id number] Interpreted by: JOANNA BRUCE MD Electronically signed by: [facility] [place], [place] NAME: HEIDI HURTADO [employer] REC#: [id number] PT STATUS: REG ER : 1950 PHYSICIAN: CONNER SCANLON MD ADMIT DATE: 10/25/22/ER FS Draft Date of Exam:10/25/22 CHEST 1 VIEW AP/PA ONLY CHEST 1 VIEW AP/PA ONLY Indication: Shortness of breath Comparison: 08/22/2021 Findings: Left basilar opacities could be due to summation shadow of patient's partially calcified breast implant. There is a potential for small bilateral pleural effusions. No pneumothorax. Heart is normal in size. Impression: Bibasilar opacities has a differential to include summation shadow of patient's breast, small layering pleural effusions and/or pneumonia. Dictated on workstation # [id number] Dict: 10/25/22620 Trans: 10/25/2225 DAILY [id number] Interpreted by: SHOBHA FUENTES MD Electronically signed by: Departure Communication (Admissions) Time/Spoke to Admitting Phy: 03:[address] Warren, hospitalist and accepted for admission. Impression Primary Impression: Acute exacerbation of chronic obstructive pulmonary disease (COPD) Additional Impressions: Elevated d-dimer Acute respiratory failure Qualified Codes: J96.00 - Acute respiratory failure, unspecified whether with hypoxia or hypercapnia Pneumonia Disposition: 30 STILL A PATIENT Condition: Stable Admissions Decision to Admit Reason: Admit from ER (General) Decision to Admit/Date: Oct 25, 2022 Time/Decision to Admit Time: 03:20 Departure-Patient Inst. Referrals: SELVIN ROBIN APRN (PCP) Primary Care Physician [facility] (Family) Primary Care Physician CONNER SCANLON MD Oct 25, 2022 03:10
[2022-10-25] MEDS ORDERED: RT-ALBUTEROL/IPRATROPIUM 3 ML (DUONEB) VIAL INH ONE ×2 (03:15)
[2022-10-25 03:25] LABS: ABG BASE EXCESS -0.7 MMOL/L (-2.5-2.5); ABG PCO2 40 MMHG (35-45); ABG PH 7.39 (7.37-7.43); ABG PO2 456 MMHG (79-93); ABG TCO2 25.4 MMOL/L (21.0-31.0); INSPIRED O2 15
[2022-10-25 03:26] LABS: VENTILATOR NO
[2022-10-25 03:26] LABS: HEMATOCRIT 40 % (35-52); HEMOGLOBIN 13.1 g/dL (11.5-16.0); MEAN CORPUSCULAR HEMOGLOBIN 30 pg (25-34); MEAN CORPUSCULAR HGB CONC 33 g/dL (32-36); MEAN CORPUSCULAR VOLUME 91 fL (80-99); PLATELET COUNT 342 10^3/uL (130-400); WHITE BLOOD COUNT 18.9 10^3/uL (4.3-11.0)
[2022-10-25 03:27] LABS: BASOPHILS # (AUTO) 0.1 10^3/uL (0.0-0.1); BASOPHILS % (AUTO) 0 % (0-10); EOSINOPHILS # (AUTO) 0.1 10^3/uL (0.0-0.3); EOSINOPHILS % (AUTO) 1 % (0-10); LYMPHOCYTES # (AUTO) 2.6 X 10^3 (1.0-4.0); LYMPHOCYTES % (AUTO) 14 % (12-44); MEAN PLATELET VOLUME 10.5 fL (9.0-12.2); MONOCYTES # (AUTO) 1.5 X 10^3 (0.0-1.0); MONOCYTES % (AUTO) 8 % (0-12); NEUTROPHILS # (AUTO) 14.5 X 10^3 (1.8-7.8); NEUTROPHILS % (AUTO) 77 % (42-75)
[2022-10-25 03:31] LABS: INR 1.1 (0.8-1.4); PROTHROMBIN TIME PATIENT 14.2 SEC (12.2-14.7)
[2022-10-25 03:38] LABS: FIBRIN DEGRADATION PRODUCTS 1.39 UG/ML (0.00-0.49); SODIUM 138 MMOL/L (135-145)
[2022-10-25 03:39] LABS: ALANINE AMINOTRANSFERASE 7 U/L (0-55); ALBUMIN 4.4 GM/DL (3.2-4.5); ALKALINE PHOSPHATASE 120 U/L (40-136); BILIRUBIN,TOTAL 0.6 MG/DL (0.1-1.0); BUN/CREATININE RATIO 19; CALCIUM 9.6 MG/DL (8.5-10.1); CARBON DIOXIDE 24 MMOL/L (21-32); CHLORIDE 101 MMOL/L (98-107); CREATININE SERUM 0.57 MG/DL (0.60-1.30); GFR ESTIMATED 98; GLUCOSE 142 MG/DL (70-105); MAGNESIUM 1.8 MG/DL (1.6-2.4); TOTAL PROTEIN 7.6 GM/DL (6.4-8.2)
[2022-10-25 03:44] LABS: ABG OXYGEN SATURATION 90 % (94-100)
[2022-10-25 03:48] LABS: EOSINOPHILS % (MANUAL) 3 %; LYMPHOCYTES % (MANUAL) 6 %; MONOCYTES % (MANUAL) 6 %; NEUTROPHILS % (MANUAL) 85 %
[2022-10-25] MEDS ORDERED: AZITHROMYCIN INJECTION 500 MG in NS (IVPB) 250 ML IV STA (04:00)
[2022-10-25] MEDS ORDERED: HOLD METFORMIN - RECEIVED CONTRAST 20 ML VIAL IV SCH (04:15)
[2022-10-25] MEDS ORDERED: NS 100 ML (IVPB) BAG IV ONE (04:15)
[2022-10-25] MEDS ORDERED: CATHETER FLUSH 10 ML SYR IV PRN (04:15)
[2022-10-25] MEDS ORDERED: IOHEXOL 350 MG/ML 100 ML (OMNIPAQUE 350) VIAL IV ONE (04:15)
[2022-10-25 04:56] LABS: BILIRUBIN,URINE NEGATIVE (NEGATIVE); COLOR,URINE YELLOW; GLUCOSE, URINE (UA) NEGATIVE (NEGATIVE); KETONES,URINE TRACE (NEGATIVE); LEUKOCYTE ESTERASE ,URINE NEGATIVE (NEGATIVE); NITRITE,URINE POSITIVE (NEGATIVE); PH,URINE 5.5 (5-9); PROTEIN,URINE TRACE (NEGATIVE)
[2022-10-25 04:58] LABS: BACTERIA,URINE LARGE /HPF; CLARITY,URINE CLOUDY
[2022-10-25 05:05] LABS: AMPHETAMINE SCREEN, URINE NEGATIVE (NEGATIVE); BARBITURATE SCREEN URINE NEGATIVE (NEGATIVE); BENZODIAZEPINES SCREEN URINE NEGATIVE (NEGATIVE); CANNABINOID SCREEN, URINE NEGATIVE (NEGATIVE); COCAINE SCREEN URINE NEGATIVE (NEGATIVE); METHADONE STAT NEGATIVE (NEGATIVE); OPIATE SCREEN URINE NEGATIVE (NEGATIVE); OXYCODONE STAT NEGATIVE (NEGATIVE); PROPOXYPHENE STAT NEGATIVE (NEGATIVE); TRICYCLIC ANTIDEPRESSANTS SCRE NEGATIVE (NEGATIVE)
[2022-10-25] MEDS ORDERED: ACETAMINOPHEN 325 MG TABLET PO ONE (06:00)
--- NOTE | 2022-10-25 06:25 | Diagnostic Imaging Report ---
CHEST 1 VIEW AP/PA ONLY Indication: Shortness of breath Comparison: 08/22/2021 Findings: Left basilar opacities could be due to summation shadow of patient's partially calcified breast implant. There is a potential for small bilateral pleural effusions. No pneumothorax. Heart is normal in size. Impression: Bibasilar opacities has a differential to include summation shadow of patient's breast, small layering pleural effusions and/or pneumonia. Dictated by: Dictated on workstation # [id number]
--- NOTE | 2022-10-25 06:28 | Diagnostic Imaging Report ---
PROCEDURE: CT angiography of the chest with contrast. TECHNIQUE: Multiple contiguous axial images were obtained through the chest after uneventful bolus administration of intravenous contrast. 3D reconstructed CTA MIP acquisitions were also performed. Auto Exposure Controls were utilized during the CT exam to meet ALARA standards for radiation dose reduction. INDICATION: Elevated D-dimer COMPARISON: 03/20/2021 FINDINGS: Peripherally calcified bilateral breast implants are present. No significant adenopathy within the chest. Scattered vascular calcifications. No aneurysm or dissection of the thoracic aorta. No significant filling defect within the central or segmental pulmonary arteries. No pneumothorax. Advanced background emphysematous changes are present with scattered regions of scarring. 0.7 cm groundglass left lower lobe pulmonary nodule is present, appearing new since the prior exam, series 7, image 120. A 1 cm right lower lobe pulmonary nodule is again identified, not significantly changed since the prior examination. The heart is within normal limits in size. No significant pericardial effusion. No pleural effusion. Left renal cyst. Minimally visualized upper abdomen is otherwise unremarkable. Scattered osseous degenerative changes without acute osseous abnormality. IMPRESSION: No significant pulmonary embolus. Advanced background emphysematous changes with scattered regions of scarring and stable benign right lower lobe pulmonary nodule. Agree with preliminary interpretation. Dictated by: Dictated on workstation # [id number]
[2022-10-25] MEDS ORDERED: methylPREDNISolone 40 MG/ML (Solu-MEDROL) VIAL IV SCH (09:00)
[2022-10-25] MEDS ORDERED: MELATONIN 3 MG TABLET PO PRN (09:00)
[2022-10-25] MEDS ORDERED: ACETAMINOPHEN 325 MG TABLET PO PRN ×2 (09:00)
[2022-10-25 09:10] VITALS: BP 184/100
[2022-10-25 09:35] VITALS: BP 184/100
[2022-10-25] MEDS ORDERED: RT-ALBUTEROL/IPRATROPIUM 3 ML (DUONEB) VIAL IH SCH (10:00)
[2022-10-25] MEDS: RT-IPRATROPIUM (ATROVENT) 0.5MG/2.5ML AMP IH SCH ×2 (10:24→13:16)
[2022-10-25] MEDS: RT-ALBUTEROL SULF 2.5 MG/3 ML PRE-MIX VIAL INH SCH ×2 (10:25→13:16)
[2022-10-25 11:03] VITALS: BP 134/61
[2022-10-25] MEDS ORDERED: cefTRIAXone 1 GM PRE-MIX 50 ML IV SCH (12:00)
[2022-10-25] MEDS ORDERED: RT-ALBUTEROL SULF 2.5 MG/3 ML PRE-MIX VIAL INH PRN (12:00)
--- NOTE | 2022-10-25 13:09 | Short Stay Summary-Hospitalist ---
History of Present Illness HPI/Chief Complaint 72-year-old female with PMH of COPD/smoker, is brought in by EMS with complaints of shortness of breath which began on the 18th night and has been worsening. Patient states that her home treatments never work for her when she is just short of breath. Patient uses CPAP at home and was on CPAP when EMS arrived on scene. DuoNebs were not able to be given through the mask she was wearing. EMS gave patient Solu-Medrol 125 mg prior to transport. In the ER patient had decreased breath sounds bilaterally initially, but after placing on BiPAP and 2 rounds of DuoNebs patient's respiratory rate decreased from 40's to 22, and O2 sat improved. Denies cough, fever, chest pain, palpitations, abdominal pain. Upon my arrival patient reports she felt back to baseline and she wished to be discharged. She states that she did return from work went to the bathroom without oxygen felt short of breath on return she could not get her portable oxygen to work and became panicked. She dialed 911. according to a friend her regular concentrator is working now and she asked to be discharged. She denies any change in cough or her usual yellowish sputum production denied night sweats chills or fever and had not been any more short of breath than usual at work. Date Seen 10/25/22 Time Seen by a Provider: 13:06 Attending Physician [facility] PCP Admitting Physician: Jean-Paul Hernández MD Attending Physician: Jean-Paul Hernández MD Referring Physician Date of Admission Oct 25, 2022 at 08:53 Home Medications & Allergies Home Medications Reviewed patient Home Medication Reconciliation performed by pharmacy medication reconciliations [employer] electronics wiring technician and/or nursing. Patients Allergies have been reviewed. Allergies Allergies Coded Allergies No Known Drug Allergies (Jtaorlqksx79/1/17) Past Qtideer-Ynumrk-Mwgpub Hx Patient Social History Tobacco Use?: Yes Tobacco type used: Cigarettes Smoking Status: Current Everyday Smoker Smokeless Tobacco Frequency: Never a User Use of E-Cig and/or Vaping dev: No Substance use?: No Alcohol Use?: No Pt feels they are or have been: No Immunizations Up To Date Date of Influenza Vaccine: Jun 06, 2020 First/Initial COVID19 Vaccinat: Date ? Second COVID19 Vaccination Schuyler: Date ? Tetanus Booster (TDap): Unknown Seasonal Allergies Seasonal Allergies: No Current Status status: No status: No Advance Directives: No Communicates: Verbally Primary Language: Swazi Preferred Spoken Language: Swazi Is interpretation needed?: No Sensory deficits: Vision impairment Implanted or Applied Medical D: None Past Medical History COPD Currently Using CPAP: Yes (AT NIGHT) Currently Using BIPAP: No Sexually Transmitted Disease: No HIV/AIDS: No Cataract Hearing Impairment: Denies Did You Recieve Any Treatments: No Blood Disorders: No Adverse Reaction/Blood Tranf: No COPD Oxygen Supplementation 3L continuous Family Medical History No Pertinent Family Hx Review of Systems Constitutional: see HPI Physical Exam Physical Exam Vital Signs Vital Signs - First Documented 10/25/22 02:53 FiO2 100 Capillary Refill : Less Than 3 Seconds Height, Weight, BMI Height: 5'4.00" Weight: 120lbs. 8.0oz. 54.436652vp; 24.23 BMI Method:Stated General Appearance: No Apparent Distress, Severe Distress, Thin HEENT: PERRL/EOMI Neck: Full Range of Motion Respiratory: Chest Non Tender, No Accessory Muscle Use, No Respiratory Distress, Other (Diminished breath sounds especially posteriorly which are symmetrical increased AP diameter to the chest slightly prolonged expiratory phase but no wheezing or rhonchi noted.) Cardiovascular: No Edema, Tachycardia Gastrointestinal: Normal Bowel Sounds, Non Tender, Soft Extremity: Normal Capillary Refill, Normal Inspection, Normal Range of Motion, Non Tender, No Calf Tenderness, No Pedal Edema Neurologic/Psychiatric: Alert, Oriented x3 Skin: Normal Color Results Results/Procedures Labs Laboratory Tests 10/25/22 03:06 Patient resulted labs reviewed. Short Stay Diagnosis Discharge Diagnosis-Short Stay Admission Diagnosis Acute COPD exacerbation no evidence for pneumonia. Tobaccoism ongoing patient advised that her life expectancy is going to be quite limited and quality of life will continue to decline at a much more rapid rate continuing to smoke. She realizes this but states that she will smoking. Final Discharge Diagnosis As per admission diagnosis. Conclusion Plan Patient was advised to follow-up with [facility]. We will make sure that she has oxygen to get home and she was advised to continue 3 L of oxygen continuously breathing treatments and she is not willing to quit smoking but was advised to at least try to keep it to a bare minimum noting increased risk for readmission not to mention progression of her chronic respiratory failure. While chest x-ray revealed the possibility of basilar pneumonia CTA revealed no evidence for pneumonia just chronic scarring and a stable pulmonary nodule compatible with benign disease and no evidence for pulmonary embolism. Clinical Quality Measures Smoking Cessation Counseling: Counseling-Symptomatic: 3-10 Minutes JEAN-PAUL HERNÁNDEZ MD Oct 25, 2022 13:09
[2022-10-25 14:21] VITALS: BP 134/61
[2022-10-26] MEDS ORDERED: AZITHROMYCIN 500 MG/NS 250 ML IVPB IV SCH ×2 (09:00)
--- NOTE | 2022-10-26 14:50 | Physician Query Clarification ---
PQ-Further Specificity Admission/Discharge Admission Date: Oct 25, 2022 at 08:53 Discharge Date: Oct 25, 2022 at 13:45 Dr. Hernández, The medical record reflects the following clinical scenario: History/Risk Factors: COPDAE Clinical Findings: PCO2 40, PO2 456, PH 7.39, O2 Sat 90 Treatment: Bipap Question: Can you further specify the acuity of the respiratory failure per the clinical indicators above? Please document a response in the Progress Notes or Discharge Summary. 1. acute on chronic respiratory failure 2. chronic respiratory failure 3. Other, with explanation of the clinical findings. 4. Clinically undetermined, no explanation for the clinical findings. PHYSICIAN RESPONSE Can you specify per above: 1 In responding to this query, please exercise your independent professional judgment. The purpose of this communication is to more accurately reflect the complexity of your patients condition. The fact that a question is asked does not imply that any particular answer is desired or expected. Thank you for your timely response to this clarification. Requestors name: Reginald THIS PHYSICIAN QUERY FORM IS A PERMANENT PART OF THE MEDICAL RECORD REGINALD CORRAL Oct 26, 2022 14:50 GIOVANNI HERNÁNDEZ MD Oct 27, 2022 08:33
== END 2022-10-25 13:45 | disposition home or self-care (01) | DRG 189 ==
LOC: EDUNIT# 02:50 → ER FS 03:00 → 4TH 08:31 → OBSVTOIN 08:53
PROVIDERS: ADMIT Internal Medicine; ATTEND Internal Medicine
PROC: 5A09357 Assistance with Respiratory Ventilation, Less than 24 Consecutive Hours, Continuous Positive Airway Pressure (ICD-10-PCS; principal; 2022-10-25)
PROC: 5A0935A Assistance with Respiratory Ventilation, Less than 24 Consecutive Hours, High Flow/Velocity Cannula (ICD-10-PCS; 2022-10-25)
DX: J96.20 Acute and chronic respiratory failure, unspecified whether with hypoxia or hypercapnia (principal); J44.1 Chronic obstructive pulmonary disease with (acute) exacerbation; F17.210 Nicotine dependence, cigarettes, uncomplicated; H26.9 Unspecified cataract; Z99.81 Dependence on supplemental oxygen
CPT/HCPCS: 36415; 71045; 71275; 80053; 80306; 81000; 82805; 83735; 83880; 84484; 85007; 85027; 85379; 85610; 85730; 87077; 87088; 87186; 93005; 93041; 94640

== ENCOUNTER → 2023-02-03 | Outpatient (CLI) | payer MEDICARE, OTHER ==
[~2023-02-03] MED LIST changes: +RT-ALBUTEROL SULF 2.5 MG/3 ML PRE-MIX VIAL INH ONE
== END ==
LOC: RT 12:25
PROVIDERS: ATTEND Nurse Practitioner Family
DX: J44.9 Chronic obstructive pulmonary disease, unspecified (principal)
CPT/HCPCS: 94060; 94621; 94726; 94729

== ENCOUNTER 2023-05-16 13:09 | Emergency (ER) | payer MEDICARE, OTHER ==
[~2023-05-16] VITALS: Ht 162.6 cm; Wt 56.7 kg
[~2023-05-16 13:09] MED LIST changes: -RT-ALBUTEROL SULF 2.5 MG/3 ML PRE-MIX VIAL INH ONE
[2023-05-16] MEDS ORDERED: methylPREDNISolone INJ 125 MG VIAL IV STA (13:19)
[2023-05-16] MEDS ORDERED: RT-Ipratropium/Albuterol NEB 3 ML VIAL INH ONE ×3 (13:30→14:30)
[2023-05-16 13:31] LABS: BASOPHILS % (AUTO) 0 % (0-10); EOSINOPHILS % (AUTO) 0 % (0-10); HEMATOCRIT 42 % (35-52); HEMOGLOBIN 13.8 g/dL (11.5-16.0); LYMPHOCYTES # (AUTO) 0.5 10^3/uL (1.0-4.0); LYMPHOCYTES % (AUTO) 4 % (12-44); MEAN CORPUSCULAR HEMOGLOBIN 30 pg (25-34); MEAN CORPUSCULAR HGB CONC 33 g/dL (32-36); MEAN CORPUSCULAR VOLUME 90 fL (80-99); MEAN PLATELET VOLUME 10.1 fL (9.0-12.2); MONOCYTES # (AUTO) 0.4 10^3/uL (0.0-1.0); MONOCYTES % (AUTO) 3 % (0-12); NEUTROPHILS # (AUTO) 11.2 10^3/uL (1.8-7.8); NEUTROPHILS % (AUTO) 93 % (42-75); PLATELET COUNT 206 10^3/uL (130-400); WHITE BLOOD COUNT 12.1 10^3/uL (4.3-11.0)
--- NOTE | 2023-05-16 13:35 | ED Dyspnea ---
General Stated Complaint: COPD History of Present Illness Date Seen by Provider: May 16, 2023 Time Seen by Provider: 13:16 Initial Comments 73-year-old female with PMH of COPD/active smoker (1 pack/day), is here with complaints of shortness of breath which has been going on for the past week, and has been worsening today requiring home oxygen of 3 L. Patient states that she needs oxygen at home but can go without it, but today she has needed since morning. Patient works at [employer] and states that a lot of her coworkers have been ill. Patient has associated symptoms of cough with green color sputum production, subjective fever and chills, and wheezing. Denies chest pain, palpitations, abdominal pain, diarrhea, nausea and vomiting. Patient is able to speak in clear sentences, however she pauses after each sentence briefly, to take a breath. Allergies and Home Medications Allergies Coded Allergies: No Known Drug Allergies (Unverified , 08/06/17) Patient Home Medication List Home Medication List Reviewed: Yes ALPRAZolam (ALPRAZolam) 0.25 Mg Tablet, 0.25 MG PO Q8H PRN for ANXIETY, (Reported) Entered as Reported by: DOROTHY HUA on 01/13/21 1458 Albuterol Sulfate (Ventolin Hfa) 1 Puff Puff, 2 PUFF IH Q4H PRN for SHORTNESS OF BREATH, (Reported) Entered as Reported by: ARBIA ANDINO on 01/07/21 1407 Cetirizine HCl (Zyrtec) 10 Mg Tablet, 10 MG PO DAILY, (Reported) Entered as Reported by: DOROTHY HUA on 01/13/21 1458 Famotidine (Pepcid) 20 Mg Tablet, 20 MG PO BID Prescribed by: CONNER SCANLON MD on 10/20/21 1556 Fluticasone/Umeclidin/Vilanter (Trelegy Ellipta 100-62.5-25) 1 Each Blst.w.dev, 1 PUFF IH BID, (Reported) Entered as Reported by: AKHIL GOMEZ on 02/19/20 1330 Ibuprofen (Advil) 200 Mg Tablet, 400-600 MG PO Q8H PRN for PAIN-MILD (1-4), (Reported) Entered as Reported by: DOROTHY HUA on 01/13/21 1458 Ipratropium/Albuterol Sulfate (Iprat-Albut 0.5-3(2.5) mg/3 ml) 3 Ml Ampul.neb, 3 ML IH Q4H PRN for SHORTNESS OF BREATH, (Reported) Entered as Reported by: DOROTHY HUA on 01/13/21 1522 Montelukast Sodium (Montelukast Sodium) 10 Mg Tablet, 10 MG PO HS, (Reported) Entered as Reported by: SELVIN VÁSQUEZ on 08/06/17 0907 Review of Systems Review of Systems Constitutional: chills, fever EENTM: nose congestion Respiratory: see HPI, cough, phlegm, short of breath, wheezing Cardiovascular: no symptoms reported Gastrointestinal: no symptoms reported Genitourinary: no symptoms reported Musculoskeletal: no symptoms reported Skin: no symptoms reported Psychiatric/Neurological: No Symptoms Reported Endocrine: No Symptoms Reported Hematologic/Lymphatic: No Symptoms Reported Past Riwnxfv-Vuzcna-Mzlsih Hx Immunizations Up To Date Tetanus Booster (TDap): Less than 5yrs First/Initial COVID19 Vaccinat: Date ? Second COVID19 Vaccination Schuyler: Date ? Seasonal Allergies Seasonal Allergies: No Past Medical History Surgery/Hospitalization HX: COPD Surgeries: No Respiratory: Yes COPD Currently Using CPAP: Yes (AT NIGHT) Currently Using BIPAP: No Cardiac: No Neurological: No Sexually Transmitted Disease: No HIV/AIDS: No Genitourinary: No Gastrointestinal: No Musculoskeletal: No Endocrine: No HEENT: Yes (WEARS GLASSES) Cataract Hearing Impairment: Denies Cancer: No Did You Recieve Any Treatments: No Psychosocial: No Integumentary: No Blood Disorders: No Adverse Reaction/Blood Tranf: No Family Medical History No Pertinent Family Hx Physical Exam Vital Signs Vital Signs - First Documented Capillary Refill : Height, Weight, BMI Height: 5'4.00" Weight: 120lbs. 8.0oz. [id number]; 24.23 BMI Method:Stated General Appearance: Mild Distress HEENT: PERRL/EOMI, Normal ENT Inspection Neck: Full Range of Motion Respiratory: Chest Non Tender, No Accessory Muscle Use, Rhonci, Wheezing (Expiratory) Cardiovascular: No Edema, Tachycardia (Borderline) Gastrointestinal: Normal Bowel Sounds, Non Tender, Soft Neurologic/Psychiatric: Alert, Oriented x3, No Motor/Sensory Deficits Skin: Normal Color Focused Exam Lactate Level 9/10/23 13:30: Lactic Acid Level 1.54 Lactic Acid Level Laboratory Tests Test 05/16/23 13:30 Lactic Acid Level 1.54 MMOL/L (0.50-2.00) Progress/Results/Core Measures Results/Orders Lab Results Laboratory Tests Test 05/16/23 13:30 Range/Units White Blood Count 12.1 H 4.3-11.0 10^3/uL Red Blood Count 4.68 3.80-5.11 10^6/uL Hemoglobin 13.8 11.5-16.0 g/dL Hematocrit 42 35-52 % Mean Corpuscular Volume 90 80-99 fL Mean Corpuscular Hemoglobin 30 25-34 pg Mean Corpuscular Hemoglobin Concent 33 32-36 g/dL Red Cell Distribution Width 13.3 10.0-14.5 % Platelet Count 206 130-400 10^3/uL Mean Platelet Volume 10.1 9.0-12.2 fL Immature Granulocyte % (Auto) 0 % Neutrophils (%) (Auto) 93 H 42-75 % Lymphocytes (%) (Auto) 4 L 12-44 % Monocytes (%) (Auto) 3 0-12 % Eosinophils (%) (Auto) 0 0-10 % Basophils (%) (Auto) 0 0-10 % Neutrophils # (Auto) 11.2 H 1.8-7.8 10^3/uL Lymphocytes # (Auto) 0.5 L 1.0-4.0 10^3/uL Monocytes # (Auto) 0.4 0.0-1.0 10^3/uL Eosinophils # (Auto) 0.0 0.0-0.3 10^3/uL Basophils # (Auto) 0.0 0.0-0.1 10^3/uL Immature Granulocyte # (Auto) 0.1 0.0-0.1 10^3/uL Neutrophils % (Manual) 96 % Lymphocytes % (Manual) 2 % Monocytes % (Manual) 2 % Sodium Level 135 135-145 MMOL/L Potassium Level 4.3 3.6-5.0 MMOL/L Chloride Level 99 98-107 MMOL/L Carbon Dioxide Level 24 21-32 MMOL/L Anion Gap 12 5-14 MMOL/L Blood Urea Nitrogen 14 7-18 MG/DL Creatinine 0.69 0.60-1.30 MG/DL Estimat Glomerular Filtration Rate 93 BUN/Creatinine Ratio 20 Glucose Level 132 H 70-105 MG/DL Lactic Acid Level 1.54 0.50-2.00 MMOL/L Calcium Level 9.3 8.5-10.1 MG/DL Corrected Calcium 9.1 8.5-10.1 MG/DL Magnesium Level 1.8 1.6-2.4 MG/DL Total Bilirubin 0.4 0.1-1.0 MG/DL Aspartate Amino Transf (AST/SGOT) 16 5-34 U/L Alanine Aminotransferase (ALT/SGPT) 11 0-55 U/L Alkaline Phosphatase 74 40-136 U/L Troponin I < 0.30 <0.30 NG/ML Pro-B-Type Natriuretic Peptide 159.8 H <125.0 PG/ML Total Protein 6.9 6.4-8.2 GM/DL Albumin 4.3 3.2-4.5 GM/DL Influenza Type A (RT-PCR) Not Detected Not Detecte Influenza Type B (RT-PCR) Not Detected Not Detecte SARS-CoV-2 RNA (RT-PCR) Not Detected Not Detecte My Orders Orders - CONNER SCANLON MD Ipratropium/Albuterol Inh Soln (Ipratrop (05/16/23 13:30) Methylprednisolone Sod Succ (Methylpredn (05/16/23 13:19) Svn Small Volume Nebulizer (05/16/23 13:19) Chest 1 View Ap/Pa Only (05/16/23 13:25) Cbc With Automated Diff (05/16/23 13:25) Comprehensive Metabolic Panel (05/16/23 13:25) Lactic Acid Analyzer (05/16/23 13:25) Magnesium (05/16/23 13:25) Probnp Fs (05/16/23 13:25) Troponin I Fs (05/16/23 13:25) Covid 19 Inhouse Test (05/16/23 13:26) Influenza A And B By Pcr (05/16/23 13:26) Manual Differential (05/16/23 13:30) Ipratropium/Albuterol Inh Soln (Ipratrop (05/16/23 14:00) Svn Small Volume Nebulizer (05/16/23 13:51) Medications Given in ED Current Medications Medications Dose Ordered Sig/Travis Route Start Time Stop Time Status Last Admin Dose Admin Albuterol/ Ipratropium 3 ml ONCE ONCE INH 05/16/23 13:30 05/16/23 13:31 DC 05/16/23 13:29 3 ML Albuterol/ Ipratropium 3 ml ONCE ONCE INH 05/16/23 14:00 05/16/23 14:01 DC 05/16/23 13:55 3 ML Vital Signs/I&O 05/16/23 05/16/23 13:20 13:20 Temp 36.8 Pulse 99 Resp 18 B/P (MAP) 164/88 (113) Pulse Ox 98 O2 Delivery Nasal Cannula Nasal Cannula O2 Flow Rate 3.00 3.00 Progress Progress Note : Progress Note 1. ACUTE COPD EXACERBATION: - CXR: No pneumonia, no acute findings - COVID test/ Rapid Flu test: negative - CBC/ CMP: unremarkable except mild increase in WBC: 12.1 - BNP: unremarkable - Duo Neb x 3/ Solumedrol 125mg iv STAT, with significant improvement in respiratory status, and resolution of wheezing - Pt started on a Prednisone taper yesterday. Advised to complete it. - Advised to cut back and stop smoking - Prescription given for Azithromycin 500mg daily for 3 days - Prescription refill for Albuterol solution for nebulizer given as well. - Follow up with PCP in 7 days -The patient was seen in the ED, and treated appropriately to presentation at a specific point in time. Patient is informed that there is a possibility that disease and illness can evolve and change in acuity rapidly or slowly after patient is discharged from the ER. Precautionary advice given to the patient for immediate return to ER if symptoms worsen or do not resolve, and to seek emergency care sooner rather than later. Pt also advised on the importance of PCP follow up and compliance with management and follow up plan with PCP and/or specialist, as this is part of the management plan. Pt verbally expressed understanding. Diagnostic Imaging Diagonstic Imaging: Xray Plain Films/CT/US/NM/MRI: chest Comments [facility] [place], [place] NAME: HEIDI HURTADO REC#: [id number] PT STATUS: REG ER : 1950 PHYSICIAN: CONNER SCANLON MD ADMIT DATE: 05/16/23/ER FS Draft Date of Exam:05/16/23 CHEST 1 VIEW AP/PA ONLY EXAMINATION: Chest radiograph, portable AP view. DATE: 05/16/2023 1:38 PM INDICATION: 73-year-old female, shortness of breath. COMPARISON: January 22, 2023. FINDINGS: Heart size and mediastinal contours are unchanged. There is no identified pneumothorax. There is no large pleural effusion. There are bilateral breast implants. There is no identified focal airspace consolidation. IMPRESSION: 1. No identified acute cardiopulmonary abnormality. Dictated on workstation # [id number] Dict: 05/16/23 1347 Trans: 05/16/23 1400 [facility] [id number] Interpreted by: TONIO CHACKO MD Electronically signed by: Departure Impression Primary Impression: Acute exacerbation of chronic obstructive pulmonary disease (COPD) Disposition: 01 HOME, SELF-CARE Condition: Improved Departure-Patient Inst. Referrals: SELVIN ROBIN APRN (PCP) Primary Care Physician [facility] (Family) Primary Care Physician Patient Instructions: COPD Diet, COPD Exacerbation, Adult ED, Quitting Smoking for Older Adults Add. Discharge Instructions: - Pt started on a Prednisone taper yesterday. Advised to complete it. - Advised to cut back and stop smoking - Prescription given for Azithromycin 500mg daily for 3 days - Prescription refill for Albuterol solution for nebulizer given as well. - Follow up with PCP in 7 days Scripts Albuterol Sulfate (Albuterol Sulfate) 2.5 Mg/0.5 Ml Vial.neb 2.5 MG INH Q4H for SHORTNESS OF BREATH for 14 Days, #30 EACH Prov: CONNER SCANLON MD 05/16/23 Azithromycin (Azithromycin) 500 Mg Tablet 500 MG PO DAILY for 3 Days, #3 TAB Prov: CONNER SCANLON MD 05/16/23 CONNER SCANLON MD May 16, 2023 13:34
[2023-05-16 13:51] LABS: ALANINE AMINOTRANSFERASE 11 U/L (0-55); ALBUMIN 4.3 GM/DL (3.2-4.5); ALKALINE PHOSPHATASE 74 U/L (40-136); BILIRUBIN,TOTAL 0.4 MG/DL (0.1-1.0); BUN/CREATININE RATIO 20; CALCIUM 9.3 MG/DL (8.5-10.1); CARBON DIOXIDE 24 MMOL/L (21-32); CHLORIDE 99 MMOL/L (98-107); CREATININE SERUM 0.69 MG/DL (0.60-1.30); GFR ESTIMATED 93; GLUCOSE 132 MG/DL (70-105); MAGNESIUM 1.8 MG/DL (1.6-2.4); POTASSIUM 4.3 MMOL/L (3.6-5.0); SODIUM 135 MMOL/L (135-145); TOTAL PROTEIN 6.9 GM/DL (6.4-8.2)
[2023-05-16 13:55] LABS: LYMPHOCYTES % (MANUAL) 2 %; MONOCYTES % (MANUAL) 2 %; NEUTROPHILS % (MANUAL) 96 %
--- NOTE | 2023-05-16 14:01 | Diagnostic Imaging Report ---
EXAMINATION: Chest radiograph, portable AP view. DATE: 05/16/2023 1:38 PM INDICATION: 73-year-old female, shortness of breath. COMPARISON: January 22, 2023. FINDINGS: Heart size and mediastinal contours are unchanged. There is no identified pneumothorax. There is no large pleural effusion. There are bilateral breast implants. There is no identified focal airspace consolidation. IMPRESSION: 1. No identified acute cardiopulmonary abnormality. Dictated by: Dictated on workstation # [id number]
[2023-05-16] MEDS ORDERED: RT-Ipratropium/Albuterol NEB 3 ML VIAL ONE (14:21)
[2023-05-16] MEDS ORDERED: ALB0.5V INH (14:26)
[2023-05-16] MEDS ORDERED: AZIT500T9 PO (14:26)
[2023-05-16 14:42] VITALS: BP 142/62
== END 2023-05-16 14:43 | disposition home or self-care (01) ==
LOC: EDUNIT# 13:09 → ER FS 13:10
DX: J44.9 Chronic obstructive pulmonary disease, unspecified (principal); F17.210 Nicotine dependence, cigarettes, uncomplicated; Z20.822 Contact with and (suspected) exposure to COVID-19
CPT/HCPCS: 36415; 71045; 80053; 83605; 83735; 83880; 84484; 85007; 85027; 87636

== ENCOUNTER 2023-05-18 15:15 | Emergency (ER) | payer MEDICARE, OTHER ==
[~2023-05-18] VITALS: Ht 162.6 cm; Wt 54.5 kg
[2023-05-18 15:15] VITALS: BP 179/79
[~2023-05-18 15:15] MED LIST changes: +ALB0.5V INH; +AZIT500T9 PO
[2023-05-18] MEDS ORDERED: MAGNESIUM 1 GM/100 ML IVPB 100 ML IV STA (15:20)
--- NOTE | 2023-05-18 15:23 | ED Respiratory ---
General Stated Complaint: SOB Source: patient, EMS, old records Exam Limitations: no limitations History of Present Illness Date Seen by Provider: May 18, 2023 Time Seen by Provider: 14:53 Initial Comments 73-year-old female with past medical history of COPD with chronic respiratory failure on 2 to 3 L oxygen mostly at nighttime coming in via EMS due to sh ortness of breath. She was seen on Wednesday in the ER for a COPD exacerbation. She has been on steroids and antibiotics. She took her last dose of azithromycin this morning. EMS gave her a DuoNeb and IV Solu-Medrol 125 mg prior to arrival. She states she is just feeling like she cannot move enough air and has not really been feeling well throughout the weekend to today. She has a productive cough of green sputum at times. Flu and COVID test were negative a couple days ago. She has not been around anyone since then. Allergies and Home Medications Allergies Coded Allergies: No Known Drug Allergies (Unverified , 08/06/17) Patient Home Medication List Home Medication List Reviewed: Yes ALPRAZolam (ALPRAZolam) 0.25 Mg Tablet, 0.25 MG PO Q8H PRN for ANXIETY, (Reported) Entered as Reported by: DOROTHY HUA on 01/13/21 1458 Albuterol Sulfate (Ventolin Hfa) 1 Puff Puff, 2 PUFF IH Q4H PRN for SHORTNESS OF BREATH, (Reported) Entered as Reported by: RABIA ANDINO on 01/07/21 1407 Albuterol Sulfate (Albuterol Sulfate) 2.5 Mg/0.5 Ml Vial.neb, 2.5 MG INH Q4H Prescribed by: CONNER SCANLON MD on 05/16/23 1426 Azithromycin (Azithromycin) 500 Mg Tablet, 500 MG PO DAILY Prescribed by: CONNER SCANLON MD on 05/16/23 1426 Cetirizine HCl (Zyrtec) 10 Mg Tablet, 10 MG PO DAILY, (Reported) Entered as Reported by: DOROTHY HUA on 01/13/21 1458 Famotidine (Pepcid) 20 Mg Tablet, 20 MG PO BID Prescribed by: CONNER SCANLON MD on 10/20/21 1556 Fluticasone/Umeclidin/Vilanter (Trelegy Ellipta 100-62.5-25) 1 Each Blst.w.dev, 1 PUFF IH BID, (Reported) Entered as Reported by: AKHIL GOMEZ on 02/19/20 1330 Ibuprofen (Advil) 200 Mg Tablet, 400-600 MG PO Q8H PRN for PAIN-MILD (1-4), (Re ported) Entered as Reported by: DOROTHY HUA on 01/13/21 1458 Ipratropium/Albuterol Sulfate (Iprat-Albut 0.5-3(2.5) mg/3 ml) 3 Ml Ampul.neb, 3 ML IH Q4H PRN for SHORTNESS OF BREATH, (Reported) Entered as Reported by: DOROTHY HUA on 01/13/21 1522 Montelukast Sodium (Montelukast Sodium) 10 Mg Tablet, 10 MG PO HS, (Reported) Entered as Reported by: SELVIN VÁSQUEZ on 08/06/17 0907 Review of Systems Review of Systems Constitutional: No fever EENTM: no symptoms reported Respiratory: cough, short of breath Cardiovascular: no symptoms reported Gastrointestinal: no symptoms reported Genitourinary: no symptoms reported Musculoskeletal: no symptoms reported Skin: no symptoms reported Psychiatric/Neurological: No Symptoms Reported Hematologic/Lymphatic: No Symptoms Reported Immunological/Allergic: no symptoms reported All Other Systems Reviewed Negative Unless Noted: Yes Past Zdwcqyr-Kswtye-Paetme Hx Patient Social History Tobacco Use?: Yes Immunizations Up To Date Tetanus Booster (TDap): Less than 5yrs First/Initial COVID19 Vaccinat: Date ? Second COVID19 Vaccination Schuyler: Date ? Third COVID19 Vaccination Date: Date ? Seasonal Allergies Seasonal Allergies: No Past Medical History Surgery/Hospitalization HX: COPD Surgeries: No Respiratory: Yes COPD Currently Using CPAP: Yes (AT NIGHT) Currently Using BIPAP: No Cardiac: No Neurological: No Sexually Transmitted Disease: No HIV/AIDS: No Genitourinary: No Gastrointestinal: No Musculoskeletal: No Endocrine: No HEENT: Yes (WEARS GLASSES) Cataract Hearing Impairment: Denies Cancer: No Did You Recieve Any Treatments: No Psychosocial: No Integumentary: No Blood Disorders: No Adverse Reaction/Blood Tranf: No Family Medical History No Pertinent Family Hx Physical Exam Vital Signs - First Documented 05/18/23 15:15 O2 Delivery Nasal Cannula O2 Flow Rate 3.00 Capillary Refill : Height: 5'4.00" Weight: 120lbs. 8.0oz. 54.564914sp; 21.00 BMI Method:Stated General Appearance: mild distress, thin Eyes: Bilateral Eye Normal Inspection HEENT: PERRL/EOMI, normal ENT inspection, pharynx normal Neck: non-tender, full range of motion, supple, normal inspection Respiratory: chest non-tender, accessory muscle use, wheezing Cardiovascular: regular rate, rhythm, no edema Gastrointestinal: normal bowel sounds, non tender, soft Extremities: normal range of motion, non-tender, normal inspection, no pedal edema, no calf tenderness, normal capillary refill Neurologic/Psychiatric: no motor/sensory deficits, alert, normal mood/affect Skin: normal color, warm/dry Progress/Results/Core Measures Suspected Sepsis SIRS Temperature: Pulse: Respiratory Rate: Laboratory Tests 05/18/23 15:26: White Blood Count 8.5 Blood Pressure / Mean: Laboratory Tests 05/18/23 15:26: Creatinine 0.69, Platelet Count 241, Total Bilirubin 0.6 Results/Orders Lab Results Laboratory Tests Test 05/18/23 15:26 Range/Units White Blood Count 8.5 4.3-11.0 10^3/uL Red Blood Count 4.70 3.80-5.11 10^6/uL Hemoglobin 13.8 11.5-16.0 g/dL Hematocrit 43 35-52 % Mean Corpuscular Volume 91 80-99 fL Mean Corpuscular Hemoglobin 29 25-34 pg Mean Corpuscular Hemoglobin Concent 32 32-36 g/dL Red Cell Distribution Width 13.7 10.0-14.5 % Platelet Count 241 130-400 10^3/uL Mean Platelet Volume 10.4 9.0-12.2 fL Immature Granulocyte % (Auto) 1 % Neutrophils (%) (Auto) 85 H 42-75 % Lymphocytes (%) (Auto) 10 L 12-44 % Monocytes (%) (Auto) 4 0-12 % Eosinophils (%) (Auto) 0 0-10 % Basophils (%) (Auto) 0 0-10 % Neutrophils # (Auto) 7.2 1.8-7.8 10^3/uL Lymphocytes # (Auto) 0.9 L 1.0-4.0 10^3/uL Monocytes # (Auto) 0.4 0.0-1.0 10^3/uL Eosinophils # (Auto) 0.0 0.0-0.3 10^3/uL Basophils # (Auto) 0.0 0.0-0.1 10^3/uL Immature Granulocyte # (Auto) 0.0 0.0-0.1 10^3/uL Venous Blood pH 7.44 H 7.31-7.41 Venous Blood Partial Pressure CO2 43 40-52 MMHG Venous Blood HCO3 29 H 22-28 MMOL/L Sodium Level 140 135-145 MMOL/L Potassium Level 4.6 3.6-5.0 MMOL/L Chloride Level 103 98-107 MMOL/L Carbon Dioxide Level 24 21-32 MMOL/L Anion Gap 13 5-14 MMOL/L Blood Urea Nitrogen 22 H 7-18 MG/DL Creatinine 0.69 0.60-1.30 MG/DL Estimat Glomerular Filtration Rate 93 BUN/Creatinine Ratio 32 Glucose Level 164 H 70-105 MG/DL Calcium Level 9.2 8.5-10.1 MG/DL Corrected Calcium 9.0 8.5-10.1 MG/DL Total Bilirubin 0.6 0.1-1.0 MG/DL Aspartate Amino Transf (AST/SGOT) 18 5-34 U/L Alanine Aminotransferase (ALT/SGPT) 11 0-55 U/L Alkaline Phosphatase 72 40-136 U/L Total Protein 6.9 6.4-8.2 GM/DL Albumin 4.3 3.2-4.5 GM/DL My Orders Orders - WAQAR CAGE MD Magnesium 1 Gm/100 Ml Ivpb (Magnesium 1 (05/18/23 15:20) Ipratropium/Albuterol Inh Soln (Ipratrop (05/18/23 15:30) Chest 1 View Ap/Pa Only (05/18/23 15:20) Ceftriaxone Iv/Im (Ceftriaxone Iv/Im) (05/18/23 15:30) Cbc With Automated Diff (05/18/23 15:23) Comprehensive Metabolic Panel (05/18/23 15:23) Venous Blood Gas (05/18/23 15:23) Medications Given in ED Current Medications Medications Dose Ordered Sig/Travis Route Start Time Stop Time Status Last Admin Dose Admin Albuterol/ Ipratropium 3 ml ONCE ONCE INH 05/18/23 15:30 05/18/23 15:31 DC 05/18/23 15:28 3 ML Ceftriaxone Sodium 1000 mg/ Sodium Chloride 50 ml @ 100 mls/hr ONCE ONCE IV 05/18/23 15:30 05/18/23 15:59 DC 05/18/23 16:15 100 MLS/HR Vital Signs/I&O 05/18/23 15:15 O2 Delivery Nasal Cannula O2 Flow Rate 3.00 Capillary Refill : Progress Note : Progress Note 73-year-old female with above history with known COPD coming in short of breath. ABCs were intact and vitals were stable on presentation. She did have wheezing bilaterally with increased work of breathing, but was nontoxic-appearing. She was 97% on 2 L and she has oxygen at home. She was given a DuoNeb here. She received IV steroids already per EMS and has been on oral steroids at home. She finished her antibiotic today. We will go ahead and give her a dose of ceftriaxone here as well as IV magnesium. On reassessment she appeared slightly better. White blood cell count was normal, creatinine normal, electrolytes unremarkable, CO2 unremarkable on her VBG. I offered to let her rest on BiPAP and admit her to the intensive care unit to be further evaluated. The patient states she has a BiPAP at home, and does not want to be admitted to the hospital. I then discussed at length going on to hospice potentially which she is interested in, but needs to think about it. She does confirm that she does not want admitted to the hospital at this time however. I will start her on a different antibiotic and have her continue her steroids. I believe she is stable for discharge with outpatient follow-up. She was sent home with strict return precautions Diagnostic Imaging Diagonstic Imaging: Xray (chest) Comments NAME: HEIDI HURTADO [employer] REC#: [id number] PT STATUS: REG ER : 1950 PHYSICIAN: WAQAR CAGE MD ADMIT DATE: 05/18/23/ER FS Draft Date of Exam:05/18/23 CHEST 1 VIEW AP/PA ONLY INDICATION: Shortness of breath. COMPARISON: 05/16/2023. FINDINGS: Severe COPD and pulmonary hyperinflation are chronic. Breast implants with capsular calcifications are chronic. No failure pattern, effusion, or pneumothorax. No focal infiltrate. IMPRESSION: Stable chronic findings with severe emphysematous hyperexpansion of the clear lungs. Dictated on workstation # [id number] Dict: 05/18/23 1537 Trans: 05/18/23 1541 [id number] Interpreted by: AME العلي Electronically signed by: Departure Impression Primary Impression: COPD with exacerbation Disposition: HOME, SELF-CARE Condition: Stable Departure-Patient Inst. Decision time for Depature: 16:40 Referrals: SELVIN ROBIN APRN (PCP) Primary Care Physician [facility] (Family) Primary Care Physician Patient Instructions: COPD Exacerbation, Adult ED Add. Discharge Instructions: We recommend putting on your BiPAP machine at home to rest anytime you are not using the restroom or eating for the next couple of days while you let the antibiotics and steroids continue to work. If things worsen, of course she can come back to the ER to be reevaluated. We also recommend just talking with your doctor about what hospice could mean and what resources they would be able to offer you. Scripts Hydrocodone/Acetaminophen (Hydrocodone-Acetamin 5-325 mg) 5 Mg-325 Mg Tablet 1 TAB PO Q6H PRN for PAIN-MODERATE (5-7) for 3 Days, #12 TAB Prov: WAQAR CAGE MD 05/18/23 Cefdinir (Cefdinir) 300 Mg Capsule 300 MG PO BID for 7 Days, #14 CAP 0 Refills Prov: WAQAR CAGE MD 05/18/23 WAQAR CAGE MD May 18, 2023 15:22
[2023-05-18 15:29] LABS: BASOPHILS % (AUTO) 0 % (0-10); EOSINOPHILS % (AUTO) 0 % (0-10); HEMATOCRIT 43 % (35-52); HEMOGLOBIN 13.8 g/dL (11.5-16.0); LYMPHOCYTES # (AUTO) 0.9 10^3/uL (1.0-4.0); LYMPHOCYTES % (AUTO) 10 % (12-44); MEAN CORPUSCULAR HEMOGLOBIN 29 pg (25-34); MEAN CORPUSCULAR HGB CONC 32 g/dL (32-36); MEAN CORPUSCULAR VOLUME 91 fL (80-99); MEAN PLATELET VOLUME 10.4 fL (9.0-12.2); MONOCYTES # (AUTO) 0.4 10^3/uL (0.0-1.0); MONOCYTES % (AUTO) 4 % (0-12); NEUTROPHILS # (AUTO) 7.2 10^3/uL (1.8-7.8); NEUTROPHILS % (AUTO) 85 % (42-75); PLATELET COUNT 241 10^3/uL (130-400); WHITE BLOOD COUNT 8.5 10^3/uL (4.3-11.0)
[2023-05-18] MEDS ORDERED: RT-Ipratropium/Albuterol NEB 3 ML VIAL INH ONE (15:30)
[2023-05-18] MEDS ORDERED: cefTRIAXone IV/IM 1,000 MG in NS (IVPB) 50 ML 50 ML IV ONE (15:30)
--- NOTE | 2023-05-18 15:41 | Diagnostic Imaging Report ---
INDICATION: Shortness of breath. COMPARISON: 05/16/2023. FINDINGS: Severe COPD and pulmonary hyperinflation are chronic. Breast implants with capsular calcifications are chronic. No failure pattern, effusion, or pneumothorax. No focal infiltrate. IMPRESSION: Stable chronic findings with severe emphysematous hyperexpansion of the clear lungs. Dictated by: Dictated on workstation # [id number]
[2023-05-18 16:12] LABS: CREATININE SERUM 0.69 MG/DL (0.60-1.30); POTASSIUM 4.6 MMOL/L (3.6-5.0)
[2023-05-18 16:13] LABS: ALBUMIN 4.3 GM/DL (3.2-4.5); BILIRUBIN,TOTAL 0.6 MG/DL (0.1-1.0); CALCIUM 9.2 MG/DL (8.5-10.1); TOTAL PROTEIN 6.9 GM/DL (6.4-8.2)
[2023-05-18] MEDS ORDERED: ACHD5005 PO (16:36)
[2023-05-18] MEDS ORDERED: CEFD300C3 PO (16:36)
== END 2023-05-18 16:48 | disposition home or self-care (01) ==
LOC: EDUNIT# 15:15 → ER FS 15:18
DX: J44.9 Chronic obstructive pulmonary disease, unspecified (principal); J96.10 Chronic respiratory failure, unspecified whether with hypoxia or hypercapnia; Z99.81 Dependence on supplemental oxygen; Z99.89 Dependence on other enabling machines and devices; Z72.0 Tobacco use; Z79.52 Long term (current) use of systemic steroids
CPT/HCPCS: 36415; 71045; 80053; 82805; 85025; 94640

== ENCOUNTER 2023-05-20 09:36 | Inpatient (IN) | payer MEDICARE, OTHER ==
[2023-05-20] VITALS (7 sets, daily range): BP systolic 108–177; BP diastolic 77–115
[~2023-05-20] VITALS: Ht 162.5 cm; Wt 52.4 kg
[~2023-05-20 09:36] MED LIST changes: +ACHD5005 PO
[2023-05-20] MEDS ORDERED: RT-Ipratropium/Albuterol NEB 3 ML VIAL ONE (09:49)
[2023-05-20] MEDS ORDERED: RT-ALBUTEROL SULF 2.5 MG/3 ML PRE-MIX VIAL ONE (10:12)
[2023-05-20] MEDS ORDERED: NS IV 500 ML 500 ML ONE (10:12)
--- NOTE | 2023-05-20 10:20 | ED General ---
General Chief Complaint: Respiratory Problems Stated Complaint: SOB Nursing Triage Note: PT REPORTS INCREASED SHORTNESS OF BREATH THE LAST WEEK. PROD COUGH. Source of Information: Patient, Old Records Exam Limitations: No Limitations History of Present Illness Date Seen by Provider: May 20, 2023 Time Seen by Provider: 09:37 Initial Comments This 73-year-old woman presents to the emergency room via [facility] for the third time this week with shortness of breath related to COPD exacerbation. She has received antibiotics and prednisone treatment but continues to struggle at home. She has been wearing her BiPAP nearly continuously and using oxygen at 5 L/min which is an increase from her baseline. During her last ER visit admission was offered but declined. Hospice was also discussed. She is afebrile. She has not been able to eat or drink significant amounts over the past couple of days as she has not tolerated time off of BiPAP at home. She is now interested in admission. She is averse to discussion about code status and hospice at this time. She is an active smoker. She had negative flu and influenza swabs on May 16. She reports compliance with her prednisone and Omnicef but has not been doing breathing treatments. She received a DuoNeb treatment and Solu-Medrol 125 mg IV by EMS in route. Allergies and Home Medications Allergies Coded Allergies: No Known Drug Allergies (Unverified , 08/06/17) Patient Home Medication List Home Medication List Reviewed: Yes ALPRAZolam (ALPRAZolam) 0.25 Mg Tablet, 0.25 MG PO Q8H PRN for ANXIETY, (Reported) Entered as Reported by: DOROTHY HUA on 01/13/21 1458 Albuterol Sulfate (Ventolin Hfa) 1 Puff Puff, 2 PUFF IH Q4H PRN for SHORTNESS OF BREATH, (Reported) Entered as Reported by: RABIA ANDINO on 01/07/21 1407 Albuterol Sulfate (Albuterol Sulfate) 2.5 Mg/0.5 Ml Vial.neb, 2.5 MG INH Q4H Prescribed by: CONNER SCANLON MD on 05/16/23 1426 Azithromycin (Azithromycin) 500 Mg Tablet, 500 MG PO DAILY Prescribed by: CONNER SCANLON MD on 05/16/23 1426 Cefdinir (Cefdinir) 300 Mg Capsule, 300 MG PO BID Prescribed by: WAQAR CAGE on 05/18/23 1636 Cetirizine HCl (Zyrtec) 10 Mg Tablet, 10 MG PO DAILY, (Reported) Entered as Reported by: DOROTHY HUA on 01/13/21 1458 Famotidine (Pepcid) 20 Mg Tablet, 20 MG PO BID Prescribed by: CONNER SCANLON MD on 10/20/21 1556 Fluticasone/Umeclidin/Vilanter (Trelegy Ellipta 100-62.5-25) 1 Each Blst.w.dev, 1 PUFF IH BID, (Reported) Entered as Reported by: AKHIL GOMEZ on 02/19/20 1330 Hydrocodone/Acetaminophen (Hydrocodone-Acetamin 5-325 mg) 5 Mg-325 Mg Tablet, 1 TAB PO Q6H PRN for PAIN-MODERATE (5-7) Prescribed by: WAQAR CAGE on 05/18/23 1636 Ibuprofen (Advil) 200 Mg Tablet, 400-600 MG PO Q8H PRN for PAIN-MILD (1-4), (Reported) Entered as Reported by: DOROTHY HUA on 01/13/21 1458 Ipratropium/Albuterol Sulfate (Iprat-Albut 0.5-3(2.5) mg/3 ml) 3 Ml Ampul.neb, 3 ML IH Q4H PRN for SHORTNESS OF BREATH, (Reported) Entered as Reported by: DOROTHY HUA on 01/13/21 1522 Montelukast Sodium (Montelukast Sodium) 10 Mg Tablet, 10 MG PO HS, (Reported) Entered as Reported by: SELVIN VÁSQUEZ on 08/06/17 0907 Review of Systems Review of Systems Constitutional: no symptoms reported EENTM: no symptoms reported Respiratory: see HPI Cardiovascular: no symptoms reported; No chest pain Gastrointestinal: see HPI Genitourinary: no symptoms reported : No Musculoskeletal: no symptoms reported Skin: no symptoms reported Psychiatric/Neurological: No Symptoms Reported Hematologic/Lymphatic: No Symptoms Reported Immunological/Allergic: no symptoms reported Past Uzkosuo-Qvunur-Jsefpt Hx Patient Social History Tobacco Use?: Yes Tobacco type used: Cigarettes Smoking Status: Current Everyday Smoker Use of E-Cig and/or Vaping dev: No Substance use?: No Alcohol Use?: No Pt feels they are or have been: No Immunizations Up To Date Tetanus Booster (TDap): Less than 5yrs First/Initial COVID19 Vaccinat: Date ? Second COVID19 Vaccination Schuyler: Date ? Third COVID19 Vaccination Date: Date ? Seasonal Allergies Seasonal Allergies: No Past Medical History Surgery/Hospitalization HX: COPD Surgeries: No Respiratory: Yes COPD (BiPAP and O2 dependent at home) Currently Using CPAP: Yes (AT NIGHT) Currently Using BIPAP: No Cardiac: No Neurological: No Reproductive Disorders: No Sexually Transmitted Disease: No HIV/AIDS: No Genitourinary: No Gastrointestinal: No Musculoskeletal: No Endocrine: No HEENT: Yes (WEARS GLASSES) Cataract Hearing Impairment: Denies Cancer: No Did You Recieve Any Treatments: No Psychosocial: No Integumentary: No Blood Disorders: No Adverse Reaction/Blood Tranf: No Family Medical History No Pertinent Family Hx Physical Exam Vital Signs Vital Signs - First Documented 05/20/23 09:40 Temp 36.4 Pulse 115 Resp 16 B/P (MAP) 126/73 (90) Pulse Ox 95 O2 Delivery Room Air O2 Flow Rate 4.00 Capillary Refill : Less Than 3 Seconds Height, Weight, BMI Height: 5'4.00" Weight: 120lbs. 8.0oz. 54.493362bi; 20.00 BMI Method:Stated General Appearance: WD/WN, Moderate Distress, Thin HEENT: PERRL/EOMI, Normal ENT Inspection, Other (Dry oropharynx) Neck: Normal Inspection; No JVD Respiratory: Accessory Muscle Use, Decreased Breath Sounds, Wheezing, Other (Wet sounding cough) Cardiovascular: Regular Rate, Rhythm, No Edema, No Murmur Extremity: Normal Inspection, No Pedal Edema Neurologic/Psychiatric: Alert, Oriented x3, No Motor/Sensory Deficits, Other (Irritable) Skin: Normal Color, Warm/Dry Progress/Results/Core Measures Suspected Sepsis SIRS Temperature: Pulse: 115 Respiratory Rate: 16 Laboratory Tests 05/20/23 09:47: White Blood Count 14.4H Blood Pressure 126 /73 Mean: 90 Laboratory Tests 05/20/23 09:47: Creatinine 0.81, Platelet Count 267, Total Bilirubin 1.2H Results/Orders Lab Results Laboratory Tests Test 05/20/23 09:47 Range/Units White Blood Count 14.4 H 4.3-11.0 10^3/uL Red Blood Count 4.69 3.80-5.11 10^6/uL Hemoglobin 13.8 11.5-16.0 g/dL Hematocrit 43 35-52 % Mean Corpuscular Volume 92 80-99 fL Mean Corpuscular Hemoglobin 29 25-34 pg Mean Corpuscular Hemoglobin Concent 32 32-36 g/dL Red Cell Distribution Width 13.9 10.0-14.5 % Platelet Count 267 130-400 10^3/uL Mean Platelet Volume 10.7 9.0-12.2 fL Immature Granulocyte % (Auto) 1 % Neutrophils (%) (Auto) 76 H 42-75 % Lymphocytes (%) (Auto) 17 12-44 % Monocytes (%) (Auto) 7 0-12 % Eosinophils (%) (Auto) 0 0-10 % Basophils (%) (Auto) 0 0-10 % Neutrophils # (Auto) 10.9 H 1.8-7.8 X 10^3 Lymphocytes # (Auto) 2.5 1.0-4.0 X 10^3 Monocytes # (Auto) 0.9 0.0-1.0 X 10^3 Eosinophils # (Auto) 0.0 0.0-0.3 10^3/uL Basophils # (Auto) 0.0 0.0-0.1 10^3/uL Immature Granulocyte # (Auto) 0.1 0.0-0.1 10^3/uL Neutrophils % (Manual) 75 % Lymphocytes % (Manual) 20 % Monocytes % (Manual) 5 % Eosinophils % (Manual) 0 % Basophils % (Manual) 0 % Band Neutrophils 0 % Blood Morphology Comment NORMAL Sodium Level 142 135-145 MMOL/L Potassium Level 4.0 3.6-5.0 MMOL/L Chloride Level 103 98-107 MMOL/L Carbon Dioxide Level 28 21-32 MMOL/L Anion Gap 11 5-14 MMOL/L Blood Urea Nitrogen 30 H 7-18 MG/DL Creatinine 0.81 0.60-1.30 MG/DL Estimat Glomerular Filtration Rate 78 BUN/Creatinine Ratio 37 Glucose Level 107 H 70-105 MG/DL Calcium Level 9.5 8.5-10.1 MG/DL Corrected Calcium 9.3 8.5-10.1 MG/DL Magnesium Level 2.2 1.6-2.4 MG/DL Total Bilirubin 1.2 H 0.1-1.0 MG/DL Aspartate Amino Transf (AST/SGOT) 26 5-34 U/L Alanine Aminotransferase (ALT/SGPT) 33 0-55 U/L Alkaline Phosphatase 71 40-136 U/L C-Reactive Protein < 0.30 <0.50 MG/DL Pro-B-Type Natriuretic Peptide 2010.0 H <125.0 PG/ML Total Protein 7.3 6.4-8.2 GM/DL Albumin 4.2 3.2-4.5 GM/DL Influenza Type A (RT-PCR) Not Detected Not Detecte Influenza Type B (RT-PCR) Not Detected Not Detecte SARS-CoV-2 RNA (RT-PCR) Not Detected Not Detecte My Orders Orders - DORA CALIX MD Ipratropium/Albuterol Inh Soln (Ipratrop (05/20/23 09:49) Cbc With Automated Diff (05/20/23 09:47) Comprehensive Metabolic Panel (05/20/23 09:47) Crp Fs (05/20/23 09:47) Magnesium (05/20/23 09:47) Probnp Fs (05/20/23 09:47) Covid 19 Inhouse Test (05/20/23 09:47) Influenza A And B By Pcr (05/20/23 09:47) Albuterol Pre-Mix Nebs (Rt) (Albuterol (05/20/23 10:12) Ns Iv 500 Ml (Ns Iv 500 Ml) (05/20/23 10:12) Albuterol Pre-Mix Nebs (Rt) (Albuterol (05/20/23 10:22) Ipratropium/Albuterol Inh Soln (Ipratrop (05/20/23 10:30) Svn Small Volume Nebulizer (05/20/23 10:22) Svn Small Volume Nebulizer (05/20/23 10:22) Chest 1 View Ap/Pa Only (05/20/23 10:25) Manual Differential (05/20/23 09:47) Ed Admission (Communication) (05/20/23 11:17) Alprazolam Tablet (Alprazolam Tablet) (05/20/23 11:45) Medications Given in ED Vital Signs/I&O 05/20/23 05/20/23 05/20/23 05/20/23 09:40 09:40 11:24 12:15 Temp 36.4 Pulse 115 Resp 16 15 B/P (MAP) 126/73 (90) 116/72 Pulse Ox 95 98 O2 Delivery Room Air Nasal Cannula NIV Bilevel O2 Flow Rate 4.00 40.00 05/20/23 13:00 Pulse 122 Capillary Refill : Less Than 3 Seconds Blood Pressure Mean: 90 Progress Note #1: Time: 10:45 Progress Note Patient was interviewed and examined upon arrival. Report was received from EMS. She received a DuoNeb treatment but was still quite tight and short of breath. She is now receiving albuterol 12.5 mg nebulized along with oxygen support. BiPAP may be employed if she is not getting significant relief with these treatments. Mucous membranes were quite dry so she is receiving a 500 mL normal saline bolus. Chest x-ray has been reviewed by me and chronic changes of COPD noted. Radiologist's report noted below. No acute consolidation or infiltrate was noted as adverse change from prior. Progress Note #2: Time: 11:00 Progress Note Patient has completed over half of her nebulized treatment. She is still struggling to breathe. We are halting her nebulizer treatments to initiate BiPAP therapy. Labs have been reviewed and interpreted by me in their entirety. CBC was remarkable for leukocytosis which is likely related to her recent steroid use. CMP was unremarkable. CRP was normal. BNP is elevated indicating increased left ventricular end diastolic dilatation which may be seen in CHF. Was significantly increased from prior at 2009. However, there was no evidence of heart failure or pulmonary edema on the chest x-ray. Progress Note #3: Time: 11:12 Progress Note BiPAP was initiated at a setting of 14/5 with a rate of 15 and 40% FiO2. Patient feels much better with BiPAP on and feels like these settings are appropriate. We have excellent tidal volume with these settings. Patient is agreeable to admission. I have discussed the case with Dr. Hebert who accepts admission and will provide admission orders. Given the elevated BNP, 2D echocardiogram may be of benefit. IV fluids have been initiated but have now been stopped due to the elevated BNP. Antibiotics were not administered as patient has been taking her antibiotics at home and there is no evidence of infection at this time. Influenza and COVID-19 tests were negative. Progress Note #4: Time: 11:31 Progress Note Patient reported the pressures felt high. BiPAP was adjusted to 12/5. Diagnostic Imaging Diagonstic Imaging: Xray Plain Films/CT/US/NM/MRI: chest Comments NAME: HEIDI HURTADO REC#: [id number] PT STATUS: REG ER : 1950 PHYSICIAN: DORA CALIX MD ADMIT DATE: 05/20/23/ER FS Draft Date of Exam:05/20/23 CHEST 1 VIEW AP/PA ONLY INDICATION: SOA, Cough TECHNIQUE: Single view chest 10:22 AM CORRELATION STUDY: 05/18/2023 FINDINGS: The heart size, mediastinal configuration and pulmonary vascularity are within normal limits. Lung alvarez are hyperinflated with prominent interstitial markings. No significant infiltrate. No pneumothorax. Densities over both lung bases compatible with breast implants. IMPRESSION: 1. Hyperinflated lung alvarez with advanced COPD. Dictated on workstation # [id number] Dict: 05/20/23 1040 Trans: 05/20/23 1041 [facility] [id number] Interpreted by: AUREA HOLT DO Departure Communication (Admissions) Time/Spoke to Admitting Phy: 11:05 Dr. Hebert Impression Primary Impression: Acute exacerbation of chronic obstructive pulmonary disease (COPD) Additional Impression: Acute respiratory failure Qualified Codes: J96.01 - Acute respiratory failure with hypoxia Disposition: 30 STILL A PATIENT Condition: Improved Admissions Decision to Admit Reason: Admit from ER (General) Decision to Admit/Date: May 20, 2023 Time/Decision to Admit Time: 11:05 Transfer Transfer Reason: Exceeds level of care Time Spoke to Accepting Phy: 11:05 Transfer Time: 12:15 Transfer Facility: [facility] Departure-Patient Inst. Referrals: SELVIN ROBIN APRN (PCP) Primary Care Physician [facility]VI (Family) Primary Care Physician Copy Copies To 1: [facility]/DORA COOMBS MD May 20, 2023 10:20
[2023-05-20] MEDS ORDERED: RT-ALBUTEROL SULF 2.5 MG/3 ML PRE-MIX VIAL INH STA (10:22)
[2023-05-20] MEDS ORDERED: RT-Ipratropium/Albuterol NEB 3 ML VIAL INH ONE (10:30)
[2023-05-20 10:32] LABS: EOSINOPHILS % (AUTO) 0 % (0-10); HEMATOCRIT 43 % (35-52); HEMOGLOBIN 13.8 g/dL (11.5-16.0); LYMPHOCYTES % (AUTO) 17 % (12-44); MEAN CORPUSCULAR HEMOGLOBIN 29 pg (25-34); MEAN CORPUSCULAR HGB CONC 32 g/dL (32-36); MEAN CORPUSCULAR VOLUME 92 fL (80-99); MEAN PLATELET VOLUME 10.7 fL (9.0-12.2); MONOCYTES % (AUTO) 7 % (0-12); NEUTROPHILS % (AUTO) 76 % (42-75); PLATELET COUNT 267 10^3/uL (130-400); WHITE BLOOD COUNT 14.4 10^3/uL (4.3-11.0)
[2023-05-20 10:35] LABS: BASOPHILS % (AUTO) 0 % (0-10); LYMPHOCYTES # (AUTO) 2.5 X 10^3 (1.0-4.0); MONOCYTES # (AUTO) 0.9 X 10^3 (0.0-1.0); NEUTROPHILS # (AUTO) 10.9 X 10^3 (1.8-7.8)
--- NOTE | 2023-05-20 10:42 | Diagnostic Imaging Report ---
INDICATION: SOA, Cough TECHNIQUE: Single view chest 10:22 AM CORRELATION STUDY: 05/18/2023 FINDINGS: The heart size, mediastinal configuration and pulmonary vascularity are within normal limits. Lung alvarez are hyperinflated with prominent interstitial markings. No significant infiltrate. No pneumothorax. Densities over both lung bases compatible with breast implants. IMPRESSION: 1. Hyperinflated lung alvarez with advanced COPD. Dictated by: Dictated on workstation # [id number]
[2023-05-20 10:49] LABS: BAND NEUTROPHILS 0 %; BASOPHILS % (MANUAL) 0 %; EOSINOPHILS % (MANUAL) 0 %; LYMPHOCYTES % (MANUAL) 20 %; MONOCYTES % (MANUAL) 5 %; NEUTROPHILS % (MANUAL) 75 %; RBC MORPH NORMAL
[2023-05-20 10:50] LABS: ALANINE AMINOTRANSFERASE 33 U/L (0-55); ALKALINE PHOSPHATASE 71 U/L (40-136); BILIRUBIN,TOTAL 1.2 MG/DL (0.1-1.0); BUN/CREATININE RATIO 37; CALCIUM 9.5 MG/DL (8.5-10.1); CARBON DIOXIDE 28 MMOL/L (21-32); CHLORIDE 103 MMOL/L (98-107); CREATININE SERUM 0.81 MG/DL (0.60-1.30); GFR ESTIMATED 78; GLUCOSE 107 MG/DL (70-105); MAGNESIUM 2.2 MG/DL (1.6-2.4); SODIUM 142 MMOL/L (135-145)
[2023-05-20 10:51] LABS: ALBUMIN 4.2 GM/DL (3.2-4.5); TOTAL PROTEIN 7.3 GM/DL (6.4-8.2)
[2023-05-20] MEDS ORDERED: ALPRAZolam 0.25 MG TABLET PO ONE (11:45)
[2023-05-20] MEDS ORDERED: RT-Ipratropium/Albuterol NEB 3 ML VIAL IH PRN (13:15)
[2023-05-20] MEDS ORDERED: meTOprolol INJECTION 5 MG/5 ML VIAL IV NR (13:30)
[2023-05-20] MEDS: LORazepam 0.5 MG TABLET PO PRN (13:36)
[2023-05-20] MEDS ORDERED: RT-ALBUTEROL SULF 2.5 MG/3 ML PRE-MIX VIAL INH SCH (14:00)
[2023-05-20] MEDS: RT-Ipratropium/Albuterol NEB 3 ML VIAL IH SCH ×3 (14:31→22:29)
[2023-05-20] MEDS: FUROSEMIDE INJECTION 40 MG/4 ML VIAL IVP SCH (16:55)
[2023-05-20] MEDS: amLODIPine 5 MG TABLET PO SCH (18:24)
[2023-05-20] MEDS: RT-BUDESONIDE NEBS 0.5 MG/2ML VIAL INH SCH (22:29)
[2023-05-21] VITALS (9 sets, daily range): BP systolic 111–149; BP diastolic 69–103
[2023-05-21] MEDS: LORazepam 0.5 MG TABLET PO PRN ×3 (00:21→19:36)
[2023-05-21] MEDS: RT-Ipratropium/Albuterol NEB 3 ML VIAL IH SCH ×6 (02:30→20:50)
[2023-05-21 05:26] LABS: BASOPHILS % (AUTO) 0 % (0-10); EOSINOPHILS % (AUTO) 0 % (0-10); HEMATOCRIT 43 % (35-52); HEMOGLOBIN 13.8 g/dL (11.5-16.0); LYMPHOCYTES # (AUTO) 1.5 10^3/uL (1.0-4.0); LYMPHOCYTES % (AUTO) 14 % (12-44); MEAN CORPUSCULAR HEMOGLOBIN 30 pg (25-34); MEAN CORPUSCULAR HGB CONC 33 g/dL (32-36); MEAN CORPUSCULAR VOLUME 91 fL (80-99); MEAN PLATELET VOLUME 9.8 fL (9.0-12.2); MONOCYTES % (AUTO) 9 % (0-12); NEUTROPHILS # (AUTO) 8.3 10^3/uL (1.8-7.8); NEUTROPHILS % (AUTO) 76 % (42-75); PLATELET COUNT 286 10^3/uL (130-400); WHITE BLOOD COUNT 10.9 10^3/uL (4.3-11.0)
[2023-05-21 05:59] LABS: ALBUMIN 4.1 GM/DL (3.2-4.5); BILIRUBIN,TOTAL 1.1 MG/DL (0.1-1.0); CALCIUM 9.3 MG/DL (8.5-10.1); CREATININE SERUM 0.85 MG/DL (0.60-1.30); POTASSIUM 4.1 MMOL/L (3.6-5.0); TOTAL PROTEIN 6.8 GM/DL (6.4-8.2)
[2023-05-21] MEDS: FUROSEMIDE INJECTION 40 MG/4 ML VIAL IVP SCH (06:30)
[2023-05-21] MEDS: RT-BUDESONIDE NEBS 0.5 MG/2ML VIAL INH SCH ×2 (06:57→20:50)
[2023-05-21] MEDS: amLODIPine 5 MG TABLET PO SCH (08:11)
[2023-05-21] MEDS: predniSONE 20 MG TABLET PO SCH (08:11)
--- NOTE | 2023-05-21 09:54 | Diagnostic Imaging Report ---
INDICATION: Respiratory distress with worsened difficulty breathing. COMPARISON: 05/20/2023. FINDINGS: Progressive symmetrical hyperexpansion of the lungs and extensive air trapping. No focal consolidation, effusion or pneumothorax, however. Heart size is normal. Breast implants with capsular calcifications chronic. No suspicious appearing nodularity. IMPRESSION: Extensive and progressive symmetrical air trapping and pulmonary hyperinflation with no acute pleural pathology, edema or consolidation. Dictated by: Dictated on workstation # [id number]
[2023-05-21 09:57] LABS: ABG BASE EXCESS 7.3 MMOL/L (-2.5-2.5); ABG OXYGEN SATURATION 99 % (94-100); ABG PCO2 52 MMHG (35-45); ABG PO2 126 MMHG (79-93); ABG TCO2 34.1 MMOL/L (21.0-31.0)
[2023-05-21 09:59] LABS: ALLENS TEST POSITIVE; INSPIRED O2 40%; PATIENT TEMP 35.6; VENTILATOR NO
[2023-05-21] MEDS: ACETAMINOPHEN 500 MG TABLET PO PRN (11:38)
[2023-05-21] MEDS: oxyCODONE IMMEDIATE RELEASE 5 MG TABLET PO PRN ×2 (12:02→22:36)
--- NOTE | 2023-05-21 14:47 | History & Physical ---
HPI History of Present Illness: 73 yo female came to ER due to worsening difficulty breathing, has COPD and uses home oxygen and bipap, has been having trouble staying off of bipap even to eat. This morning, she is on bipap and unable to speak in full sentences or loudly enough to give clear history, so history if generally per EMR review. Source: patient Exam Limitations: clinical condition Date seen by provider: May 21, 2023 Time Seen by Provider: 09:35 Attending Physician Racheal Fair Aprn PCP Admitting Physician: Gloria Hebert MD Attending Physician: Gloria Hebert MD Consult Date of Admission May 20, 2023 at 13:00 Home Medications Home Medications Reviewed patient Home Medication Reconciliation performed by pharmacy medication reconciliations endoscopy specialty technician and/or nursing. Patients Allergies have been reviewed. Allergies Coded Allergies: No Known Drug Allergies (Unverified , 08/06/17) PON-Ccults-Xdwzix Hx Patient Social History Smoking Status: Current Everyday Smoker 2nd Hand Smoke Exposure: No Recent Hopitalizations: No Alcohol Use?: No Tobacco type used: Cigarettes Immunizations Up To Date Tetanus Booster (TDap): Less than 5yrs Influenza Vaccine Up-to-Date: Yes; Up-to-Date First/Initial COVID19 Vaccinat: Date ? Second COVID19 Vaccination Schuyler: Date ? Third COVID19 Vaccination Date: Date ? Past Medical History PMHx: COPD Oxygen Supplementation 3L continuous SurgHx: Bilateral cataracts Family Medical History Significant Family History: No Pertinent Family Hx Review of Systems ([facility]) Constitutional: other (unable to obtain due to patient condition) Reviewed Test Results Reviewed Test Results Lab Laboratory Tests Test 05/20/23 09:47 05/21/23 05:07 05/21/23 09:49 Range/Units White Blood Count 14.4 H 10.9 4.3-11.0 10^3/uL Red Blood Count 4.69 4.65 3.80-5.11 10^6/uL Hemoglobin 13.8 13.8 11.5-16.0 g/dL Hematocrit 43 43 35-52 % Mean Corpuscular Volume 92 91 80-99 fL Mean Corpuscular Hemoglobin 29 30 25-34 pg Mean Corpuscular Hemoglobin Concent 32 33 32-36 g/dL Red Cell Distribution Width 13.9 13.3 10.0-14.5 % Platelet Count 267 286 130-400 10^3/uL Mean Platelet Volume 10.7 9.8 9.0-12.2 fL Immature Granulocyte % (Auto) 1 1 % Neutrophils (%) (Auto) 76 H 76 H 42-75 % Lymphocytes (%) (Auto) 17 14 12-44 % Monocytes (%) (Auto) 7 9 0-12 % Eosinophils (%) (Auto) 0 0 0-10 % Basophils (%) (Auto) 0 0 0-10 % Neutrophils # (Auto) 10.9 H 8.3 H 1.8-7.8 10^3/uL Lymphocytes # (Auto) 2.5 1.5 1.0-4.0 10^3/uL Monocytes # (Auto) 0.9 1.0 0.0-1.0 10^3/uL Eosinophils # (Auto) 0.0 0.0 0.0-0.3 10^3/uL Basophils # (Auto) 0.0 0.0 0.0-0.1 10^3/uL Immature Granulocyte # (Auto) 0.1 0.1 0.0-0.1 10^3/uL Neutrophils % (Manual) 75 % Lymphocytes % (Manual) 20 % Monocytes % (Manual) 5 % Eosinophils % (Manual) 0 % Basophils % (Manual) 0 % Band Neutrophils 0 % Blood Morphology Comment NORMAL Sodium Level 142 143 135-145 MMOL/L Potassium Level 4.0 4.1 3.6-5.0 MMOL/L Chloride Level 103 102 98-107 MMOL/L Carbon Dioxide Level 28 31 21-32 MMOL/L Anion Gap 11 10 5-14 MMOL/L Blood Urea Nitrogen 30 H 30 H 7-18 MG/DL Creatinine 0.81 0.85 0.60-1.30 MG/DL Estimat Glomerular Filtration Rate 78 73 BUN/Creatinine Ratio 37 35 Glucose Level 107 H 90 70-105 MG/DL Calcium Level 9.5 9.3 8.5-10.1 MG/DL Corrected Calcium 9.3 9.2 8.5-10.1 MG/DL Magnesium Level 2.2 1.6-2.4 MG/DL Total Bilirubin 1.2 H 1.1 H 0.1-1.0 MG/DL Aspartate Amino Transf (AST/SGOT) 26 24 5-34 U/L Alanine Aminotransferase (ALT/SGPT) 33 36 0-55 U/L Alkaline Phosphatase 71 58 40-136 U/L C-Reactive Protein < 0.30 <0.50 MG/DL Pro-B-Type Natriuretic Peptide 2010.0 H <125.0 PG/ML Total Protein 7.3 6.8 6.4-8.2 GM/DL Albumin 4.2 4.1 3.2-4.5 GM/DL Influenza Type A (RT-PCR) Not Detected Not Detecte Influenza Type B (RT-PCR) Not Detected Not Detecte SARS-CoV-2 RNA (RT-PCR) Not Detected Not Detecte B-Type Natriuretic Peptide 182.6 H <100.0 PG/ML Blood Gas Puncture Site LEFT RADIAL Blood Gas Patient Temperature 35.6 Arterial Blood pH 7.40 7.37-7.43 Arterial Blood Partial Pressure CO2 52 H 35-45 MMHG Arterial Blood Partial Pressure O2 126 H 79-93 MMHG Arterial Blood HCO3 32 H 23-27 MMOL/L Arterial Blood Total CO2 34.1 H 21.0-31.0 MMOL/L Arterial Blood Oxygen Saturation 99 94-100 % Arterial Blood Base Excess 7.3 H -2.5-2.5 MMOL/L Jimmy Test POSITIVE Blood Gas Ventilator Setting NO Blood Gas Inspired Oxygen 40% Radiology CXR: IMPRESSION: 1. Hyperinflated lung alvarez with advanced COPD. Physical Exam-([facility]) Physical Exam Vital Signs VS - Last 72 Hours, by Label 05/20/23 05/20/23 05/20/23 05/20/23 09:40 09:40 11:24 12:15 Temp 36.4 Pulse 115 Resp 16 15 B/P (MAP) 126/73 (90) 116/72 Pulse Ox 95 98 O2 Delivery Room Air Nasal Cannula NIV Bilevel O2 Flow Rate 4.00 40.00 05/20/23 05/20/23 05/20/23 05/20/23 13:00 13:14 14:31 15:44 Temp 35.6 Pulse 122 119 72 105 Resp 32 25 36 B/P (MAP) 141/113 (122) Pulse Ox 96 100 99 O2 Flow Rate 40.00 40.00 05/20/23 05/20/23 05/20/23 05/20/23 18:55 19:00 20:00 20:40 Temp 36.9 Pulse 100 92 89 Resp 37 23 B/P (MAP) 121/77 (92) Pulse Ox 99 99 100 O2 Delivery NIV Bilevel NIV Bilevel O2 Flow Rate 40.00 FiO2 40 05/20/23 05/20/23 05/21/23 05/21/23 22:29 23:51 01:00 02:30 Temp 36.0 Pulse 70 71 64 80 Resp 15 13 16 B/P (MAP) 108/81 (90) Pulse Ox 100 100 100 O2 Delivery NIV Bilevel O2 Flow Rate 40.00 40.00 05/21/23 05/21/23 05/21/23 05/21/23 03:45 06:57 06:57 07:00 Temp 36.1 Pulse 63 81 95 Resp 17 19 B/P (MAP) 125/79 (94) Pulse Ox 99 99 99 O2 Delivery NIV Bilevel NIV Bilevel O2 Flow Rate 40.00 FiO2 40 05/21/23 05/21/23 05/21/23 05/21/23 07:57 10:31 10:41 10:57 Temp 36.6 Pulse 114 103 Resp 18 17 B/P (MAP) 149/103 (118) Pulse Ox 99 99 97 O2 Delivery NIV Bilevel Nasal Cannula O2 Flow Rate 40.00 30.00 3.00 05/21/23 05/21/23 05/21/23 11:04 13:00 14:19 Temp 36.2 Pulse 108 112 Resp 18 B/P (MAP) 135/93 (107) Pulse Ox 97 99 O2 Delivery High Flow N/C Nasal Cannula O2 Flow Rate 3.00 3.00 Capillary Refill : Less Than 3 Seconds General Appearance: mild distress, thin Respiratory: other (decreased air movement throughout) Cardiovascular: regular rate, rhythm Gastrointestinal: normal bowel sounds, non tender, soft Extremities: no pedal edema Neurologic/Psychiatric: alert, normal mood/affect Skin: warm/dry Assessment/Plan Assessment/Plan Admission Status: Inpatient Order (span 2 midnights) Reason for Inpatient Admission: Severe COPD exacerbation requiring bipap (1) COPD with exacerbation Status: Acute Assessment & Plan: Prednisone, doxycycline, bipap as needed. Checking ABG given difficulty getting off of bipap, ativan prn anxiety/air hunger. Duonebs q4 and prn. Budesonide. (2) Acute respiratory failure Status: Acute Assessment & Plan: Acute on chronic secondary to COPD exacerbation. Qualifiers: Qualified Codes: J96.01 - Acute respiratory failure with hypoxia; J96.02 - Acute respiratory failure with hypercapnia (3) Elevated brain natriuretic peptide (BNP) level Status: Acute Assessment & Plan: Lasix, initially IV, change to oral. Echo ordered. (4) DVT prophylaxis Status: Acute Assessment & Plan: Enoxaparin Clinical Quality Measures Smoking Cessation Counseling: Counseling-Symptomatic: 3-10 Minutes GLORIA HEBERT MD May 21, 2023 14:47
[2023-05-21] MEDS ORDERED: PRD10T PO (15:18)
[2023-05-21] MEDS ORDERED: ATOR10TA66 PO (15:18)
[2023-05-21] MEDS ORDERED: UMEC62.5 INH (15:18)
[2023-05-21] MEDS ORDERED: FLUT1DIS26 INH (15:18)
[2023-05-21] MEDS ORDERED: ACHD5005 PO (15:18)
[2023-05-21] MEDS ORDERED: CEFD300C3 PO (15:18)
[2023-05-21] MEDS: ENOXAPARIN 40 MG/0.4 ML SYRINGE SQ SCH (17:30)
[2023-05-22] VITALS: BP 124/67
[2023-05-22] MEDS: RT-Ipratropium/Albuterol NEB 3 ML VIAL IH SCH ×6 (02:21→22:30)
[2023-05-22 04:00] VITALS: BP 130/66
[2023-05-22] MEDS: LORazepam 0.5 MG TABLET PO PRN ×2 (05:39→20:00)
[2023-05-22] MEDS: oxyCODONE IMMEDIATE RELEASE 5 MG TABLET PO PRN ×2 (05:39→20:00)
[2023-05-22 05:53] LABS: HEMATOCRIT 44 % (35-52); HEMOGLOBIN 14.5 g/dL (11.5-16.0); MEAN CORPUSCULAR HEMOGLOBIN 30 pg (25-34); MEAN CORPUSCULAR HGB CONC 33 g/dL (32-36); MEAN CORPUSCULAR VOLUME 90 fL (80-99); MEAN PLATELET VOLUME 10.1 fL (9.0-12.2); PLATELET COUNT 313 10^3/uL (130-400); WHITE BLOOD COUNT 13.9 10^3/uL (4.3-11.0)
[2023-05-22] MEDS: RT-BUDESONIDE NEBS 0.5 MG/2ML VIAL INH SCH ×2 (06:00→22:30)
[2023-05-22 06:15] LABS: ALBUMIN 3.8 GM/DL (3.2-4.5); BILIRUBIN,TOTAL 1.4 MG/DL (0.1-1.0); CALCIUM 9.2 MG/DL (8.5-10.1); CREATININE SERUM 0.79 MG/DL (0.60-1.30); POTASSIUM 3.9 MMOL/L (3.6-5.0); TOTAL PROTEIN 6.4 GM/DL (6.4-8.2)
[2023-05-22 08:00] VITALS: BP 153/97
[2023-05-22] MEDS: amLODIPine 5 MG TABLET PO SCH (09:05)
[2023-05-22] MEDS: FUROSEMIDE 40 MG TABLET PO SCH (09:05)
[2023-05-22] MEDS: predniSONE 20 MG TABLET PO SCH (09:05)
[2023-05-22] MEDS ORDERED: FLUoxetine 10 MG CAPSULE/TABLET PO ONE (09:30)
--- NOTE | 2023-05-22 09:33 | Progress Note - Hospitalist ---
Subjective HPI/CC On Admission Date Seen by Provider: May 22, 2023 Time Seen by Provider: 07:00 Subjective/Events-last exam Patient was able to go last night without BiPAP. This morning she did have an episode of shortness of breath with panic. She denies chills fever with cough that is nonproductive. She has a depressed appearing white female who denies any past history for treatment for depression usually takes alprazolam 0.25 mg each morning rarely more often than once a day continuing to smoke a pack cigarettes per day. She admits to depression and reports stress of being responsible for her 6-year-old granddaughter at home and does not know how she is going to take care of her. Her son lives with her and is currently unemployed. Objective Exam Vital Signs Vital Signs Date Time Temp Pulse Resp B/P (MAP) Pulse Ox O2 Delivery O2 Flow Rate FiO2 05/22/23 08:00 36.2 87 18 153/97 (115) 99 Nasal Cannula 2.00 05/21/23 08:00 40 Capillary Refill : Less Than 3 Seconds General Appearance: Chronically ill, Mild Distress Respiratory: No Accessory Muscle Use, No Respiratory Distress, Other (Diminished breath sounds posteriorly with scattered rhonchi mild expiratory wheezing.) Cardiovascular: Regular Rate, Rhythm, No Edema, No Gallop, No Murmur Gastrointestinal: Normal Bowel Sounds, No Organomegaly, No Pulsatile Mass, Non Tender, Soft Extremity: No Pedal Edema Results/Procedures Lab Laboratory Tests 05/22/23 05:28 Patient resulted labs reviewed. Assessment/Plan Assessment and Plan Assess & Plan/Chief Complaint Assessment/Plan-([facility]) (H&P) Assessment/Plan Assessment/Plan Admission Status: Inpatient Order (span 2 midnights) Reason for Inpatient Admission: Severe COPD exacerbation requiring bipap (1) COPD with exacerbation Status: Acute Assessment & Plan: Prednisone, doxycycline, bipap as needed. Checking ABG given difficulty getting off of bipap, ativan prn anxiety/air hunger. Duonebs q4 and prn. Budesonide. 05/22: Slow improvement in COPD exacerbation the patient has no evidence for an infectious component so we will discontinue doxycycline. She does appear clinically depressed and is having significant anxiety aggravating her shortness of breath. We will continue as needed lorazepam but will add 20 mg of fluoxetine. (2) Acute respiratory failure Status: Acute Assessment & Plan: Acute on chronic secondary to COPD exacerbation. Qualifiers: Qualified Codes: J96.01 - Acute respiratory failure with hypoxia; J96.02 - Acute respiratory failure with hypercapnia (3) Elevated brain natriuretic peptide (BNP) level Status: Acute Assessment & Plan: Lasix, initially IV, change to oral. Echo ordered. (4) DVT prophylaxis Status: Acute Assessment & Plan: Enoxaparin Clinical Quality Measures Smoking Cessation Counseling: Counseling-Symptomatic: 3-10 Minutes GIOVANNI HERNÁNDEZ MD May 22, 2023 09:33
[2023-05-22] MEDS ORDERED: FLUoxetine 20 MG CAPSULE PO ONE (10:00)
[2023-05-22 11:35] VITALS: BP 110/91
[2023-05-22] MEDS: ENOXAPARIN 40 MG/0.4 ML SYRINGE SQ SCH (15:50)
[2023-05-22 15:58] VITALS: BP 115/72
[2023-05-22 19:49] VITALS: BP 134/94
[2023-05-22] MEDS ORDERED: CALCIUM CARBONATE 500 MG CHEW TABLET PO PRN (21:30)
[2023-05-22] MEDS: FAMOTIDINE 20 MG TABLET PO PRN (22:51)
[2023-05-23] VITALS: BP 111/70
[2023-05-23] MEDS: RT-Ipratropium/Albuterol NEB 3 ML VIAL IH SCH ×6 (02:37→21:52)
[2023-05-23 04:00] VITALS: BP 130/88
[2023-05-23] MEDS: RT-BUDESONIDE NEBS 0.5 MG/2ML VIAL INH SCH ×2 (06:35→21:51)
[2023-05-23 06:36] VITALS: BP 130/88
[2023-05-23] MEDS: FUROSEMIDE 40 MG TABLET PO SCH (09:05)
[2023-05-23] MEDS: FLUoxetine 20 MG CAPSULE PO SCH (09:05)
[2023-05-23] MEDS: amLODIPine 5 MG TABLET PO SCH (09:05)
[2023-05-23] MEDS: predniSONE 20 MG TABLET PO SCH (09:05)
[2023-05-23] MEDS: FAMOTIDINE 20 MG TABLET PO PRN ×2 (10:46→20:33)
[2023-05-23] MEDS: LORazepam 0.5 MG TABLET PO PRN ×2 (10:46→20:33)
--- NOTE | 2023-05-23 10:59 | Progress Note - Hospitalist ---
Subjective HPI/CC On Admission Date Seen by Provider: May 23, 2023 Time Seen by Provider: 07:30 Subjective/Events-last exam Patient reports cough is about the same. No shortness of breath at rest still feels short of breath with getting to the bathroom and back denies chest pain no purulent sputum production. Objective Exam Vital Signs Vital Signs Date Time Temp Pulse Resp B/P (MAP) Pulse Ox O2 Delivery O2 Flow Rate FiO2 05/23/23 08:20 98 Nasal Cannula 2.00 05/23/23 08:08 36.0 05/23/23 07:00 119 05/23/23 06:36 16 05/23/23 04:00 130/88 (102) 05/21/23 08:00 40 Capillary Refill : Less Than 3 Seconds General Appearance: No Apparent Distress, Chronically ill Respiratory: No Accessory Muscle Use, No Respiratory Distress, Other (Scattered rhonchi with mild expiratory wheezing bilaterally no focal findings noted.) Cardiovascular: Regular Rate, Rhythm, No Edema, No Gallop, No JVD, No Murmur Extremity: No Pedal Edema Results/Procedures Lab Patient resulted labs reviewed. Assessment/Plan Assessment and Plan Assess & Plan/Chief Complaint Assessment/Plan-([facility]) (H&P) Assessment/Plan Assessment/Plan Admission Status: Inpatient Order (span 2 midnights) Reason for Inpatient Admission: Severe COPD exacerbation requiring bipap (1) COPD with exacerbation Status: Acute Assessment & Plan: Prednisone, doxycycline, bipap as needed. Checking ABG given difficulty getting off of bipap, ativan prn anxiety/air hunger. Duonebs q4 and prn. Budesonide. 05/22: Slow improvement in COPD exacerbation the patient has no evidence for an infectious component so we will discontinue doxycycline. She does appear clinically depressed and is having significant anxiety aggravating her shortness of breath. We will continue as needed lorazepam but will add 20 mg of fluoxetine. 05/23: Slow improvement in acute COPD exacerbation in an individual with chronic hypercapnic respiratory failure suggesting advanced disease. White count remains mildly elevated but she has no evidence for infection suggesting this is highly likely due to prednisone will continue at 40 mg daily as there is still evidence for significant reactive airway disease. (2) Acute respiratory failure Status: Acute Assessment & Plan: Acute on chronic secondary to COPD exacerbation. Qualifiers: Qualified Codes: J96.01 - Acute respiratory failure with hypoxia; J96.02 - Acute respiratory failure with hypercapnia (3) Elevated brain natriuretic peptide (BNP) level Status: Acute Assessment & Plan: Lasix, initially IV, change to oral. Echo ordered. (4) DVT prophylaxis Status: Acute Assessment & Plan: Enoxaparin Clinical Quality Measures Smoking Cessation Counseling: Counseling-Symptomatic: 3-10 Minutes GIOVANNI HERNÁNDEZ MD May 23, 2023 10:59
[2023-05-23] MEDS: ENOXAPARIN 40 MG/0.4 ML SYRINGE SQ SCH (14:39)
[2023-05-23 16:00] VITALS: BP 135/102
[2023-05-23 19:51] VITALS: BP 121/79
[2023-05-23] MEDS: oxyCODONE IMMEDIATE RELEASE 5 MG TABLET PO PRN (20:33)
[2023-05-24] VITALS (9 sets, daily range): BP systolic 115–143; BP diastolic 62–92
[2023-05-24] MEDS: RT-Ipratropium/Albuterol NEB 3 ML VIAL IH SCH ×6 (02:04→20:50)
[2023-05-24 05:52] LABS: BASOPHILS % (AUTO) 0 % (0-10); EOSINOPHILS # (AUTO) 0.1 10^3/uL (0.0-0.3); EOSINOPHILS % (AUTO) 1 % (0-10); HEMATOCRIT 41 % (35-52); HEMOGLOBIN 13.5 g/dL (11.5-16.0); LYMPHOCYTES # (AUTO) 2.9 10^3/uL (1.0-4.0); LYMPHOCYTES % (AUTO) 27 % (12-44); MEAN CORPUSCULAR HEMOGLOBIN 29 pg (25-34); MEAN CORPUSCULAR HGB CONC 33 g/dL (32-36); MEAN CORPUSCULAR VOLUME 88 fL (80-99); MONOCYTES # (AUTO) 1.2 10^3/uL (0.0-1.0); MONOCYTES % (AUTO) 11 % (0-12); NEUTROPHILS # (AUTO) 6.4 10^3/uL (1.8-7.8); NEUTROPHILS % (AUTO) 60 % (42-75); PLATELET COUNT 296 10^3/uL (130-400); WHITE BLOOD COUNT 10.8 10^3/uL (4.3-11.0)
[2023-05-24 06:19] LABS: ALBUMIN 3.6 GM/DL (3.2-4.5); BILIRUBIN,TOTAL 1.2 MG/DL (0.1-1.0); CALCIUM 8.9 MG/DL (8.5-10.1); CREATININE SERUM 0.84 MG/DL (0.60-1.30); POTASSIUM 3.4 MMOL/L (3.6-5.0)
[2023-05-24] MEDS: RT-BUDESONIDE NEBS 0.5 MG/2ML VIAL INH SCH ×2 (07:10→20:50)
[2023-05-24] MEDS: LORazepam 0.5 MG TABLET PO PRN ×2 (07:36→21:01)
[2023-05-24] MEDS: predniSONE 20 MG TABLET PO SCH (08:33)
[2023-05-24] MEDS: FLUoxetine 20 MG CAPSULE PO SCH (08:33)
[2023-05-24] MEDS: amLODIPine 5 MG TABLET PO SCH (08:33)
[2023-05-24] MEDS: FUROSEMIDE 40 MG TABLET PO SCH (08:33)
[2023-05-24] MEDS ORDERED: FAMOTIDINE 20 MG TABLET PO PRN (09:45)
--- NOTE | 2023-05-24 09:52 | Diagnostic Imaging Report ---
INDICATION: Hypoxia. Comparison is made with prior exam of 05/21/2023. FINDINGS: The heart size is normal. The lungs are clear. No pleural effusion or pneumothorax. Mediastinum is unremarkable. Air trapping compatible with COPD IMPRESSION: COPD No other acute cardiopulmonary abnormality. Dictated by: Dictated on workstation # [id number]
--- NOTE | 2023-05-24 09:55 | Physical Therapy Evaluation ---
PT Evaluation-General Medical Diagnosis Admission Date May 20, 2023 at 13:00 Medical Diagnosis: COPD exacerbation/respiratory failure Onset Date: May 20, 2023 Therapy Diagnosis Therapy Diagnosis: debility/weakness Height/Weight Height (Feet): 5 Height (Inches): 4.00 Weight (Pounds): 120 Weight (Ounces): 8.0 Precautions Precautions/Isolations: Fall Prevention, Standard Precautions Referral Physician: Briana Reason for Referral: Evaluation/Treatment Medical History Pertinent Medical History: COPD, Smoking Current History EMS secondary to SOA Reviewed History: Yes Social History Home: Single Level Current Living Status: Other Family Prior Prior Level of Function SCALE: Activities may be completed with or without assistive devices. 6-Vuevqouurg-ojeduur completes the activity by him/herself with no assistance from a helper. 5-Set-up or Clean-up Assistance-helper sets up or cleans up; patient completes activity. Murdo assists only prior to or following the activity. 4-Supervision or Touching Assistance-helper provides verbal cues and/or touching/steadying and/or contact guard assistance as patient completes activity. Assistance may be provided throughout the activity or intermittently. 3-Partial/Moderate Assistance-helper does LESS THAN HALF the effort. Murdo lifts, holds or supports trunk or limbs, but provides less than half the effort. 2-Substantial/Maximal Assistance-helper does MORE THAN HALF the effort. Murdo lifts or holds trunk or limbs and provides more than half the effort. 7-Ckqccuhvx-isrusr does ALL the effort. Patient does none of the effort to complete the activity. Or, the assistance of 2 or more helpers is required for the patient to complete the activity. If activity was not attempted, code reason: 7-Patient Refused. 9-Not Applicable-not attempted and the patient did not perform the activity before the current illness, exacerbation or injury. 10-Not Attempted due to Environmental Limitations-(lack of equipment, weather restraints, etc.). 88-Not Attempted due to Medical Conditions or Safety Concerns. Bed Mobility: 6 Transfers (B,C,W/C): 6 Gait: 6 Stairs: 6 Indoor Mobility (Ambulation): Independent Stairs: Independent Prior Devices Use: Walker (PRN) works outside of home PT Evaluation-Current Subjective Patient agrees to PT. Objective Patient Orientation: Normal For Age Attachments: Oxygen (2L NC) ROM/Strength ROM Lower Extremities bilateral LE WFL Strength Lower Extremities 3+/5 grossly bilateral LE Integumentary/Posture Bladder Incontinence: Yes Posture WFL Neuromuscular (Tone, Coordination, Reflexes) grossly intact Sensory Vision: Wears Glasses Transfers Sit to Stand (QC): 4 Gait Mode of Locomotion: Walk Anticipated Mode of Locomotion: Walk Walk 10 feet (QC): 4 Walk 50 ft with 2 Turns(QC): 88 Walk 150 ft (QC): 88 Distance: 20' Gait Assistive Device: FWW Comments/Gait Description slow, slightly unsteady gait sequence/shaky Balance Sitting Static: Normal Sitting Dynamic: Normal Standing Static: Fair Standing Dynamic: Fair Assessment/Needs Patient will benefit from skilled PT to address functional strength and mobility to improve current LOF to safely return to home with family at maximum LOF. Rehab Potential: Fair PT Skilled Nursing Goals Dressmaking Teacher Goals PT Skilled Nursing Goals Time Frame: Jun 05, 2023 Roll Left & Right (QC): 6 Sit to Lying (QC): 6 Lying-Sitting on Side/Bed(QC): 6 Sit to Stand (QC): 6 Chair/Vvz-dy-Epubk Xfer(QC): 6 Toilet Transfer (QC): 6 Walk 10 feet (QC): 5 Walk 50ft with 2 Turns (QC): 5 Walk 150 ft (QC): 5 PT Plan Problem List Problem List: Activity Tolerance, Functional Strength, Safety, Balance, Gait, Transfer Treatment/Plan Treatment Plan: Continue Plan of Care Treatment Plan: Education, Functional Activity Oracio, Functional Strength, Gait, Safety, Therapeutic Exercise, Transfers Treatment Duration: Jun 05, 2023 Frequency: 6 times per week Estimated Hrs Per Day: .25 hour per day Patient and/or Family Agrees t: Yes Time Time In: 931 Time Out: 943 DATE: May 24, 2023 Total Billed Treatment Time: 12 Total Billed Treatment 1 visit [facility] 12 min TOMASA EDWARDS PT May 24, 2023 09:55
[2023-05-24 10:02] LABS: ABG BASE EXCESS 8.9 MMOL/L (-2.5-2.5); ABG OXYGEN SATURATION 98 % (94-100); ABG PCO2 50 MMHG (35-45); ABG PH 7.44 (7.37-7.43); ABG PO2 87 MMHG (79-93); ABG TCO2 35.1 MMOL/L (21.0-31.0)
[2023-05-24 10:06] LABS: ALLENS TEST YES-POS; INSPIRED O2 2L; PATIENT TEMP 36.4; VENTILATOR NO
--- NOTE | 2023-05-24 10:54 | Progress Note - Hospitalist ---
KENDRA TRAORE 05/24/23 1054: Subjective HPI/CC On Admission Date Seen by Provider: May 24, 2023 Time Seen by Provider: 08:40 Acute on Chronic hypoxic respiratory failure Subjective/Events-last exam Pt states that she is breathing slightly better today although she was struggling to eat due to shortness of breath. She is anxious today because she is worried about her job and she is going to take care of her son and granddaughter whom live at home with her. Pt has O2 sats of 95% on 2L NC. Coughing about the same and she is feeling fatigued. Pt denies chest pain. Review of Systems General: Fatigue, Malaise Pulmonary: Dyspnea Cardiovascular: No: Chest Pain, Palpitations Objective Exam Vital Signs Vital Signs Date Time Temp Pulse Resp B/P (MAP) Pulse Ox O2 Delivery O2 Flow Rate FiO2 05/24/23 08:15 36.8 105 18 138/92 (107) 96 NIV Bilevel 30.00 05/21/23 08:00 40 Capillary Refill : Less Than 3 Seconds General Appearance: Anxious, Chronically ill, Moderate Distress, Thin Respiratory: Respiratory Distress (mild, pursed lip breathing) Cardiovascular: Regular Rate, Rhythm, No Edema, No Murmur Neurologic/Psychiatric: Alert, Oriented x3 Results/Procedures Lab Laboratory Tests 05/24/23 05:35 Patient resulted labs reviewed. Assessment/Plan Assessment and Plan Assess & Plan/Chief Complaint Assessment 1. Acute on Chronic hypoxic respiratory failure 2. COPD Exacerbation 3. Elevated BNP Plan 1. Steroids 2. Nebs 3. Cardiology Consult 4. Repeat CXR, ABG 5. Echo Clinical Quality Measures Smoking Cessation Counseling: Counseling-Symptomatic: 3-10 Minutes GUILLERMINA MARTINEZ DO 05/24/234: Subjective Subjective/Events-last exam Patient remains on and off BiPAP Lungs are severe with COPD Continues to smoke Lungs are coarse Objective Exam General Appearance: Anxious, Chronically ill, Moderate Distress Respiratory: Accessory Muscle Use, Crackles, Decreased Breath Sounds, Respiratory Distress (mild, pursed lip breathing), Wheezing Cardiovascular: Regular Rate, Rhythm, Tachycardia Neurologic/Psychiatric: Alert, Oriented x3 Assessment/Plan Assessment and Plan Assess & Plan/Chief Complaint Assessment: Acute on chronic hypoxic respiratory failure with hypercapnia COPD exacerbation Current smoker Volume overload Plan: Cardiology consult Reviewed echo Maintain BiPAP Supervisory-Addendum Brief Verification & Attestation Participated in pt care: history, MDM, physical Personally performed: exam, history, MDM, supervision of care Care discussed with: Medical Student Procedures: n/a Results interpretation: Verified all documentation Verification and Attestation of Medical Student E/M Service A medical student performed and documented this service in my presence. I reviewed and verified all information documented by the medical student and made modifications to such information, when appropriate. I personally performed the physical exam and medical decision making. Guillermina Martinez, May 24, 2023,19:43 KENDRA TRAORE May 24, 2023 10:54 GUILLERMINA MARTINEZ DO May 24, 2023 19:44
--- NOTE | 2023-05-24 11:28 | Consultation-Cardiology ---
HPI-Cardiology Cardiology Consultation Date of Consultation 05/24/23 Date of Admission Time Seen by Provider: 08:40 Indication: Elevated BNP HPI Patient is a 73 y/o female with history of end stage COPD, presented to the ER with complaints of increased dyspnea over the past week. Denies any recent CP, dizziness or syncope. Denies any previous hx of CHF or CAD. Upon interviewing the patient, she appears to have some shortness of breath while sitting at bedside. Home Medications & Allergies Allergies: Coded Allergies: No Known Drug Allergies (Unverified , 08/06/17) Home Medication List Reviewed: Yes PTM-Hmtfoy-Eivicp Hx Patient Social History Employed/Student: retired Smoking Status: Current Everyday Smoker Type Used: Cigarettes 2nd Hand Smoke Exposure: No Recent Hopitalizations: No Alcohol Use?: No Immunizations Up To Date Tetanus Booster (TDap): Less than 5yrs Date of Influenza Vaccine: Jun 06, 2020 Past Medical History COPD/emphysema, Tobaccoism Family Medical History Significant Family History: No Pertinent Family Hx Review of Systems-General Review of Systems Constitutional: other (unable to obtain due to patient condition) EENTM: no symptoms reported Respiratory: see HPI Cardiovascular: no symptoms reported; No chest pain Gastrointestinal: see HPI Genitourinary: no symptoms reported : No Musculoskeletal: no symptoms reported Skin: no symptoms reported Psychiatric/Neurological: No Symptoms Reported Reviewed Test Results Reviewed Test Results Lab Laboratory Tests 05/24/23 05:35: White Blood Count 10.8, Red Blood Count 4.62, Hemoglobin 13.5, Hematocrit 41, Mean Corpuscular Volume 88, Mean Corpuscular Hemoglobin 29, Mean Corpuscular Hemoglobin Concent 33, Red Cell Distribution Width 12.5, Platelet Count 296, Mean Platelet Volume 10.0, Immature Granulocyte % (Auto) 2, Neutrophils (%) (Auto) 60, Lymphocytes (%) (Auto) 27, Monocytes (%) (Auto) 11, Eosinophils (%) (Auto) 1, Basophils (%) (Auto) 0, Neutrophils # (Auto) 6.4, Lymphocytes # (Auto) 2.9, Monocytes # (Auto) 1.2H, Eosinophils # (Auto) 0.1, Basophils # (Auto) 0.0, Immature Granulocyte # (Auto) 0.2H, Sodium Level 138, Potassium Level 3.4L, Chloride Level 96L, Carbon Dioxide Level 33H, Anion Gap 9, Blood Urea Nitrogen 24H, Creatinine 0.84, Estimat Glomerular Filtration Rate 74, BUN/Creatinine Ratio 29, Glucose Level 90, Calcium Level 8.9, Corrected Calcium 9.2, Total Bilirubin 1.2H, Aspartate Amino Transf (AST/SGOT) 17, Alanine Aminotransferase (ALT/SGPT) 42, Alkaline Phosphatase 50, Total Protein 6.0L, Albumin 3.6 05/24/23 09:55: Blood Gas Puncture Site L RAD, Blood Gas Patient Temperature 36.4, Arterial Blood pH 7.44H, Arterial Blood Partial Pressure CO2 50H, Arterial Blood Partial Pressure O2 87, Arterial Blood HCO3 34H, Arterial Blood Total CO2 35.1H, Arterial Blood Oxygen Saturation 98, Arterial Blood Base Excess 8.9H, Jimmy Test YES-POS, Blood Gas Ventilator Setting NO, Blood Gas Inspired Oxygen 2L Radiology CXR: IMPRESSION: 1. Hyperinflated lung alvarez with advanced COPD. Physical Exam Physical Exam Vital Signs Vital Signs - First Documented 05/20/23 05/20/23 09:40 20:00 Temp 36.4 Pulse 115 Resp 16 B/P (MAP) 126/73 (90) Pulse Ox 95 O2 Delivery Room Air O2 Flow Rate 4.00 FiO2 40 Capillary Refill : Less Than 3 Seconds Height, Weight, BMI Height: 5'4.00" Weight: 120lbs. 8.0oz. 54.755916bi; 21.13 BMI Method:Stated General Appearance: Anxious, Chronically ill, Moderate Distress, Thin HEENT: PERRL/EOMI, Normal ENT Inspection, Other (Dry oropharynx) Neck: Normal Inspection; No JVD Respiratory: Decreased Breath Sounds, Respiratory Distress (mild, pursed lip breathing) Cardiovascular: Regular Rate, Rhythm, No Edema, No Murmur Gastrointestinal: Normal Bowel Sounds, No Organomegaly, No Pulsatile Mass, Non Tender, Soft Extremity: No Pedal Edema Neurologic/Psychiatric: Alert, Oriented x3 Skin: Normal Color, Warm/Dry A/P-Cardiology Admission Diagnosis Acute respiratory failure AE COPD/emphysema Elevated BNP HLP Assessment/Plan Acute respiratory failure, slowly improving. Management per medical services AE COPD/emphysema, patient with advanced COPD. Management per medical services Elevated BNP. 2D Echo done 05/20/[address] Martínez showing EF 55- 60%, grade 2 diastolic dysfunction, PA 23mmHg. Continue to diurese HLP, maintained on statin as outpatient Tobaccoism, educated on the importance of smoking cessation Thank you for allowing us to participate in the management of Ms Josefina. This is Danni Vidales PA-C, as a scribe for Dr. Moreno. This is a late entry, patient was seen and evaluated on May 24, 2023 with Danni, I interviewed and examined the patient discussed the management plan with Danni and agree with the current scribed note Patient was in respiratory failure and reporting improvement, elevated BNP History of tobaccoism, educated on smoking cessation Clinical Quality Measures Smoking Cessation Counseling: Counseling-Symptomatic: 3-10 Minutes DANNI PACE May 24, 2023 11:28 REINIER MORENO MD May 25, 2023 08:12
[2023-05-24] MEDS: ENOXAPARIN 40 MG/0.4 ML SYRINGE SQ SCH (15:50)
[2023-05-24] MEDS: oxyCODONE IMMEDIATE RELEASE 5 MG TABLET PO PRN (21:02)
[2023-05-25] VITALS (10 sets, daily range): BP systolic 106–139; BP diastolic 61–86
[2023-05-25] MEDS: RT-Ipratropium/Albuterol NEB 3 ML VIAL IH SCH ×5 (02:08→22:09)
[2023-05-25 04:46] LABS: BASOPHILS % (AUTO) 0 % (0-10); EOSINOPHILS # (AUTO) 0.1 10^3/uL (0.0-0.3); EOSINOPHILS % (AUTO) 1 % (0-10); HEMATOCRIT 41 % (35-52); HEMOGLOBIN 13.7 g/dL (11.5-16.0); LYMPHOCYTES # (AUTO) 2.9 10^3/uL (1.0-4.0); LYMPHOCYTES % (AUTO) 22 % (12-44); MEAN CORPUSCULAR HEMOGLOBIN 30 pg (25-34); MEAN CORPUSCULAR HGB CONC 34 g/dL (32-36); MEAN CORPUSCULAR VOLUME 89 fL (80-99); MEAN PLATELET VOLUME 10.5 fL (9.0-12.2); MONOCYTES # (AUTO) 1.3 10^3/uL (0.0-1.0); MONOCYTES % (AUTO) 10 % (0-12); NEUTROPHILS % (AUTO) 67 % (42-75); PLATELET COUNT 300 10^3/uL (130-400); WHITE BLOOD COUNT 13.4 10^3/uL (4.3-11.0)
[2023-05-25 05:10] LABS: ALBUMIN 3.7 GM/DL (3.2-4.5); CALCIUM 8.9 MG/DL (8.5-10.1); CREATININE SERUM 0.9 MG/DL (0.60-1.30); POTASSIUM 3.3 MMOL/L (3.6-5.0); TOTAL PROTEIN 6.1 GM/DL (6.4-8.2)
[2023-05-25] MEDS ORDERED: POTASSIUM CHLORIDE 20 MEQ TABLET PO ONE (06:15)
[2023-05-25] MEDS: RT-BUDESONIDE NEBS 0.5 MG/2ML VIAL INH SCH ×2 (07:11→22:09)
--- NOTE | 2023-05-25 08:13 | Cardiology Progress Note ---
Subjective Date Seen by Provider: May 25, 2023 Time Seen by Provider: 08:13 Subjective/Events-last exam Patient was seen at bedside sitting comfortably, feeling better. No new complain Objective-Cardiology Exam Last Set of Vital Signs Vital Signs 05/24/23 05/24/23 05/25/23 05/25/23 05/25/23 05/25/23 19:24 20:00 02:08 04:00 06:29 07:11 Temp 36.2 Pulse 130 Resp 16 B/P (MAP) 114/67 (84) Pulse Ox 98 O2 Delivery Nasal Cannula O2 Flow Rate 2.00 FiO2 30 I&O Intake and Output 05/25/23 00:00 Intake Total 1050 ml Output Total 250 ml Balance 800 ml Intake Oral 1050 ml Output Urine Total 250 ml # Voids 3 General: Alert, Oriented X3, Cooperative HEENT: Atraumatic, PERRLA Neck: Supple, No JVD, No Thyromegaly Lungs: Clear to Auscultation, Normal Air Movement Heart: Regular Rate, Normal S1, Normal S2, No Murmurs Abdomen: Normal Bowel Sounds, Soft, No Tenderness, No Hepatosplenomegaly, No Masses Extremities: No Clubbing, No Cyanosis, No Edema, Normal Pulses, No Tenderness/Swelling Skin: No Rashes, No Breakdown, No Significant Lesion Neuro: Normal Gait, Normal Speech, Strength at 5/5 X4 Ext, Normal Tone, Sensation Intact Psych/Mental Status: Mental Status NL, Mood NL Results Lab Laboratory Tests 05/25/23 04:16 A/P-Cardiology Admission Diagnosis Acute respiratory failure AE COPD/emphysema Elevated BNP HLP Assessment/Plan Acute respiratory failure, slowly improving. Management per medical services AE COPD/emphysema, patient with advanced COPD. Management per medical services Elevated BNP. 2D Echo done 05/20/[address] Martínez showing EF 55- 60%, grade 2 diastolic dysfunction, PA 23mmHg. Continue to diurese HLP, maintained on statin as outpatient Tobaccoism, educated on the importance of smoking cessation REINIER GUERRERO MD May 25, 2023 08:13
[2023-05-25] MEDS: FLUoxetine 20 MG CAPSULE PO SCH (08:42)
[2023-05-25] MEDS: ACETAMINOPHEN 500 MG TABLET PO PRN (08:42)
[2023-05-25] MEDS: predniSONE 20 MG TABLET PO SCH (08:42)
[2023-05-25] MEDS: LORazepam 0.5 MG TABLET PO PRN ×2 (08:42→19:27)
[2023-05-25] MEDS: amLODIPine 5 MG TABLET PO SCH (08:42)
[2023-05-25] MEDS: FUROSEMIDE 40 MG TABLET PO SCH (08:42)
--- NOTE | 2023-05-25 09:21 | Progress Note - Hospitalist ---
KENDRA TRAORE 05/25/2321: Subjective HPI/CC On Admission Date Seen by Provider: May 25, 2023 Time Seen by Provider: 08:05 Acute on Chronic hypoxic respiratory failure Subjective/Events-last exam CC: Dyspnea Pt vitals are HR 84 RR 16 BP 114/67 O2 sats 98% 2L NC. ABG showed 7.44/50/87. Potassium decreased to 3.3. Pt states that she is feeling about the same other than a headache that started this morning. Pt denies chest pain, diarrhea, nausea, fever, chills. No new concerns. Review of Systems General: No Chills; Malaise HEENT: Head Aches Pulmonary: Dyspnea (improved breathing compared to yesterday), Cough; No Pleu ritic Chest Pain Cardiovascular: No: Chest Pain, Palpitations Gastrointestinal: Constipation; No: Nausea, Vomiting, Diarrhea Genitourinary: No Dysuria Objective Exam Vital Signs Vital Signs Date Time Temp Pulse Resp B/P (MAP) Pulse Ox O2 Delivery O2 Flow Rate FiO2 05/25/23 08:35 36.1 104 139/86 (103) 94 Nasal Cannula 2.00 05/25/23 02:08 16 05/24/23 20:00 30 Capillary Refill : Less Than 3 Seconds General Appearance: Anxious, Chronically ill, Mild Distress, Thin Respiratory: No No Accessory Muscle Use; No Respiratory Distress, Wheezing (better than yesterday) Cardiovascular: Regular Rate, Rhythm, No Gallop, No Murmur Neurologic/Psychiatric: Alert, Oriented x3, No Motor/Sensory Deficits, Depressed Affect Results/Procedures Lab Laboratory Tests 05/25/23 04:16 Patient resulted labs reviewed. Assessment/Plan Assessment and Plan Assess & Plan/Chief Complaint Assessment 1. Acute on Chronic hypoxic respiratory failure 2. COPD Exacerbation 3. Elevated BNP Plan 1. Steroids 2. O2 3. Nebs 4. Cardio Consult 5. Transfer to Med/Surg 6.Monitor K+ Clinical Quality Measures Smoking Cessation Counseling: Counseling-Symptomatic: 3-10 Minutes GUILLERMINA MARTINEZ DO 05/25/231933: Subjective Subjective/Events-last exam Patient about the same Moving to 4th floor BiPAP and O2 maintained Patient very irritated Review of Systems General: Fatigue, Malaise Pulmonary: Dyspnea (improved breathing compared to yesterday), Cough Objective Exam General Appearance: WD/WN, Chronically ill, Mild Distress Respiratory: Lungs Clear, Normal Breath Sounds Cardiovascular: Regular Rate, Rhythm Neurologic/Psychiatric: Alert, Oriented x3 Assessment/Plan Assessment and Plan Assess & Plan/Chief Complaint Move to 4th floor BiPAP O2 Supervisory-Addendum Brief Verification & Attestation Participated in pt care: history, MDM, physical Personally performed: exam, history, MDM, supervision of care Care discussed with: Medical Student Procedures: n/a Results interpretation: Verified all documentation Verification and Attestation of Medical Student E/M Service A medical student performed and documented this service in my presence. I reviewed and verified all information documented by the medical student and made modifications to such information, when appropriate. I personally performed the physical exam and medical decision making. Guillermina Martinez, May 25, 2023,19:32 KENDRA TRAORE May 25, 2023 09:21 GUILLERMINA MARTINEZ DO May 25, 2023 19:34
--- NOTE | 2023-05-25 10:31 | Physical Therapy Progress Note ---
Therapy Progress Note Patient declined PT due to frustration and not wanting to do anything. PT attempted to encourage patient to participate with PT, however, patient continued to decline. Will attempt tomorrow TOMASA Barnett PT May 25, 2023 10:31
[2023-05-25] MEDS: ENOXAPARIN 40 MG/0.4 ML SYRINGE SQ SCH (15:37)
[2023-05-26] VITALS (12 sets, daily range): BP systolic 109–140; BP diastolic 7–102
[2023-05-26] MEDS: RT-Ipratropium/Albuterol NEB 3 ML VIAL IH SCH ×6 (02:30→23:01)
[2023-05-26 05:42] LABS: BASOPHILS % (AUTO) 0 % (0-10); EOSINOPHILS # (AUTO) 0.1 10^3/uL (0.0-0.3); EOSINOPHILS % (AUTO) 0 % (0-10); HEMATOCRIT 42 % (35-52); HEMOGLOBIN 13.6 g/dL (11.5-16.0); LYMPHOCYTES # (AUTO) 2.8 10^3/uL (1.0-4.0); LYMPHOCYTES % (AUTO) 20 % (12-44); MEAN CORPUSCULAR HEMOGLOBIN 30 pg (25-34); MEAN CORPUSCULAR HGB CONC 33 g/dL (32-36); MEAN CORPUSCULAR VOLUME 91 fL (80-99); MONOCYTES # (AUTO) 1.3 10^3/uL (0.0-1.0); MONOCYTES % (AUTO) 10 % (0-12); NEUTROPHILS # (AUTO) 9.6 10^3/uL (1.8-7.8); NEUTROPHILS % (AUTO) 69 % (42-75); PLATELET COUNT 295 10^3/uL (130-400)
[2023-05-26 06:09] LABS: ALBUMIN 3.7 GM/DL (3.2-4.5); BILIRUBIN,TOTAL 0.9 MG/DL (0.1-1.0); CALCIUM 9.4 MG/DL (8.5-10.1); CREATININE SERUM 0.79 MG/DL (0.60-1.30); POTASSIUM 3.9 MMOL/L (3.6-5.0)
[2023-05-26] MEDS: RT-BUDESONIDE NEBS 0.5 MG/2ML VIAL INH SCH ×2 (07:04→23:01)
[2023-05-26] MEDS: FLUoxetine 20 MG CAPSULE PO SCH (08:36)
[2023-05-26] MEDS: amLODIPine 5 MG TABLET PO SCH (08:36)
[2023-05-26] MEDS: FUROSEMIDE 40 MG TABLET PO SCH (08:36)
--- NOTE | 2023-05-26 09:17 | Physical Therapy Daily Note ---
PT Daily Note-Current Subjective Patient sitting at EOB upon PT arrival, agreeable to treatment. Patient rates pain at 0/10. Pain Section J - Health Conditions 1. Rarely or not at all 2. Occasionally 3. Frequently 4. Almost constantly 8. Unable to answer Pain Effect on Sleep: 1 Pain Interference with Therapy: 1 Pain Interference w/Day-to-Day: 1 Mental Status Patient Orientation: Person Transfers SCALE: Activities may be completed with or without assistive devices. 2-Gdmtrmovqy-urrtdmv completes the activity by him/herself with no assistance from a helper. 5-Set-up or Clean-up Assistance-helper sets up or cleans up; patient completes activity. [place] assists only prior to or following the activity. 4-Supervision or Touching Assistance-helper provides verbal cues and/or touching/steadying and/or contact guard assistance as patient completes activity. Assistance may be provided throughout the activity or intermittently. 3-Partial/Moderate Assistance-helper does LESS THAN HALF the effort. [place] lifts, holds or supports trunk or limbs, but provides less than half the effort. 2-Substantial/Maximal Assistance-helper does MORE THAN HALF the effort. [place] lifts or holds trunk or limbs and provides more than half the effort. 5-Ziqbscgzc-nzekta does ALL the effort. Patient does none of the effort to complete the activity. Or, the assistance of 2 or more helpers is required for the patient to complete the activity. If activity was not attempted, code reason: 7-Patient Refused. 9-Not Applicable-not attempted and the patient did not perform the activity before the current illness, exacerbation or injury. 10-Not Attempted due to Environmental Limitations-(lack of equipment, weather restraints, etc.). 88-Not Attempted due to Medical Conditions or Safety Concerns. Roll Left & Right (QC): 4 Sit to Lying (QC): 4 Lying to Sitting/Side of Bed(Q: 4 Sit to Stand (QC): 4 Chair/Jag-tx-Zxolv Xfer(QC): 4 Weight Bearing Right Lower Extremity: Right Full Weight Bearing Left Lower Extremity: Left Full Weight Bearing Gait Training Does the Patient Walk?: Yes Distance: 80' Walk 10 feet (QC): 4 Walk 50 ft with 2 Turns(QC): 4 Gait Assistive Device: FWW Assessment Current Status: Fair Progress Patient tolerated treatment fair. She performs all bed mobility and transfers with SBA. Patient ambulates 80' with FWW, with SBA and verbal cues for safety, progression, posture and conservation of energy. Patient in chair post treatment with all needs met, nursing notified, call light in hand. PT Cheese Cutter Goals Shelter Goals PT Cheese Cutter Goals Time Frame: Jun 05, 2023 Roll Left & Right (QC): 6 Sit to Lying (QC): 6 Lying-Sitting on Side/Bed(QC): 6 Sit to Stand (QC): 6 Chair/Xmu-zh-Koxbk Xfer(QC): 6 Toilet Transfer (QC): 6 Walk 10 feet (QC): 5 Walk 50ft with 2 Turns (QC): 5 Walk 150 ft (QC): 5 PT Plan Treatment/Plan Treatment Plan: Continue Plan of Care Treatment Plan: Education, Functional Activity Oracio, Functional Strength, Gait, Safety, Therapeutic Exercise, Transfers Treatment Duration: Jun 05, 2023 Frequency: 6 times per week Estimated Hrs Per Day: .25 hour per day Patient and/or Family Agrees t: Yes Safety Risks/Education Patient Education: Gait Training, Transfer Techniques Teaching Recipient: Patient Teaching Methods: Demonstration, Discussion Response to Teaching: Verbalize Understanding, Return Demonstration Time Time In: 916 Time Out: 928 DATE: May 26, 2023 Total Billed Treatment Time: 12 Total Billed Treatment Visit, CHELO TINSLEY PT May 26, 2023 09:17
--- NOTE | 2023-05-26 10:11 | Cardiology Progress Note ---
Subjective Date Seen by Provider: May 26, 2023 Time Seen by Provider: 08:38 Subjective/Events-last exam Patient is in bed, denies any chest pain or increased dyspnea. Objective-Cardiology Exam Last Set of Vital Signs Vital Signs 05/24/23 05/26/23 05/26/23 20:00 16:00 16:14 Temp 36.1 Pulse 98 Resp 11 B/P (MAP) 129/78 (95) Pulse Ox 98 O2 Delivery Nasal Cannula O2 Flow Rate 2.00 FiO2 30 I&O Intake and Output 05/26/23 00:00 Intake Total 770 ml Output Total 450 ml Balance 320 ml Intake Oral 770 ml Output Urine Total 450 ml # Voids 4 General: Alert, Oriented X3, Cooperative HEENT: Atraumatic, PERRLA Neck: Supple, No JVD, No Thyromegaly Lungs: Clear to Auscultation, Normal Air Movement Heart: Regular Rate, Normal S1, Normal S2, No Murmurs Abdomen: Normal Bowel Sounds, Soft, No Tenderness, No Hepatosplenomegaly, No Masses Extremities: No Clubbing, No Cyanosis, No Edema, Normal Pulses, No T enderness/Swelling Skin: No Rashes, No Breakdown, No Significant Lesion Neuro: Normal Gait, Normal Speech, Strength at 5/5 X4 Ext, Normal Tone, Sensation Intact Psych/Mental Status: Mental Status NL, Mood NL Results Lab Laboratory Tests 05/26/23 05:32 A/P-Cardiology Admission Diagnosis Acute respiratory failure AE COPD/emphysema Elevated BNP HLP Assessment/Plan Acute change in mental status with lethargy confusion and right upper extremity weakness. Questionable TIA versus hypertensive encephalopathy Currently back to baseline, patient was transferred to ICU CT scan of the head showed microvascular ischemia MRI is pending. Conservative management Status post acute respiratory failure, improving slowly Still having shortness of breath with tachycardia on exertion. Managed by primary care team AE COPD/emphysema, patient with advanced COPD. Management per medical services Elevated BNP. 2D Echo done 05/20/[address] Martínez showing EF 55- 60%, grade 2 diastolic dysfunction, PA 23mmHg. Continue to diurese HLP, maintained on statin as outpatient Tobaccoism, educated on the importance of smoking cessation Supervisory-Addendum Brief Supervisory Addendum Participated in pt care: history, MDM, physical Personally performed: exam, history, MDM Care discussed with: PA Results interpretation: Verified all documentation Notes: Patient was seen and evaluated with Danni, examination performed, management plan was discussed, agree with the current scribed note, I made few changes to the note using Italic font Patient was seen at bedside, she became lethargic and had right upper extremity weakness. Lasted for about an hour. Currently better, muscle strength is better more awake and responsive Work-up is still in progress as described above. Conservative management is recommended DANNI PACE May 26, 2023 10:11 REINIER GUERRERO MD May 26, 2023 14:27
--- NOTE | 2023-05-26 13:00 | Diagnostic Imaging Report ---
PROCEDURE: CT head wo r/o stroke. TECHNIQUE: Multiple contiguous axial images were obtained through the brain without the use of intravenous contrast. Auto Exposure Controls were utilized during the CT exam to meet ALARA standards for radiation dose reduction. INDICATION: Right-sided weakness and loss of speech. No prior studies are available for comparison. FINDINGS: Ventricles and sulci are appropriate for the patient's age. There is moderate periventricular low attenuation consistent with chronic microvascular ischemia. The munoz-white matter interface is maintained. There is no sulcal effacement or midline shift. No acute intra-axial or extra-axial hemorrhage is detected. Cisterns are patent. The visualized paranasal sinuses are clear. IMPRESSION: Changes of chronic microvascular ischemia. No acute intracranial process is detected. Dictated by: Dictated on workstation # [id number]
[2023-05-26] MEDS ORDERED: NS IV 500 ML 500 ML IV PRN (13:15)
[2023-05-26] MEDS ORDERED: HYDROcodone/ACETAMINOPHEN 5 MG/325 MG TABLET PO PRN (13:15)
[2023-05-26 13:22] LABS: TRIGLYCERIDES 114 MG/DL (<150); VLDL CHOLESTEROL 23 MG/DL (5-40)
[2023-05-26 13:27] LABS: CHOLESTEROL 186 MG/DL (< 200)
--- NOTE | 2023-05-26 13:27 | Progress Note - Hospitalist ---
KENDRA TRAORE 05/26/23 1327: Subjective HPI/CC On Admission Date Seen by Provider: May 26, 2023 Time Seen by Provider: 09:30 Acute on Chronic hypoxic respiratory failure Subjective/Events-last exam 929 Pt is resting comfortable in chair without respiratory distress. Pt states that she is feeling fair at the time and is amenable to discharge home today (05/26). She has only used BIPAP at night when sleeping and uses 3L NC when awake. Pt denies chest pain, shortness of breath, nausea, abd pain. 1315 Pt was sitting down eating her lunch around 1230 and talking to the RN when pt started complaining of headache. Soon after, pt was unable to talk and started having right sided weakness. Rapid response was called for possible stroke. Stroke protocol was performed. Pt was sent for head CT and then transferred to ICU. NIH Score Level of Consciousness: 0 Level of Consciousness- Questions: 2 Level of Consciousness- Commands: 0 Gaze: 0 Visual Goss: 1 Facial Movement: 0 Motor Function- Arms: R 0 L0 Motor Function- Legs: R 0 L0 Limb Ataxia: 0 Sensory: 0 Best Language: 1 Dysarthria: 1 Extinction and Inattention: 1 Total: 6 (moderate) Review of Systems General: Fatigue Pulmonary: No Dyspnea; Cough Cardiovascular: No: Chest Pain, Palpitations Gastrointestinal: No: Nausea, Abdominal Pain Objective Exam Vital Signs Vital Signs Date Time Temp Pulse Resp B/P (MAP) Pulse Ox O2 Delivery O2 Flow Rate FiO2 05/26/23 12:58 101 05/26/23 11:29 36.6 17 128/68 (88) 96 Nasal Cannula 2.00 05/24/23 20:00 30 Capillary Refill : Less Than 3 Seconds General Appearance: No Apparent Distress, Chronically ill Respiratory: Chest Non Tender, Lungs Clear, Normal Breath Sounds (upper lobes b/l), No Accessory Muscle Use, No Respiratory Distress, Crackles (bibasilar crackles noted b/l) Cardiovascular: Regular Rate, Rhythm, No Gallop, No Murmur Neurologic/Psychiatric: Alert, Oriented x3, No Motor/Sensory Deficits, Normal Mood/Affect Skin: Normal Color, Warm/Dry Results/Procedures Lab Laboratory Tests 05/26/23 05:32 Patient resulted labs reviewed. Assessment/Plan Assessment and Plan Assess & Plan/Chief Complaint Assessment 1. Acute on Chronic hypoxic respiratory failure 2. COPD Exacerbation 3. Elevated BNP 4. Stroke Plan 1. Steroids 2. O2 3. Nebs 4. Cardio Consult 5. Transfer to ICU 6.Stroke protocol Clinical Quality Measures Smoking Cessation Counseling: Counseling-Symptomatic: 3-10 Minutes GUILLERMINA MARTINEZ DO 05/26/232034: Subjective Subjective/Events-last exam Patient was set for discharge but she abruptly had a change of status and right- sided weakness and aphasia Patient transferred up to the ICU Cardiology evaluated telemetry strips with tachycardia MRI showed some attenuation on the left side consistent with a right sided weakness Much improved not a tPA candidate Review of Systems General: Fatigue Objective Exam General Appearance: No Apparent Distress, WD/WN, Chronically ill Respiratory: Lungs Clear, Normal Breath Sounds (upper lobes b/l) Cardiovascular: Regular Rate, Rhythm Assessment/Plan Assessment and Plan Assess & Plan/Chief Complaint Assessment: TIA versus CVA with right-sided weakness with aphasia now resolved Severe end stage COPD Plan: O2 Lipitor Carotid ultrasound Plavix and aspirin Supervisory-Addendum Brief Verification & Attestation Participated in pt care: history, MDM, physical Personally performed: exam, history, MDM, supervision of care Care discussed with: Medical Student Procedures: n/a Results interpretation: Verified all documentation Verification and Attestation of Medical Student E/M Service A medical student performed and documented this service in my presence. I reviewed and verified all information documented by the medical student and made modifications to such information, when appropriate. I personally performed the physical exam and medical decision making. Guillermina Martinez, May 26, 2023,20:32 KENDRA TRAORE May 26, 2023 13:27 GUILLERMINA MARTINEZ DO May 26, 2023 20:35
[2023-05-26 13:28] LABS: HDL CHOLESTEROL 75 MG/DL (40-60)
--- NOTE | 2023-05-26 14:04 | Speech Therapy Progress Note ---
Therapy Progress Note Speech pathology received the clinical bedside swallowing evaluation, completed a chart review and attempted the evaluation at 1403. At this time the patient is out of the room. Please complete the RN Dysphagia Screen as able and appropriate. ST will re-attempt the oropharyngeal swallowing evaluation on the subsequent treatment date of 05/27/23. RUDDY BLANKENSHIP May 26, 2023 14:04
[2023-05-26] MEDS ORDERED: RT-ALBUTEROL HFA 8.5 GM INHALER IH PRN (14:15)
[2023-05-26] MEDS: oxyCODONE IMMEDIATE RELEASE 5 MG TABLET PO PRN (14:42)
[2023-05-26] MEDS: ENOXAPARIN 40 MG/0.4 ML SYRINGE SQ SCH (14:42)
--- NOTE | 2023-05-26 16:00 | Diagnostic Imaging Report ---
PROCEDURE: MR imaging of the brain without contrast. TECHNIQUE: Multiplanar, multisequence MR imaging of the brain was performed without contrast. INDICATION: Right-sided weakness and speech difficulty. COMPARISON: Noncontrast head CT performed earlier this same day. FINDINGS: The ventricular size is normal. The overall quality of the study is significantly compromised due to patient motion. The patient was unable to hold still for the entire study. There are moderate periventricular and subcortical white matter changes noted, consistent with chronic microvascular ischemia. No hemorrhage is detected. The normal expected flow-voids at the carotid siphons are seen. There is a questionable small area of diffusion restriction on the left side in the region of the insula and left temporal frontal lobe subcortical region and cortical region. No large territory diffusion restriction is seen. No other areas of diffusion restriction are identified. The corpus callosum is unremarkable. The sella and parasellar structures are unremarkable. IMPRESSION: Changes of chronic microvascular ischemia. There are small areas of diffusion restriction in the left cerebral hemisphere as described, suggestive of small areas of acute/subacute infarct. The overall quality of the study is limited due to significant patient motion. No acute intracranial hemorrhage is detected. Dictated by: Dictated on workstation # [id number]
--- NOTE | 2023-05-26 17:02 | Tele-ICU Consult ---
History of Present Illness History of Present Illness Date Seen by Provider: May 26, 2023 Time Seen by Provider: 16:54 Reason for Visit: Elevated BNP History of Present Illness eICU Critical Care Consult 73 yo F around 1 pm developed right sided weakness, aphasia and confustion NIH score 6, CT head showed no acute process, MRI suggested possible small areas of acute/subacute infarct. in left hemisphere.At present speech is clear, not confused, no longer weak on right Other PMH COPD, on 3 lpm NC day and BiPAP at night Allergies and Home Medications Allergies Coded Allergies: No Known Drug Allergies (Unverified , 08/06/17) Home Medications ALPRAZolam 0.25 Mg Tablet, 0.25 MG PO DAILY PRN for ANXIETY, (Reported) Albuterol Sulfate 1 Puff Puff, 2 PUFF IH Q4H PRN for SHORTNESS OF BREATH, (Reported) Atorvastatin Calcium 10 Mg Tablet, 10 MG PO HS, (Reported) Cefdinir 300 Mg Capsule, 300 MG PO BID, (Reported) FILLED 05-18-2023 #14/7 DAY SUPPLY Cetirizine HCl 10 Mg Tablet, 10 MG PO DAILY, (Reported) Fluticasone/Salmeterol 250 Mcg-50 Mcg/Dose Blst.w.dev, 1 PUFF INH BID, (Reported) Hydrocodone/Acetaminophen 5 Mg-325 Mg Tablet, 1 TAB PO Q6H PRN for PAIN-MODERATE (5-7), (Reported) Prednisone 10 Mg Tab, 10 MG PO DAILY, (Reported) Umeclidinium Byron 62.5 Mcg/Actuation Blst.w.dev, 1 PUFF INH DAILY, (Reported) Past Medical/Social/Family Hx Patient Social History Employed/Student: retired Tobacco Use?: Yes Tobacco type used: Cigarettes Smoking Status: Current Everyday Smoker Use of E-Cig and/or Vaping dev: No Substance use?: No Alcohol Use?: No Pt stated abuse/neglect: No Immunizations Up To Date Influenza Vaccine Up-to-Date: Yes; Up-to-Date First/Initial COVID19 Vaccinat: Date ? Second COVID19 Vaccination Schuyler: Date ? Tetanus Booster (TDap): Less Than 5 Years Hepatitis A: No Hepatitis B: No TB Skin Test: None Current Status status: No status: No Advance Directives: No Communicates: Verbally Primary Language: Latvian Preferred Spoken Language: Latvian Is interpretation needed?: No Sensory deficits: Vision impairment Implanted or Applied Medical D: None Past Medical History PMHx: COPD Oxygen Supplementation 3L continuous SurgHx: Bilateral cataracts Review of Systems Constitutional: see HPI EENTM: see HPI Respiratory: see HPI Cardiovascular: see HPI Gastrointestinal: see HPI Genitourinary: see HPI Musculoskeletal: see HPI Skin: see HPI Psychiatric/Neurological: See HPI Focused Exam Height, Weight, BMI Height: 5'4.00" Weight: 120lbs. 8.0oz. 54.139281tu; 21.28 BMI Method:Stated Exam Exam Patient acknowledged, consented, and participated in this virtual visit which was conducted using real time audio/video Vital Signs Date Time Temp Pulse Resp B/P (MAP) Pulse Ox O2 Delivery O2 Flow Rate FiO2 05/26/23 16:14 36.1 05/26/23 16:00 98 11 129/78 (95) 98 Nasal Cannula 2.00 05/26/23 15:39 98 Nasal Cannula 3.00 05/26/23 15:19 91 14 132/95 98 05/26/23 15:04 90 13 132/81 98 05/26/23 15:00 93 13 132/81 (98) 98 Nasal Cannula 2.00 05/26/23 14:49 97 16 127/102 97 05/26/23 14:45 108 27 127/102 (110) 97 Nasal Cannula 2.00 05/26/23 14:34 140/84 05/26/23 14:30 112 30 140/84 (102) 96 Nasal Cannula 2.00 05/26/23 14:19 105 139/70 97 05/26/23 14:15 105 21 139/70 (93) 97 Nasal Cannula 2.00 05/26/23 14:04 138/77 05/26/23 14:00 96 9 138/77 (97) 94 Nasal Cannula 2.00 05/26/23 13:34 104 95 05/26/23 13:19 101 130/73 94 05/26/23 13:15 101 9 130/73 (92) 94 Nasal Cannula 2.00 05/26/23 13:04 94 16 116/72 95 05/26/23 13:00 94 16 116/72 (87) 95 Nasal Cannula 2.00 05/26/23 12:58 101 05/26/23 12:49 94 116/72 95 05/26/23 12:45 102 16 116/78 (91) 95 Nasal Cannula 2.00 05/26/23 11:29 36.6 109 17 128/68 (88) 96 Nasal Cannula 2.00 05/26/23 10:53 98 Nasal Cannula 2.00 05/26/23 09:00 Nasal Cannula 3.00 05/26/23 07:28 36.5 119 17 95 Nasal Cannula 2.00 05/26/23 07:07 98 Nasal Cannula 2.00 05/26/23 03:39 36.0 97 18 114/66 (82) 98 NIV Bilevel 3.00 3.00 05/26/23 02:31 30.00 05/25/23 23:09 36.2 86 18 106/78 (87) 96 NIV Bilevel 05/25/23 22:18 30.00 05/25/23 22:09 Nasal Cannula 3.00 05/25/23 20:53 Nasal Cannula 3.00 05/25/23 19:35 36.4 104 18 126/66 (86) 96 Nasal Cannula 3.00 05/25/23 18:41 Nasal Cannula 3.00 I & O 05/26/23 07:00 Intake Total 970 ml Output Total 850 ml Balance 120 ml Height & Weight Height: 5'4.00" Weight: 120lbs. 8.0oz. 54.959209vt; 21.28 BMI Method:Stated General Appearance: No Apparent Distress, Chronically ill HEENT: PERRL/EOMI, Normal ENT Inspection, Other (Dry oropharynx) Neck: Normal Inspection; No JVD Respiratory: Chest Non Tender, Lungs Clear, Normal Breath Sounds (upper lobes b/l), No Accessory Muscle Use, No Respiratory Distress, Crackles (bibasilar crackles noted b/l), Decreased Breath Sounds Cardiovascular: Regular Rate, Rhythm, No Edema, No Gallop, No Murmur Capillary Refill: Less Than 3 Seconds Gastrointestinal: normal bowel sounds, non tender, soft Extremity: No Pedal Edema Neurologic/Psychiatric: Alert, Oriented x3, No Motor/Sensory Deficits, Normal Mood/Affect, Other (no motor weakness, pupils equal) Skin: Normal Color, Warm/Dry Results Lab Laboratory Tests 05/25/23 04:16 9/20/23 05:32 Assessment/Plan Assessment/Plan Possible TIA, teleneurology to see continue Rx for COPD Critical Care: Critically Ill Patient Time spent with patient (mins): 25 KELLY MELLO MD May 26, 2023 17:02
[2023-05-26] MEDS: ALPRAZolam 0.25 MG TABLET PO PRN (17:39)
[2023-05-26] MEDS: ACETAMINOPHEN 500 MG TABLET PO PRN (17:40)
[2023-05-26] MEDS: TIOTROPIUM INH 4 GM (SPIRIVA Respimat) IH SCH (18:29)
[2023-05-26] MEDS: FLUTICASONE/VILANTEROL 100/25 MCG (7 DOSES) IH SCH (18:29)
[2023-05-26] MEDS ORDERED: NON-FORMULARY MEDICATION 1 EA EA (Fluticasone/Salmeterol (Advair 250-50 Diskus) 1 PUFF) INH SCH (21:00)
[2023-05-27] MEDS: oxyCODONE IMMEDIATE RELEASE 5 MG TABLET PO PRN (00:30)
[2023-05-27] MEDS: ACETAMINOPHEN 500 MG TABLET PO PRN (02:18)
[2023-05-27] MEDS: ALPRAZolam 0.25 MG TABLET PO PRN (02:18)
[2023-05-27 02:56] VITALS: BP 106/59
[2023-05-27] MEDS: RT-Ipratropium/Albuterol NEB 3 ML VIAL IH SCH ×3 (02:56→10:10)
[2023-05-27 03:53] LABS: BASOPHILS % (AUTO) 0 % (0-10); EOSINOPHILS # (AUTO) 0.1 10^3/uL (0.0-0.3); EOSINOPHILS % (AUTO) 1 % (0-10); HEMATOCRIT 40 % (35-52); HEMOGLOBIN 13.5 g/dL (11.5-16.0); LYMPHOCYTES # (AUTO) 4.5 10^3/uL (1.0-4.0); LYMPHOCYTES % (AUTO) 29 % (12-44); MEAN CORPUSCULAR HEMOGLOBIN 30 pg (25-34); MEAN CORPUSCULAR HGB CONC 34 g/dL (32-36); MEAN CORPUSCULAR VOLUME 90 fL (80-99); MEAN PLATELET VOLUME 10.3 fL (9.0-12.2); MONOCYTES # (AUTO) 1.4 10^3/uL (0.0-1.0); MONOCYTES % (AUTO) 9 % (0-12); NEUTROPHILS # (AUTO) 9.5 10^3/uL (1.8-7.8); NEUTROPHILS % (AUTO) 60 % (42-75); PLATELET COUNT 281 10^3/uL (130-400); WHITE BLOOD COUNT 15.7 10^3/uL (4.3-11.0)
[2023-05-27 04:26] LABS: ALBUMIN 3.6 GM/DL (3.2-4.5); BAND NEUTROPHILS 0 %; BASOPHILS % (MANUAL) 0 %; BILIRUBIN,TOTAL 1.4 MG/DL (0.1-1.0); CALCIUM 9.2 MG/DL (8.5-10.1); CREATININE SERUM 0.8 MG/DL (0.60-1.30); EOSINOPHILS % (MANUAL) 0 %; LYMPHOCYTES % (MANUAL) 39 %; MONOCYTES % (MANUAL) 4 %; NEUTROPHILS % (MANUAL) 57 %; PHOSPHORUS 4.4 MG/DL (2.3-4.7); POTASSIUM 3.5 MMOL/L (3.6-5.0); RBC MORPH NORMAL; TOTAL PROTEIN 5.9 GM/DL (6.4-8.2)
[2023-05-27] MEDS ORDERED: MAGNESIUM 1 GM/100 ML IVPB 100 ML IV SCH (06:00)
[2023-05-27] MEDS ORDERED: POTASSIUM CL 10MEQ/50ML IVPB 50 ML IV SCH (06:00)
[2023-05-27] MEDS ORDERED: POTASSIUM CHLORIDE 20 MEQ TABLET PO SCH (06:00)
[2023-05-27] MEDS: RT-BUDESONIDE NEBS 0.5 MG/2ML VIAL INH SCH (07:01)
[2023-05-27] MEDS: TIOTROPIUM INH 4 GM (SPIRIVA Respimat) IH SCH (07:02)
[2023-05-27] MEDS: FLUTICASONE/VILANTEROL 100/25 MCG (7 DOSES) IH SCH (07:03)
--- NOTE | 2023-05-27 07:54 | Diagnostic Imaging Report ---
PROCEDURE: US carotid duplex, bilateral. TECHNIQUE: Multiple real-time grayscale images were obtained over the carotid arteries in various projections, bilaterally. Additional spectral analysis and color Doppler duplex images were also obtained. INDICATION: CVA. EXAMINATION: Ultrasound carotid bilateral 05/27/2023 FINDINGS: There is moderate atherosclerotic disease noted at the carotid bulbs, right worse than left, extending into the proximal internal carotid arteries and external carotid arteries. There is an elevated ICA/CCA ratio on the right of 2.4. Remaining velocities and ratios unremarkable. Antegrade flow seen in the vertebral arteries. IMPRESSION: 1. Elevated ICA/CCA ratio on the right as above. Marked atherosclerotic disease bilaterally, right worse than left. Parameters based on the consensus panel Stark-Scale and Doppler ultrasound criteria published July 2003, Radiology, Volume 229. DOPPLER (peak systolic velocity M/S Right Left CCA .54 .65 ICA Proximal 1.30 .78 ICA Mid 1.01 .68 ICA Distal .87 .72 RATIO 2.41 1.21 ECA .98 1.0 VERT .87 .66 Dictated by: Dictated on workstation # [id number]
[2023-05-27] MEDS ORDERED: POTASSIUM CHLORIDE 20 MEQ TABLET PO ONE (08:00)
[2023-05-27] MEDS: FUROSEMIDE 40 MG TABLET PO SCH (08:06)
[2023-05-27] MEDS: FLUoxetine 20 MG CAPSULE PO SCH (08:07)
[2023-05-27] MEDS: amLODIPine 5 MG TABLET PO SCH (08:07)
--- NOTE | 2023-05-27 08:24 | Speech Therapy Progress Note ---
Therapy Progress Note The clinician completed a chart review on this date. Per note, the patient's speech has returned to normal and "passed" the RN Dysphagia Screen, receiving a regular diet consistency with thin liquids. At this time, skilled speech pathology services are not warranted. Please re-consult speech pathology with additional concerns. Thank you for the consultation. RUDDY BLANKENSHIP May 27, 2023 08:24
--- NOTE | 2023-05-27 08:25 | Cardiology Progress Note ---
Subjective Date Seen by Provider: May 27, 2023 Time Seen by Provider: 08:22 Subjective/Events-last exam Patient was seen at bedside, still complaining of fatigue and loss of energy. She was transferred to ICU after having TIA with slurred speech and right upper extremity weakness Objective-Cardiology Exam Last Set of Vital Signs Vital Signs 05/27/23 05/27/23 05/27/23 03:50 06:00 07:03 Temp 36.9 Pulse 81 Resp 16 B/P (MAP) 109/57 (74) Pulse Ox 98 O2 Delivery Nasal Cannula O2 Flow Rate 2.50 FiO2 30 I&O Intake and Output 05/27/23 00:00 Intake Total 400 ml Output Total 400 ml Balance 0 ml Intake Oral 400 ml Output Urine Total 400 ml # Voids 2 General: Alert, Oriented X3, Cooperative HEENT: Atraumatic, PERRLA Neck: Supple, No JVD, No Thyromegaly Lungs: Clear to Auscultation, Normal Air Movement Heart: Regular Rate, Normal S1, Normal S2, No Murmurs Abdomen: Normal Bowel Sounds, Soft, No Tenderness, No Hepatosplenomegaly, No Masses Extremities: No Clubbing, No Cyanosis, No Edema, Normal Pulses, No Tenderness/Swelling Skin: No Rashes, No Breakdown, No Significant Lesion Neuro: Normal Gait, Normal Speech, Strength at 5/5 X4 Ext, Normal Tone, Sensation Intact Psych/Mental Status: Mental Status NL, Mood NL Results Lab Laboratory Tests 05/27/23 03:41 A/P-Cardiology Admission Diagnosis Acute respiratory failure AE COPD/emphysema Elevated BNP HLP Assessment/Plan Status post TIA on May 26, 2023 MRI suggestive of acute/subacute infarct on the left side Carotid ultrasound showed severe bilateral carotid stenosis right worse than the left. Starting aspirin and Plavix Status post acute respiratory failure, improving slowly Still having shortness of breath with tachycardia on exertion. Managed by primary care team AE COPD/emphysema, patient with advanced COPD. Management per medical services Elevated BNP. 2D Echo done 05/20/[address] Martínez showing EF 55- 60%, grade 2 diastolic dysfunction, PA 23mmHg. Continue to diurese Hyperlipidemia, Lipitor 80 mg daily Tobaccoism, educated on the importance of smoking cessation REINIER GUERRERO MD May 27, 2023 08:25
[2023-05-27] MEDS ORDERED: NON-FORMULARY MEDICATION 1 EA EA (Cetirizine HCl (Zyrtec) 10 MG) PO SCH (09:00)
[2023-05-27] MEDS ORDERED: LORATADINE 10 MG TABLET PO SCH (09:00)
[2023-05-27] MEDS ORDERED: UMECLIDINIUM BROMIDE (INCRUSE ELLIPTA) 7'S IH SCH (09:00)
[2023-05-27] MEDS ORDERED: ASPIRIN enteric coated 81MG TABLET PO SCH (09:00)
[2023-05-27] MEDS ORDERED: CLOPIDOGREL 75 MG TABLET PO SCH (09:00)
[2023-05-27] MEDS ORDERED: ASPI-1238 PO (10:45)
[2023-05-27] MEDS ORDERED: CLOP75TA28 PO (10:45)
[2023-05-27] MEDS ORDERED: FLUO20CA48 PO (10:45)
[2023-05-27] MEDS ORDERED: ATOR80TA76 PO (10:45)
[2023-05-27] MEDS ORDERED: FURO40TA4 PO (10:45)
[2023-05-27] MEDS ORDERED: AMLO-250 PO (10:45)
--- NOTE | 2023-05-27 10:45 | Discharge Summary ---
Discharge Summary Hospital Course Was the Problem List Reviewed?: Yes Problems/Dx: (1) Acute respiratory failure Status: Acute Qualifiers: Qualified Codes: J96.01 - Acute respiratory failure with hypoxia; J96.02 - Acute respiratory failure with hypercapnia (2) COPD with exacerbation Status: Acute (3) CVA (cerebral vascular accident) (4) Smoker Status: Chronic Hospital Course Date of Admission: May 20, 2023 at 13:00 Admission Diagnosis : [facility] Date of Discharge: 05/27/23 Discharge Diagnosis: [ ] Hospital Course: CC: Dyspnea HPI: This is a 73yo female w/ pmh of COPD, Chronic respiratory failure, and 1 PPD smoking history presented to [facility] ED by POV on 05/16 with increased shortness of breath that required constant use of 3L of O2 at home while she is normally 2L O2 PRN. Pt was diagnosed with Acute COPD exacerbation and treated with PO prednisone, duoneb, and IV solu-medrol and she was discharged home. Pt returned to [facility] ED by EMS on 05/18 with worsening shortness of breath. Patient had CXR performed that showed clear lungs without infiltrates and labs (CBC, CMP) that were unremarkable. Pt was treated with IV Magnesium and IV Ceftriaxone in ED and discharged home with PO cefidinir. Then, pt presented to [place] ED on 05/20 via EMS with worsening shortness of breath that required her to be on BIPAP all day at home and she was unable to eat because of this. Vitals upon arrival were HR 115 RR 16 BP 126/73 O2 sats 95% RA Temp 36.4*C. Pt labs included CBC, CMP, CRP, Covid PCR, Influenza A&B PCR, Mg++, Pro-BNP, and CXR. All labs were unremarkable except elevated WBC (>14) and Pro-BNP (>2000). Treatment in ED included DuoNeb, albuterol neb tx, 500ml NS, and BIPAP. Pt was admitted to ICU for Acute on Chronic hypoxic respiratory failure, COPD exacerbation with hypercapnia, and New onset CHF. Pt treatment included Duoneb q 4h, BIPAP, prednisone, O2 therapy. Pt condition improved and she was planned for discharge on 05/26, but at 1230p on 05/26, pt developed headache that progressed to dysarthria and right-sided weakness and a Code Stroke was called. Pt had a NIH score of 6. Pt had head CT, head MRI, carotid ultrasound, EKG performed. Head CT showed chronic microvascular ischemia, but no acute changes. Head MRI showed chronic microvascular ischemia, no hemorrhage, and small areas of left cerebral hemisphere that were consistent with acute/subacute infarcts. carotid US showed moderate atherosclerosis of CCA b/l and an elevated right ICA/CCA ratio. EKG showed RRR w/o murmur. eICU physician saw patient at 1654 on 05/26 and noted that speech was normal, no confusion, and no more right-sided weakness. Pt did not qualify for tPA and was started on aspirin and plavix. Pt condition improved to baseline before Code Stroke and she was diagnosed with TIA. Pt is discharged home on 05/27 and counseled about tobacco cessation. New discharge meds include aspirin 81mg PO qd, plavix 75mg PO qd, and increased dose of atorvastatin 80mg PO qd HS. KENDRA TRAORE Labs and Pending Lab Test: Laboratory Tests 05/26/23 12:34: Glucometer 157H 05/27/23 03:41: White Blood Count 15.7H, Red Blood Count 4.49, Hemoglobin 13.5, Hematocrit 40, Mean Corpuscular Volume 90, Mean Corpuscular Hemoglobin 30, Mean Corpuscular Hemoglobin Concent 34, Red Cell Distribution Width 12.7, Platelet Count 281, Mean Platelet Volume 10.3, Immature Granulocyte % (Auto) 1, Neutrophils (%) (Auto) 60, Lymphocytes (%) (Auto) 29, Monocytes (%) (Auto) 9, Eosinophils (%) (Auto) 1, Basophils (%) (Auto) 0, Neutrophils # (Auto) 9.5H, Lymphocytes # (Auto) 4.5H, Monocytes # (Auto) 1.4H, Eosinophils # (Auto) 0.1, Basophils # (Auto) 0.0, Immature Granulocyte # (Auto) 0.2H, Neutrophils % (Manual) 57, Lymphocytes % (Manual) 39, Monocytes % (Manual) 4, Eosinophils % (Manual) 0, Basophils % (Manual) 0, Band Neutrophils 0, Blood Morphology Comment NORMAL, Sodium Level 138, Potassium Level 3.5L, Chloride Level 93L, Carbon Dioxide Level 34H, Anion Gap 11, Blood Urea Nitrogen 26H, Creatinine 0.80, Estimat Glomerular Filtration Rate 79, BUN/Creatinine Ratio 33, Glucose Level 95, Calcium Level 9.2, Corrected Calcium 9.5, Phosphorus Level 4.4, Magnesium Level 2.0, Total Bilirubin 1.4H, Aspartate Amino Transf (AST/SGOT) 28, Alanine Aminotransferase (ALT/SGPT) 46, Alkaline Phosphatase 54, Total Protein 5.9L, Albumin 3.6 Home Meds Active Furosemide 40 Mg Tablet 40 Mg PO DAILY Fluoxetine HCl 20 Mg Capsule 20 Mg PO DAILY Aspirin EC (Aspirin) 81 Mg Tablet.dr 81 Mg PO DAILY Amlodipine Besylate 5 Mg Tablet 5 Mg PO DAILY Atorvastatin Calcium 80 Mg Tablet 80 Mg PO HS Clopidogrel (Clopidogrel Bisulfate) 75 Mg Tablet 75 Mg PO DAILY Reported Hydrocodone-Acetamin 5-325 mg (Hydrocodone/Acetaminophen) 5 Mg-325 Mg Tablet 1 Tab PO Q6H PRN Cefdinir 300 Mg Capsule 300 Mg PO BID FILLED 05-18-2023 #14/7 DAY SUPPLY Incruse Ellipta (Umeclidinium Chana) 62.5 Mcg/Actuation Blst.w.dev 1 Puff INH DAILY Advair 250-50 Diskus (Fluticasone/Salmeterol) 250 Mcg-50 Mcg/Dose Blst.w.dev 1 Puff INH BID Prednisone 10 Mg Tab 10 Mg PO DAILY Atorvastatin Calcium 10 Mg Tablet 10 Mg PO HS Zyrtec (Cetirizine HCl) 10 Mg Tablet 10 Mg PO DAILY ALPRAZolam 0.25 Mg Tablet 0.25 Mg PO DAILY PRN Ventolin Hfa (Albuterol Sulfate) 1 Puff Puff 2 Puff IH Q4H PRN Assessment/Pt Instructions PCP 1 week [facility] consultation for carotid stenosis Stop smoking Discharge Planning: <30 minutes discharge planning Discharge Instructions Discharge Diet: No Restrictions Discharge Physical Examination Vital Signs Vital Signs Date Time Temp Pulse Resp B/P (MAP) Pulse Ox O2 Delivery O2 Flow Rate FiO2 05/27/23 10:10 99 Nasal Cannula 2.00 05/27/23 10:00 76 17 120/71 (87) 05/27/23 03:50 30 05/27/23 03:50 36.9 General Appearance: No Apparent Distress, WD/WN, Chronically ill Allergies: Coded Allergies: No Known Drug Allergies (Unverified , 08/06/17) Discharge Summary Date of Admission May 20, 2023 at 13:00 Date of Discharge Discharge Date: May 27, 2023 Discharge Diagnosis Assessment: TIA versus CVA with right-sided weakness with aphasia now resolved Severe end stage COPD Plan: O2 Lipitor Carotid ultrasound Plavix and aspirin Clinical Quality Measures Smoking Cessation Counseling: Counseling-Symptomatic: 3-10 Minutes SOURAV ROSENBERG DO May 27, 2023 10:45
--- NOTE | 2023-05-27 11:11 | Physical Therapy Progress Note ---
Therapy Progress Note Patient dismissing to home at this time. No PT indicated. TOMASA EDWARDS PT May 27, 2023 11:11
--- NOTE | 2023-05-27 13:43 | Progress Note ---
KENDRA TRAORE 05/27/23 1343: Progress Note CC: Dyspnea HPI: This is a 73yo female w/ pmh of COPD, Chronic respiratory failure, and 1 PPD smoking history presented to [facility] ED by POV on 05/16 with increased shortness of breath that required constant use of 3L of O2 at home while she is normally 2L O2 PRN. Pt was diagnosed with Acute COPD exacerbation and treated with PO prednisone, duoneb, and IV solu-medrol and she was discharged home. Pt returned to [facility] ED by EMS on 05/18 with worsening shortness of breath. Patient had CXR performed that showed clear lungs without infiltrates and labs (CBC, CMP) that were unremarkable. Pt was treated with IV Magnesium and IV Ceftriaxone in ED and discharged home with PO cefidinir. Then, pt presented to [place] ED on 05/20 via EMS with worsening shortness of breath that required her to be on BIPAP all day at home and she was unable to eat because of this. Vitals upon arrival were HR 115 RR 16 BP 126/73 O2 sats 95% RA Temp 36.4*C. Pt l abs included CBC, CMP, CRP, Covid PCR, Influenza A&B PCR, Mg++, Pro-BNP, and CXR. All labs were unremarkable except elevated WBC (>14) and Pro-BNP (>2000). Treatment in ED included DuoNeb, albuterol neb tx, 500ml NS, and BIPAP. Pt was admitted to ICU for Acute on Chronic hypoxic respiratory failure, COPD exacerbation with hypercapnia, and New onset CHF. Pt treatment included Duoneb q4h, BIPAP, prednisone, O2 therapy. Pt condition improved and she was planned for discharge on 05/26, but at 1230p on 05/26, pt developed headache that progressed to dysarthria and right-sided weakness and a Code Stroke was called. Pt had a NIH score of 6. Pt had head CT, head MRI, carotid ultrasound, EKG performed. Head CT showed chronic microvascular ischemia, but no acute changes. Head MRI showed chronic microvascular ischemia, no hemorrhage, and small areas of left cerebral hemisphere that were consistent with acute/subacute infarcts. carotid US showed moderate atherosclerosis of CCA b/l and an elevated right ICA/CCA ratio. EKG showed RRR w/o murmur. eICU physician saw patient at 1654 on 05/26 and noted that speech was normal, no confusion, and no more right-sided weakness. Pt did not qualify for tPA and was started on aspirin and plavix. Pt condition improved to baseline before Code Stroke and she was diagnosed with TIA. Pt is discharged home on 05/27 and counseled about tobacco cessation. New discharge meds include aspirin 81mg PO qd, plavix 75mg PO qd, and increased dose of atorvastatin 80mg PO qd HS. GUILLERMINA MARTINEZ DO 05/27/232102: Supervisory-Addendum Brief Verification & Attestation Participated in pt care: history, MDM, physical Personally performed: exam, history, MDM, supervision of care Care discussed with: Medical Student Procedures: n/a Results interpretation: Verified all documentation Verification and Attestation of Medical Student E/M Service A medical student performed and documented this service in my presence. I reviewed and verified all information documented by the medical student and made modifications to such information, when appropriate. I personally performed the physical exam and medical decision making. Guillermina Martinez, May 27, 2023,21:03 KENDRA TRAORE May 27, 2023 13:43 GUILLERMINA MARTINEZ DO May 27, 2023 21:03
== END 2023-05-27 12:00 | disposition home or self-care (01) | DRG 190 ==
LOC: EDUNIT# 09:36 → ER FS 09:37 → CSD 13:00 → 4TH 05-25 11:23 → ICU 05-26 12:49
PROVIDERS: ADMIT Family Medicine; ATTEND Internal Medicine
PROC: 5A09357 Assistance with Respiratory Ventilation, Less than 24 Consecutive Hours, Continuous Positive Airway Pressure (ICD-10-PCS; principal; 2023-05-20)
DX: J43.9 Emphysema, unspecified (principal); J96.21 Acute and chronic respiratory failure with hypoxia; J96.22 Acute and chronic respiratory failure with hypercapnia; G45.9 Transient cerebral ischemic attack, unspecified; I50.9 Heart failure, unspecified; R29.706 NIHSS score 6; F17.210 Nicotine dependence, cigarettes, uncomplicated; F32.A Depression, unspecified; F41.9 Anxiety disorder, unspecified; Z99.81 Dependence on supplemental oxygen; Z79.899 Other long term (current) drug therapy; Z20.822 Contact with and (suspected) exposure to COVID-19
CPT/HCPCS: 36415; 36600; 70450; 70551; 71045; 80053; 80061; 82805; 82947; 83735; 83880; 84100; 85007; 85025; 85027; 86141; 87636; 93005; 93306; 93880; 94640; 94660; 94760; 94761